=== PATIENT | male | born 1955 | race Caucasian/White ===

== ENCOUNTER → 2017-06-28 | Outpatient (CLI) | payer OTHER ==
--- NOTE | 2017-06-28 12:31 | XR ---
EXAMINATION TYPE: XR chest 2V DATE OF EXAM: 06/28/2017 COMPARISON: 06/06/2017 and 06/07/2017. HISTORY: Emphysema and prior pulmonary cavitary lesion TECHNIQUE: Frontal and lateral views of the chest are obtained. FINDINGS: There is a similar appearing moderate left pleural effusion obscuring the retrocardiac air space and left hemidiaphragm as well the costophrenic angle. Remainder the lungs are clear. Post CABG changes the mediastinum are again noted. Cardiac silhouette is enlarged and partially obscured. IMPRESSION: Redemonstration of a moderate left pleural effusion and left basilar opacity. The previo usly seen cavitary lesion is not identified radiographically and may be obscured.
== END | disposition home or self-care (01) ==
LOC: RADXRMAIN 11:20
PROVIDERS: ATTEND Internal Medicine Infectious Disease
DX: J90 Pleural effusion, not elsewhere classified (principal); R91.8 Other nonspecific abnormal finding of lung field
CPT/HCPCS: 71046

== ENCOUNTER 2017-06-30 09:35 | Inpatient (IN) | payer OTHER ==
[2017-06-30] MEDS ORDERED: IPRATROPIUM-ALBUTEROL 3 ML NEB INHALATION STA (10:22)
[2017-06-30] MEDS ORDERED: IBUPROFEN 600 MG TAB PO STA (10:22)
[2017-06-30] MEDS ORDERED: ACETAMINOPHEN TAB 500 MG TAB PO STA (10:22)
--- NOTE | 2017-06-30 10:25 | ED ---
General Adult HPI - General Chief complaint: Shortness of Breath Stated complaint: Cough Time Seen by Provider: 06/30/17 10:17 Source: patient, family, EMS, RN notes reviewed Mode of arrival: EMS Limitations: no limitations - History of Present Illness Initial comments: Patient is a pleasant 62-year-old male presenting to the emergency department with difficulty breathing. Onset of symptoms was 7-10 days ago. Patient had suspected fever this morning. Patient has been coughing with productive clear sputum. Patient was diagnosed with MRSA in his sputum several weeks ago. Patient has been on IV antibiotics through a PICC line. No chronic lung problems. Patient did have open-heart surgery around 6 weeks ago. - Related Data Home Medications Medication Instructions Recorded Confirmed ALPRAZolam [Xanax] 0.25 mg PO BID PRN 05/21/17 06/30/17 CHLORPHEN-HYDROcod 8-10mg/5ml 5 ml PO Q12HR 06/30/17 06/30/17 [Tussionex] Insulin Aspart [NovoLOG] 8 units SQ AC-TID 06/30/17 06/30/17 Insulin Aspart [NovoLOG] See Protocol SQ AC-TID PRN 06/30/17 06/30/17 Insulin Glargine,Hum.rec.anlog 25 unit SQ HS 06/30/17 06/30/17 [Lantus Solostar] Previous Rx's Medication Instructions Recorded Amiodarone [Cordarone] 200 mg PO DAILY #30 tab 06/07/17 Ascorbic Acid [Vitamin C] 500 mg PO DAILY@1200 #30 tab 06/07/17 Aspirin 325 mg PO DAILY #30 tab 06/07/17 Atorvastatin [Lipitor] 40 mg PO DAILY #30 tab 06/07/17 Clopidogrel [Plavix] 75 mg PO DAILY #30 tab 06/07/17 Ferrous Sulfate [Iron (65 MG 325 mg PO W/LUNCH #30 tab 06/07/17 Elemental)] Ipratropium-Albuterol Nebulize 3 ml INHALATION RT-Q2H PRN #120 06/07/17 [Duoneb 0.5 mg-3 mg/3 ml Soln] ampul.neb Metoprolol Tartrate [Lopressor] 75 mg PO BID #180 tab 06/07/17 Pantoprazole [Protonix] 40 mg PO AC-BRKFST #30 tablet. 06/07/17 Sertraline [Zoloft] 100 mg PO DAILY #30 tab 06/07/17 guaiFENesin [Mucinex] 1,200 mg PO Q12HR #60 tablet.er 06/07/17 metFORMIN HCL [Glucophage] 500 mg PO BID-W/MEALS #60 tab 06/07/17 Allergies Allergy/AdvReac Type Severity Reaction Status Date / Time No Known Allergies Allergy Verified 06/30/17 10:19 Review of Systems ROS Statement: Those systems with pertinent positive or pertinent negative responses have been documented in the HPI. ROS Other: All systems not noted in ROS Statement are negative. Constitutional: Reports: fever Eyes: Denies: eye pain ENT: Denies: ear pain Respiratory: Reports: cough, dyspnea Cardiovascular: Denies: chest pain Endocrine: Reports: fatigue Gastrointestinal: Denies: abdominal pain Genitourinary: Denies: urgency Musculoskeletal: Denies: back pain Skin: Denies: rash Neurological: Denies: weakness Past Medical History Past Medical History: Asthma, Diabetes Mellitus, GERD/Reflux, Hypertension, Myocardial Infarction ([place]), Pneumonia Additional Past Medical History / Comment(s): legionares disease. here with STEMI 05/21/2017, heart cath showed 4 vessel disease, patient to have open heart surgery 05/22/17 Last Myocardial Infarction Date:: 05/21/17 History of Any Multi-Drug Resistant Organisms: None Reported Past Surgical History: Adenoidectomy, Cholecystectomy, Tonsillectomy Additional Past Surgical History / Comment(s): quadruple bypass 06/02 Past Anesthesia/Blood Transfusion Reactions: No Reported Reaction Past Psychological History: Anxiety Smoking Status: Never smoker Past Alcohol Use History: None Reported Past Drug Use History: None Reported - Past Family History Father Family Medical History: Coronary Artery Disease (CAD) Additional Family Medical History / Comment(s): Myocardial infarction in his early 40s General Exam Limitations: no limitations General appearance: alert Head exam: Present: atraumatic Eye exam: Present: normal appearance, PERRL ENT exam: Present: normal oropharynx Neck exam: Present: normal inspection Respiratory exam: Present: rales, accessory muscle use, decreased breath sounds Cardiovascular Exam: Present: tachycardia GI/Abdominal exam: Present: soft. Absent: tenderness Extremities exam: Present: normal inspection. Absent: pedal edema, calf tenderness Neurological exam: Present: alert Psychiatric exam: Present: normal affect, normal mood Skin exam: Present: normal color, other (Sternal incision is clean and dry and intact.) Course Vital Signs 06/30/17 06/30/17 06/30/17 09:37 10:30 10:44 Temperature 102 F H Pulse Rate 102 H 100 Respiratory 20 22 22 Rate Blood Pressure 136/64 142/73 O2 Sat by Pulse 82 L 80 L Oximetry 06/30/17 06/30/17 06/30/17 10:47 10:57 11:00 Temperature Pulse Rate 101 H 99 98 Respiratory 22 16 Rate Blood Pressure 132/60 O2 Sat by Pulse 88 L Oximetry 06/30/17 11:42 Temperature Pulse Rate 96 Respiratory 18 Rate Blood Pressure 98/56 O2 Sat by Pulse 95 Oximetry - Reevaluation(s) Reevaluation #1: 06/30/17 11:37 Patient does meet sepsis criteria diagnosed at 1137. Blood culture and lactic acid have been ordered. IV antibiotics have been ordered. 06/30/17 11:37 Dr. Nixon has been paged. 06/30/17 11:46 Patient was reevaluated and significantly improved following nebulizer treatment. Case was discussed in detail with Dr. Abreu, who will admit his patient. EKG Findings - EKG Comments: EKG Findings:: Sinus tachycardia 102. MO 170. QRS 102. QT 356. QTc 463. Normal axis. Inferior Q waves. No acute ST change. Medical Decision Making - Lab Data Result diagrams: 06/30/17 10:34 06/30/17 10:34 Lab Results 06/30/17 06/30/17 06/30/17 Range/Units 10:34 10:34 10:34 WBC 20.7 H (3.8-10.6) k/uL RBC 4.66 (4.30-5.90) m/uL Hgb 10.8 L D (13.0-17.5) gm/dL Hct 37.3 L (39.0-53.0) % MCV 80.0 D (80.0-100.0) fL MCH 23.1 L (25.0-35.0) pg MCHC 28.9 L (31.0-37.0) g/dL RDW 15.9 H (11.5-15.5) % Plt Count 700 H (150-450) k/uL Neutrophils % 88 % Lymphocytes % 5 % Monocytes % 5 % Eosinophils % 0 % Basophils % 0 % Neutrophils # 18.1 H (1.3-7.7) k/uL Lymphocytes # 1.1 (1.0-4.8) k/uL Monocytes # 1.1 H (0-1.0) k/uL Eosinophils # 0.0 (0-0.7) k/uL Basophils # 0.1 (0-0.2) k/uL Hypochromasia Marked Poikilocytosis Moderate PT (9.0-12.0) sec INR (<1.2) APTT (22.0-30.0) sec Sodium 139 (137-145) mmol/L Potassium 4.7 (3.5-5.1) mmol/L Chloride 103 (98-107) mmol/L Carbon Dioxide 24 (22-30) mmol/L Anion Gap 12 mmol/L BUN 17 (9-20) mg/dL Creatinine 0.58 L (0.66-1.25) mg/dL Est GFR (MDRD) Af Amer >60 (>60 ml/min/1.73 sqM) Est GFR (MDRD) Non-Af >60 (>60 ml/min/1.73 sqM) Glucose 168 H (74-99) mg/dL Plasma Lactic Acid [place] (0.7-2.0) mmol/L Calcium 9.5 (8.4-10.2) mg/dL Total Bilirubin 0.6 (0.2-1.3) mg/dL AST 56 (17-59) U/L ALT 123 H (21-72) U/L Alkaline Phosphatase 159 H (38-126) U/L Total Protein 6.2 L (6.3-8.2) g/dL Albumin 3.0 L (3.5-5.0) g/dL Urine Color Urine Appearance (Clear) Urine pH (5.0-8.0) Ur Specific [place] (1.001-1.035) Urine Protein (Negative) Urine Glucose (UA) (Negative) Urine Ketones (Negative) Urine Blood (Negative) Urine Nitrite (Negative) Urine Bilirubin (Negative) Urine Urobilinogen (<2.0) mg/dL Ur Leukocyte Esterase (Negative) Urine RBC (0-5) /hpf Urine WBC (0-5) /hpf Urine Mucus (None) /hpf Influenza Type A RNA Not Detected (Not Detectd) Influenza Type B (PCR) Not Detected (Not Detectd) 06/30/17 06/30/17 06/30/17 Range/Units 10:34 10:34 10:34 WBC (3.8-10.6) k/uL RBC (4.30-5.90) m/uL Hgb (13.0-17.5) gm/dL Hct (39.0-53.0) % MCV (80.0-100.0) fL MCH (25.0-35.0) pg MCHC (31.0-37.0) g/dL RDW (11.5-15.5) % Plt Count (150-450) k/uL Neutrophils % % Lymphocytes % % Monocytes % % Eosinophils % % Basophils % % Neutrophils # (1.3-7.7) k/uL Lymphocytes # (1.0-4.8) k/uL Monocytes # (0-1.0) k/uL Eosinophils # (0-0.7) k/uL Basophils # (0-0.2) k/uL Hypochromasia Poikilocytosis PT 12.1 H (9.0-12.0) sec INR 1.3 H (<1.2) APTT 23.4 (22.0-30.0) sec Sodium (137-145) mmol/L Potassium (3.5-5.1) mmol/L Chloride (98-107) mmol/L Carbon Dioxide (22-30) mmol/L Anion Gap mmol/L BUN (9-20) mg/dL Creatinine (0.66-1.25) mg/dL Est GFR (MDRD) Af Amer (>60 ml/min/1.73 sqM) Est GFR (MDRD) Non-Af (>60 ml/min/1.73 sqM) Glucose (74-99) mg/dL Plasma Lactic Acid [place] 1.7 (0.7-2.0) mmol/L Calcium (8.4-10.2) mg/dL Total Bilirubin (0.2-1.3) mg/dL AST (17-59) U/L ALT (21-72) U/L Alkaline Phosphatase (38-126) U/L Total Protein (6.3-8.2) g/dL Albumin (3.5-5.0) g/dL Urine Color Yellow Urine Appearance Clear (Clear) Urine pH 5.0 (5.0-8.0) Ur Specific [place] 1.021 (1.001-1.035) Urine Protein 1+ H (Negative) Urine Glucose (UA) Negative (Negative) Urine Ketones Negative (Negative) Urine Blood Negative (Negative) Urine Nitrite Negative (Negative) Urine Bilirubin Negative (Negative) Urine Urobilinogen <2.0 (<2.0) mg/dL Ur Leukocyte Esterase Negative (Negative) Urine RBC 1 (0-5) /hpf Urine WBC <1 (0-5) /hpf Urine Mucus Few H (None) /hpf Influenza Type A RNA (Not Detectd) Influenza Type B (PCR) (Not Detectd) - Radiology Data Radiology results: image reviewed (Chest x-ray shows left-sided effusion. Bilateral infiltrates. Cardiomegaly.) Critical Care Time Critical Care Time: Yes Total Critical Care Time: 33 Disposition Clinical Impression: Pneumonia, Sepsis Disposition: ADMITTED IP TO THIS [facility] Condition: Serious Referrals: Scott Abreu MD [Primary Care Provider] - 1-2 days Decision Time: 11:47
[2017-06-30 10:50] LABS: Basophils # (A) 0.1 k/uL (0-0.2); Basophils % (A) 0 %; Eosinophils % (A) 0 %; HCT 37.3 % (39.0-53.0); Hypochromasia Marked; Lymphocytes # (A) 1.1 k/uL (1.0-4.8); Lymphocytes % (A) 5 %; MCH 23.1 pg (25.0-35.0); MCHC 28.9 g/dL (31.0-37.0); Mean Platelet Volume 6.2; Monocytes # (A) 1.1 k/uL (0-1.0); Monocytes % (A) 5 %; Neutrophils # (A) 18.1 k/uL (1.3-7.7); Neutrophils % (A) 88 %; Platelet Count 700 k/uL (150-450); Poikilocytosis Moderate; RBC 4.66 m/uL (4.30-5.90); RDW 15.9 % (11.5-15.5); WBC 20.7 k/uL (3.8-10.6)
[2017-06-30 10:54] LABS: Appearance,Urine Clear (Clear); Bilirubin,Urine Negative (Negative); Blood,Urine Negative (Negative); Color,Urine Yellow; Glucose,Urine (UA) Negative (Negative); Ketones,Urine Negative (Negative); Leukocyte Esterase,Urine Negative (Negative); Mucus,Urine Few /hpf; Nitrite,Urine Negative (Negative); Protein,Urine 1+ (Negative); RBC,Urine 1 /hpf (0-5); Specific Gravity,Urine 1.021 (1.001-1.035); Urobilinogen,Urine <2.0 mg/dL (<2.0); WBC,Urine <1 /hpf (0-5)
[2017-06-30 10:57] LABS: HGB 10.8 gm/dL (13.0-17.5)
[2017-06-30 11:00] LABS: INR 1.3 (<1.2); Partial Thromboplastin Time 23.4 sec (22.0-30.0); Prothrombin Time 12.1 sec (9.0-12.0)
[2017-06-30 11:06] LABS: ALT 123 U/L (21-72); AST 56 U/L (17-59); Alkaline Phosphatase 159 U/L (38-126); Anion Gap 12 mmol/L; Blood Urea Nitrogen 17 mg/dL (9-20); Calcium 9.5 mg/dL (8.4-10.2); Carbon Dioxide 24 mmol/L (22-30); Chloride 103 mmol/L (98-107); Glucose 168 mg/dL (74-99); Potassium 4.7 mmol/L (3.5-5.1); Sodium 139 mmol/L (137-145); Total Bilirubin 0.6 mg/dL (0.2-1.3); Total Protein 6.2 g/dL (6.3-8.2)
--- NOTE | 2017-06-30 11:36 | XR ---
EXAMINATION TYPE: XR chest 2V DATE OF EXAM: 06/30/2017 HISTORY: Fever. REFERENCE: Previous study dated 06/28/2017. FINDINGS: There has been a midline sternotomy. There are is a worsening left-sided pneumonia. There is developing right-sided pneumonia. The heart i s enlarged. I suspect a left effusion.. IMPRESSION: 1. WORSENING BILATERAL PNEUMONIAS. 2. CARDIOMEGALY. 3. LEFT-SIDED EFFUSION.
[2017-06-30] MEDS ORDERED: AMPICILLIN-SULBACTAM 3 GM in SODIUM CHLORIDE 0.9% 100 ML IVPB STA (11:38)
[2017-06-30] MEDS ORDERED: PIPERACILLIN-TAZOBACTAM 3.375 GM in DEXTROSE/WATER 1 50ML.BAG IVPB STA (11:44)
[2017-06-30] MEDS ORDERED: LEVOFLOXACIN 750MG-D5W PMX 750 MG in DEXTROSE/WATER 1 150ML.BAG IVPB STA (11:44)
[2017-06-30] MEDS ORDERED: IPRATROPIUM-ALBUTEROL 3 ML NEB INHALATION PRN (11:44)
[2017-06-30] MEDS ORDERED: PNEUMONIA PROTOCOL UTILIZED 1 EACH MISC PO PRN (11:44)
[2017-06-30] MEDS ORDERED: VANCOMYCIN IV PER PHARMACY 1 EACH MISC MISCELLANE PRN (11:47)
[2017-06-30] MEDS ORDERED: AMPICILLIN-SULBACTAM 3 GM in SODIUM CHLORIDE 0.9% 100 ML IVPB SCH (12:00)
[2017-06-30] MEDS: SODIUM CHLORIDE 0.9% 1,000 ML IV SCH ×2 (12:04→22:52)
[2017-06-30] MEDS ORDERED: SODIUM CHLORIDE 0.9% 250 ML IV STA (12:12)
[2017-06-30 14:49] LABS: Glucose,Whole Blood 253 mg/dL (75-99)
[2017-06-30] MEDS ORDERED: NALOXONE 0.4 MG/ML 1 ML VIAL IV PRN (15:35)
[2017-06-30] MEDS: IPRATROPIUM-ALBUTEROL 3 ML NEB INHALATION SCH ×2 (15:56→19:30)
--- NOTE | 2017-06-30 16:12 | XR ---
EXAMINATION TYPE: XR chest 1V DATE OF EXAM: 06/30/2017 COMPARISON: 06/30/2017 11:28 AM HISTORY: Pneumonia. Follow-up exam. TECHNIQUE: Single frontal view of the chest is obtained. FINDINGS: There is worsening aeration of the left midlung and upper lung with complete opacification of the left lower lung. Cardiac silhouette is now obscured. Right heart border is unchanged from the prior. Scattered alveolar opacities in the peripheral right lung are seen. Right upper lung is well aerated. Midline sternotomy wires are noted. Osseous structures appear grossly intact. IMPRESSION: Worsening and now near complete opacification of the left hemithorax. Finding may relate to pleural effusion and/or airspace disease (multifocal pneumonia) as there is no secondary signs of volume loss to suggest segmental atelectasis. Patchy alveolar opacities within the right lower lung are also again seen.
[2017-06-30] MEDS: VANCOMYCIN 2,000 MG in SODIUM CHLORIDE 0.9% 500 ML IVPB ONE ×2 (16:33→16:45)
[2017-06-30 17:13] LABS: Glucose,Whole Blood 201 mg/dL (75-99)
[2017-06-30] MEDS: INSULIN ASPART 100 UNIT/ML 1 ML 10 ML VIAL SQ SCH ×2 (17:56→21:09)
[2017-06-30] MEDS ORDERED: VANCOMYCIN 2,000 MG in SODIUM CHLORIDE 0.9% 500 ML IVPB ONE (18:00)
[2017-06-30] MEDS: HEPARIN SODIUM,PORCINE 5,000 UNIT/ML 1 ML VIAL SQ SCH (20:18)
[2017-06-30] MEDS: PIPERACILLIN-TAZOBACTAM 3.375 GM in DEXTROSE/WATER 1 50ML.BAG IVPB SCH (20:21)
[2017-06-30 20:41] LABS: Glucose,Whole Blood 177 mg/dL (75-99)
[2017-06-30 22:56] LABS: Hemoglobin A1C 5.7 % (4.0-6.0)
[2017-07-01] MEDS: VANCOMYCIN 1,750 MG in SODIUM CHLORIDE 0.9% 250 ML IVPB SCH ×3 (01:09→18:27)
[2017-07-01 04:26] LABS: Basophils % (A) 0 %; Eosinophils # (A) 0.1 k/uL (0-0.7); Eosinophils % (A) 1 %; HCT 32.3 % (39.0-53.0); Hypochromasia Marked; Lymphocytes # (A) 1.4 k/uL (1.0-4.8); Lymphocytes % (A) 10 %; MCH 22.7 pg (25.0-35.0); MCHC 28.2 g/dL (31.0-37.0); MCV 80.5 fL (80.0-100.0); Mean Platelet Volume 6.1; Monocytes # (A) 0.7 k/uL (0-1.0); Monocytes % (A) 5 %; Neutrophils # (A) 11.1 k/uL (1.3-7.7); Neutrophils % (A) 83 %; Platelet Count 602 k/uL (150-450); Poikilocytosis Moderate; RBC 4.02 m/uL (4.30-5.90); RDW 15.6 % (11.5-15.5); WBC 13.5 k/uL (3.8-10.6)
[2017-07-01 04:37] LABS: HGB 9.1 gm/dL (13.0-17.5)
[2017-07-01 04:41] LABS: Anion Gap 8 mmol/L; Blood Urea Nitrogen 17 mg/dL (9-20); Carbon Dioxide 27 mmol/L (22-30); Chloride 105 mmol/L (98-107); Glucose 111 mg/dL (74-99); Magnesium 1.6 mg/dL (1.6-2.3); Phosphorus 3.8 mg/dL (2.5-4.5); Potassium 4.1 mmol/L (3.5-5.1); Sodium 140 mmol/L (137-145)
[2017-07-01] MEDS: PIPERACILLIN-TAZOBACTAM 3.375 GM in DEXTROSE/WATER 1 50ML.BAG IVPB SCH ×3 (04:58→21:39)
[2017-07-01] MEDS: MAGNESIUM SULFATE-D5W PMX 1 GM in DEXTROSE/WATER 1 100ML.BAG IVPB SCH ×2 (06:06→07:12)
[2017-07-01 07:02] LABS: Glucose,Whole Blood 137 mg/dL (75-99)
[2017-07-01] MEDS: IPRATROPIUM-ALBUTEROL 3 ML NEB INHALATION SCH ×4 (07:39→20:07)
[2017-07-01] MEDS: SODIUM CHLORIDE 0.9% 1,000 ML IV SCH ×2 (07:59→18:27)
[2017-07-01] MEDS: INSULIN ASPART 100 UNIT/ML 1 ML 10 ML VIAL SQ SCH ×5 (08:01→21:39)
[2017-07-01] MEDS: AMIODARONE 200 MG TAB PO SCH (08:03)
[2017-07-01] MEDS: ASPIRIN 325 MG TAB PO SCH (08:03)
[2017-07-01] MEDS: ATORVASTATIN 40 MG TAB PO SCH (08:03)
[2017-07-01] MEDS: METOPROLOL TARTRATE 25 MG TAB PO SCH ×2 (08:04→21:39)
[2017-07-01] MEDS: CLOPIDOGREL 75 MG TAB PO SCH (08:04)
[2017-07-01] MEDS: HEPARIN SODIUM,PORCINE 5,000 UNIT/ML 1 ML VIAL SQ SCH ×2 (08:04→21:39)
[2017-07-01] MEDS: guaiFENesin 600 MG TABLET.ER PO SCH ×2 (08:04→21:39)
[2017-07-01] MEDS: SERTRALINE 100 MG TAB PO SCH (08:05)
[2017-07-01] MEDS: PANTOPRAZOLE 40 MG/10 ML VIAL IV SCH (08:09)
--- NOTE | 2017-07-01 10:07 | P.GSCN ---
History of Present Illness Consult date: 07/01/17 Reason for Consult: Recent coronary artery bypass grafting Requesting physician: Alexandre Mitchell History of present illness: This 62-year-old gentleman who follows with Dr. Abreu on an outpatient basis and who has a previous medical history of urgent coronary artery bypass grafting on 05/22/2017, non-ST elevation myocardial infarction, hypertension, hyperlipidemia, insulin-dependent diabetes mellitus, anxiety, family history of premature coronary artery disease, COPD, paroxysmal atrial fibrillation, left sided thoracentesis on 05/30/2017 with fluid culture positive for alpha hemolytic strep and enterococcus faecalis, and pneumonia requiring placement of PICC line for home IV antibiotic therapy presented to the emergency room last night with complaints of increased shortness of breath over the last several days, productive cough with yellow sputum, subjective fevers, and generalized pain/achiness all over. He was admitted to the intensive care unit for close monitoring and IV antibiotics. Cardiothoracic surgery was consulted regarding recent open heart and the fact that the patient is known to us. Review of Systems All systems: negative - Constitutional Reports as per HPI, Reports chills, Reports fatigue, Reports fever, Reports poor appetite - Respiratory Reports as per HPI, Reports cough with sputum Past Medical History Past Medical History: Asthma, Coronary Artery Disease (CAD), COPD, Diabetes Mellitus, GERD/Reflux, Hypertension, Myocardial Infarction ([place]), Pneumonia Additional Past Medical History / Comment(s): legionares disease. here with STEMI 05/21/2017, heart cath showed 4 vessel disease, patient to have open heart surgery 05/22/17 Last Myocardial Infarction Date:: 05/21/17 History of Any Multi-Drug Resistant Organisms: None Reported Past Surgical History: Adenoidectomy, Cholecystectomy, Coronary Bypass/CABG, Tonsillectomy Additional Past Surgical History / Comment(s): quadruple bypass 06/02, thoracentesis 05/30/2017, PICC line placement. Past Anesthesia/Blood Transfusion Reactions: No Reported Reaction Past Psychological History: Anxiety Additional Psychological History / Comment(s): lives in the home with the . 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 No ill contacts Smoking Status: Never smoker Past Alcohol Use History: None Reported Past Drug Use History: None Reported - Past Family History Father Family Medical History: Coronary Artery Disease (CAD) Additional Family Medical History / Comment(s): Myocardial infarction in his early 40s Medications and Allergies Home Medications Medication Instructions Recorded Confirmed Type ALPRAZolam [Xanax] 0.25 mg PO BID PRN 05/21/17 06/30/17 History Amiodarone [Cordarone] 200 mg PO DAILY #30 tab 06/07/17 06/30/17 Rx Ascorbic Acid [Vitamin C] 500 mg PO DAILY@1200 #30 tab 06/07/17 06/30/17 Rx Aspirin 325 mg PO DAILY #30 tab 06/07/17 06/30/17 Rx Atorvastatin [Lipitor] 40 mg PO DAILY #30 tab 06/07/17 06/30/17 Rx Clopidogrel [Plavix] 75 mg PO DAILY #30 tab 06/07/17 06/30/17 Rx Ferrous Sulfate [Iron (65 MG 325 mg PO W/LUNCH #30 tab 06/07/17 06/30/17 Rx Elemental)] Ipratropium-Albuterol Nebulize 3 ml INHALATION RT-Q2H PRN #120 06/07/17 Rx [Duoneb 0.5 mg-3 mg/3 ml Soln] ampul.neb Metoprolol Tartrate [Lopressor] 75 mg PO BID #180 tab 06/07/17 06/30/17 Rx Pantoprazole [Protonix] 40 mg PO AC-BRKFST #30 tablet.dr 06/07/17 06/30/17 Rx Sertraline [Zoloft] 100 mg PO DAILY #30 tab 06/07/17 06/30/17 Rx guaiFENesin [Mucinex] 1,200 mg PO Q12HR #60 tablet.er 06/07/17 06/30/17 Rx metFORMIN HCL [Glucophage] 500 mg PO BID-W/MEALS #60 tab 06/07/17 06/30/17 Rx CHLORPHEN-HYDROcod 8-10mg/5ml 5 ml PO Q12HR 06/30/17 06/30/17 History [Tussionex] Insulin Aspart [NovoLOG] 8 units SQ AC-TID 06/30/17 06/30/17 History Insulin Aspart [NovoLOG] See Protocol SQ AC-TID PRN 06/30/17 06/30/17 History Insulin Glargine,Hum.rec.anlog 25 unit SQ HS 06/30/17 06/30/17 History [Lantus Solostar] Allergies Allergy/AdvReac Type Severity Reaction Status Date / Time No Known Allergies Allergy Verified 06/30/17 10:19 Surgical - Exam Vital Signs Temp Pulse Resp BP Pulse Ox 102 F H 102 H 20 136/64 82 L 06/30/17 09:37 06/30/17 09:37 06/30/17 09:37 06/30/17 09:37 06/30/17 09:37 - General well developed, well nourished, no distress, no pain, chronically ill, obese - Eyes PERRL, normal ocular movement - ENT no hearing loss - Neck no masses, no bruits, trachea midline - Respiratory Lungs sounds coarse bilaterally. Respirations even, slightly tachypneic, currently on 100% nonrebreather with oxygen saturation 93%. - Cardiovascular S1, S2 present. Regular rate and rhythm, sinus rhythm on telemetry. Palpable peripheral pulses bilaterally. No edema present. No calf pain or tenderness noted. - Abdomen Abdomen: soft, non tender, bowel sounds - Genitourinary Deferred - Rectum Deferred - Integumentary Anterior chest incision well approximated. Left lower extremity EVH site well approximated. Skin warm, dry, pink with evidence of good perfusion. - Neurologic normal coordination, normal sensation - Musculoskeletal normal gait, normal posture - Psychiatric oriented to time, oriented to person, oriented to place, speech is normal, memory intact Results - Labs 07/01/17 03:55 07/01/17 03:55 Abnormal Lab Results - Last 24 Hours (Table) 06/30/17 06/30/17 06/30/17 Range/Units 10:34 10:34 10:34 WBC 20.7 H (3.8-10.6) k/uL RBC (4.30-5.90) m/uL Hgb 10.8 L D (13.0-17.5) gm/dL Hct 37.3 L (39.0-53.0) % MCH 23.1 L (25.0-35.0) pg MCHC 28.9 L (31.0-37.0) g/dL RDW 15.9 H (11.5-15.5) % Plt Count 700 H (150-450) k/uL Neutrophils # 18.1 H (1.3-7.7) k/uL Monocytes # 1.1 H (0-1.0) k/uL PT 12.1 H (9.0-12.0) sec INR 1.3 H (<1.2) Creatinine 0.58 L (0.66-1.25) mg/dL Glucose 168 H (74-99) mg/dL POC Glucose (mg/dL) (75-99) mg/dL ALT 123 H (21-72) U/L Alkaline Phosphatase 159 H (38-126) U/L Total Protein 6.2 L (6.3-8.2) g/dL Albumin 3.0 L (3.5-5.0) g/dL Urine Protein (Negative) Urine Mucus (None) /hpf 06/30/17 06/30/17 06/30/17 Range/Units 10:34 14:46 17:10 WBC (3.8-10.6) k/uL RBC (4.30-5.90) m/uL Hgb (13.0-17.5) gm/dL Hct (39.0-53.0) % MCH (25.0-35.0) pg MCHC (31.0-37.0) g/dL RDW (11.5-15.5) % Plt Count (150-450) k/uL Neutrophils # (1.3-7.7) k/uL Monocytes # (0-1.0) k/uL PT (9.0-12.0) sec INR (<1.2) Creatinine (0.66-1.25) mg/dL Glucose (74-99) mg/dL POC Glucose (mg/dL) 253 H 201 H (75-99) mg/dL ALT (21-72) U/L Alkaline Phosphatase (38-126) U/L Total Protein (6.3-8.2) g/dL Albumin (3.5-5.0) g/dL Urine Protein 1+ H (Negative) Urine Mucus Few H (None) /hpf 06/30/17 07/01/17 07/01/17 Range/Units 20:40 03:55 03:55 WBC 13.5 H (3.8-10.6) k/uL RBC 4.02 L (4.30-5.90) m/uL Hgb 9.1 L D (13.0-17.5) gm/dL Hct 32.3 L (39.0-53.0) % MCH 22.7 L (25.0-35.0) pg MCHC 28.2 L (31.0-37.0) g/dL RDW 15.6 H (11.5-15.5) % Plt Count 602 H (150-450) k/uL Neutrophils # 11.1 H (1.3-7.7) k/uL Monocytes # (0-1.0) k/uL PT (9.0-12.0) sec INR (<1.2) Creatinine 0.60 L (0.66-1.25) mg/dL Glucose 111 H (74-99) mg/dL POC Glucose (mg/dL) 177 H (75-99) mg/dL ALT (21-72) U/L Alkaline Phosphatase (38-126) U/L Total Protein (6.3-8.2) g/dL Albumin (3.5-5.0) g/dL Urine Protein (Negative) Urine Mucus (None) /hpf 07/01/17 Range/Units 07:00 WBC (3.8-10.6) k/uL RBC (4.30-5.90) m/uL Hgb (13.0-17.5) gm/dL Hct (39.0-53.0) % MCH (25.0-35.0) pg MCHC (31.0-37.0) g/dL RDW (11.5-15.5) % Plt Count (150-450) k/uL Neutrophils # (1.3-7.7) k/uL Monocytes # (0-1.0) k/uL PT (9.0-12.0) sec INR (<1.2) Creatinine (0.66-1.25) mg/dL Glucose (74-99) mg/dL POC Glucose (mg/dL) 137 H (75-99) mg/dL ALT (21-72) U/L Alkaline Phosphatase (38-126) U/L Total Protein (6.3-8.2) g/dL Albumin (3.5-5.0) g/dL Urine Protein (Negative) Urine Mucus (None) /hpf Microbiology - Last 24 Hours (Table) 06/30/17 10:34 Urine Culture - Preliminary Urine,Voided Diabetes panel 06/30/17 06/30/17 07/01/17 Range/Units 10:34 10:34 03:55 Sodium 139 140 (137-145) mmol/L Potassium 4.7 4.1 (3.5-5.1) mmol/L Chloride 103 105 (98-107) mmol/L Carbon Dioxide 24 27 (22-30) mmol/L BUN 17 17 (9-20) mg/dL Creatinine 0.58 L 0.60 L (0.66-1.25) mg/dL Glucose 168 H 111 H (74-99) mg/dL Hemoglobin A1c 5.7 (4.0-6.0) % Calcium 9.5 9.0 (8.4-10.2) mg/dL AST 56 (17-59) U/L ALT 123 H (21-72) U/L Alkaline Phosphatase 159 H (38-126) U/L Total Protein 6.2 L (6.3-8.2) g/dL Albumin 3.0 L (3.5-5.0) g/dL Calcium panel 06/30/17 07/01/17 Range/Units 10:34 03:55 Calcium 9.5 9.0 (8.4-10.2) mg/dL Phosphorus 3.8 (2.5-4.5) mg/dL Albumin 3.0 L (3.5-5.0) g/dL Pituitary panel 06/30/17 07/01/17 Range/Units 10:34 03:55 Sodium 139 140 (137-145) mmol/L Potassium 4.7 4.1 (3.5-5.1) mmol/L Chloride 103 105 (98-107) mmol/L Carbon Dioxide 24 27 (22-30) mmol/L BUN 17 17 (9-20) mg/dL Creatinine 0.58 L 0.60 L (0.66-1.25) mg/dL Glucose 168 H 111 H (74-99) mg/dL Calcium 9.5 9.0 (8.4-10.2) mg/dL Adrenal panel 06/30/17 07/01/17 Range/Units 10:34 03:55 Sodium 139 140 (137-145) mmol/L Potassium 4.7 4.1 (3.5-5.1) mmol/L Chloride 103 105 (98-107) mmol/L Carbon Dioxide 24 27 (22-30) mmol/L BUN 17 17 (9-20) mg/dL Creatinine 0.58 L 0.60 L (0.66-1.25) mg/dL Glucose 168 H 111 H (74-99) mg/dL Calcium 9.5 9.0 (8.4-10.2) mg/dL Total Bilirubin 0.6 (0.2-1.3) mg/dL AST 56 (17-59) U/L ALT 123 H (21-72) U/L Alkaline Phosphatase 159 H (38-126) U/L Total Protein 6.2 L (6.3-8.2) g/dL Albumin 3.0 L (3.5-5.0) g/dL - Imaging Chest x-ray: report reviewed, image reviewed Assessment and Plan (1) Hyperlipidemia Current Visit: Yes Status: Chronic Code(s): E78.5 - HYPERLIPIDEMIA, UNSPECIFIED SNOMED Code(s): 37440596 (2) History of myocardial infarction Current Visit: No Status: Resolved Code(s): I25.2 - OLD MYOCARDIAL INFARCTION SNOMED Code(s): 558609270 (3) Pneumonia Current Visit: Yes Status: Acute Code(s): J18.9 - PNEUMONIA, UNSPECIFIED ORGANISM SNOMED Code(s): 113132313 (4) Coronary artery disease Current Visit: No Status: Chronic Code(s): I25.10 - ATHSCL HEART DISEASE OF [place] CORONARY ARTERY W/O ANG PCTRS SNOMED Code(s): 90367096 (5) Status post coronary artery bypass grafting Current Visit: No Status: Resolved Code(s): Z95.1 - PRESENCE OF AORTOCORONARY BYPASS GRAFT SNOMED Code(s): 187640750 (6) Anxiety Current Visit: Yes Status: Chronic Code(s): F41.9 - ANXIETY DISORDER, UNSPECIFIED SNOMED Code(s): 00390343 (7) Diabetes mellitus type 2 in obese Current Visit: Yes Status: Chronic Code(s): E11.69 - TYPE 2 DIABETES MELLITUS WITH OTHER SPECIFIED COMPLICATION; E66.9 - OBESITY, UNSPECIFIED SNOMED Code(s): 38257696 (8) Hypertension Current Visit: Yes Status: Chronic Code(s): I10 - ESSENTIAL (PRIMARY) HYPERTENSION SNOMED Code(s): 77320532 (9) Obesity (BMI 30.0-34.9) Current Visit: Yes Status: Chronic Code(s): E66.9 - OBESITY, UNSPECIFIED SNOMED Code(s): 013610117 Plan: The patient was seen and examined at the bedside. His chart/diagnostics were reviewed. Recommend medical management per primary care service. Antibiotics per primary/pulmonology. Home medications were ordered. Continue aspirin, statin, beta ewa. Wean O2 as tolerated. This gentleman since she is appear to be primarily infection, pulmonary in nature. We will continue to follow and make more recommendations as necessary. Thank you for this consult. Please call us with any concerns. Time with Patient: Greater than 30
--- NOTE | 2017-07-01 11:32 | P.CNPUL ---
History of Present Illness Consult date: 07/01/17 Reason for consult: dyspnea, cough, hypoxemia, pneumonia, abnormal CXR/CT Chief complaint: Shortness of breath History of present illness: Consult dated 07/01/2017 62-year-old male who presented to the emergency department on June 30 complaining of difficulty breathing. He apparently had complaints for about 7- 10 days prior to admission. Apparently things got worse and he was seen and admitted to the hospital with bilateral pneumonia. X-rays chest x-ray has worsened. Currently he is on a partial rebreather. In addition to short of breath shortness of breath, he had coughing with clear sputum production. He apparently was diagnosed as having MRSA a couple weeks ago. He has been on IV antibiotics through a PICC line. Has no history of any chronic lung disease. Did have open heart surgery about 6 weeks ago. His primary care physician is Dr. Gary Abreu. The patient's currently getting appointment 9 IV at 100 mL an hour. He has not received any blood pressure elevating medications. His lactic acid was 1.7. He 's got bilateral infiltrates on chest x-ray, left greater than right. His admission diagnosis was bilateral pneumonia and possible sepsis. He has a history of asthma diabetes gastroesophageal reflux disease hypertension myocardial infarction and pneumonia. In addition, he apparently has a history of ST segment elevation myocardial infarction Legionella's disease and recent bypass grafting on 05/22/2017. His bypass was a four-vessel bypass. He is a lifelong nonsmoker. Review of Systems A 12 point review of system is positive for shortness of breath chest congestion cough and phlegm production. The rest of the 12 point review of system is unremarkable. Past Medical History Past Medical History: Asthma, Coronary Artery Disease (CAD), COPD, Diabetes Mellitus, GERD/Reflux, Hypertension, Myocardial Infarction (MA), Pneumonia Additional Past Medical History / Comment(s): legionares disease. here with STEMI 05/21/2017, heart cath showed 4 vessel disease, patient to have open heart surgery 05/22/17 Last Myocardial Infarction Date:: 05/21/17 History of Any Multi-Drug Resistant Organisms: None Reported Past Surgical History: Adenoidectomy, Cholecystectomy, Coronary Bypass/CABG, Tonsillectomy Additional Past Surgical History / Comment(s): quadruple bypass 06/02, thoracentesis 05/30/2017, PICC line placement. Past Anesthesia/Blood Transfusion Reactions: No Reported Reaction Past Psychological History: Anxiety Additional Psychological History / Comment(s): lives in the home with the . 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 No ill contacts Smoking Status: Never smoker Past Alcohol Use History: None Reported Past Drug Use History: None Reported - Past Family History Father Family Medical History: Coronary Artery Disease (CAD) Additional Family Medical History / Comment(s): Myocardial infarction in his early 40s Medications and Allergies Home Medications Medication Instructions Recorded Confirmed Type ALPRAZolam [Xanax] 0.25 mg PO BID PRN 05/21/17 06/30/17 History Amiodarone [Cordarone] 200 mg PO DAILY #30 tab 06/07/17 06/30/17 Rx Ascorbic Acid [Vitamin C] 500 mg PO DAILY@1200 #30 tab 06/07/17 06/30/17 Rx Aspirin 325 mg PO DAILY #30 tab 06/07/17 06/30/17 Rx Atorvastatin [Lipitor] 40 mg PO DAILY #30 tab 06/07/17 06/30/17 Rx Clopidogrel [Plavix] 75 mg PO DAILY #30 tab 06/07/17 06/30/17 Rx Ferrous Sulfate [Iron (65 MG 325 mg PO W/LUNCH #30 tab 06/07/17 06/30/17 Rx Elemental)] Ipratropium-Albuterol Nebulize 3 ml INHALATION RT-Q2H PRN #120 06/07/17 Rx [Duoneb 0.5 mg-3 mg/3 ml Soln] ampul.neb Metoprolol Tartrate [Lopressor] 75 mg PO BID #180 tab 06/07/17 06/30/17 Rx Pantoprazole [Protonix] 40 mg PO AC-BRKFST #30 tablet.dr 06/07/17 06/30/17 Rx Sertraline [Zoloft] 100 mg PO DAILY #30 tab 06/07/17 06/30/17 Rx guaiFENesin [Mucinex] 1,200 mg PO Q12HR #60 tablet.er 06/07/17 06/30/17 Rx metFORMIN HCL [Glucophage] 500 mg PO BID-W/MEALS #60 tab 06/07/17 06/30/17 Rx CHLORPHEN-HYDROcod 8-10mg/5ml 5 ml PO Q12HR 06/30/17 06/30/17 History [Tussionex] Insulin Aspart [NovoLOG] 8 units SQ AC-TID 06/30/17 06/30/17 History Insulin Aspart [NovoLOG] See Protocol SQ AC-TID PRN 06/30/17 06/30/17 History Insulin Glargine,Hum.rec.anlog 25 unit SQ HS 06/30/17 06/30/17 History [Lantus Solostar] Allergies Allergy/AdvReac Type Severity Reaction Status Date / Time No Known Allergies Allergy Verified 06/30/17 10:19 Physical Exam Osteopathic Statement: *. No significant issues noted on an osteopathic structural exam other than those noted in the History and Physical/Consult. Vitals: Vital Signs Temp Pulse Resp BP Pulse Ox 07/01/17 09:00 90 24 136/64 98 07/01/17 08:00 98 24 139/64 91 L 07/01/17 07:52 97 07/01/17 07:40 94 94 L 07/01/17 07:00 92 24 126/61 94 L 07/01/17 06:00 92 30 H 138/67 93 L 07/01/17 05:00 92 24 139/74 93 L 07/01/17 04:00 98.8 F 80 24 124/65 94 L 07/01/17 03:00 83 27 H 117/62 94 L 07/01/17 02:00 79 25 H 112/58 97 07/01/17 01:00 77 26 H 125/60 96 07/01/17 00:00 98.4 F 74 23 116/61 95 06/30/17 23:46 75 111/60 95 06/30/17 23:00 73 16 111/60 94 L 06/30/17 22:00 72 14 113/59 95 06/30/17 21:00 75 16 105/57 97 06/30/17 20:00 97.8 F 81 106/56 97 06/30/17 19:42 72 06/30/17 19:30 74 06/30/17 19:00 72 112/64 97 06/30/17 18:00 73 90/52 93 L 01/14/18 17:50 73 94/53 95 01/14/18 17:40 75 94/53 93 L 06/30/17 17:30 75 94/53 94 L 06/30/17 17:20 74 94/53 93 L 06/30/17 17:10 72 94/53 95 06/30/17 17:00 97.0 F L 78 94/53 95 06/30/17 16:50 74 103/52 97 06/30/17 16:40 73 103/52 96 06/30/17 16:30 79 103/52 96 06/30/17 16:20 78 103/52 97 06/30/17 16:10 75 103/52 95 06/30/17 16:06 79 06/30/17 16:00 76 103/52 93 L 06/30/17 15:56 96 06/30/17 15:50 77 117/54 93 L 06/30/17 15:40 73 117/54 94 L 06/30/17 15:30 77 117/54 94 L 06/30/17 15:20 79 117/54 93 L 06/30/17 15:10 80 117/54 92 L 06/30/17 15:00 97.4 F L 78 117/54 91 L 06/30/17 14:50 79 98 06/30/17 14:49 80 06/30/17 14:30 98.1 F 89 20 115/70 98 06/30/17 13:52 98.1 F 87 20 103/56 98 06/30/17 13:00 86 18 123/58 92 L 06/30/17 12:14 97.4 F L 22 94 L 06/30/17 12:10 98.1 F 89 20 109/56 87 L 06/30/17 11:46 92 24 92 L 06/30/17 11:42 96 18 98/56 95 Intake and Output 06/30/17 07/01/17 07/01/17 22:59 06:59 14:59 Intake Total 1146.5 750 312.5 Output Total 175 475 250 Balance 971.5 275 62.5 Intake: IV 400 750 212.5 Sodium Chloride 0.9% 1, 400 500 212.5 000 ml @ 100 mls/hr IV . Q10H [facility] Rx#:[id number] Vancomycin 1,750 mg In 250 Sodium Chloride 0.9% 250 ml @ 125 mls/hr IVPB Q8H [facility] Rx#:[id number] Intake, IV Titration 746.5 100 Amount Piperacillin-Tazobactam 3 12.5 .375 gm In Dextrose/Water 1 50ml.bag @ 12.5 mls/hr IVPB Q8H [facility] Rx#: [id number] Sodium Chloride 0.9% 1, 400 100 000 ml @ 100 mls/hr IV . Q10H [facility] Rx#:[id number] Vancomycin 2,000 mg In 334 Sodium Chloride 0.9% 500 ml @ 167 mls/hr IVPB ONCE ONE Rx#:[id number] Output: Urine 175 475 250 Other: Voiding Method Urinal Urinal Urinal # Voids 0 0 0 Weight 109 kg 110.3 kg No acute distress, oriented 3. Frequent coughing and spitting up phlegm HEENT examination is grossly unremarkable. Mucous membranes are moist. No oral lesions. Neck supple. Full range of motion. No adenopathy thyromegaly or neck vein distention. Cardiovascular examination reveals regular rhythm rate. S1-S2 normal. No S3 or S4. No discernible murmur noted. Lungs reveal diminished bilateral breath sounds. Breath sounds are coarse. There are diffuse crackles. Breath sounds are equal bilaterally. Abdomen soft bowel sounds are heard. No masses or tenderness. Extremities are intact. No cyanosis clubbing or edema. Skin is without rash or lesion. Neurologic examination is brief but nonfocal. Results - Laboratory Findings CBC and BMP: 07/01/17 03:55 07/01/17 03:55 PT/INR, D-dimer PT 12.1 sec (9.0-12.0) H 06/30/17 10:34 INR 1.3 (<1.2) H 06/30/17 10:34 Abnormal lab findings: Abnormal Labs 06/30/17 06/30/17 06/30/17 10:34 10:34 10:34 WBC 20.7 H RBC Hgb 10.8 L D Hct 37.3 L MCH 23.1 L MCHC 28.9 L RDW 15.9 H Plt Count 700 H Neutrophils # 18.1 H Monocytes # 1.1 H PT 12.1 H INR 1.3 H Creatinine 0.58 L Glucose 168 H POC Glucose (mg/dL) ALT 123 H Alkaline Phosphatase 159 H Total Protein 6.2 L Albumin 3.0 L Urine Protein Urine Mucus 06/30/17 06/30/17 06/30/17 10:34 14:46 17:10 WBC RBC Hgb Hct MCH MCHC RDW Plt Count Neutrophils # Monocytes # PT INR Creatinine Glucose POC Glucose (mg/dL) 253 H 201 H ALT Alkaline Phosphatase Total Protein Albumin Urine Protein 1+ H Urine Mucus Few H 06/30/17 07/01/17 07/01/17 20:40 03:55 03:55 WBC 13.5 H RBC 4.02 L Hgb 9.1 L D Hct 32.3 L MCH 22.7 L MCHC 28.2 L RDW 15.6 H Plt Count 602 H Neutrophils # 11.1 H Monocytes # PT INR Creatinine 0.60 L Glucose 111 H POC Glucose (mg/dL) 177 H ALT Alkaline Phosphatase Total Protein Albumin Urine Protein Urine Mucus 07/01/17 07:00 WBC RBC Hgb Hct MCH MCHC RDW Plt Count Neutrophils # Monocytes # PT INR Creatinine Glucose POC Glucose (mg/dL) 137 H ALT Alkaline Phosphatase Total Protein Albumin Urine Protein Urine Mucus - Diagnostic Findings Chest x-ray: image reviewed (Chest x-rays labs and medications are all reviewed. ) Assessment and Plan (1) MRSA infection Current Visit: Yes Status: Acute Code(s): A49.02 - METHICILLIN RESIS STAPH INFECTION, UNSP SITE SNOMED Code(s): 481481918 (2) Legionnaires' disease Current Visit: Yes Status: Acute Code(s): A48.1 - LEGIONNAIRES' DISEASE SNOMED Code(s): 604112351 (3) Pneumonia Current Visit: Yes Status: Acute Code(s): J18.9 - PNEUMONIA, UNSPECIFIED ORGANISM SNOMED Code(s): 871610761 (4) Sepsis Current Visit: Yes Status: Acute Code(s): A41.9 - SEPSIS, UNSPECIFIED ORGANISM SNOMED Code(s): 15213993 (5) Diabetes mellitus type 2 in obese Current Visit: Yes Status: Chronic Code(s): E11.69 - TYPE 2 DIABETES MELLITUS WITH OTHER SPECIFIED COMPLICATION; E66.9 - OBESITY, UNSPECIFIED SNOMED Code(s): 99178141 (6) Hyperlipidemia Current Visit: Yes Status: Chronic Code(s): E78.5 - HYPERLIPIDEMIA, UNSPECIFIED SNOMED Code(s): 76377087 (7) Hypertension Current Visit: Yes Status: Chronic Code(s): I10 - ESSENTIAL (PRIMARY) HYPERTENSION SNOMED Code(s): 47561069 (8) Obesity (BMI 30.0-34.9) Current Visit: Yes Status: Chronic Code(s): E66.9 - OBESITY, UNSPECIFIED SNOMED Code(s): 948557693 (9) Non-STEMI (non-ST elevated myocardial infarction) Current Visit: No Status: Acute Code(s): I21.4 - NON-ST ELEVATION (NSTEMI) MYOCARDIAL INFARCTION SNOMED Code(s): 833493720 (10) Paroxysmal atrial fibrillation with rapid ventricular response Current Visit: No Status: Acute Code(s): I48.0 - PAROXYSMAL ATRIAL FIBRILLATION SNOMED Code(s): 977927497 (11) Pleural effusion on left Current Visit: No Status: Acute Code(s): J90 - PLEURAL EFFUSION, NOT ELSEWHERE CLASSIFIED SNOMED Code(s): 14563705 (12) ST elevation myocardial infarction (STEMI) Current Visit: No Status: Acute Code(s): I21.3 - ST ELEVATION (STEMI) MYOCARDIAL INFARCTION OF [facility] SITE SNOMED Code(s): 439524686 (13) Coronary artery disease Current Visit: No Status: Chronic Code(s): I25.10 - ATHSCL HEART DISEASE OF [place] CORONARY ARTERY W/O ANG PCTRS SNOMED Code(s): 36831553 Plan: Plan dated 07/01/2017 We'll make sure that the patient has an infectious disease consultation. Currently the patient seems relatively stable. Should stay here in the ICU. Will have labs and x-rays in the morning. I review the medications. We'll see what antibiotics he was on as an outpatient. Additional recommendations and suggestions are forthcoming. We'll make sure he is updrafts. His situation may take a turn for the worse and he may require intubation and mechanical ventilation. Time with Patient: Greater than 30
--- NOTE | 2017-07-01 11:52 | P.CONS ---
History of Present Illness - Reason for Consult Consult date: 07/01/17 Sepsis - History of Present Illness This is a 62 year old male presented to hospital on 05/21/2017 with chest pain and found to have acute myocardial infarction. Heart catheterization found evidence of multivessel coronary artery disease and he is status post coronary artery bypass grafting procedure. He said difficulties postoperatively with bleeding to require somewhat protracted ventilation. He did require repeat surgery for control of the bleeding. He developed cardiac dysrhythmia with atrial fibrillation requiring amiodarone treatment. The patient also developed difficulties with his left chest. A large fluid collection was found and he underwent thoracentesis he was having some difficulty with shortness of breath and consequently further imaging was performed. Computed tomography scan showed evidence of the left lower lobe infiltration as well as some right upper lobe infiltrate. Because of and leukocytosis the infectious diseases consultation was requested. He required placement of percutaneous drainage of the empyema. He was eventually stabilized and discharged home on June 07. He was continued on IV antibioticsat an [facility] office on a daily basis for enterococcus and alpha hemolytic strep empyema. Patient last saw Dr. Nixon on Saturday any extended IV antibiotic therapy for another week. Patient states he was feeling fine when he was in the office on Saturday and also on Saturday. But on Saturday morning he started coughing around 3 in the morning and was clear sputum production the change to yellow and he felt exhausted. He was having difficulty breathing and his called Dr. Nixon recommended that he come into the evaluated. EMS was called and patient was transferred to [facility] emergency center. Chest x-ray initially showed worsening of bilateral pneumonias, cardiomegaly and left pleural effusion. Repeat chest x- ray showed worsening and near complete obesity of the left hemithorax, pleural effusion and multifocal pneumonia in differential. Patchy alveolar opacity within the right lower lobe. He was found to be febrile which he denied having any fevers chills or rigors at home. His pulse ox was down to 82% and he was hypotensive. White count was elevated at 20.7 but improved to 13.5. ALT was 123 and alkaline phosphatase 159. Albumin is 3. Urinalysis was clear, protein 1+, nitrate and leukoesterase negative. Urine culture is in progress. Blood culture and sputum culture status received. Influenza testing was negative. ALT is 123 and alkaline phosphatase 159. Albumin is 3. Patient has been admitted into the intensive care unit. He has not required vasopressors. Consult in place with pulmonary medicine and CAT scan of the chest has been ordered. Consult in place with cardiothoracic surgery. Patient states that he is feeling a little better than not is crackling in his chest. Review of Systems All systems: negative Constitutional: Reports fever, Reports poor appetite, Denies chills Eyes: denies blurred vision, denies pain Ears, nose, mouth and throat: Denies headache, Denies sore throat Cardiovascular: Reports decreased exercise tolerance, Reports dyspnea on exertion, Reports shortness of breath, Denies chest pain, Denies edema, Denies leg edema, Denies lightheadedness, Denies syncope Respiratory: Reports congestion, Reports cough, Reports cough with sputum, Reports dyspnea, Denies excessive sputum, Denies hemoptysis, Denies home oxygen Gastrointestinal: Denies abdominal pain, Denies diarrhea, Denies nausea, Denies vomiting Genitourinary: Denies dysuria Musculoskeletal: Denies myalgias Integumentary: Denies pruritus, Denies rash Neurological: Denies numbness, Denies weakness Psychiatric: Denies anxiety, Denies depression Endocrine: Denies fatigue, Denies weight change Past Medical History Past Medical History: Asthma, Coronary Artery Disease (CAD), COPD, Diabetes Mellitus, GERD/Reflux, Hypertension, Myocardial Infarction ([place]), Pneumonia Additional Past Medical History / Comment(s): Legionnaires' disease, STEMI 2016, heart cath showed 4 vessel disease, patient to have open heart surgery 05/22/17 Last Myocardial Infarction Date:: 05/21/17 History of Any Multi-Drug Resistant Organisms: None Reported Past Surgical History: Adenoidectomy, Cholecystectomy, Coronary Bypass/CABG, Tonsillectomy Additional Past Surgical History / Comment(s): quadruple bypass 06/02, thoracentesis 05/30/2017, PICC line placement. Past Anesthesia/Blood Transfusion Reactions: No Reported Reaction Past Psychological History: Anxiety Additional Psychological History / Comment(s): lives in the home with the . 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 No ill contacts Smoking Status: Never smoker Past Alcohol Use History: None Reported Past Drug Use History: None Reported - Past Family History Father Family Medical History: Coronary Artery Disease (CAD) Additional Family Medical History / Comment(s): Myocardial infarction in his early 40s Medications and Allergies Home Medications Medication Instructions Recorded Confirmed Type ALPRAZolam [Xanax] 0.25 mg PO BID PRN 05/21/17 06/30/17 History Amiodarone [Cordarone] 200 mg PO DAILY #30 tab 06/07/17 06/30/17 Rx Ascorbic Acid [Vitamin C] 500 mg PO DAILY@1200 #30 tab 06/07/17 06/30/17 Rx Aspirin 325 mg PO DAILY #30 tab 06/07/17 06/30/17 Rx Atorvastatin [Lipitor] 40 mg PO DAILY #30 tab 06/07/17 06/30/17 Rx Clopidogrel [Plavix] 75 mg PO DAILY #30 tab 06/07/17 06/30/17 Rx Ferrous Sulfate [Iron (65 MG 325 mg PO W/LUNCH #30 tab 06/07/17 06/30/17 Rx Elemental)] Ipratropium-Albuterol Nebulize 3 ml INHALATION RT-Q2H PRN #120 06/07/17 Rx [Duoneb 0.5 mg-3 mg/3 ml Soln] ampul.neb Metoprolol Tartrate [Lopressor] 75 mg PO BID #180 tab 06/07/17 06/30/17 Rx Pantoprazole [Protonix] 40 mg PO AC-BRKFST #30 tablet.dr 06/07/17 06/30/17 Rx Sertraline [Zoloft] 100 mg PO DAILY #30 tab 06/07/17 06/30/17 Rx guaiFENesin [Mucinex] 1,200 mg PO Q12HR #60 tablet.er 06/07/17 06/30/17 Rx metFORMIN HCL [Glucophage] 500 mg PO BID-W/MEALS #60 tab 06/07/17 06/30/17 Rx CHLORPHEN-HYDROcod 8-10mg/5ml 5 ml PO Q12HR 06/30/17 06/30/17 History [Tussionex] Insulin Aspart [NovoLOG] 8 units SQ AC-TID 06/30/17 06/30/17 History Insulin Aspart [NovoLOG] See Protocol SQ AC-TID PRN 06/30/17 06/30/17 History Insulin Glargine,Hum.rec.anlog 25 unit SQ HS 06/30/17 06/30/17 History [Leroyripus Vanialeigh annrichelle] Allergies Allergy/AdvReac Type Severity Reaction Status Date / Time No Known Allergies Allergy Verified 06/30/17 10:19 Physical Exam Vitals: Vital Signs Temp Pulse Resp BP Pulse Ox 07/01/17 09:00 90 24 136/64 98 07/01/17 08:00 98 24 139/64 91 L 07/01/17 07:52 97 07/01/17 07:40 94 94 L 07/01/17 07:00 92 24 126/61 94 L 07/01/17 06:00 92 30 H 138/67 93 L 07/01/17 05:00 92 24 139/74 93 L 07/01/17 04:00 98.8 F 80 24 124/65 94 L 07/01/17 03:00 83 27 H 117/62 94 L 07/01/17 02:00 79 25 H 112/58 97 07/01/17 01:00 77 26 H 125/60 96 07/01/17 00:00 98.4 F 74 23 116/61 95 06/30/17 23:46 75 111/60 95 06/30/17 23:00 73 16 111/60 94 L 06/30/17 22:00 72 14 113/59 95 06/30/17 21:00 75 16 105/57 97 06/30/17 20:00 97.8 F 81 106/56 97 06/30/17 19:42 72 06/30/17 19:30 74 06/30/17 19:00 72 112/64 97 06/30/17 18:00 73 90/52 93 L 06/30/17 17:50 73 94/53 95 06/30/17 17:40 75 94/53 93 L 06/30/17 17:30 75 94/53 94 L 06/30/17 17:20 74 94/53 93 L 06/30/17 17:10 72 94/53 95 06/30/17 17:00 97.0 F L 78 94/53 95 06/30/17 16:50 74 103/52 97 06/30/17 16:40 73 103/52 96 06/30/17 16:30 79 103/52 96 06/30/17 16:20 78 103/52 97 06/30/17 16:10 75 103/52 95 06/30/17 16:06 79 06/30/17 16:00 76 103/52 93 L 06/30/17 15:56 96 06/30/17 15:50 77 117/54 93 L 06/30/17 15:40 73 117/54 94 L 06/30/17 15:30 77 117/54 94 L 06/30/17 15:20 79 117/54 93 L 06/30/17 15:10 80 117/54 92 L 06/30/17 15:00 97.4 F L 78 117/54 91 L 06/30/17 14:50 79 98 06/30/17 14:49 80 06/30/17 14:30 98.1 F 89 20 115/70 98 06/30/17 13:52 98.1 F 87 20 103/56 98 06/30/17 13:00 86 18 123/58 92 L 06/30/17 12:14 97.4 F L 22 94 L 06/30/17 12:10 98.1 F 89 20 109/56 87 L 06/30/17 11:46 92 24 92 L 06/30/17 11:42 96 18 98/56 95 Intake and Output 06/30/17 07/01/17 07/01/17 22:59 06:59 14:59 Intake Total 1146.5 750 312.5 Output Total 175 475 250 Balance 971.5 275 62.5 Intake: IV 400 750 212.5 Sodium Chloride 0.9% 1, 400 500 212.5 000 ml @ 100 mls/hr IV . Q10H NICHO Rx#:[id number] Vancomycin 1,750 mg In 250 Sodium Chloride 0.9% 250 ml @ 125 mls/hr IVPB Q8H NICHO Rx#:[id number] Intake, IV Titration 746.5 100 Amount Piperacillin-Tazobactam 3 12.5 .375 gm In Dextrose/Water 1 50ml.bag @ 12.5 mls/hr IVPB Q8H NICHO Rx#: [id number] Sodium Chloride 0.9% 1, 400 100 000 ml @ 100 mls/hr IV . Q10H NICHO Rx#:[id number] Vancomycin 2,000 mg In 334 Sodium Chloride 0.9% 500 ml @ 167 mls/hr IVPB ONCE ONE Rx#:[id number] Output: Urine 175 475 250 Other: Voiding Method Urinal Urinal Urinal # Voids 0 0 0 Weight 109 kg 110.3 kg Gen: This is a 62-year-old male patient sitting up in the ICU bed and mild to moderate respiratory distress with nonrebreather in place. HEENT: Head is atraumatic, normocephalic. Pupils equal, round. Sclerae is anicteric. Junk developed pink. Mucous membranes of the mouth are somewhat dry. White coating on his tongue noted. NECK: Supple. No JVD. No lymphadenopathy. No thyromegaly. LUNGS: Managed breath sounds bilaterally with coarse rhonchi. No intercostal retractions. HEART: Regular rate and rhythm. No murmur. ABDOMEN: Soft. Bowel sounds are present. No masses. No tenderness. EXTREMITIES: No pedal edema. No calf tenderness. Dorsalis pedis +2 bilaterally. NEUROLOGICAL: Patient is awake, alert and oriented x3. Cranial nerves 2 through 12 are grossly intact. Results Results: Laboratory Results WBC 13.5 k/uL (3.8-10.6) H 07/01/17 03:55 RBC 4.02 m/uL (4.30-5.90) L 07/01/17 03:55 Hgb 9.1 gm/dL (13.0-17.5) L D 07/01/17 03:55 Hct 32.3 % (39.0-53.0) L 07/01/17 03:55 MCV 80.5 fL (80.0-100.0) 07/01/17 03:55 MCH 22.7 pg (25.0-35.0) L 07/01/17 03:55 MCHC 28.2 g/dL (31.0-37.0) L 07/01/17 03:55 RDW 15.6 % (11.5-15.5) H 07/01/17 03:55 Plt Count 602 k/uL (150-450) H 07/01/17 03:55 Neutrophils % 83 % 07/01/17 03:55 Lymphocytes % 10 % 07/01/17 03:55 Monocytes % 5 % 07/01/17 03:55 Eosinophils % 1 % 07/01/17 03:55 Basophils % 0 % 07/01/17 03:55 Neutrophils # 11.1 k/uL (1.3-7.7) H 07/01/17 03:55 Lymphocytes # 1.4 k/uL (1.0-4.8) 07/01/17 03:55 Monocytes # 0.7 k/uL (0-1.0) 07/01/17 03:55 Eosinophils # 0.1 k/uL (0-0.7) 07/01/17 03:55 Basophils # 0.0 k/uL (0-0.2) 07/01/17 03:55 Hypochromasia Marked 07/01/17 03:55 Poikilocytosis Moderate 07/01/17 03:55 PT 12.1 sec (9.0-12.0) H 06/30/17 10:34 INR 1.3 (<1.2) H 06/30/17 10:34 APTT 23.4 sec (22.0-30.0) 06/30/17 10:34 Sodium 140 mmol/L (137-145) 07/01/17 03:55 Potassium 4.1 mmol/L (3.5-5.1) 07/01/17 03:55 Chloride 105 mmol/L (98-107) 07/01/17 03:55 Carbon Dioxide 27 mmol/L (22-30) 07/01/17 03:55 Anion Gap 8 mmol/L 07/01/17 03:55 BUN 17 mg/dL (9-20) 07/01/17 03:55 Creatinine 0.60 mg/dL (0.66-1.25) L 07/01/17 03:55 Est GFR (MDRD) Af Amer >60 (>60 ml/min/1.73 sqM) 07/01/17 03:55 Est GFR (MDRD) Non-Af >60 (>60 ml/min/1.73 sqM) 07/01/17 03:55 Glucose 111 mg/dL (74-99) H 07/01/17 03:55 POC Glucose (mg/dL) 137 mg/dL (75-99) H 07/01/17 07:00 POC Glu Network Associate ID [facility] [place] 07/01/17 07:[address] Glu mg/dL 117 06/30/17 10:34 Hemoglobin A1c 5.7 % (4.0-6.0) 06/30/17 10:34 Plasma Lactic Acid [place] 1.7 mmol/L (0.7-2.0) 06/30/17 10:34 Calcium 9.0 mg/dL (8.4-10.2) 07/01/17 03:55 Phosphorus 3.8 mg/dL (2.5-4.5) 07/01/17 03:55 Magnesium 1.6 mg/dL (1.6-2.3) 07/01/17 03:55 Total Bilirubin 0.6 mg/dL (0.2-1.3) 06/30/17 10:34 AST 56 U/L (17-59) 06/30/17 10:34 ALT 123 U/L (21-72) H 06/30/17 10:34 Alkaline Phosphatase 159 U/L (38-126) H 06/30/17 10:34 Total Protein 6.2 g/dL (6.3-8.2) L 06/30/17 10:34 Albumin 3.0 g/dL (3.5-5.0) L 06/30/17 10:34 Urine Color Yellow 06/30/17 10:34 Urine Appearance Clear (Clear) 06/30/17 10:34 Urine pH 5.0 (5.0-8.0) 06/30/17 10:34 Ur Specific [place] 1.021 (1.001-1.035) 06/30/17 10:34 Urine Protein 1+ (Negative) H 06/30/17 10:34 Urine Glucose (UA) Negative (Negative) 06/30/17 10:34 Urine Ketones Negative (Negative) 06/30/17 10:34 Urine Blood Negative (Negative) 06/30/17 10:34 Urine Nitrite Negative (Negative) 06/30/17 10:34 Urine Bilirubin Negative (Negative) 06/30/17 10:34 Urine Urobilinogen <2.0 mg/dL (<2.0) 06/30/17 10:34 Ur Leukocyte Esterase Negative (Negative) 06/30/17 10:34 Urine RBC 1 /hpf (0-5) 06/30/17 10:34 Urine WBC <1 /hpf (0-5) 06/30/17 10:34 Urine Mucus Few /hpf (None) H 06/30/17 10:34 Influenza Type A RNA Not Detected (Not Detectd) 06/30/17 10:34 Influenza Type B (PCR) Not Detected (Not Detectd) 06/30/17 10:34 CBC & Chem 7: 07/01/17 03:55 07/01/17 03:55 Labs: Abnormal Lab Results - Last 24 Hours (Table) 06/30/17 06/30/17 06/30/17 Range/Units 14:46 17:10 20:40 WBC (3.8-10.6) k/uL RBC (4.30-5.90) m/uL Hgb (13.0-17.5) gm/dL Hct (39.0-53.0) % MCH (25.0-35.0) pg MCHC (31.0-37.0) g/dL RDW (11.5-15.5) % Plt Count (150-450) k/uL Neutrophils # (1.3-7.7) k/uL Creatinine (0.66-1.25) mg/dL Glucose (74-99) mg/dL POC Glucose (mg/dL) 253 H 201 H 177 H (75-99) mg/dL 07/01/17 07/01/17 07/01/17 Range/Units 03:55 03:55 07:00 WBC 13.5 H (3.8-10.6) k/uL RBC 4.02 L (4.30-5.90) m/uL Hgb 9.1 L D (13.0-17.5) gm/dL Hct 32.3 L (39.0-53.0) % MCH 22.7 L (25.0-35.0) pg MCHC 28.2 L (31.0-37.0) g/dL RDW 15.6 H (11.5-15.5) % Plt Count 602 H (150-450) k/uL Neutrophils # 11.1 H (1.3-7.7) k/uL Creatinine 0.60 L (0.66-1.25) mg/dL Glucose 111 H (74-99) mg/dL POC Glucose (mg/dL) 137 H (75-99) mg/dL Microbiology - Last 24 Hours (Table) 06/30/17 10:34 Urine Culture - Final Urine,Voided Assessment and Plan Plan: This is a 62-year-old male patient presented to hospital with sepsis and septic shock with acute hypoxic respiratory failure most likely due to pulmonary source. He has been on IV antibiotics for enterococcus and alpha hemolytic strep empyema. Patient is currently on Levaquin, Zosyn and vancomycin. Cultures are in progress. CT of the chest as ordered. Continue supportive care. Further recommendations as patient progresses. The above dictated assessment and findings were discussed with Dr. Nixon. The impression and plan of care have been directed as dictated. Almita Alfaro nurse practitioner acting as scribe for Dr. Nixon.
[2017-07-01 11:56] LABS: Glucose,Whole Blood 125 mg/dL (75-99)
[2017-07-01] MEDS ORDERED: LEVOFLOXACIN 750MG-D5W PMX 750 MG in DEXTROSE/WATER 1 150ML.BAG IVPB SCH (12:00)
--- NOTE | 2017-07-01 13:16 | P.HPIM ---
History of Present Illness H&P Date: 07/01/17 Chief Complaint: Shortness of breath 62 year old male who presented to the emergency room on 06/30/2017 with a chief complaint of shortness of breath that was worsening in severity x 1 week. Patient states he was having sputum production that was initially clear in color and then progressed to a greenish/yellow. The patient has a history of chronic obstructive disease, diabetes mellitus, gastroesophageal reflux disease, hypertension, myocardial infarction, pneumonia , STEMI in May 2017 with heart catheterization. He underwent CABG 4 in May 2017. Postoperatively, he had persistant left sided pleural effusion and required thoracentesis on 05/30/2017. Cultures from pleural fluid were positive for alpha hemolytic strep and enterococcus faecalis. He had a PICC line placed and was discharged home with IV antibiotic infusions. In the emergency room, a chest x-ray was completed which revealed worsening and now completely opacification of the left hemothorax which may related to pleural effusion and/or multifocal pneumonia. Patchy alveolar opacities within the right lower lung are also seen. EKG revealed sinus tachycardia. He was febrile with a temperature of 102.0 in the emergency room. He was found to be hypoxic with an oxygen saturation of 82% on room air. He was also tachycardic with a heart rate in the low 100s. Laboratory studies revealed a white count of 20.7, hemoglobin 10.6, INR 1.3, sodium 139, potassium 4.7, BUN 17, creatinine 0.58, lactic acid 1.7, AST 56, PLT 123, and alkaline phosphatase 159. Urinalysis reveals 1+ protein but otherwise unremarkable. Testing for influenza A and B was negative. The patient was seen and examined at the bedside in the intensive care unit with Dr. Abreu. He appears short of breath at rest. He is currently wearing a nonrebreather mask. Maintaining oxygen saturations greater than 92%. He appears diaphoretic. Denies chest pain or pressure. Denies pain or discomfort. Urine culture is negative at the 18 hour jacquelyn. Blood cultures are negative at the 24 hour jacquelyn. His vital signs are relatively stable at this time. Consultations have been placed for infectious disease, pulmonology, and cardiovascular surgery. Review of Systems GENERAL: Positive for fever and generalized malaise EYES: Denies blurred vision. Denies vision changes. Denies eye pain. EARS, NOSE, MOUTH, & THROAT: Denies headache. Denies sore throat. Denies ear pain. RESPIRATORY: Positive for shortness of breath. Positive for cough with sputum production, initially clear now green/yellowish in color. Denies hemoptysis. CARDIOVASCULAR: Denies chest pain or pressure. Denies palpitations. Denies arrhythmias. GASTROINTESTINAL: Denies abdominal pain. Denies diarrhea. Denies constipation. Denies nausea. Denies vomiting. Denies heartburn. Denies blood in the stool. GENITOURINARY: Denies urinary frequency. Denies burning. Denies dysuria. Denies cloudy urine. Denies blood in the urine. MUSCULOSKELETAL: Denies myalgias. Denies joint swelling. Denies decreased range of motion beyond patients baseline. INTEGUMENTARY: Denies pruitis. Denies rash. PSYCHIATRIC: Denies suicidal or homicial ideations. ENDOCRINE: Denies weight change. Denies polydipsia. Denies polyuria. HEMATOLOGIC: Denies bleeding disorders. Past Medical History Past Medical History: Asthma, Coronary Artery Disease (CAD), COPD, Diabetes Mellitus, GERD/Reflux, Hypertension, Myocardial Infarction (OR), Pneumonia Additional Past Medical History / Comment(s): Legionnaires' disease, STEMI 2016, heart cath showed 4 vessel disease, patient to have open heart surgery 05/22/17 Last Myocardial Infarction Date:: 05/21/17 History of Any Multi-Drug Resistant Organisms: None Reported Past Surgical History: Adenoidectomy, Cholecystectomy, Coronary Bypass/CABG, Tonsillectomy Additional Past Surgical History / Comment(s): quadruple bypass 06/02, thoracentesis 05/30/2017, PICC line placement. Past Anesthesia/Blood Transfusion Reactions: No Reported Reaction Past Psychological History: Anxiety Additional Psychological History / Comment(s): lives in the home with the . 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 No ill contacts Smoking Status: Never smoker Past Alcohol Use History: None Reported Past Drug Use History: None Reported - Past Family History Father Family Medical History: Coronary Artery Disease (CAD) Additional Family Medical History / Comment(s): Myocardial infarction in his early 40s Medications and Allergies Home Medications Medication Instructions Recorded Confirmed Type ALPRAZolam [Xanax] 0.25 mg PO BID PRN 05/21/17 06/30/17 History Amiodarone [Cordarone] 200 mg PO DAILY #30 tab 06/07/17 06/30/17 Rx Ascorbic Acid [Vitamin C] 500 mg PO DAILY@1200 #30 tab 06/07/17 06/30/17 Rx Aspirin 325 mg PO DAILY #30 tab 06/07/17 06/30/17 Rx Atorvastatin [Lipitor] 40 mg PO DAILY #30 tab 06/07/17 06/30/17 Rx Clopidogrel [Plavix] 75 mg PO DAILY #30 tab 06/07/17 06/30/17 Rx Ferrous Sulfate [Iron (65 MG 325 mg PO W/LUNCH #30 tab 06/07/17 06/30/17 Rx Elemental)] Ipratropium-Albuterol Nebulize 3 ml INHALATION RT-Q2H PRN #120 06/07/17 Rx [Duoneb 0.5 mg-3 mg/3 ml Soln] ampul.neb Metoprolol Tartrate [Lopressor] 75 mg PO BID #180 tab 06/07/17 06/30/17 Rx Pantoprazole [Protonix] 40 mg PO AC-BRKFST #30 tablet.dr 06/07/17 06/30/17 Rx Sertraline [Zoloft] 100 mg PO DAILY #30 tab 06/07/17 06/30/17 Rx guaiFENesin [Mucinex] 1,200 mg PO Q12HR #60 tablet.er 06/07/17 06/30/17 Rx metFORMIN HCL [Glucophage] 500 mg PO BID-W/MEALS #60 tab 06/07/17 06/30/17 Rx CHLORPHEN-HYDROcod 8-10mg/5ml 5 ml PO Q12HR 06/30/17 06/30/17 History [Tussionex] Insulin Aspart [NovoLOG] 8 units SQ AC-TID 06/30/17 06/30/17 History Insulin Aspart [NovoLOG] See Protocol SQ AC-TID PRN 06/30/17 06/30/17 History Insulin Glargine,Hum.rec.anlog 25 unit SQ HS 06/30/17 06/30/17 History [Lantus Solostar] Allergies Allergy/AdvReac Type Severity Reaction Status Date / Time No Known Allergies Allergy Verified 06/30/17 10:19 Physical Exam Vitals: Vital Signs Temp Pulse Resp BP Pulse Ox 07/01/17 12:04 87 07/01/17 11:51 82 07/01/17 09:00 90 24 136/64 98 07/01/17 08:00 98 24 139/64 91 L 07/01/17 07:52 97 07/01/17 07:40 94 94 L 07/01/17 07:00 92 24 126/61 94 L 07/01/17 06:00 92 30 H 138/67 93 L 07/01/17 05:00 92 24 139/74 93 L 07/01/17 04:00 98.8 F 80 24 124/65 94 L 07/01/17 03:00 83 27 H 117/62 94 L 07/01/17 02:00 79 25 H 112/58 97 07/01/17 01:00 77 26 H 125/60 96 07/01/17 00:00 98.4 F 74 23 116/61 95 06/30/17 23:46 75 111/60 95 06/30/17 23:00 73 16 111/60 94 L 06/30/17 22:00 72 14 113/59 95 06/30/17 21:00 75 16 105/57 97 06/30/17 20:00 97.8 F 81 106/56 97 06/30/17 19:42 72 06/30/17 19:30 74 06/30/17 19:00 72 112/64 97 06/30/17 18:00 73 90/52 93 L 06/30/17 17:50 73 94/53 95 06/30/17 17:40 75 94/53 93 L 06/30/17 17:30 75 94/53 94 L 06/30/17 17:20 74 94/53 93 L 06/30/17 17:10 72 94/53 95 06/30/17 17:00 97.0 F L 78 94/53 95 06/30/17 16:50 74 103/52 97 18 16:40 73 103/52 96 06/30/17 16:30 79 103/52 96 06/30/17 16:20 78 103/52 97 06/30/17 16:10 75 103/52 95 06/30/17 16:06 79 06/30/17 16:00 76 103/52 93 L 06/30/17 15:56 96 06/30/17 15:50 77 117/54 93 L 06/30/17 15:40 73 117/54 94 L 06/30/17 15:30 77 117/54 94 L 06/30/17 15:20 79 117/54 93 L 06/30/17 15:10 80 117/54 92 L 06/30/17 15:00 97.4 F L 78 117/54 91 L 06/30/17 14:50 79 98 06/30/17 14:49 80 06/30/17 14:30 98.1 F 89 20 115/70 98 06/30/17 13:52 98.1 F 87 20 103/56 98 06/30/17 13:00 86 18 123/58 92 L Intake and Output 06/30/17 07/01/17 07/01/17 22:59 06:59 14:59 Intake Total 1146.5 750 312.5 Output Total 175 475 250 Balance 971.5 275 62.5 Intake: IV 400 750 212.5 Sodium Chloride 0.9% 1, 400 500 212.5 000 ml @ 100 mls/hr IV . Q10H [facility] Rx#:[id number] Vancomycin 1,750 mg In 250 Sodium Chloride 0.9% 250 ml @ 125 mls/hr IVPB Q8H [facility] Rx#:[id number] Intake, IV Titration 746.5 100 Amount Piperacillin-Tazobactam 3 12.5 .375 gm In Dextrose/Water 1 50ml.bag @ 12.5 mls/hr IVPB Q8H [facility] Rx#: [id number] Sodium Chloride 0.9% 1, 400 100 000 ml @ 100 mls/hr IV . Q10H [facility] Rx#:[id number] Vancomycin 2,000 mg In 334 Sodium Chloride 0.9% 500 ml @ 167 mls/hr IVPB ONCE ONE Rx#:[id number] Output: Urine 175 475 250 Other: Voiding Method Urinal Urinal Urinal # Voids 0 0 0 Weight 109 kg 110.3 kg GENERAL: This is a 62-year-old male who appears short of breath at the time of examination. Pleasant and cooperative. HEENT: Head is atraumatic, normocephalic. Pupils are equal, round, and reactive to light. Sclerae anicteric. Conjunctivae are clear. Mucus membranes of the mouth are moist. Neck is supple. RESPIRATORY: Lungs are coarse with scattered rhonchi and crackles. No use of accessory muscles. Patient maintaining oxygen saturation greater than 92% on nonrebreather mask. No chest wall tenderness is noted on palpation or with deep breathing. CARDIOVASCULAR: Regular rate and rhythm. S1 and S2 noted. No systolic or diastolic murmur auscultated. No JVD noted. No S3 or S4 noted. GASTROINTESTINAL: No distention noted. Abdomen soft and round. Normal active bowel sounds auscultated x 4 quadrants. No pain or tenderness noted upon palpation. INTEGUMENTARY: Generalized diaphoresis. Midline chest incision without drainage or erythema. No cyanosis. No jaundice. No rashes noted. No cellulitis noted. EXTREMITIES: 2+ peripheral pulses. Trace bilateral lower extremity peripheral edema. No calf tenderness noted. NEUROLOGIC: Cranial nerves II-XII intact. PSYCHIATRIC: Awake, alert, and oriented X 3. Appropriate affect. Intact judgement and insight. Results CBC & Chem 7: 07/01/17 03:55 07/01/17 03:55 Labs: Abnormal Lab Results - Last 24 Hours (Table) 06/30/17 06/30/17 06/30/17 Range/Units 14:46 17:10 20:40 WBC (3.8-10.6) k/uL RBC (4.30-5.90) m/uL Hgb (13.0-17.5) gm/dL Hct (39.0-53.0) % MCH (25.0-35.0) pg MCHC (31.0-37.0) g/dL RDW (11.5-15.5) % Plt Count (150-450) k/uL Neutrophils # (1.3-7.7) k/uL Creatinine (0.66-1.25) mg/dL Glucose (74-99) mg/dL POC Glucose (mg/dL) 253 H 201 H 177 H (75-99) mg/dL 07/01/17 07/01/17 07/01/17 Range/Units 03:55 03:55 07:00 WBC 13.5 H (3.8-10.6) k/uL RBC 4.02 L (4.30-5.90) m/uL Hgb 9.1 L D (13.0-17.5) gm/dL Hct 32.3 L (39.0-53.0) % MCH 22.7 L (25.0-35.0) pg MCHC 28.2 L (31.0-37.0) g/dL RDW 15.6 H (11.5-15.5) % Plt Count 602 H (150-450) k/uL Neutrophils # 11.1 H (1.3-7.7) k/uL Creatinine 0.60 L (0.66-1.25) mg/dL Glucose 111 H (74-99) mg/dL POC Glucose (mg/dL) 137 H (75-99) mg/dL 07/01/17 Range/Units 11:54 WBC (3.8-10.6) k/uL RBC (4.30-5.90) m/uL Hgb (13.0-17.5) gm/dL Hct (39.0-53.0) % MCH (25.0-35.0) pg MCHC (31.0-37.0) g/dL RDW (11.5-15.5) % Plt Count (150-450) k/uL Neutrophils # (1.3-7.7) k/uL Creatinine (0.66-1.25) mg/dL Glucose (74-99) mg/dL POC Glucose (mg/dL) 125 H (75-99) mg/dL Microbiology - Last 24 Hours (Table) 06/30/17 10:34 Urine Culture - Final Urine,Voided Thrombosis Risk Factor Assmnt - Choose All That Apply Each Risk Factor Represents 2 Points: Age 61-74 years Thrombosis Risk Factor Assessment Total Risk Factor Score: 2 Thrombosis Risk Factor Assessment Level: Low Risk Assessment and Plan Plan: ASSESSMENT: Multifocal pneumonia, present on admission, sputum culture ordered Sepsis with leukocytosis and fever, present on admission, secondary to above Acute hypoxic respiratory failure requiring supplemental oxygen, secondary to above Diabetes mellitus, type II, hemoglobin A1c 5.7% Coronary artery disease with previous myocardial infarction History of coronary artery bypass grafting 4 vessels History of left side pleural effusion requiring thoracentesis and empyema requiring pigtail drainage catheter with cultures positive for alpha hemolytic strep and enterococcus faecalis History of paroxysmal atrial fibrillation Chronic obstructive pulmonary disease Essential hypertension Hyperlipidemia Gastroesophageal reflux disease Anxiety, unspecified Obesity: BMI 31.2 PLAN: -Cardiothoracic surgery on consult. Appreciate recommendations and input -Collections Agent on consult. Appreciate recommendations and input -Repeat CXR in AM -Continue breathing treatments scheduled QID and PRN -Obtain sputum culture -Infectious disease on consult. Appreciate recommendations and input -Antibiotics per infectious disease: Currently on Vancomycin, Levaquin, and Zosyn -Await final results of cultures -Capillary blood glucose accu-checks AC/HS -Novolog sliding scale coverage -Resume novolog 8 units with meals and Lantus 25 units at HS -Home meds as appropriate -Monitor labs -GI prophylaxis: Protonix 40mg IV daily -DVT prophylaxis: Heparin 5000 units subcu every 12 hours -Monitor vital signs and address as appropriate -Discharge planning: Patient may require home care or ECF at the time of discharge depending on patients clinical course -Further recommendations pending patient's course Nurse practitioner note has been reviewed by physician. Signing provider agrees with the documented findings, assessment, and plan of care.
[2017-07-01] MEDS: ASCORBIC ACID 500 MG TAB PO SCH (13:36)
[2017-07-01] MEDS: FERROUS SULFATE 325 MG TAB PO SCH (13:36)
--- NOTE | 2017-07-01 16:00 | CT ---
EXAMINATION TYPE: CT chest wo con DATE OF EXAM: 07/01/2017 COMPARISON: 06/06/2017 HISTORY: Difficulty breathing, pneumonia Unenhanced CT of the chest was performed with lung and mediastinal window settings submitted. The la ck of contrast limits evaluation of the vascular, mediastinal and parenchymal structures including th e upper abdomen. LUNGS: Progressive airspace consolidation throughout most of the left lung with sparing of the left l meredith apex. Associated parapneumonic effusion. Large loculated pleural effusion or possibly empyema lef t lower lobe measuring 11.5 x 10.0 cm with several small internal foci of air. Previously noted lisbet ter has been removed. Small right-sided pleural effusion. Diffuse patchy infiltrates right lung have also progressed in the interval.. MEDIASTINUM/MANDO: Thoracic aorta is of normal caliber with limited evaluation given lack of contrast . The heart is enlarged. No evidence for mediastinal mass. No lymph nodes greater than 1cm. UPPER ABDOMEN: No significant abnormality is seen. OTHER: No significant other abnormality. IMPRESSION: 1. Near complete opacification of the left lung with air bronchograms seen as well as pleural effusi ons and loculated collection at the left lung base. Loculated effusion versus empyema not excluded. P riestly noted drainage catheter has been removed. 2. Progressive patchy infiltrates throughout the right lung and small right-sided pleural effusion.
[2017-07-01 17:04] LABS: Glucose,Whole Blood 133 mg/dL (75-99)
--- NOTE | 2017-07-01 20:15 | P.CON ---
Consult Note - . Consult date: 07/01/17 Assessment/Plan:: This is a 62 year old male presented to hospital on 05/21/2017 with chest pain and found to have acute myocardial infarction. Heart catheterization found evidence of multivessel coronary artery disease and he is status post coronary artery bypass grafting procedure. He said difficulties postoperatively with bleeding to require somewhat protracted ventilation. He did require repeat surgery for control of the bleeding. He developed cardiac dysrhythmia with atrial fibrillation requiring amiodarone treatment. The patient also developed difficulties with his left chest. A large fluid collection was found and he underwent thoracentesis he was having some difficulty with shortness of breath and consequently further imaging was performed. Computed tomography scan showed evidence of the left lower lobe infiltration as well as some right upper lobe infiltrate. Because of and leukocytosis the infectious diseases consultation was requested. He required placement of percutaneous drainage of the empyema. He was eventually stabilized and discharged home on June 07. He was continued on IV antibioticsat an [facility] office on a daily basis for enterococcus and alpha hemolytic strep empyema. Patient last saw Dr. Nixon on Saturday any extended IV antibiotic therapy for another week. Patient states he was feeling fine when he was in the office on Saturday and also on Saturday. But on Saturday morning he started coughing around 3 in the morning and was clear sputum production the change to yellow and he felt exhausted. He was having difficulty breathing and his called Dr. Nixon recommended that he come into the evaluated. EMS was called and patient was transferred to [facility] emergency center. Chest x-ray initially showed worsening of bilateral pneumonias, cardiomegaly and left pleural effusion. Repeat chest x- ray showed worsening and near complete obesity of the left hemithorax, pleural effusion and multifocal pneumonia in differential. Patchy alveolar opacity within the right lower lobe. He was found to be febrile which he denied having any fevers chills or rigors at home. His pulse ox was down to 82% and he was hypotensive. White count was elevated at 20.7 but improved to 13.5. ALT was 123 and alkaline phosphatase 159. Albumin is 3. Urinalysis was clear, protein 1+, nitrate and leukoesterase negative. Urine culture is in progress. Blood culture and sputum culture status received. Influenza testing was negative. ALT is 123 and alkaline phosphatase 159. Albumin is 3. Patient has been admitted into the intensive care unit. He has not required vasopressors. Consult in place with pulmonary medicine and CAT scan of the chest has been ordered. Consult in place with cardiothoracic surgery. Patient states that he is feeling a little better than not is crackling in his chest. Please see the consult note as dictated by nurse practitioner Mrs. Amlita Alfaro. Patient relates feelings of the better today. Evidence of markedly diminished breath sounds to the left lower lobe dullness noted on the exam. Computed tomography scan to evaluate the left chest and need for further drainage. Likely has had significant reelection of the fluid. Antibiotic therapy is broadened and await cultures to further direct antibiotic therapy. Patient is more comfortable today and hopefully will continue to have improvements. I agree with evaluation, assessment and plan as dictated by nurse practitioner Mrs. Almita Alfaro.
[2017-07-01 20:43] LABS: Glucose,Whole Blood 139 mg/dL (75-99)
[2017-07-01] MEDS: INSULIN DETEMIR 100 UNIT/ML 10 ML VIAL SQ SCH (21:39)
[2017-07-02] MEDS ORDERED: VANCOMYCIN TROUGH DUE 1 EACH MISC MISCELLANE ONE (01:00)
[2017-07-02] MEDS: VANCOMYCIN 1,750 MG in SODIUM CHLORIDE 0.9% 250 ML IVPB SCH ×3 (02:17→18:04)
[2017-07-02 04:38] LABS: Anisocytosis Slight; Basophils % (A) 0 %; Eosinophils # (A) 0.1 k/uL (0-0.7); Eosinophils % (A) 1 %; HCT 29.9 % (39.0-53.0); HGB 8.7 gm/dL (13.0-17.5); Hypochromasia Marked; Lymphocytes # (A) 1.7 k/uL (1.0-4.8); Lymphocytes % (A) 13 %; MCH 22.4 pg (25.0-35.0); MCV 77.2 fL (80.0-100.0); Mean Platelet Volume 6.5; Microcytosis Slight; Monocytes # (A) 0.7 k/uL (0-1.0); Monocytes % (A) 5 %; Neutrophils # (A) 10.9 k/uL (1.3-7.7); Neutrophils % (A) 80 %; Platelet Count 641 k/uL (150-450); Poikilocytosis Slight; RBC 3.88 m/uL (4.30-5.90); RDW 16.8 % (11.5-15.5); WBC 13.6 k/uL (3.8-10.6)
[2017-07-02 05:18] LABS: Anion Gap 9 mmol/L; Blood Urea Nitrogen 13 mg/dL (9-20); Carbon Dioxide 28 mmol/L (22-30); Chloride 104 mmol/L (98-107); Glucose 109 mg/dL (74-99); Magnesium 1.8 mg/dL (1.6-2.3); Phosphorus 3.6 mg/dL (2.5-4.5); Potassium 4.2 mmol/L (3.5-5.1); Sodium 141 mmol/L (137-145)
[2017-07-02] MEDS: PIPERACILLIN-TAZOBACTAM 3.375 GM in DEXTROSE/WATER 1 50ML.BAG IVPB SCH ×3 (05:32→20:26)
[2017-07-02] MEDS: SODIUM CHLORIDE 0.9% 1,000 ML IV SCH (05:32)
--- NOTE | 2017-07-02 07:05 | XR ---
EXAMINATION TYPE: XR chest 1V portable DATE OF EXAM: 07/02/2017 COMPARISON: 06/30/2018 HISTORY: SOB, Follow Up FINDINGS: Persistent diffuse confluent infiltrate throughout the left lung with sparing of the left lung apex. Additional patchy infiltrate throughout the right lung. Cardiomegaly. Hilar and mediastinal structures limited in evaluation. Sternotomy wires mediastinal clips. IMPRESSION: 1. Stable chest with the findings likely on the basis of diffuse bilateral left greater than right pn eumonia.
[2017-07-02 07:22] LABS: Glucose,Whole Blood 117 mg/dL (75-99)
[2017-07-02] MEDS: IPRATROPIUM-ALBUTEROL 3 ML NEB INHALATION SCH ×4 (07:58→20:40)
[2017-07-02] MEDS: INSULIN ASPART 100 UNIT/ML 1 ML 10 ML VIAL SQ SCH ×7 (08:06→20:24)
[2017-07-02] MEDS: guaiFENesin 600 MG TABLET.ER PO SCH ×2 (08:58→20:18)
[2017-07-02] MEDS: SERTRALINE 100 MG TAB PO SCH (08:58)
[2017-07-02] MEDS: AMIODARONE 200 MG TAB PO SCH (08:58)
[2017-07-02] MEDS: PANTOPRAZOLE 40 MG/10 ML VIAL IV SCH (08:58)
[2017-07-02] MEDS: ATORVASTATIN 40 MG TAB PO SCH (08:58)
[2017-07-02] MEDS: CLOPIDOGREL 75 MG TAB PO SCH (08:58)
[2017-07-02] MEDS: ASPIRIN 325 MG TAB PO SCH (08:58)
[2017-07-02] MEDS: METOPROLOL TARTRATE 25 MG TAB PO SCH ×2 (08:58→20:19)
--- NOTE | 2017-07-02 09:10 | P.PN ---
Subjective Progress Note Date: 07/02/17 Principal diagnosis: Respiratory failure, pneumonia Progress note dated 07/02/2017 The patient continues to improve slowly. Radiographically, his chest x-ray has not changed all that much. Certainly not worse. Currently the patient is on the AIRVO at 65 L/m. He's had a saline IV at 50 mL an hour. The patient has a history of bilateral pneumonia with sepsis a history of asthma, diabetes, gastroesophageal reflux disease, hypertension, myocardial infarction and pneumonia. He also has a history of recent bypass grafting back on 05/22/[address] segment elevation myocardial infarction and legionnaires disease. He is a lifelong nonsmoker. His primary care physician is Dr. Gary Abreu. The patient apparently had a computed tomography scan late yesterday. I have not looked at it as yet. My partner expresses some concerns that he may have a loculated pleural effusion which need something more significantly done such as decortication. Objective - Vital Signs Vital signs: Vital Signs Temp 98.2 F 07/02/17 08:00 Pulse 94 07/02/17 08:14 Resp 35 H 07/02/17 08:00 BP 131/69 07/02/17 08:00 Pulse Ox 96 07/02/17 08:00 Intake & Output 07/01/17 07/02/17 07/02/17 18:59 06:59 18:59 Intake Total 1412.5 785 290 Output Total 600 750 Balance 812.5 35 290 Weight 114 kg Intake: IV 1062.5 785 50 Piperacillin-Tazobactam 3 50 .375 gm In Dextrose/Water 1 50ml.bag @ 12.5 mls/hr IVPB Q8H [facility] Rx#: [id number] Sodium Chloride 0.9% 1, 1062.5 610 50 000 ml @ 50 mls/hr IV . Q20H [facility] Rx#:[id number] Vancomycin 1,750 mg In 125 Sodium Chloride 0.9% 250 ml @ 125 mls/hr IVPB Q8H [facility] Rx#:[id number] Intake, IV Titration 350.0 Amount Levofloxacin 750Mg-D5w 100 Pmx 750 mg In Dextrose/ Water 1 150ml.bag @ 100 mls/hr IVPB Q24H [facility] Rx#: [id number] Piperacillin-Tazobactam 3 25.0 .375 gm In Dextrose/Water 1 50ml.bag @ 12.5 mls/hr IVPB Q8H [facility] Rx#: [id number] Sodium Chloride 0.9% 1, 100 000 ml @ 50 mls/hr IV . Q20H [facility] Rx#:[id number] Vancomycin 1,750 mg In 125 Sodium Chloride 0.9% 250 ml @ 125 mls/hr IVPB Q8H [facility] Rx#:[id number] Oral 240 Output: Urine 600 750 Other: Voiding Method Urinal Urinal Urinal # Voids 0 0 # Bowel Movements 1 - Exam No acute distress, oriented 3. Patient currently on supplemental oxygen via high flow. HEENT examination is grossly unremarkable. Mucous membranes are moist. No oral lesions. Neck supple. Full range of motion. No adenopathy thyromegaly or neck vein distention. Cardiovascular examination reveals regular rhythm rate. S1-S2 normal. No S3 or S4. No discernible murmur noted. Lungs reveal a few bilateral rhonchi. Breath sounds are diminished throughout, more so in the left lower lobe. Crackles are present. No wheezes. The patient 's chest is very congested sounding. Abdomen soft bowel sounds are heard. No masses or tenderness. Extremities are intact. No cyanosis clubbing or edema. Skin is without rash or lesion. Neurologic examination is brief but nonfocal. - Labs CBC & Chem 7: 07/02/17 03:52 07/02/17 03:52 Labs: Abnormal Lab Results - Last 24 Hours (Table) 07/01/17 07/01/17 07/01/17 Range/Units 11:54 17:03 20:41 WBC (3.8-10.6) k/uL RBC (4.30-5.90) m/uL Hgb (13.0-17.5) gm/dL Hct (39.0-53.0) % MCV (80.0-100.0) fL MCH (25.0-35.0) pg MCHC (31.0-37.0) g/dL RDW (11.5-15.5) % Plt Count (150-450) k/uL Neutrophils # (1.3-7.7) k/uL Glucose (74-99) mg/dL POC Glucose (mg/dL) 125 H 133 H 139 H (75-99) mg/dL 07/02/17 07/02/1707/02/18 Range/Units 03:52 03:52 07:21 WBC 13.6 H (3.8-10.6) k/uL RBC 3.88 L (4.30-5.90) m/uL Hgb 8.7 L (13.0-17.5) gm/dL Hct 29.9 L (39.0-53.0) % MCV 77.2 L (80.0-100.0) fL MCH 22.4 L (25.0-35.0) pg MCHC 29.0 L (31.0-37.0) g/dL RDW 16.8 H (11.5-15.5) % Plt Count 641 H (150-450) k/uL Neutrophils # 10.9 H (1.3-7.7) k/uL Glucose 109 H (74-99) mg/dL POC Glucose (mg/dL) 117 H (75-99) mg/dL Microbiology - Last 24 Hours (Table) 06/30/17 10:34 Urine Culture - Final Urine,Voided Vera albicans 07/01/17 07:50 Gram Stain - Preliminary Sputum 06/30/17 10:34 Blood Culture - Preliminary Blood No Growth after 24 hours Assessment and Plan (1) MRSA infection Current Visit: Yes Status: Acute Code(s): A49.02 - METHICILLIN RESIS STAPH INFECTION, UNSP SITE SNOMED Code(s): 678870300 (2) Legionnaires' disease Current Visit: Yes Status: Acute Code(s): A48.1 - LEGIONNAIRES' DISEASE SNOMED Code(s): 077815077 (3) Pneumonia Current Visit: Yes Status: Acute Code(s): J18.9 - PNEUMONIA, UNSPECIFIED ORGANISM SNOMED Code(s): 287150599 (4) Sepsis Current Visit: Yes Status: Acute Code(s): A41.9 - SEPSIS, UNSPECIFIED ORGANISM SNOMED Code(s): 75105422 (5) Diabetes mellitus type 2 in obese Current Visit: Yes Status: Chronic Code(s): E11.69 - TYPE 2 DIABETES MELLITUS WITH OTHER SPECIFIED COMPLICATION; E66.9 - OBESITY, UNSPECIFIED SNOMED Code(s): 02770517 (6) Hyperlipidemia Current Visit: Yes Status: Chronic Code(s): E78.5 - HYPERLIPIDEMIA, UNSPECIFIED SNOMED Code(s): 27422010 (7) Hypertension Current Visit: Yes Status: Chronic Code(s): I10 - ESSENTIAL (PRIMARY) HYPERTENSION SNOMED Code(s): 12414503 (8) Obesity (BMI 30.0-34.9) Current Visit: Yes Status: Chronic Code(s): E66.9 - OBESITY, UNSPECIFIED SNOMED Code(s): 916619854 (9) Non-STEMI (non-ST elevated myocardial infarction) Current Visit: No Status: Acute Code(s): I21.4 - NON-ST ELEVATION (NSTEMI) MYOCARDIAL INFARCTION SNOMED Code(s): 673450784 (10) Paroxysmal atrial fibrillation with rapid ventricular response Current Visit: No Status: Acute Code(s): I48.0 - PAROXYSMAL ATRIAL FIBRILLATION SNOMED Code(s): 799305656 (11) Pleural effusion on left Current Visit: No Status: Acute Code(s): J90 - PLEURAL EFFUSION, NOT ELSEWHERE CLASSIFIED SNOMED Code(s): 06984256 (12) ST elevation myocardial infarction (STEMI) Current Visit: No Status: Acute Code(s): I21.3 - ST ELEVATION (STEMI) MYOCARDIAL INFARCTION OF UNSP SITE SNOMED Code(s): 156521258 (13) Coronary artery disease Current Visit: No Status: Chronic Code(s): I25.10 - ATHSCL HEART DISEASE OF [place] CORONARY ARTERY W/O ANG PCTRS SNOMED Code(s): 16402527 (14) Status post aorto-coronary artery bypass graft Current Visit: Yes Status: Acute Code(s): Z95.1 - PRESENCE OF AORTOCORONARY BYPASS GRAFT SNOMED Code(s): 115521547 Plan: Plan dated 07/01/2017 We'll make sure that the patient has an infectious disease consultation. Currently the patient seems relatively stable. Should stay here in the ICU. Will have labs and x-rays in the morning. I review the medications. We'll see what antibiotics he was on as an outpatient. Additional recommendations and suggestions are forthcoming. We'll make sure he is updrafts. His situation may take a turn for the worse and he may require intubation and mechanical ventilation. Plan dated 07/02/2017 The patient's chest x-ray today is essentially unchanged. Still receiving high flow O2. We'll review the CAT scan which was ordered by my partner on Saturday. The patient may need a extensive drainage procedure such as decortication. We' ll discuss with cardiothoracic surgery. We'll review the meds labs x-rays. Additional recommendations and suggestions are forthcoming. Microbiology will also be evaluated. Time with Patient: Greater than 30
[2017-07-02] MEDS: HEPARIN SODIUM,PORCINE 5,000 UNIT/ML 1 ML VIAL SQ SCH ×2 (09:41→20:18)
[2017-07-02] MEDS: MAGNESIUM SULFATE-D5W PMX 1 GM in DEXTROSE/WATER 1 100ML.BAG IVPB SCH ×2 (09:48→12:00)
--- NOTE | 2017-07-02 10:44 | P.PN ---
Subjective Progress Note Date: 07/02/17 Principal diagnosis: History of recent urgent coronary artery bypass grafting on 05/22/2017, non-ST elevation myocardial infarction, hypertension, hyperlipidemia, insulin- dependent diabetes mellitus, anxiety, family history of premature coronary artery disease, COPD, paroxysmal atrial fibrillation, left-sided thoracentesis on 05/30/2017 and left chest pigtail catheter placement with fluid cultures positive for all for hemolytic strep and enterococcuss faecalis, left lower lobe pneumonia requiring placement of PICC line for home IV antibiotic therapy, and obesity. The patient was admitted to the hospital yesterday after presenting to the emergency department with complaints of increase in shortness of breath over the last several days, with worsening productive cough. The patient has been receiving outpatient IV antibiotic therapy per his PICC line for treatment of his left lower lobe pneumonia which is been managed by Dr. Nixon. Currently the patient is in bed with his head elevated and is in no acute distress. He remains on AIRVO at 40 L flow with 65% FiO2. Denies complaints of pain at this time and reports his shortness of breath has slightly improved over the last 24 hours. Objective - Vital Signs Vital signs: Vital Signs Temp 98.2 F 07/02/17 08:00 Pulse 85 07/02/17 10:00 Resp 35 H 07/02/17 10:00 BP 140/67 07/02/17 10:00 Pulse Ox 95 07/02/17 10:00 Intake & Output 07/01/17 07/02/17 07/02/17 18:59 06:59 18:59 Intake Total 1412.5 785 740 Output Total 600 750 Balance 812.5 35 740 Weight 114 kg Intake: IV 1062.5 785 400 Piperacillin-Tazobactam 3 50 .375 gm In Dextrose/Water 1 50ml.bag @ 12.5 mls/hr IVPB Q8H [facility] Rx#: [id number] Sodium Chloride 0.9% 1, 1062.5 610 150 000 ml @ 50 mls/hr IV . Q20H [facility] Rx#:[id number] Vancomycin 1,750 mg In 125 250 Sodium Chloride 0.9% 250 ml @ 125 mls/hr IVPB Q8H [facility] Rx#:[id number] Intake, IV Titration 350.0 100 Amount Levofloxacin 750Mg-D5w 100 Pmx 750 mg In Dextrose/ Water 1 150ml.bag @ 100 mls/hr IVPB Q24H [facility] Rx#: [id number] Magnesium Sulfate-D5w Pmx 100 1 gm In Dextrose/Water 1 100ml.bag @ 100 mls/hr IVPB Q1H [facility] Rx#: [id number] Piperacillin-Tazobactam 3 25.0 .375 gm In Dextrose/Water 1 50ml.bag @ 12.5 mls/hr IVPB Q8H [facility] Rx#: [id number] Sodium Chloride 0.9% 1, 100 000 ml @ 50 mls/hr IV . Q20H [facility] Rx#:[id number] Vancomycin 1,750 mg In 125 Sodium Chloride 0.9% 250 ml @ 125 mls/hr IVPB Q8H [facility] Rx#:[id number] Oral 240 Output: Urine 600 750 Other: Voiding Method Urinal Urinal Urinal # Voids 0 0 # Bowel Movements 1 - Constitutional General appearance: Present: cooperative, morbidly obese, no acute distress - EENT Eyes: Present: PERRLA ENT: Present: hearing grossly normal - Neck Details: No JVD, no lymphadenopathy, neck is supple. - Respiratory Details: Lung sounds with coarse rhonchi throughout, diminished to his left lower lobe. Respirations are symmetrical and nonlabored. Oxygen saturation are 98% with AIRVO 40 L flow, 65% FiO2. - Cardiovascular Details: Regular rhythm and rate. S1 and S2 present, negative for S3, gallop or murmur. Sternum is stable. Bedside telemetry showing normal sinus rhythm heart rate 84. Knee-high WALESKA hose and sequential compression devices in place to his bilateral lower extremities. No edema present. Peripheral pulses palpable. - Gastrointestinal Gastrointestinal Comment(s): Abdomen is soft, nontender and nondistended. Active bowel sounds to all 4 abdominal quadrants. Tolerating oral intake. - Genitourinary Genitourinary Comment(s): Adequate urine output, clear yellow urine. - Integumentary Integumentary Comment(s): Midline sternal incision clean dry and well approximated, healed. Left lower extremity EVH harvest site clean dry and healed. No drainage noted. Skin is warm, and dry, no clubbing or cyanosis. - Neurologic Neurologic: Present: CNII-XII intact - Musculoskeletal Musculoskeletal: Present: generalized weakness, strength equal bilaterally - Psychiatric Psychiatric: Present: A&O x's 3, appropriate affect, intact judgment & insight - Allied health notes Allied health notes reviewed: nursing - Labs CBC & Chem 7: 07/02/17 03:52 07/02/17 03:52 Labs: Abnormal Lab Results - Last 24 Hours (Table) 07/01/17 07/01/17 07/01/17 Range/Units 11:54 17:03 20:41 WBC (3.8-10.6) k/uL RBC (4.30-5.90) m/uL Hgb (13.0-17.5) gm/dL Hct (39.0-53.0) % MCV (80.0-100.0) fL MCH (25.0-35.0) pg MCHC (31.0-37.0) g/dL RDW (11.5-15.5) % Plt Count (150-450) k/uL Neutrophils # (1.3-7.7) k/uL Glucose (74-99) mg/dL POC Glucose (mg/dL) 125 H 133 H 139 H (75-99) mg/dL 07/02/17 07/02/17 07/02/17 Range/Units 03:52 03:52 07:21 WBC 13.6 H (3.8-10.6) k/uL RBC 3.88 L (4.30-5.90) m/uL Hgb 8.7 L (13.0-17.5) gm/dL Hct 29.9 L (39.0-53.0) % MCV 77.2 L (80.0-100.0) fL MCH 22.4 L (25.0-35.0) pg MCHC 29.0 L (31.0-37.0) g/dL RDW 16.8 H (11.5-15.5) % Plt Count 641 H (150-450) k/uL Neutrophils # 10.9 H (1.3-7.7) k/uL Glucose 109 H (74-99) mg/dL POC Glucose (mg/dL) 117 H (75-99) mg/dL Microbiology - Last 24 Hours (Table) 06/30/17 10:34 Urine Culture - Final Urine,Voided Vera albicans 07/01/17 07:50 Gram Stain - Preliminary Sputum 06/30/17 10:34 Blood Culture - Preliminary Blood No Growth after 24 hours - Imaging and Cardiology Chest x-ray: report reviewed, image reviewed CT scan - chest: report reviewed, image reviewed Assessment and Plan (1) History of atrial fibrillation less than 8 weeks after coronary artery bypass graft Current Visit: Yes Status: Acute Code(s): RDS7753 - SNOMED Code(s): 848917833522381 (2) History of myocardial infarction Current Visit: Yes Status: Acute Code(s): I25.2 - OLD MYOCARDIAL INFARCTION SNOMED Code(s): 698018925 (3) Status post aorto-coronary artery bypass graft Current Visit: Yes Status: Acute Code(s): Z95.1 - PRESENCE OF AORTOCORONARY BYPASS GRAFT SNOMED Code(s): 891245159 (4) Anxiety Current Visit: Yes Status: Chronic Code(s): F41.9 - ANXIETY DISORDER, UNSPECIFIED SNOMED Code(s): 84799405 (5) Diabetes mellitus type 2 in obese Current Visit: Yes Status: Chronic Code(s): E11.69 - TYPE 2 DIABETES MELLITUS WITH OTHER SPECIFIED COMPLICATION; E66.9 - OBESITY, UNSPECIFIED SNOMED Code(s): 62387951 (6) Hyperlipidemia Current Visit: Yes Status: Chronic Code(s): E78.5 - HYPERLIPIDEMIA, UNSPECIFIED SNOMED Code(s): 06830041 (7) Hypertension Current Visit: Yes Status: Chronic Code(s): I10 - ESSENTIAL (PRIMARY) HYPERTENSION SNOMED Code(s): 51700223 (8) Obesity (BMI 30.0-34.9) Current Visit: Yes Status: Chronic Code(s): E66.9 - OBESITY, UNSPECIFIED SNOMED Code(s): 126864292 (9) Coronary artery disease Current Visit: No Status: Chronic Code(s): I25.10 - ATHSCL HEART DISEASE OF [place] CORONARY ARTERY W/O ANG PCTRS SNOMED Code(s): 78283737 (10) Left lower lobe pneumonia Current Visit: No Status: Acute Code(s): J18.1 - LOBAR PNEUMONIA, UNSPECIFIED ORGANISM SNOMED Code(s): 788149176 Plan: 1. Continue aspirin, statin and beta ewa. 2. Wean oxygen as tolerated, pulmonary management per Dr. Alonso's recommendations. 3. Antibiotic management per infectious disease recommendations. 4. CAT scan of his chest will be reviewed by Dr. Pugh with further recommendations to follow. 5. Medical management per primary care service. 6. Encourage use of his incentive spirometry every hour while awake. 7. GI/DVT prophylaxis. 8. More recommendations to follow as patient progresses and care. Time with Patient: Greater than 30
--- NOTE | 2017-07-02 11:15 | P.PN ---
Subjective Progress Note Date: 07/02/17 62 year old male who presented to the emergency room on 06/30/2017 with a chief complaint of shortness of breath that was worsening in severity x 1 week. Patient states he was having sputum production that was initially clear in color and then progressed to a greenish/yellow. The patient has a history of chronic obstructive disease, diabetes mellitus, gastroesophageal reflux disease, hypertension, myocardial infarction, pneumonia , STEMI in May 2017 with heart catheterization. He underwent CABG 4 in May 2017. Postoperatively, he had persistant left sided pleural effusion and required thoracentesis on 05/30/2017. Cultures from pleural fluid were positive for alpha hemolytic strep and enterococcus faecalis. He had a PICC line placed and was discharged home with IV antibiotic infusions. In the emergency room, a chest x-ray was completed which revealed worsening and now completely opacification of the left hemothorax which may related to pleural effusion and/or multifocal pneumonia. Patchy alveolar opacities within the right lower lung are also seen. EKG revealed sinus tachycardia. He was febrile with a temperature of 102.0 in the emergency room. He was found to be hypoxic with an oxygen saturation of 82% on room air. He was also tachycardic with a heart rate in the low 100s. Laboratory studies revealed a white count of 20.7, hemoglobin 10.6, INR 1.3, sodium 139, potassium 4.7, BUN 17, creatinine 0.58, lactic acid 1.7, AST 56, PLT 123, and alkaline phosphatase 159. Urinalysis reveals 1+ protein but otherwise unremarkable. Testing for influenza A and B was negative. 07/01/2017 The patient was seen and examined at the bedside in the intensive care unit with Dr. Abreu. He appears short of breath at rest. He is currently wearing a nonrebreather mask. Maintaining oxygen saturations greater than 92%. He appears diaphoretic. Denies chest pain or pressure. Denies pain or discomfort. Urine culture is negative at the 18 hour jacquelyn. Blood cultures are negative at the 24 hour jacquelyn. His vital signs are relatively stable at this time. Consultations have been placed for infectious disease, pulmonology, and cardiovascular surgery. 07/02/2017 Patient seen and examined at the bedside in the ICU with Dr. Abreu. Patient is currently on Airvo on 65%. Oxygen saturations are greater than 92%. He is eating breakfast at this time. Denies nausea or vomiting. Chest xray this morning shows stable findings with diffuse bilateral left greater than right pneumonia. Blood culture is negative at 24 hour jacquelyn. Urine culture is positive for vera albicans. Infectious disease is following. Patient remains on Levaquin, Vanco, and Zosyn at this time. WBC today is 13.6. Hemoglobin is 8.7, down from 9.1 yesterday. Cardiothoracic surgery is following. Patient may require intervention for possible loculated pleural effusion. Objective - Vital Signs Vital signs: Vital Signs Temp 98.2 F 07/02/17 08:00 Pulse 85 07/02/17 10:00 Resp 35 H 07/02/17 10:00 BP 140/67 07/02/17 10:00 Pulse Ox 95 07/02/17 10:00 Intake & Output 07/01/17 07/02/17 07/02/17 18:59 06:59 18:59 Intake Total 1412.5 785 740 Output Total 600 750 Balance 812.5 35 740 Weight 114 kg Intake: IV 1062.5 785 400 Piperacillin-Tazobactam 3 50 .375 gm In Dextrose/Water 1 50ml.bag @ 12.5 mls/hr IVPB Q8H [facility] Rx#: [id number] Sodium Chloride 0.9% 1, 1062.5 610 150 000 ml @ 50 mls/hr IV . Q20H [facility] Rx#:[id number] Vancomycin 1,750 mg In 125 250 Sodium Chloride 0.9% 250 ml @ 125 mls/hr IVPB Q8H [facility] Rx#:[id number] Intake, IV Titration 350.0 100 Amount Levofloxacin 750Mg-D5w 100 Pmx 750 mg In Dextrose/ Water 1 150ml.bag @ 100 mls/hr IVPB Q24H [facility] Rx#: [id number] Magnesium Sulfate-D5w Pmx 100 1 gm In Dextrose/Water 1 100ml.bag @ 100 mls/hr IVPB Q1H [facility] Rx#: [id number] Piperacillin-Tazobactam 3 25.0 .375 gm In Dextrose/Water 1 50ml.bag @ 12.5 mls/hr IVPB Q8H [facility] Rx#: [id number] Sodium Chloride 0.9% 1, 100 000 ml @ 50 mls/hr IV . Q20H [facility] Rx#:[id number] Vancomycin 1,750 mg In 125 Sodium Chloride 0.9% 250 ml @ 125 mls/hr IVPB Q8H [facility] Rx#:[id number] Oral 240 Output: Urine 600 750 Other: Voiding Method Urinal Urinal Urinal # Voids 0 0 # Bowel Movements 1 - Exam GENERAL: This is a 62-year-old male who appears in no acute distress at the time of examination. Pleasant and cooperative. HEENT: Head is atraumatic, normocephalic. Pupils are equal, round, and reactive to light. Sclerae anicteric. Conjunctivae are clear. Mucus membranes of the mouth are moist. Neck is supple. RESPIRATORY: Lungs are coarse with scattered rhonchi. Left lower lung diminished. No use of accessory muscles. Patient maintaining oxygen saturation greater than 92% on AIRVO. No chest wall tenderness is noted on palpation or with deep breathing. CARDIOVASCULAR: Regular rate and rhythm. S1 and S2 noted. No systolic or diastolic murmur auscultated. No JVD noted. No S3 or S4 noted. GASTROINTESTINAL: No distention noted. Abdomen soft and round. Normal active bowel sounds auscultated x 4 quadrants. No pain or tenderness noted upon palpation. INTEGUMENTARY: Midline chest incision without drainage or erythema. No cyanosis. No jaundice. No rashes noted. No cellulitis noted. EXTREMITIES: 2+ peripheral pulses. No peripheral edema. No calf tenderness noted. NEUROLOGIC: Cranial nerves II-XII intact. PSYCHIATRIC: Awake, alert, and oriented X 3. Appropriate affect. Intact judgement and insight. - Labs CBC & Chem 7: 07/02/17 03:52 07/02/17 03:52 Labs: Abnormal Lab Results - Last 24 Hours (Table) 07/01/17 07/01/17 07/01/17 Range/Units 11:54 17:03 20:41 WBC (3.8-10.6) k/uL RBC (4.30-5.90) m/uL Hgb (13.0-17.5) gm/dL Hct (39.0-53.0) % MCV (80.0-100.0) fL MCH (25.0-35.0) pg MCHC (31.0-37.0) g/dL RDW (11.5-15.5) % Plt Count (150-450) k/uL Neutrophils # (1.3-7.7) k/uL Glucose (74-99) mg/dL POC Glucose (mg/dL) 125 H 133 H 139 H (75-99) mg/dL 07/02/17 07/02/17 07/02/17 Range/Units 03:52 03:52 07:21 WBC 13.6 H (3.8-10.6) k/uL RBC 3.88 L (4.30-5.90) m/uL Hgb 8.7 L (13.0-17.5) gm/dL Hct 29.9 L (39.0-53.0) % MCV 77.2 L (80.0-100.0) fL MCH 22.4 L (25.0-35.0) pg MCHC 29.0 L (31.0-37.0) g/dL RDW 16.8 H (11.5-15.5) % Plt Count 641 H (150-450) k/uL Neutrophils # 10.9 H (1.3-7.7) k/uL Glucose 109 H (74-99) mg/dL POC Glucose (mg/dL) 117 H (75-99) mg/dL Microbiology - Last 24 Hours (Table) 06/30/17 10:34 Urine Culture - Final Urine,Voided Vera albicans 07/01/17 07:50 Gram Stain - Preliminary Sputum 06/30/17 10:34 Blood Culture - Preliminary Blood No Growth after 24 hours Assessment and Plan Plan: ASSESSMENT: Multifocal pneumonia, present on admission, sputum culture ordered Sepsis with leukocytosis and fever, present on admission, secondary to above Acute hypoxic respiratory failure requiring supplemental oxygen, secondary to above Diabetes mellitus, type II, hemoglobin A1c 5.7% Coronary artery disease with previous myocardial infarction History of coronary artery bypass grafting 4 vessels History of left side pleural effusion requiring thoracentesis and empyema requiring pigtail drainage catheter with cultures positive for alpha hemolytic strep and enterococcus faecalis History of paroxysmal atrial fibrillation Chronic obstructive pulmonary disease Essential hypertension Hyperlipidemia Gastroesophageal reflux disease Anxiety, unspecified Obesity: BMI 31.2 PLAN: -Cardiothoracic surgery on consult. Appreciate recommendations and input -Possible intervention related to possible loculated left pleural effusion. Await further recommendations -Process Developer on consult. Appreciate recommendations and input -Continue breathing treatments scheduled QID and PRN -Await final sputum culture -Infectious disease on consult. Appreciate recommendations and input -Antibiotics per infectious disease: Currently on Vancomycin, Levaquin, and Zosyn -Capillary blood glucose accu-checks AC/HS -Novolog sliding scale coverage -Resume novolog 8 units with meals and Lantus 25 units at HS -Home meds as appropriate -Monitor labs -GI prophylaxis: Protonix 40mg IV daily -DVT prophylaxis: Heparin 5000 units subcu every 12 hours -Monitor vital signs and address as appropriate -Discharge planning: Patient may require home care or ECF at the time of discharge depending on patients clinical course -Further recommendations pending patient's course Nurse practitioner note has been reviewed by physician. Signing provider agrees with the documented findings, assessment, and plan of care.
[2017-07-02 11:56] LABS: Glucose,Whole Blood 127 mg/dL (75-99)
[2017-07-02] MEDS: ASCORBIC ACID 500 MG TAB PO SCH (12:01)
[2017-07-02] MEDS: LEVOFLOXACIN 750 MG TAB PO SCH (12:01)
[2017-07-02] MEDS: FERROUS SULFATE 325 MG TAB PO SCH (12:01)
--- NOTE | 2017-07-02 15:49 | US ---
EXAMINATION TYPE: US chest DATE OF EXAM: 07/02/2017 COMPARISON: CT dated 07/01/2017 CLINICAL HISTORY: left pleural effusion. EXAM MEASUREMENTS: Right Pleural Effusion fluid pocket: 5.0 cm Right skin to fluid thickness: 3.2 cm Left Pleural Effusion fluid pocket: 8.9 cm Left skin to fluid thickness: not marked as complex pleural effusion is noted Right side was not marked for possible thoracentesis outside the dept. Left side was not marked for possible thoracentesis outside the dept. Pulmonologists are able to review the images in the patient?s EMR. Abnormal internal echoes are present throughout the collection in the posterior left chest inferiorly IMPRESSIONS: Findings likely represent loculated effusion. No percutaneous pigtail catheter placement to be performed at this time.
[2017-07-02 17:00] LABS: Glucose,Whole Blood 88 mg/dL (75-99)
[2017-07-02 20:11] LABS: Glucose,Whole Blood 168 mg/dL (75-99)
[2017-07-02] MEDS: INSULIN DETEMIR 100 UNIT/ML 10 ML VIAL SQ SCH (20:19)
--- NOTE | 2017-07-02 21:45 | P.PN ---
Subjective Progress Note Date: 07/02/17 Principal diagnosis: Shortness of breath This is a 62 year old male presented to hospital on 05/21/2017 with chest pain and found to have acute myocardial infarction. Heart catheterization found evidence of multivessel coronary artery disease and he is status post coronary artery bypass grafting procedure. He said difficulties postoperatively with bleeding to require somewhat protracted ventilation. He did require repeat surgery for control of the bleeding. He developed cardiac dysrhythmia with atrial fibrillation requiring amiodarone treatment. The patient also developed difficulties with his left chest. A large fluid collection was found and he underwent thoracentesis he was having some difficulty with shortness of breath and consequently further imaging was performed. Computed tomography scan showed evidence of the left lower lobe infiltration as well as some right upper lobe infiltrate. Because of and leukocytosis the infectious diseases consultation was requested. He required placement of percutaneous drainage of the empyema. He was eventually stabilized and discharged home on June 07. He was continued on IV antibioticsat an [facility] office on a daily basis for enterococcus and alpha hemolytic strep empyema. Patient last saw Dr. Nixon on Saturday any extended IV antibiotic therapy for another week. Patient states he was feeling fine when he was in the office on Saturday and also on Saturday. But on Saturday morning he started coughing around 3 in the morning and was clear sputum production the change to yellow and he felt exhausted. He was having difficulty breathing and his called Dr. Nixon recommended that he come into the evaluated. EMS was called and patient was transferred to [facility] emergency center. Chest x-ray initially showed worsening of bilateral pneumonias, cardiomegaly and left pleural effusion. Repeat chest x- ray showed worsening and near complete obesity of the left hemithorax, pleural effusion and multifocal pneumonia in differential. Patchy alveolar opacity within the right lower lobe. He was found to be febrile which he denied having any fevers chills or rigors at home. His pulse ox was down to 82% and he was hypotensive. White count was elevated at 20.7 but improved to 13.5. ALT was 123 and alkaline phosphatase 159. Albumin is 3. Urinalysis was clear, protein 1+, nitrate and leukoesterase negative. Urine culture is in progress. Blood culture and sputum culture status received. Influenza testing was negative. ALT is 123 and alkaline phosphatase 159. Albumin is 3. Patient has been admitted into the intensive care unit. He has not required vasopressors. Consult in place with pulmonary medicine and CAT scan of the chest has been ordered. Consult in place with cardiothoracic surgery. Computed tomography scan as noted showing evidence of near collapse of left lung. Ultrasound has been performed showing and the complex fluid collection not a candidate for pigtail catheter drainage. Objective - Vital Signs Vital signs: Vital Signs Temp 98.3 F 07/02/17 20:00 Pulse 84 07/02/17 21:00 Resp 18 07/02/17 21:00 BP 125/72 07/02/17 21:00 Pulse Ox 93 L 07/02/17 21:00 Intake & Output 07/02/17 07/02/17 07/03/17 06:59 18:59 06:59 Intake Total 785 2090.0 100 Output Total 750 725 200 Balance 35 1365.0 -100 Weight 114 kg Intake: IV 785 1070.0 100 Piperacillin-Tazobactam 3 50 50.0 .375 gm In Dextrose/Water 1 50ml.bag @ 12.5 mls/hr IVPB Q8H [facility] Rx#: [id number] Sodium Chloride 0.9% 1, 610 520 100 000 ml @ 50 mls/hr IV . Q20H [facility] Rx#:[id number] Vancomycin 1,750 mg In 125 500 Sodium Chloride 0.9% 250 ml @ 125 mls/hr IVPB Q8H [facility] Rx#:[id number] Intake, IV Titration 200 Amount Magnesium Sulfate-D5w Pmx 200 1 gm In Dextrose/Water 1 100ml.bag @ 100 mls/hr IVPB Q1H [facility] Rx#: [id number] Oral 820 Output: Urine 750 725 200 Other: Voiding Method Urinal Urinal Urinal # Voids 0 # Bowel Movements 1 1 - Exam Gen: This is a 62-year-old male patient sitting up in the ICU bed and mild to moderate respiratory distress with nonrebreather in place. HEENT: Head is atraumatic, normocephalic. Pupils equal, round. Sclerae is anicteric. Junk developed pink. Mucous membranes of the mouth are somewhat dry. White coating on his tongue noted. NECK: Supple. No JVD. No lymphadenopathy. No thyromegaly. LUNGS: Right chest with good air entry with few crackles at the base. Left chest with markedly diminished air entry. Only few crackles are heard in the left upper zone. Dullness is noted to the left base with egophony. HEART: Regular rate and rhythm. No murmur. ABDOMEN: Soft. Bowel sounds are present. No masses. No tenderness. EXTREMITIES: No pedal edema. No calf tenderness. Dorsalis pedis +2 bilaterally. NEUROLOGICAL: Patient is awake, alert and oriented x3. - Labs CBC & Chem 7: 07/02/17 03:52 07/02/17 03:52 Labs: Abnormal Lab Results - Last 24 Hours (Table) 07/02/17 07/02/17 07/02/17 Range/Units 03:52 03:52 07:21 WBC 13.6 H (3.8-10.6) k/uL RBC 3.88 L (4.30-5.90) m/uL Hgb 8.7 L (13.0-17.5) gm/dL Hct 29.9 L (39.0-53.0) % MCV 77.2 L (80.0-100.0) fL MCH 22.4 L (25.0-35.0) pg MCHC 29.0 L (31.0-37.0) g/dL RDW 16.8 H (11.5-15.5) % Plt Count 641 H (150-450) k/uL Neutrophils # 10.9 H (1.3-7.7) k/uL Glucose 109 H (74-99) mg/dL POC Glucose (mg/dL) 117 H (75-99) mg/dL 07/02/17 07/02/17 Range/Units 11:55 20:10 WBC (3.8-10.6) k/uL RBC (4.30-5.90) m/uL Hgb (13.0-17.5) gm/dL Hct (39.0-53.0) % MCV (80.0-100.0) fL MCH (25.0-35.0) pg MCHC (31.0-37.0) g/dL RDW (11.5-15.5) % Plt Count (150-450) k/uL Neutrophils # (1.3-7.7) k/uL Glucose (74-99) mg/dL POC Glucose (mg/dL) 127 H 168 H (75-99) mg/dL Microbiology - Last 24 Hours (Table) 06/30/17 10:34 Blood Culture - Preliminary Blood No Growth after 48 hours 06/30/17 10:34 Urine Culture - Final Urine,Voided Vera albicans 07/01/17 07:50 Gram Stain - Preliminary Sputum Laboratory Results WBC 13.6 k/uL (3.8-10.6) H 07/02/17 03:52 RBC 3.88 m/uL (4.30-5.90) L 07/02/17 03:52 Hgb 8.7 gm/dL (13.0-17.5) L 07/02/17 03:52 Hct 29.9 % (39.0-53.0) L 07/02/17 03:52 MCV 77.2 fL (80.0-100.0) L 07/02/17 03:52 MCH 22.4 pg (25.0-35.0) L 07/02/17 03:52 MCHC 29.0 g/dL (31.0-37.0) L 07/02/17 03:52 RDW 16.8 % (11.5-15.5) H 07/02/17 03:52 Plt Count 641 k/uL (150-450) H 07/02/17 03:52 Neutrophils % 80 % 07/02/17 03:52 Lymphocytes % 13 % 07/02/17 03:52 Monocytes % 5 % 07/02/17 03:52 Eosinophils % 1 % 07/02/17 03:52 Basophils % 0 % 07/02/17 03:52 Neutrophils # 10.9 k/uL (1.3-7.7) H 07/02/17 03:52 Lymphocytes # 1.7 k/uL (1.0-4.8) 07/02/17 03:52 Monocytes # 0.7 k/uL (0-1.0) 07/02/17 03:52 Eosinophils # 0.1 k/uL (0-0.7) 07/02/17 03:52 Basophils # 0.0 k/uL (0-0.2) 07/02/17 03:52 Hypochromasia Marked 07/02/17 03:52 Poikilocytosis Slight 07/02/17 03:52 Anisocytosis Slight 07/02/17 03:52 Microcytosis Slight 07/02/17 03:52 PT 12.1 sec (9.0-12.0) H 06/30/17 10:34 INR 1.3 (<1.2) H 06/30/17 10:34 APTT 23.4 sec (22.0-30.0) 06/30/17 10:34 Sodium 141 mmol/L (137-145) 07/02/17 03:52 Potassium 4.2 mmol/L (3.5-5.1) 07/02/17 03:52 Chloride 104 mmol/L (98-107) 07/02/17 03:52 Carbon Dioxide 28 mmol/L (22-30) 07/02/17 03:52 Anion Gap 9 mmol/L 07/02/17 03:52 BUN 13 mg/dL (9-20) 07/02/17 03:52 Creatinine 0.68 mg/dL (0.66-1.25) 07/02/17 03:52 Est GFR (MDRD) Af Amer >60 (>60 ml/min/1.73 sqM) 07/02/17 03:52 Est GFR (MDRD) Non-Af >60 (>60 ml/min/1.73 sqM) 07/02/17 03:52 Glucose 109 mg/dL (74-99) H 07/02/17 03:52 POC Glucose (mg/dL) 168 mg/dL (75-99) H 07/02/17 20:10 POC Glu [employer] [facility] Julissa Murphy 07/02/17 20:[address] Glu mg/dL 117 06/30/17 10:34 Hemoglobin A1c 5.7 % (4.0-6.0) 06/30/17 10:34 Plasma Lactic Acid Kashif 1.7 mmol/L (0.7-2.0) 06/30/17 10:34 Calcium 9.0 mg/dL (8.4-10.2) 07/02/17 03:52 Phosphorus 3.6 mg/dL (2.5-4.5) 07/02/17 03:52 Magnesium 1.8 mg/dL (1.6-2.3) 07/02/17 03:52 Total Bilirubin 0.6 mg/dL (0.2-1.3) 06/30/17 10:34 AST 56 U/L (17-59) 06/30/17 10:34 ALT 123 U/L (21-72) H 06/30/17 10:34 Alkaline Phosphatase 159 U/L (38-126) H 06/30/17 10:34 Total Protein 6.2 g/dL (6.3-8.2) L 06/30/17 10:34 Albumin 3.0 g/dL (3.5-5.0) L 06/30/17 10:34 Urine Color Yellow 06/30/17 10:34 Urine Appearance Clear (Clear) 06/30/17 10:34 Urine pH 5.0 (5.0-8.0) 06/30/17 10:34 Ur Specific [place] 1.021 (1.001-1.035) 06/30/17 10:34 Urine Protein 1+ (Negative) H 06/30/17 10:34 Urine Glucose (UA) Negative (Negative) 06/30/17 10:34 Urine Ketones Negative (Negative) 06/30/17 10:34 Urine Blood Negative (Negative) 06/30/17 10:34 Urine Nitrite Negative (Negative) 06/30/17 10:34 Urine Bilirubin Negative (Negative) 06/30/17 10:34 Urine Urobilinogen <2.0 mg/dL (<2.0) 06/30/17 10:34 Ur Leukocyte Esterase Negative (Negative) 06/30/17 10:34 Urine RBC 1 /hpf (0-5) 06/30/17 10:34 Urine WBC <1 /hpf (0-5) 06/30/17 10:34 Urine Mucus Few /hpf (None) H 06/30/17 10:34 Vancomycin Trough 17.8 ug/mL 07/02/17 01:03 Influenza Type A RNA Not Detected (Not Detectd) 06/30/17 10:34 Influenza Type B (PCR) Not Detected (Not Detectd) 06/30/17 10:34 Microbiology 06/30/17 10:34 Blood Blood Culture - Preliminary No Growth after 48 hours 06/30/17 10:34 Urine,Voided Urine Culture - Final Vera albicans 07/01/17 07:50 Sputum Gram Stain - Preliminary Assessment and Plan (1) Pleural effusion on left Narrative/Plan: 62-year-old male with status post coronary artery bypass grafting procedure without difficulty significant infection of his left chest after surgery. Has been receiving a course of intravenous antibiotic therapy with ertapenem for coverage of the pathogens. Has not had a marked worsening of his status requiring hospitalization. He is on high flow oxygen device. Feeling somewhat better today. He still however has shortness of breath. Appetite is improved. Fever is improved. He is being available by pulmonary critical care and cardiothoracic surgery. Computed tomography scan ultrasound are noted. Await decisions as far as chest tube versus VATS procedure. Patient is on a plethora of antibiotics at this time pending further culture data given his failure of ertapenem. Current Visit: No Status: Acute Code(s): J90 - PLEURAL EFFUSION, NOT ELSEWHERE CLASSIFIED SNOMED Code(s): 24457167 (2) Pneumonia Current Visit: Yes Status: Acute Code(s): J18.9 - PNEUMONIA, UNSPECIFIED ORGANISM SNOMED Code(s): 594264104 (3) History of atrial fibrillation less than 8 weeks after coronary artery bypass graft Current Visit: Yes Status: Acute Code(s): NXB8475 - SNOMED Code(s): 118997344723920
[2017-07-03] MEDS: VANCOMYCIN 1,750 MG in SODIUM CHLORIDE 0.9% 250 ML IVPB SCH ×3 (01:41→18:18)
[2017-07-03 04:47] LABS: Anisocytosis Slight; Basophils # (A) 0.1 k/uL (0-0.2); Basophils % (A) 0 %; Eosinophils # (A) 0.2 k/uL (0-0.7); Eosinophils % (A) 1 %; HCT 31.7 % (39.0-53.0); Hypochromasia Marked; Lymphocytes # (A) 1.7 k/uL (1.0-4.8); Lymphocytes % (A) 10 %; MCH 22.2 pg (25.0-35.0); MCHC 28.3 g/dL (31.0-37.0); MCV 78.4 fL (80.0-100.0); Mean Platelet Volume 6.6; Microcytosis Slight; Monocytes # (A) 0.9 k/uL (0-1.0); Monocytes % (A) 5 %; Neutrophils # (A) 13.9 k/uL (1.3-7.7); Neutrophils % (A) 82 %; Platelet Count 688 k/uL (150-450); Poikilocytosis Slight; RBC 4.05 m/uL (4.30-5.90); RDW 17.3 % (11.5-15.5)
[2017-07-03 04:58] LABS: Anion Gap 5 mmol/L; Blood Urea Nitrogen 12 mg/dL (9-20); Calcium 8.7 mg/dL (8.4-10.2); Carbon Dioxide 31 mmol/L (22-30); Chloride 104 mmol/L (98-107); Glucose 126 mg/dL (74-99); Magnesium 1.9 mg/dL (1.6-2.3); Phosphorus 3.8 mg/dL (2.5-4.5); Sodium 140 mmol/L (137-145)
[2017-07-03] MEDS: SODIUM CHLORIDE 0.9% 1,000 ML IV SCH (05:37)
[2017-07-03] MEDS: PIPERACILLIN-TAZOBACTAM 3.375 GM in DEXTROSE/WATER 1 50ML.BAG IVPB SCH ×3 (05:37→21:00)
[2017-07-03] MEDS ORDERED: Magnesium Replacement Protocol 1 EACH MISC MISCELLANE PRN (06:21)
[2017-07-03 07:36] LABS: Glucose,Whole Blood 118 mg/dL (75-99)
[2017-07-03] MEDS: MAGNESIUM SULFATE-D5W PMX 1 GM in DEXTROSE/WATER 1 100ML.BAG IVPB SCH ×2 (08:14→09:47)
[2017-07-03] MEDS: INSULIN ASPART 100 UNIT/ML 1 ML 10 ML VIAL SQ SCH ×7 (08:16→20:51)
[2017-07-03] MEDS: IPRATROPIUM-ALBUTEROL 3 ML NEB INHALATION SCH ×4 (08:26→18:53)
--- NOTE | 2017-07-03 09:27 | XR ---
EXAMINATION TYPE: XR chest 1V DATE OF EXAM: 07/03/2017 COMPARISON: 07/02/2017 HISTORY: Pneumonia and sepsis TECHNIQUE: Single frontal view of the chest is obtained. FINDINGS: Multifocal patchy opacities are seen within the right suprahilar region, right cardiophren ic angle and near the right costophrenic angle as well as more confluent within the retrocardiac airs pace and left midlung. There is mild improved aeration of the left upper lung in comparison to the pr ior. Area of chronic atelectasis and/or pleural parenchymal scarring is seen within the right upper l meredith. Cardiac silhouette is partially obscured but enlarged. Post-CABG changes of the chest are noted. Osse ous structures appear intact. IMPRESSION: Slight improved aeration of the left upper lung with persistent confluent multifocal opa cities again favored to represent multifocal pneumonia.
[2017-07-03] MEDS: CLOPIDOGREL 75 MG TAB PO SCH (09:47)
[2017-07-03] MEDS: ASPIRIN 325 MG TAB PO SCH (09:47)
[2017-07-03] MEDS: AMIODARONE 200 MG TAB PO SCH (09:47)
[2017-07-03] MEDS: guaiFENesin 600 MG TABLET.ER PO SCH ×2 (09:47→20:52)
[2017-07-03] MEDS: PANTOPRAZOLE 40 MG/10 ML VIAL IV SCH (09:47)
[2017-07-03] MEDS: HEPARIN SODIUM,PORCINE 5,000 UNIT/ML 1 ML VIAL SQ SCH ×2 (09:48→20:51)
[2017-07-03] MEDS: SERTRALINE 100 MG TAB PO SCH (09:48)
[2017-07-03] MEDS ORDERED: RX INFO: IV CONTRAST WAS GIVEN 1 EACH MISC MISCELLANE PRN (10:20)
[2017-07-03 10:37] LABS: T4, Free (Free Thyroxine) 1.55 ng/dL (0.78-2.19)
--- NOTE | 2017-07-03 11:25 | P.PN ---
Subjective Progress Note Date: 07/03/17 Principal diagnosis: Acute hypoxic respiratory failure, secondary to left lung pneumonia and pleural effusion Progress note dated 07/02/2017 The patient continues to improve slowly. Radiographically, his chest x-ray has not changed all that much. Certainly not worse. Currently the patient is on the AIRVO at 65 L/m. He's had a saline IV at 50 mL an hour. The patient has a history of bilateral pneumonia with sepsis a history of asthma, diabetes, gastroesophageal reflux disease, hypertension, myocardial infarction and pneumonia. He also has a history of recent bypass grafting back on 05/22/[address] segment elevation myocardial infarction and legionnaires disease. He is a lifelong nonsmoker. His primary care physician is Dr. Gary Abreu. The patient apparently had a computed tomography scan late yesterday. I have not looked at it as yet. My partner expresses some concerns that he may have a loculated pleural effusion which need something more significantly done such as decortication. On 07/03/2017 patient remains in intensive care. Still requiring high flow nasal cannula, remains on AIRVO at FiO2 of 50% and 40 L/m flow. Afebrile, hemodynamically stable. Today's chest x-ray shows slight improvement in the aeration of the left upper lung with persistent confluent multifocal opacities representing multifocal pneumonia. Yesterday we have obtained a chest ultrasound to evaluate the complex and loculated left pleural effusion in the background of extensive left lung pneumonia. This was discussed with the interventional radiologist and cardiothoracic surgery. CT surgery feels the patient with benefit from a pigtail catheter insertion in the left pleural space and infusion of TPA over the next few days. This was discussed with the radiologist, who recommended getting a CT chest with contrast today. Otherwise patient is fairly comfortable, in no acute distress, respirations are shallow and tachypneic with a rate in the 30s. He is awake alert, tolerating a regular diet. His lab work shows upward trend of his WBCs, up to 17, hemoglobin is 9.0 , renal profile is stable, within normal limits no significant electrolyte abnormality. Blood and sputum culture show no growth, urine culture is positive for Vera albicans. ID service is on. Is on a combination of Levaquin, Zosyn and vancomycin. Currently not requiring any vasopressor support. Objective - Vital Signs Vital signs: Vital Signs Temp 98.5 F 07/03/17 08:00 Pulse 83 07/03/17 10:00 Resp 36 H 07/03/17 10:00 BP 136/65 07/03/17 10:00 Pulse Ox 95 07/03/17 10:00 Intake & Output 07/02/17 07/03/17 07/03/17 18:59 06:59 18:59 Intake Total 2090.0 900 950 Output Total 725 1150 250 Balance 1365.0 -250 700 Weight 115 kg Intake: IV 1070.0 900 350 Piperacillin-Tazobactam 3 50.0 50 .375 gm In Dextrose/Water 1 50ml.bag @ 12.5 mls/hr IVPB Q8H [facility] Rx#: [id number] Sodium Chloride 0.9% 1, 520 600 100 000 ml @ 50 mls/hr IV . Q20H [facility] Rx#:[id number] Vancomycin 1,750 mg In 500 250 250 Sodium Chloride 0.9% 250 ml @ 125 mls/hr IVPB Q8H [facility] Rx#:[id number] Intake, IV Titration 200 200 Amount Magnesium Sulfate-D5w Pmx 200 1 gm In Dextrose/Water 1 100ml.bag @ 100 mls/hr IVPB Q1H [facility] Rx#: [id number] Magnesium Sulfate-D5w Pmx 200 1 gm In Dextrose/Water 1 100ml.bag @ 100 mls/hr IVPB Q1H [facility] Rx#: [id number] Oral 820 400 Output: Urine 725 1150 250 Other: Voiding Method Urinal Urinal Urinal # Bowel Movements 1 - Exam No acute distress, oriented 3. Patient currently on supplemental oxygen via high flow. HEENT examination is grossly unremarkable. Mucous membranes are moist. No oral lesions. Neck supple. Full range of motion. No adenopathy thyromegaly or neck vein distention. Cardiovascular examination reveals regular rhythm rate. S1-S2 normal. No S3 or S4. No discernible murmur noted. Lungs reveal a few bilateral rhonchi. Breath sounds are diminished throughout, more so in the left lower lobe. Crackles are present. No wheezes. The patient 's chest is very congested sounding. Abdomen soft bowel sounds are heard. No masses or tenderness. Extremities are intact. No cyanosis clubbing or edema. Skin is without rash or lesion. Neurologic examination is brief but nonfocal - Labs CBC & Chem 7: 07/03/17 04:31 07/03/17 04:31 Labs: Abnormal Lab Results - Last 24 Hours (Table) 07/02/17 07/02/17 07/03/17 Range/Units 11:55 20:10 04:31 WBC 17.0 H (3.8-10.6) k/uL RBC 4.05 L (4.30-5.90) m/uL Hgb 9.0 L (13.0-17.5) gm/dL Hct 31.7 L (39.0-53.0) % MCV 78.4 L (80.0-100.0) fL MCH 22.2 L (25.0-35.0) pg MCHC 28.3 L (31.0-37.0) g/dL RDW 17.3 H (11.5-15.5) % Plt Count 688 H (150-450) k/uL Neutrophils # 13.9 H (1.3-7.7) k/uL Carbon Dioxide (22-30) mmol/L Creatinine (0.66-1.25) mg/dL Glucose (74-99) mg/dL POC Glucose (mg/dL) 127 H 168 H (75-99) mg/dL 07/03/17 07/03/17 Range/Units 04:31 07:35 WBC (3.8-10.6) k/uL RBC (4.30-5.90) m/uL Hgb (13.0-17.5) gm/dL Hct (39.0-53.0) % MCV (80.0-100.0) fL MCH (25.0-35.0) pg MCHC (31.0-37.0) g/dL RDW (11.5-15.5) % Plt Count (150-450) k/uL Neutrophils # (1.3-7.7) k/uL Carbon Dioxide 31 H (22-30) mmol/L Creatinine 0.60 L (0.66-1.25) mg/dL Glucose 126 H (74-99) mg/dL POC Glucose (mg/dL) 118 H (75-99) mg/dL Microbiology - Last 24 Hours (Table) 07/01/17 07:50 Gram Stain - Final Sputum Sputum Culture - Final 06/30/17 10:34 Blood Culture - Preliminary Blood No Growth after 48 hours 06/30/17 10:34 Urine Culture - Final Urine,Voided Vera albicans Assessment and Plan Plan: Assessment: #1. Acute hypoxic respiratory failure secondary to extensive left lung multifocal pneumonia and left pleural effusion, present on admission #2. Sepsis, with leukocytosis and fever, secondary to the above #3. History of left-sided pleural effusion requiring thoracentesis and empyema requiring pigtail drainage catheter and cultures positive for alphahemolytic strep and enterococcus faecalis #4. Coronary artery disease, status post 4 vessel coronary artery bypass grafting #5. COPD #6. Essential hypertension #7. Hyperlipidemia #8. GERD #9. Anxiety #10. Obesity Plan: We'll obtain CT of the chest with contrast, CT surgery recommends pigtail insertion into the left pleural space with infusion of TPA over the course of next few days. US chest on 07/02/2017 shows a complex loculated left effusion in the background of extensive left lung pneumonia. Continue broad-spectrum antibiotic coverage with Levaquin, Zosyn and vancomycin, ID service is managing antibiotics. Patient is currently hemodynamically stable, not requiring any vasopressor support. No fevers, but the WBC is trending upward. Continue weaning FiO2 to maintain O2 sat at 92% or better. Patient reports being fairly comfortable despite extensive pneumonia and pleural -[id number] medical treatmentsn in the left lung, stage in the ICU in view of complex medical issues and high FiO2 requirements and the severity of his pneumonia. I performed a history & physical examination of the patient and discussed their management with my nurse practitioner, Janelle Chambers. I reviewed the nurse practitioner's note and agree with the documented findings and plan of care. Lung sounds are positive for rhonchi, rales. The findings and the impression was discussed with the patient. I attest to the documentation by the nurse practitioner. Time with Patient: Greater than 30
[2017-07-03] MEDS: ATORVASTATIN 40 MG TAB PO SCH (11:36)
[2017-07-03] MEDS: METOPROLOL TARTRATE 25 MG TAB PO SCH ×2 (11:36→20:53)
--- NOTE | 2017-07-03 11:39 | CT ---
EXAMINATION TYPE: CT chest w con DATE OF EXAM: 07/03/2017 COMPARISON: 07/01/2017 HISTORY: Pneumonia and Sepsis CT DLP: 768.40 mGycm, Automated exposure control for dose reduction was used. CONTRAST: Performed injected with 100 ml mL of Omnipaque 300. TECHNIQUE: Axial images were obtained at 5 mm thick sections. Reconstructed images are reviewed on [employer] computer in the coronal plane. FINDINGS: Portion of the thyroid visualized is normal. Left upper lobe consolidation remains present but has improved from the comparison. There continues t o be air bronchograms present with some improved aeration of the left lung. There is however worsenin g patchy infiltrate within the right lung with air bronchograms in the right lower lobe. Bilateral pn eumonia should be considered. There is improvement on the left. There is a low-density collection within the posterior left upper lung field as well as a low-density collection with scattered punctate air collections in the left lower lung field. The lower lung fiel d area was present previously and may be related to loculated effusion or empyema and is currently es timated to measure 11.2 x 9.8 cm in size which is relatively stable from comparison. The 4.3 x 4.7 cm hypodense area within the posterior left upper lobe is an interval development and may be developing abscess or empyema. There is a 1.3 cm pretracheal lymph node present a 1.0 cm lymph node is in the pretracheal space heidi r the level of the praveen. Small shotty lymphadenopathy is in the superior mediastinum. A 1.0 cm lymp h node is in the superior mediastinum. Series 3 image 15. The ascending aorta diameter at the level of the main pulmonary artery is 4.2 cm. The main pulmonary artery diameter at the bifurcation is 4.4 cm. Consider pulmonary hypertension within the differentia l. Limited CT sections are obtained through the upper abdomen. Abdomen is essentially unremarkable. IMPRESSIONS: 1. Developing 4.5 cm hypodensity within the posterior left apex suspicious for abscess or empyema. 2. Stable collection left lung base may be related to loculated effusion or empyema. 3. Improving left lung aeration. Right lung infiltrates are increasing. Correlate for infectious etio logies. Follow-up to clearing, underlying neoplasm is not excluded. 4. Enlarged mediastinal lymph nodes.
--- NOTE | 2017-07-03 12:15 | P.PN ---
Subjective Progress Note Date: 07/03/17 Principal diagnosis: History of recent urgent coronary artery bypass grafting on 05/22/2017, non-ST elevation myocardial infarction, hypertension, hyperlipidemia, insulin- dependent diabetes mellitus, anxiety, family history of premature coronary artery disease, COPD, paroxysmal atrial fibrillation, left-sided thoracentesis on 05/30/2017 and left chest pigtail catheter placement with fluid cultures positive for all for hemolytic strep and enterococcuss faecalis, left lower lobe pneumonia requiring placement of PICC line for home IV antibiotic therapy, and obesity. The patient was admitted to the hospital on 06/30/2017, after presenting to the emergency department with complaints of increase in shortness of breath over the last several days, with worsening productive cough. The patient has been receiving outpatient IV antibiotic therapy per his PICC line for treatment of his left lower lobe pneumonia which is been managed by Dr. Nixon. Patient is laying in bed with his head elevated at 45. He is in no acute distress although reports he does get quite short of breath with minimal activity. He remains on AIRVO at 40 L flow with 5% FiO2. Denies complaints of pain at this time. Objective - Vital Signs Vital signs: Vital Signs Temp 98.5 F 07/03/17 08:00 Pulse 79 07/03/17 11:57 Resp 36 H 07/03/17 10:00 BP 136/65 07/03/17 10:00 Pulse Ox 95 07/03/17 10:00 Intake & Output 07/02/17 07/03/17 07/03/17 18:59 06:59 18:59 Intake Total 2090.0 900 950 Output Total 725 1150 250 Balance 1365.0 -250 700 Weight 115 kg Intake: IV 1070.0 900 350 Piperacillin-Tazobactam 3 50.0 50 .375 gm In Dextrose/Water 1 50ml.bag @ 12.5 mls/hr IVPB Q8H [facility] Rx#: [id number] Sodium Chloride 0.9% 1, 520 600 100 000 ml @ 50 mls/hr IV . Q20H [facility] Rx#:[id number] Vancomycin 1,750 mg In 500 250 250 Sodium Chloride 0.9% 250 ml @ 125 mls/hr IVPB Q8H [facility] Rx#:[id number] Intake, IV Titration 200 200 Amount Magnesium Sulfate-D5w Pmx 200 1 gm In Dextrose/Water 1 100ml.bag @ 100 mls/hr IVPB Q1H [facility] Rx#: [id number] Magnesium Sulfate-D5w Pmx 200 1 gm In Dextrose/Water 1 100ml.bag @ 100 mls/hr IVPB Q1H [facility] Rx#: [id number] Oral 820 400 Output: Urine 725 1150 250 Other: Voiding Method Urinal Urinal Urinal # Bowel Movements 1 - Constitutional General appearance: Present: cooperative, no acute distress, obese - Neck Details: No JVD, no Supple. No lymphadenopathy. - Respiratory Details: Lung sounds with coarse rhonchi throughout, diminished bilateral bases left greater than right. Respirations are symmetrical and nonlabored. Oxygen saturation are 96% on partial nonrebreather mask. Achieving 500 mL on his incentive spirometry. - Cardiovascular Details: Regular rhythm and rate. S1 and S2 present, negative for S3, gallop or murmur. Sternum is stable. Bedside telemetry showing normal sinus rhythm heart rate 79. Trace edema to his bilateral lower extremities. Knee-high WALESKA hose and sequential compression devices in place was bilateral lower extremities. Peripheral pulses palpable. - Gastrointestinal Gastrointestinal Comment(s): Abdomen is soft, nontender and nondistended. Active bowel sounds all 4 abdominal quadrants. Tolerating oral intake. - Genitourinary Genitourinary Comment(s): Urine output adequate. 550 mL output in the last 8 hours. Clear yellow urine. - Integumentary Integumentary Comment(s): Midline sternal incision healed. No redness or drainage. Left lower extremity EVH harvest site clean dry and healed. No redness or drainage. Skin is warm and dry, no clubbing or cyanosis. - Neurologic Neurologic: Present: CNII-XII intact - Musculoskeletal Musculoskeletal: Present: generalized weakness, strength equal bilaterally - Psychiatric Psychiatric: Present: A&O x's 3, appropriate affect, intact judgment & insight - Allied health notes Allied health notes reviewed: nursing - Labs CBC & Chem 7: 07/03/17 04:31 07/03/17 04:31 Labs: Abnormal Lab Results - Last 24 Hours (Table) 07/02/17 07/03/17 07/03/17 Range/Units 20:10 04:31 04:31 WBC 17.0 H (3.8-10.6) k/uL RBC 4.05 L (4.30-5.90) m/uL Hgb 9.0 L (13.0-17.5) gm/dL Hct 31.7 L (39.0-53.0) % MCV 78.4 L (80.0-100.0) fL MCH 22.2 L (25.0-35.0) pg MCHC 28.3 L (31.0-37.0) g/dL RDW 17.3 H (11.5-15.5) % Plt Count 688 H (150-450) k/uL Neutrophils # 13.9 H (1.3-7.7) k/uL Carbon Dioxide 31 H (22-30) mmol/L Creatinine 0.60 L (0.66-1.25) mg/dL Glucose 126 H (74-99) mg/dL POC Glucose (mg/dL) 168 H (75-99) mg/dL 07/03/17 Range/Units 07:35 WBC (3.8-10.6) k/uL RBC (4.30-5.90) m/uL Hgb (13.0-17.5) gm/dL Hct (39.0-53.0) % MCV (80.0-100.0) fL MCH (25.0-35.0) pg MCHC (31.0-37.0) g/dL RDW (11.5-15.5) % Plt Count (150-450) k/uL Neutrophils # (1.3-7.7) k/uL Carbon Dioxide (22-30) mmol/L Creatinine (0.66-1.25) mg/dL Glucose (74-99) mg/dL POC Glucose (mg/dL) 118 H (75-99) mg/dL Microbiology - Last 24 Hours (Table) 07/01/17 07:50 Gram Stain - Final Sputum Sputum Culture - Final 06/30/17 10:34 Blood Culture - Preliminary Blood No Growth after 48 hours 06/30/17 10:34 Urine Culture - Final Urine,Voided Vera albicans - Imaging and Cardiology Chest x-ray: report reviewed, image reviewed Assessment and Plan (1) History of atrial fibrillation less than 8 weeks after coronary artery bypass graft Current Visit: Yes Status: Acute Code(s): LMI8569 - SNOMED Code(s): 240982246419602 (2) History of myocardial infarction Current Visit: Yes Status: Acute Code(s): I25.2 - OLD MYOCARDIAL INFARCTION SNOMED Code(s): 085439055 (3) Status post aorto-coronary artery bypass graft Current Visit: Yes Status: Acute Code(s): Z95.1 - PRESENCE OF AORTOCORONARY BYPASS GRAFT SNOMED Code(s): 383420231 (4) Anxiety Current Visit: Yes Status: Chronic Code(s): F41.9 - ANXIETY DISORDER, UNSPECIFIED SNOMED Code(s): 26473244 (5) Diabetes mellitus type 2 in obese Current Visit: Yes Status: Chronic Code(s): E11.69 - TYPE 2 DIABETES MELLITUS WITH OTHER SPECIFIED COMPLICATION; E66.9 - OBESITY, UNSPECIFIED SNOMED Code(s): 78744200 (6) Hyperlipidemia Current Visit: Yes Status: Chronic Code(s): E78.5 - HYPERLIPIDEMIA, UNSPECIFIED SNOMED Code(s): 21138770 (7) Hypertension Current Visit: Yes Status: Chronic Code(s): I10 - ESSENTIAL (PRIMARY) HYPERTENSION SNOMED Code(s): 29042509 (8) Obesity (BMI 30.0-34.9) Current Visit: Yes Status: Chronic Code(s): E66.9 - OBESITY, UNSPECIFIED SNOMED Code(s): 293579487 (9) Coronary artery disease Current Visit: No Status: Chronic Code(s): I25.10 - ATHSCL HEART DISEASE OF [place] CORONARY ARTERY W/O ANG PCTRS SNOMED Code(s): 92290856 (10) Left lower lobe pneumonia Current Visit: No Status: Acute Code(s): J18.1 - LOBAR PNEUMONIA, UNSPECIFIED ORGANISM SNOMED Code(s): 568433847 Plan: 1. Continue aspirin, Plavix, statin and beta ewa. 2. Wean oxygen as tolerated, pulmonary management per Dr. Alnoso's recommendations. 3. Antibiotic management per infectious disease recommendations. Routine PICC line care. 4. The patient will have a left chest pigtail catheter placed today, after the pigtail catheter has been placed we will inject alteplase 10 mg today. 5. Diabetic management per primary care service. 6. Encourage use of his incentive spirometry every hour while awake. 7. GI/DVT prophylaxis. 8. More recommendations to follow as patient progresses and care. Time with Patient: Greater than 30
--- NOTE | 2017-07-03 12:16 | P.PN ---
Subjective Progress Note Date: 07/03/17 62 year old male who presented to the emergency room on 06/30/2017 with a chief complaint of shortness of breath that was worsening in severity x 1 week. Patient states he was having sputum production that was initially clear in color and then progressed to a greenish/yellow. The patient has a history of chronic obstructive disease, diabetes mellitus, gastroesophageal reflux disease, hypertension, myocardial infarction, pneumonia , STEMI in May 2017 with heart catheterization. He underwent CABG 4 in May 2017. Postoperatively, he had persistant left sided pleural effusion and required thoracentesis on 05/30/2017. Cultures from pleural fluid were positive for alpha hemolytic strep and enterococcus faecalis. He had a PICC line placed and was discharged home with IV antibiotic infusions. In the emergency room, a chest x-ray was completed which revealed worsening and now completely opacification of the left hemothorax which may related to pleural effusion and/or multifocal pneumonia. Patchy alveolar opacities within the right lower lung are also seen. EKG revealed sinus tachycardia. He was febrile with a temperature of 102.0 in the emergency room. He was found to be hypoxic with an oxygen saturation of 82% on room air. He was also tachycardic with a heart rate in the low 100s. Laboratory studies revealed a white count of 20.7, hemoglobin 10.6, INR 1.3, sodium 139, potassium 4.7, BUN 17, creatinine 0.58, lactic acid 1.7, AST 56, PLT 123, and alkaline phosphatase 159. Urinalysis reveals 1+ protein but otherwise unremarkable. Testing for influenza A and B was negative. 07/01/2017 The patient was seen and examined at the bedside in the intensive care unit with Dr. Abreu. He appears short of breath at rest. He is currently wearing a nonrebreather mask. Maintaining oxygen saturations greater than 92%. He appears diaphoretic. Denies chest pain or pressure. Denies pain or discomfort. Urine culture is negative at the 18 hour jacquelyn. Blood cultures are negative at the 24 hour jacquelyn. His vital signs are relatively stable at this time. Consultations have been placed for infectious disease, pulmonology, and cardiovascular surgery. 07/02/2017 Patient seen and examined at the bedside in the ICU with Dr. Abreu. Patient is currently on Airvo on 65%. Oxygen saturations are greater than 92%. He is eating breakfast at this time. Denies nausea or vomiting. Chest xray this morning shows stable findings with diffuse bilateral left greater than right pneumonia. Blood culture is negative at 24 hour jacquelyn. Urine culture is positive for vera albicans. Infectious disease is following. Patient remains on Levaquin, Vanco, and Zosyn at this time. WBC today is 13.6. Hemoglobin is 8.7, down from 9.1 yesterday. Cardiothoracic surgery is following. Patient may require intervention for possible loculated pleural effusion. 07/03/2017 Patient seen and examined at the bedside on rounds with Dr. Abreu. Patient remains in intensive care unit. Chest x-ray from 07/03/2017 shows slight improved aeration of the left upper lung with persistent confluent multifocal P cities representing multifocal pneumonia. He underwent a ultrasound of the chest on 07/02/2017 which revealed findings suggestive of a loculated effusion. Case discussed with Janelle Chambers NP with pulmonology who states that patient is likely to undergo pigtail catheter insertion in the left pleural space with infusion of TPA. Patient states that cardiothoracic surgery also mentioned thoracotomy as an option if TPA does not resolve the loculated effusion. The patient states he is feeling better today. He feels as though his shortness of breath is improving. He remains on AIRVO at 50% Fio2. He remains afebrile. Blood pressure has been stable. His white count is trending upward and is 17.0 today from 13.6 yesterday. Infectious disease remains on consult. He is currently receiving vancomycin, Levaquin, and Zosyn. Objective - Vital Signs Vital signs: Vital Signs Temp 98.5 F 07/03/17 08:00 Pulse 83 07/03/17 10:00 Resp 36 H 07/03/17 10:00 BP 136/65 07/03/17 10:00 Pulse Ox 95 07/03/17 10:00 Intake & Output 07/02/17 07/03/17 07/03/17 18:59 06:59 18:59 Intake Total 2090.0 900 950 Output Total 725 1150 250 Balance 1365.0 -250 700 Weight 115 kg Intake: IV 1070.0 900 350 Piperacillin-Tazobactam 3 50.0 50 .375 gm In Dextrose/Water 1 50ml.bag @ 12.5 mls/hr IVPB Q8H [facility] Rx#: [id number] Sodium Chloride 0.9% 1, 520 600 100 000 ml @ 50 mls/hr IV . Q20H [facility] Rx#:[id number] Vancomycin 1,750 mg In 500 250 250 Sodium Chloride 0.9% 250 ml @ 125 mls/hr IVPB Q8H [facility] Rx#:[id number] Intake, IV Titration 200 200 Amount Magnesium Sulfate-D5w Pmx 200 1 gm In Dextrose/Water 1 100ml.bag @ 100 mls/hr IVPB Q1H [facility] Rx#: [id number] Magnesium Sulfate-D5w Pmx 200 1 gm In Dextrose/Water 1 100ml.bag @ 100 mls/hr IVPB Q1H [facility] Rx#: [id number] Oral 820 400 Output: Urine 725 1150 250 Other: Voiding Method Urinal Urinal Urinal # Bowel Movements 1 - Exam GENERAL: This is a 62-year-old male who appears comfortable and in no acute distress at the time of examination. Pleasant and cooperative. HEENT: Head is atraumatic, normocephalic. Pupils are equal, round, and reactive to light. Sclerae anicteric. Conjunctivae are clear. Mucus membranes of the mouth are moist. Neck is supple. RESPIRATORY: Lungs are coarse with scattered rhonchi. Left lower lung diminished. No use of accessory muscles. Patient maintaining oxygen saturation greater than 92% on AIRVO. No chest wall tenderness is noted on palpation or with deep breathing. CARDIOVASCULAR: Regular rate and rhythm. S1 and S2 noted. No systolic or diastolic murmur auscultated. No JVD noted. No S3 or S4 noted. GASTROINTESTINAL: No distention noted. Abdomen soft and round. Normal active bowel sounds auscultated x 4 quadrants. No pain or tenderness noted upon palpation. INTEGUMENTARY: Midline chest incision without drainage or erythema. No cyanosis. No jaundice. No rashes noted. No cellulitis noted. EXTREMITIES: 2+ peripheral pulses. No peripheral edema. No calf tenderness noted. NEUROLOGIC: Cranial nerves II-XII intact. PSYCHIATRIC: Awake, alert, and oriented X 3. Appropriate affect. Intact judgement and insight. - Labs CBC & Chem 7: 07/03/17 04:31 07/03/17 04:31 Labs: Abnormal Lab Results - Last 24 Hours (Table) 07/02/17 07/02/17 07/03/17 Range/Units 11:55 20:10 04:31 WBC 17.0 H (3.8-10.6) k/uL RBC 4.05 L (4.30-5.90) m/uL Hgb 9.0 L (13.0-17.5) gm/dL Hct 31.7 L (39.0-53.0) % MCV 78.4 L (80.0-100.0) fL MCH 22.2 L (25.0-35.0) pg MCHC 28.3 L (31.0-37.0) g/dL RDW 17.3 H (11.5-15.5) % Plt Count 688 H (150-450) k/uL Neutrophils # 13.9 H (1.3-7.7) k/uL Carbon Dioxide (22-30) mmol/L Creatinine (0.66-1.25) mg/dL Glucose (74-99) mg/dL POC Glucose (mg/dL) 127 H 168 H (75-99) mg/dL 07/03/17 07/03/17 Range/Units 04:31 07:35 WBC (3.8-10.6) k/uL RBC (4.30-5.90) m/uL Hgb (13.0-17.5) gm/dL Hct (39.0-53.0) % MCV (80.0-100.0) fL MCH (25.0-35.0) pg MCHC (31.0-37.0) g/dL RDW (11.5-15.5) % Plt Count (150-450) k/uL Neutrophils # (1.3-7.7) k/uL Carbon Dioxide 31 H (22-30) mmol/L Creatinine 0.60 L (0.66-1.25) mg/dL Glucose 126 H (74-99) mg/dL POC Glucose (mg/dL) 118 H (75-99) mg/dL Microbiology - Last 24 Hours (Table) 07/01/17 07:50 Gram Stain - Final Sputum Sputum Culture - Final 06/30/17 10:34 Blood Culture - Preliminary Blood No Growth after 48 hours 06/30/17 10:34 Urine Culture - Final Urine,Voided Vera albicans Assessment and Plan Plan: ASSESSMENT: Multifocal pneumonia, present on admission, sputum culture ordered Sepsis with leukocytosis and fever, present on admission, secondary to above Acute hypoxic respiratory failure requiring supplemental oxygen, secondary to above Diabetes mellitus, type II, hemoglobin A1c 5.7% Coronary artery disease with previous myocardial infarction History of coronary artery bypass grafting 4 vessels History of left side pleural effusion requiring thoracentesis and empyema requiring pigtail drainage catheter with cultures positive for alpha hemolytic strep and enterococcus faecalis History of paroxysmal atrial fibrillation Chronic obstructive pulmonary disease Essential hypertension Hyperlipidemia Gastroesophageal reflux disease Anxiety, unspecified Obesity: BMI 31.2 PLAN: -Cardiothoracic surgery on consult. Appreciate recommendations and input -Anticipate pigtail insertion today with TPA -[place] on consult. Appreciate recommendations and input -Continue breathing treatments scheduled QID and PRN -Infectious disease on consult. Appreciate recommendations and input -Antibiotics per infectious disease: Currently on Vancomycin, Levaquin, and Zosyn -Capillary blood glucose accu-checks AC/HS -Novolog sliding scale coverage -Resume novolog 8 units with meals and Lantus 25 units at HS -Home meds as appropriate -Monitor labs -GI prophylaxis: Protonix 40mg IV daily -DVT prophylaxis: Heparin 5000 units subcu every 12 hours -Monitor vital signs and address as appropriate -Discharge planning: Patient may require home care or ECF at the time of discharge depending on patients clinical course -Further recommendations pending patient's course Nurse practitioner note has been reviewed by physician. Signing provider agrees with the documented findings, assessment, and plan of care.
[2017-07-03] MEDS ORDERED: ALTEPLASE 10 MG in SODIUM CHLORIDE 0.9% 100 ML IRRIGATION ONE (12:30)
[2017-07-03 14:08] LABS: Glucose,Whole Blood 103 mg/dL (75-99)
--- NOTE | 2017-07-03 14:24 | P.GSCN ---
History of Present Illness Consult date: 07/03/17 Reason for Consult: pleural collection Requesting physician: Yeyo Alonso History of present illness: Recurrent pleural collection for lytic therapy I was asked to place a pleural drain catheter for therapeutic purposes. Following review of associated exams, the catheter can possibly placed, but I am unable to gauge the utility and effectiveness of this proposed therapy, discussed with Amanuel Marcelino and Dr. Alonso. Past Medical History Past Medical History: Asthma, Coronary Artery Disease (CAD), COPD, Diabetes Mellitus, GERD/Reflux, Hypertension, Myocardial Infarction ([place]), Pneumonia Additional Past Medical History / Comment(s): Legionnaires' disease, STEMI 2016, heart cath showed 4 vessel disease, patient to have open heart surgery 05/22/17 Last Myocardial Infarction Date:: 05/21/17 History of Any Multi-Drug Resistant Organisms: None Reported Past Surgical History: Adenoidectomy, Cholecystectomy, Coronary Bypass/CABG, Tonsillectomy Additional Past Surgical History / Comment(s): quadruple bypass 06/02, thoracentesis 05/30/2017, PICC line placement. Past Anesthesia/Blood Transfusion Reactions: No Reported Reaction Past Psychological History: Anxiety Additional Psychological History / Comment(s): lives in the home with the . 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 No ill contacts Smoking Status: Never smoker Past Alcohol Use History: None Reported Past Drug Use History: None Reported - Past Family History Father Family Medical History: Coronary Artery Disease (CAD) Additional Family Medical History / Comment(s): Myocardial infarction in his early 40s Medications and Allergies Home Medications Medication Instructions Recorded Confirmed Type ALPRAZolam [Xanax] 0.25 mg PO BID PRN 05/21/17 06/30/17 History Amiodarone [Cordarone] 200 mg PO DAILY #30 tab 06/07/17 06/30/17 Rx Ascorbic Acid [Vitamin C] 500 mg PO DAILY@1200 #30 tab 06/07/17 06/30/17 Rx Aspirin 325 mg PO DAILY #30 tab 06/07/17 06/30/17 Rx Atorvastatin [Lipitor] 40 mg PO DAILY #30 tab 06/07/17 06/30/17 Rx Clopidogrel [Plavix] 75 mg PO DAILY #30 tab 06/07/17 06/30/17 Rx Ferrous Sulfate [Iron (65 MG 325 mg PO W/LUNCH #30 tab 06/07/17 06/30/17 Rx Elemental)] Ipratropium-Albuterol Nebulize 3 ml INHALATION RT-Q2H PRN #120 06/07/17 Rx [Duoneb 0.5 mg-3 mg/3 ml Soln] ampul.neb Metoprolol Tartrate [Lopressor] 75 mg PO BID #180 tab 06/07/17 06/30/17 Rx Pantoprazole [Protonix] 40 mg PO AC-BRKFST #30 tablet.dr 06/07/17 06/30/17 Rx Sertraline [Zoloft] 100 mg PO DAILY #30 tab 06/07/17 06/30/17 Rx guaiFENesin [Mucinex] 1,200 mg PO Q12HR #60 tablet.er 06/07/17 06/30/17 Rx metFORMIN HCL [Glucophage] 500 mg PO BID-W/MEALS #60 tab 06/07/17 06/30/17 Rx CHLORPHEN-HYDROcod 8-10mg/5ml 5 ml PO Q12HR 06/30/17 06/30/17 History [Tussionex] Insulin Aspart [NovoLOG] 8 units SQ AC-TID 06/30/17 06/30/17 History Insulin Aspart [NovoLOG] See Protocol SQ AC-TID PRN 06/30/17 06/30/17 History Insulin Glargine,Hum.rec.anlog 25 unit SQ HS 06/30/17 06/30/17 History [Lantus Solostar] Allergies Allergy/AdvReac Type Severity Reaction Status Date / Time No Known Allergies Allergy Verified 06/30/17 10:19 Surgical - Exam Vital Signs Temp Pulse Resp BP Pulse Ox 102 F H 102 H 20 136/64 82 L 06/30/17 09:37 06/30/17 09:37 06/30/17 09:37 06/30/17 09:37 06/30/17 09:37 Results - Labs 07/03/17 04:31 07/03/17 04:31 Abnormal Lab Results - Last 24 Hours (Table) 07/02/17 07/03/17 07/03/17 Range/Units 20:10 04:31 04:31 WBC 17.0 H (3.8-10.6) k/uL RBC 4.05 L (4.30-5.90) m/uL Hgb 9.0 L (13.0-17.5) gm/dL Hct 31.7 L (39.0-53.0) % MCV 78.4 L (80.0-100.0) fL MCH 22.2 L (25.0-35.0) pg MCHC 28.3 L (31.0-37.0) g/dL RDW 17.3 H (11.5-15.5) % Plt Count 688 H (150-450) k/uL Neutrophils # 13.9 H (1.3-7.7) k/uL Carbon Dioxide 31 H (22-30) mmol/L Creatinine 0.60 L (0.66-1.25) mg/dL Glucose 126 H (74-99) mg/dL POC Glucose (mg/dL) 168 H (75-99) mg/dL 07/03/17 07/03/17 Range/Units 07:35 14:07 WBC (3.8-10.6) k/uL RBC (4.30-5.90) m/uL Hgb (13.0-17.5) gm/dL Hct (39.0-53.0) % MCV (80.0-100.0) fL MCH (25.0-35.0) pg MCHC (31.0-37.0) g/dL RDW (11.5-15.5) % Plt Count (150-450) k/uL Neutrophils # (1.3-7.7) k/uL Carbon Dioxide (22-30) mmol/L Creatinine (0.66-1.25) mg/dL Glucose (74-99) mg/dL POC Glucose (mg/dL) 118 H 103 H (75-99) mg/dL Microbiology - Last 24 Hours (Table) 06/30/17 10:34 Blood Culture - Preliminary Blood No Growth after 72 hours 07/01/17 07:50 Gram Stain - Final Sputum Sputum Culture - Final Diabetes panel 07/03/17 Range/Units 04:31 Sodium 140 (137-145) mmol/L Potassium 4.0 (3.5-5.1) mmol/L Chloride 104 (98-107) mmol/L Carbon Dioxide 31 H (22-30) mmol/L BUN 12 (9-20) mg/dL Creatinine 0.60 L (0.66-1.25) mg/dL Glucose 126 H (74-99) mg/dL Calcium 8.7 (8.4-10.2) mg/dL Thyroid panel 07/03/17 Range/Units 04:31 TSH 1.800 (0.465-4.680) mIU/L Calcium panel 07/03/17 Range/Units 04:31 Calcium 8.7 (8.4-10.2) mg/dL Phosphorus 3.8 (2.5-4.5) mg/dL Pituitary panel 07/03/17 07/03/17 Range/Units 04:31 04:31 Sodium 140 (137-145) mmol/L Potassium 4.0 (3.5-5.1) mmol/L Chloride 104 (98-107) mmol/L Carbon Dioxide 31 H (22-30) mmol/L BUN 12 (9-20) mg/dL Creatinine 0.60 L (0.66-1.25) mg/dL Glucose 126 H (74-99) mg/dL Calcium 8.7 (8.4-10.2) mg/dL TSH 1.800 (0.465-4.680) mIU/L Adrenal panel 07/03/17 Range/Units 04:31 Sodium 140 (137-145) mmol/L Potassium 4.0 (3.5-5.1) mmol/L Chloride 104 (98-107) mmol/L Carbon Dioxide 31 H (22-30) mmol/L BUN 12 (9-20) mg/dL Creatinine 0.60 L (0.66-1.25) mg/dL Glucose 126 H (74-99) mg/dL Calcium 8.7 (8.4-10.2) mg/dL
--- NOTE | 2017-07-03 15:07 | US ---
EXAMINATION TYPE: US guided chest tube insertion DATE OF EXAM: 07/03/2017 COMPARISON: Prior ultrasound 07/02/2017, CT chest 07/03/2017 HISTORY: Pleural fluid collection. PROCEDURE:The skin overlying the collection was identified posteriorly in the left lower hemithorax w ith ultrasound, ultrasound used with sterile technique. The overlying skin was prepped and draped. Li docaine was used for local anesthesia. Skin jesse made with a scalpel. 21-gauge needle was advanced us ing ultrasound guidance into the collection. 0.018 inch wire was advanced. Access site was upsized tr ansitional dilator and 0.038 inch wire was introduced. Tract was dilated. 8 [place] catheter was advan john over the wire and fixed in place. 20 cc of purulent material was aspirated and submitted for labo ratory analysis. Catheter was attached to water seal. Patient remained in stable condition. No signif icant complication immediately. Minimal bleeding. IMPRESSION: Status post ultrasound chest tube insertion. This procedure performed by the undersigned .
--- NOTE | 2017-07-03 15:19 | XR ---
EXAMINATION TYPE: XR chest 1V portable DATE OF EXAM: 07/03/2017 COMPARISON: 07/03/2017 6:36 AM HISTORY: Chest tube placement TECHNIQUE: Single frontal view of the chest is obtained. FINDINGS: There is increasing confluence of the right basilar opacity and decreased degree of left p neumothorax, now appearing small blunting the costophrenic angle and obscuring the left hemidiaphragm and retrocardiac airspace. Interval insertion of a left pigtail thoracostomy tube terminating in the left lower hemithorax. Pleural parenchymal scarring in the right upper lung and minor fissural fluid are again noted. Moderate pulmonary vascular congestion and interstitial edema remain. Cardiac silho uette is again partially obscured but enlarged with post CABG changes. IMPRESSION: Interval insertion of a left pigtail pleural catheter with decrease in volume of a left pleural effusion, now small. Increasing right basilar opacity may represent pulmonary edema or atelec tasis. Diffuse interstitial edema and vascular congestion are unchanged.
[2017-07-03] MEDS: ASCORBIC ACID 500 MG TAB PO SCH (15:47)
[2017-07-03] MEDS: ALPRAZolam 0.25 MG TAB PO PRN (15:47)
[2017-07-03] MEDS: LEVOFLOXACIN 750 MG TAB PO SCH (15:47)
[2017-07-03] MEDS: FERROUS SULFATE 325 MG TAB PO SCH (15:47)
[2017-07-03 18:15] LABS: Glucose,Whole Blood 178 mg/dL (75-99)
[2017-07-03] MEDS: HYDROmorphone 2 MG/ML 1 ML SYRINGE IVP PRN (19:07)
[2017-07-03 20:16] LABS: Glucose,Whole Blood 185 mg/dL (75-99)
[2017-07-03] MEDS: INSULIN DETEMIR 100 UNIT/ML 10 ML VIAL SQ SCH (20:51)
[2017-07-04] MEDS: VANCOMYCIN 1,750 MG in SODIUM CHLORIDE 0.9% 250 ML IVPB SCH ×3 (02:34→17:12)
[2017-07-04] MEDS: SODIUM CHLORIDE 0.9% 1,000 ML IV SCH ×2 (03:51→17:12)
[2017-07-04] MEDS: PIPERACILLIN-TAZOBACTAM 3.375 GM in DEXTROSE/WATER 1 50ML.BAG IVPB SCH ×3 (05:08→20:35)
[2017-07-04 05:16] LABS: Basophils % (A) 0 %; Eosinophils # (A) 0.3 k/uL (0-0.7); Eosinophils % (A) 2 %; HCT 32.1 % (39.0-53.0); Hypochromasia Marked; Lymphocytes # (A) 1.6 k/uL (1.0-4.8); Lymphocytes % (A) 10 %; MCH 22.5 pg (25.0-35.0); MCV 80.6 fL (80.0-100.0); Mean Platelet Volume 6.2; Monocytes # (A) 0.8 k/uL (0-1.0); Monocytes % (A) 5 %; Neutrophils # (A) 12.9 k/uL (1.3-7.7); Neutrophils % (A) 82 %; Platelet Count 732 k/uL (150-450); Poikilocytosis Moderate; RBC 3.98 m/uL (4.30-5.90); RDW 15.6 % (11.5-15.5); WBC 15.9 k/uL (3.8-10.6)
[2017-07-04 05:27] LABS: ALT 137 U/L (21-72); AST 59 U/L (17-59); Albumin 2.4 g/dL (3.5-5.0); Alkaline Phosphatase 145 U/L (38-126); Anion Gap 6 mmol/L; Blood Urea Nitrogen 14 mg/dL (9-20); Carbon Dioxide 31 mmol/L (22-30); Chloride 105 mmol/L (98-107); Glucose 110 mg/dL (74-99); Magnesium 1.9 mg/dL (1.6-2.3); Phosphorus 3.9 mg/dL (2.5-4.5); Potassium 4.3 mmol/L (3.5-5.1); Sodium 142 mmol/L (137-145); Total Bilirubin 0.2 mg/dL (0.2-1.3); Total Protein 5.1 g/dL (6.3-8.2)
[2017-07-04] MEDS: MAGNESIUM SULFATE-D5W PMX 1 GM in DEXTROSE/WATER 1 100ML.BAG IVPB SCH ×2 (06:31→08:07)
[2017-07-04] MEDS ORDERED: FUROSEMIDE 10 MG/ML 2 ML VIAL IV ONE (07:14)
--- NOTE | 2017-07-04 07:20 | XR ---
EXAMINATION TYPE: XR chest 1V DATE OF EXAM: 07/04/2017 COMPARISON: 07/03/2017 HISTORY: 62-year-old male follow-up pneumonia TECHNIQUE: Single frontal view of the chest is obtained. FINDINGS: Median sternotomy wires. Heart remains enlarged. Diffuse interstitial and patchy airspace opacities p ersist. More focal left greater than right bibasilar densities. Minimal improved aeration at the righ t base. Small left effusion remains with a pigtail pleural catheter in place. Left PICC tip difficult to visualize beyond the mid SVC level. IMPRESSION: 1. Overall stable findings suggesting CHF with pulmonary edema. 2. More confluent bibasilar consolidation could represent confluent pulmonary edema or pneumonia. 3. Similar small left effusion with a pleural catheter in place.
[2017-07-04 07:31] LABS: Glucose,Whole Blood 121 mg/dL (75-99)
[2017-07-04] MEDS: ASPIRIN 325 MG TAB PO SCH (08:07)
[2017-07-04] MEDS: PANTOPRAZOLE 40 MG/10 ML VIAL IV SCH (08:07)
[2017-07-04] MEDS: METOPROLOL TARTRATE 25 MG TAB PO SCH ×2 (08:09→20:35)
[2017-07-04] MEDS: CLOPIDOGREL 75 MG TAB PO SCH (08:09)
[2017-07-04] MEDS: SERTRALINE 100 MG TAB PO SCH (08:09)
[2017-07-04] MEDS: AMIODARONE 200 MG TAB PO SCH (08:09)
[2017-07-04] MEDS: guaiFENesin 600 MG TABLET.ER PO SCH ×2 (08:09→20:35)
[2017-07-04] MEDS: HEPARIN SODIUM,PORCINE 5,000 UNIT/ML 1 ML VIAL SQ SCH ×2 (08:10→20:35)
[2017-07-04] MEDS: ATORVASTATIN 40 MG TAB PO SCH (08:10)
[2017-07-04] MEDS: INSULIN ASPART 100 UNIT/ML 1 ML 10 ML VIAL SQ SCH ×7 (08:19→20:37)
[2017-07-04] MEDS: IPRATROPIUM-ALBUTEROL 3 ML NEB INHALATION SCH ×4 (08:51→20:25)
[2017-07-04] MEDS ORDERED: VANCOMYCIN TROUGH DUE 1 EACH MISC MISCELLANE ONE (09:00)
[2017-07-04] MEDS: ALPRAZolam 0.25 MG TAB PO PRN ×2 (10:06→21:09)
[2017-07-04] MEDS ORDERED: ALTEPLASE 10 MG in SODIUM CHLORIDE 0.9% 100 ML IRRIGATION ONE (10:39)
--- NOTE | 2017-07-04 11:14 | P.PN ---
Subjective Progress Note Date: 07/04/17 Principal diagnosis: Acute hypoxic respiratory failure, secondary to left lung pneumonia and pleural effusion Progress note dated 07/02/2017 The patient continues to improve slowly. Radiographically, his chest x-ray has not changed all that much. Certainly not worse. Currently the patient is on the AIRVO at 65 L/m. He's had a saline IV at 50 mL an hour. The patient has a history of bilateral pneumonia with sepsis a history of asthma, diabetes, gastroesophageal reflux disease, hypertension, myocardial infarction and pneumonia. He also has a history of recent bypass grafting back on 05/22/[address] segment elevation myocardial infarction and legionnaires disease. He is a lifelong nonsmoker. His primary care physician is Dr. Gary Abreu. The patient apparently had a computed tomography scan late yesterday. I have not looked at it as yet. My partner expresses some concerns that he may have a loculated pleural effusion which need something more significantly done such as decortication. On 07/03/2017 patient remains in intensive care. Still requiring high flow nasal cannula, remains on AIRVO at FiO2 of 50% and 40 L/m flow. Afebrile, hemodynamically stable. Today's chest x-ray shows slight improvement in the aeration of the left upper lung with persistent confluent multifocal opacities representing multifocal pneumonia. Yesterday we have obtained a chest ultrasound to evaluate the complex and loculated left pleural effusion in the background of extensive left lung pneumonia. This was discussed with the interventional radiologist and cardiothoracic surgery. CT surgery feels the patient with benefit from a pigtail catheter insertion in the left pleural space and infusion of TPA over the next few days. This was discussed with the radiologist, who recommended getting a CT chest with contrast today. Otherwise patient is fairly comfortable, in no acute distress, respirations are shallow and tachypneic with a rate in the 30s. He is awake alert, tolerating a regular diet. His lab work shows upward trend of his WBCs, up to 17, hemoglobin is 9.0 , renal profile is stable, within normal limits no significant electrolyte abnormality. Blood and sputum culture show no growth, urine culture is positive for Vera albicans. ID service is on. Is on a combination of Levaquin, Zosyn and vancomycin. Currently not requiring any vasopressor support. On 07/04/2017 patient is seen in follow-up in intensive care unit. He is status post left pleural pigtail chest tube insertion with TPA infusion on 07/03. Patient had round 400 cc of milky yellow, purulent drainage in the atrium collection chamber since insertion. Clinically patient denies any acute distress, FiO2 was weaned down to 8 L per high flow nasal cannula. Blood sputum cultures remain negative, urine culture shows Vera albicans, pleural fluid culture was sent for culture as well and is pending. Patient will have another infusion of alteplase today per cardiothoracic surgery. Continues on empiric antibiotics with Levaquin, Zosyn and vancomycin. His IV fluids are 0.9 normal saline at 50 ML per hour. Patient's tolerating oral intake, on regular diet. Up in a chair, tolerating it well. Overall continues to significantly improve. Objective - Vital Signs Vital signs: Vital Signs Temp 98.3 F 07/04/17 08:00 Pulse 83 07/04/17 09:04 Resp 26 H 07/04/17 09:00 BP 137/68 07/04/17 09:00 Pulse Ox 95 07/04/17 09:00 Intake & Output 07/03/17 07/04/17 07/04/17 18:59 06:59 18:59 Intake Total 2600 925.0 425.0 Output Total 700 1365 380 Balance 1900 -440.0 45.0 Weight 115.3 kg Intake: IV 1000 925.0 325.0 Magnesium Sulfate-D5w Pmx 200 1 gm In Dextrose/Water 1 100ml.bag @ 100 mls/hr IVPB Q1H [facility] Rx#: [id number] Piperacillin-Tazobactam 3 75.0 25.0 .375 gm In Dextrose/Water 1 50ml.bag @ 12.5 mls/hr IVPB Q8H [facility] Rx#: [id number] Sodium Chloride 0.9% 1, 500 600 100 000 ml @ 50 mls/hr IV . Q20H [facility] Rx#:[id number] Vancomycin 1,750 mg In 500 250 Sodium Chloride 0.9% 250 ml @ 125 mls/hr IVPB Q8H [facility] Rx#:[id number] Intake, IV Titration 200 100 Amount Magnesium Sulfate-D5w Pmx 200 1 gm In Dextrose/Water 1 100ml.bag @ 100 mls/hr IVPB Q1H [facility] Rx#: [id number] Magnesium Sulfate-D5w Pmx 100 1 gm In Dextrose/Water 1 100ml.bag @ 100 mls/hr IVPB Q1H [facility] Rx#: [id number] Oral 1400 Output: Chest Tube Drainage 690 80 Pigtail in left posterior 690 80 Back Urine 700 675 300 Other: Voiding Method Urinal Urinal # Voids 1 - Exam No acute distress, oriented 3. Patient currently on supplemental oxygen via high flow. HEENT examination is grossly unremarkable. Mucous membranes are moist. No oral lesions. Neck supple. Full range of motion. No adenopathy thyromegaly or neck vein distention. Cardiovascular examination reveals regular rhythm rate. S1-S2 normal. No S3 or S4. No discernible murmur noted. Lungs reveal a few bilateral rhonchi. Breath sounds show diminished air entry over left lower base, clear on the right. A few crackles are present over right lower lobe, No wheezes. There is a left posterior chest wall pleural pigtail chest tube connected to a atrium, there is about 400 mL of whitish, yellow pleural fluid drainage in the collection chamber Abdomen soft bowel sounds are heard. No masses or tenderness. Extremities are intact. No cyanosis clubbing or edema. Skin is without rash or lesion. Neurologic examination is brief but nonfocal - Labs CBC & Chem 7: 07/04/17 05:00 07/04/17 05:00 Labs: Abnormal Lab Results - Last 24 Hours (Table) 07/03/17 07/03/17 07/03/17 Range/Units 14:07 18:13 20:15 WBC (3.8-10.6) k/uL RBC (4.30-5.90) m/uL Hgb (13.0-17.5) gm/dL Hct (39.0-53.0) % MCH (25.0-35.0) pg MCHC (31.0-37.0) g/dL RDW (11.5-15.5) % Plt Count (150-450) k/uL Neutrophils # (1.3-7.7) k/uL Carbon Dioxide (22-30) mmol/L Creatinine (0.66-1.25) mg/dL Glucose (74-99) mg/dL POC Glucose (mg/dL) 103 H 178 H 185 H (75-99) mg/dL ALT (21-72) U/L Alkaline Phosphatase (38-126) U/L Total Protein (6.3-8.2) g/dL Albumin (3.5-5.0) g/dL 07/04/17 07/04/17 07/04/17 Range/Units 05:00 05:00 07:30 WBC 15.9 H (3.8-10.6) k/uL RBC 3.98 L (4.30-5.90) m/uL Hgb 9.0 L (13.0-17.5) gm/dL Hct 32.1 L (39.0-53.0) % MCH 22.5 L (25.0-35.0) pg MCHC 28.0 L (31.0-37.0) g/dL RDW 15.6 H (11.5-15.5) % Plt Count 732 H (150-450) k/uL Neutrophils # 12.9 H (1.3-7.7) k/uL Carbon Dioxide 31 H (22-30) mmol/L Creatinine 0.65 L (0.66-1.25) mg/dL Glucose 110 H (74-99) mg/dL POC Glucose (mg/dL) 121 H (75-99) mg/dL ALT 137 H (21-72) U/L Alkaline Phosphatase 145 H (38-126) U/L Total Protein 5.1 L (6.3-8.2) g/dL Albumin 2.4 L (3.5-5.0) g/dL Microbiology - Last 24 Hours (Table) 07/03/17 14:45 Gram Stain - Preliminary Pleural Fluid Body Fluid Culture - Preliminary 07/03/17 14:45 Anaerobic Culture - Preliminary Pleural Fluid 06/30/17 10:34 Blood Culture - Preliminary Blood No Growth after 72 hours 07/01/17 07:50 Gram Stain - Final Sputum Sputum Culture - Final Assessment and Plan Plan: Assessment: #1. Acute hypoxic respiratory failure secondary to extensive left lung multifocal pneumonia and left pleural effusion, present on admission. Patient is status post left pigtail pleural chest tube catheter insertion, with TPA infusions on 07/03/2017. There is 400 mL of whitish yellow pleural fluid drainage in the collection chamber #2. Sepsis, with leukocytosis and fever, secondary to the above #3. History of left-sided pleural effusion requiring thoracentesis and empyema requiring pigtail drainage catheter and cultures positive for alphahemolytic strep and enterococcus faecalis #4. Coronary artery disease, status post 4 vessel coronary artery bypass grafting #5. COPD #6. Essential hypertension #7. Hyperlipidemia #8. GERD #9. Anxiety #10. Obesity Plan: Continue broad antibiotic coverage with Levaquin, Zosyn and vancomycin. Awaiting final cultures of the pleural fluid. Patient's white count is trending down, today is down to 15.9. Patient is afebrile, were able to wean him off the AIRVO, patient is currently down to 8 L per high flow nasal cannula. Today's chest x-ray was reviewed, shows stable findings suggesting CHF with pulmonary edema, confluent bibasilar consolidation, and small left effusion with a pleural catheter in place. Clinically patient is doing well, up in the chair, tolerating it well. Not on any vasopressor support. Tolerating oral intake. Will remain in the ICU today. TPA infusions per cardiothoracic surgery. I performed a history & physical examination of the patient and discussed their management with my nurse practitioner, Janelle Chambesr. I reviewed the nurse practitioner's note and agree with the documented findings and plan of care. Lung sounds are diminished air entry over left lower lobe, a few scattered rales over right lower lobe. The findings and the impression was discussed with the patient. I attest to the documentation by the nurse practitioner. Time with Patient: Greater than 30
[2017-07-04 12:12] LABS: Glucose,Whole Blood 259 mg/dL (75-99)
--- NOTE | 2017-07-04 12:18 | P.PN ---
Subjective Progress Note Date: 07/04/17 62 year old male who presented to the emergency room on 06/30/2017 with a chief complaint of shortness of breath that was worsening in severity x 1 week. Patient states he was having sputum production that was initially clear in color and then progressed to a greenish/yellow. The patient has a history of chronic obstructive disease, diabetes mellitus, gastroesophageal reflux disease, hypertension, myocardial infarction, pneumonia , STEMI in May 2017 with heart catheterization. He underwent CABG 4 in May 2017. Postoperatively, he had persistant left sided pleural effusion and required thoracentesis on 05/30/2017. Cultures from pleural fluid were positive for alpha hemolytic strep and enterococcus faecalis. He had a PICC line placed and was discharged home with IV antibiotic infusions. In the emergency room, a chest x-ray was completed which revealed worsening and now completely opacification of the left hemothorax which may related to pleural effusion and/or multifocal pneumonia. Patchy alveolar opacities within the right lower lung are also seen. EKG revealed sinus tachycardia. He was febrile with a temperature of 102.0 in the emergency room. He was found to be hypoxic with an oxygen saturation of 82% on room air. He was also tachycardic with a heart rate in the low 100s. Laboratory studies revealed a white count of 20.7, hemoglobin 10.6, INR 1.3, sodium 139, potassium 4.7, BUN 17, creatinine 0.58, lactic acid 1.7, AST 56, PLT 123, and alkaline phosphatase 159. Urinalysis reveals 1+ protein but otherwise unremarkable. Testing for influenza A and B was negative. 07/01/2017 The patient was seen and examined at the bedside in the intensive care unit with Dr. Abreu. He appears short of breath at rest. He is currently wearing a nonrebreather mask. Maintaining oxygen saturations greater than 92%. He appears diaphoretic. Denies chest pain or pressure. Denies pain or discomfort. Urine culture is negative at the 18 hour jacquelyn. Blood cultures are negative at the 24 hour jacquelyn. His vital signs are relatively stable at this time. Consultations have been placed for infectious disease, pulmonology, and cardiovascular surgery. 07/02/2017 Patient seen and examined at the bedside in the ICU with Dr. Abreu. Patient is currently on Airvo on 65%. Oxygen saturations are greater than 92%. He is eating breakfast at this time. Denies nausea or vomiting. Chest xray this morning shows stable findings with diffuse bilateral left greater than right pneumonia. Blood culture is negative at 24 hour jacquelyn. Urine culture is positive for daya albicans. Infectious disease is following. Patient remains on Levaquin, Vanco, and Zosyn at this time. WBC today is 13.6. Hemoglobin is 8.7, down from 9.1 yesterday. Cardiothoracic surgery is following. Patient may require intervention for possible loculated pleural effusion. 07/03/2017 Patient seen and examined at the bedside on rounds with Dr. Abreu. Patient remains in intensive care unit. Chest x-ray from 07/03/2017 shows slight improved aeration of the left upper lung with persistent confluent multifocal P cities representing multifocal pneumonia. He underwent a ultrasound of the chest on 07/02/2017 which revealed findings suggestive of a loculated effusion. Case discussed with Janelle Chambers NP with pulmonology who states that patient is likely to undergo pigtail catheter insertion in the left pleural space with infusion of TPA. Patient states that cardiothoracic surgery also mentioned thoracotomy as an option if TPA does not resolve the loculated effusion. The patient states he is feeling better today. He feels as though his shortness of breath is improving. He remains on AIRVO at 50% Fio2. He remains afebrile. Blood pressure has been stable. His white count is trending upward and is 17.0 today from 13.6 yesterday. Infectious disease remains on consult. He is currently receiving vancomycin, Levaquin, and Zosyn. 07/04/2017 Patient seen and examined in the bedside in the intensive care unit. He is sitting up in the chair. is at the bedside. He is about to work with physical therapy. He received a dose of 20mg lasix IV this morning per Dr. Abreu. He is diuresing well. His breathing seems to be improved today and he states he is less short of breath. He is no longer requiring Airvo. He is on 8L high flow NC. He underwent pigtail catheter insertion yesterday to left pleural space with a dose of TPA yesterday and today. Upon examination, there is 800 mL of purulent drainage in the chest tube. His states that they spoke with Dr. Okeefe today and he recommended patient undergo thoracotomy. WBC is 15.9 today, down from 17.0. He is afebrile. Infectious disease is on consult. He remains on vancomycin, Levaquin, and Zosyn. Pleural fluid has been cultured and results are currently pending. Objective - Vital Signs Vital signs: Vital Signs Temp 98.3 F 07/04/17 08:00 Pulse 83 07/04/17 11:00 Resp 20 07/04/17 11:00 BP 123/55 07/04/17 11:00 Pulse Ox 95 07/04/17 11:00 Intake & Output 07/03/17 07/04/17 07/04/17 18:59 06:59 18:59 Intake Total 2600 925.0 525.0 Output Total 700 1365 980 Balance 1900 -440.0 -455.0 Weight 115.3 kg Intake: IV 1000 925.0 425.0 Magnesium Sulfate-D5w Pmx 200 1 gm In Dextrose/Water 1 100ml.bag @ 100 mls/hr IVPB Q1H [facility] Rx#: [id number] Piperacillin-Tazobactam 3 75.0 25.0 .375 gm In Dextrose/Water 1 50ml.bag @ 12.5 mls/hr IVPB Q8H [facility] Rx#: [id number] Sodium Chloride 0.9% 1, 500 600 200 000 ml @ 50 mls/hr IV . Q20H [facility] Rx#:[id number] Vancomycin 1,750 mg In 500 250 Sodium Chloride 0.9% 250 ml @ 125 mls/hr IVPB Q8H [facility] Rx#:[id number] Intake, IV Titration 200 100 Amount Magnesium Sulfate-D5w Pmx 200 1 gm In Dextrose/Water 1 100ml.bag @ 100 mls/hr IVPB Q1H [facility] Rx#: [id number] Magnesium Sulfate-D5w Pmx 100 1 gm In Dextrose/Water 1 100ml.bag @ 100 mls/hr IVPB Q1H [facility] Rx#: [id number] Oral 1400 Output: Chest Tube Drainage 690 80 Pigtail in left posterior 690 80 Back Urine 700 675 900 Other: Voiding Method Urinal Urinal # Voids 1 - Exam GENERAL: This is a 62-year-old male who appears comfortable and in no acute distress at the time of examination. Pleasant and cooperative. HEENT: Head is atraumatic, normocephalic. Pupils are equal, round, and reactive to light. Sclerae anicteric. Conjunctivae are clear. Mucus membranes of the mouth are moist. Neck is supple. RESPIRATORY: Lungs are coarse with scattered rhonchi. Rales present in the bases. Left posterior pigtail catheter intact connected to atrium. No use of accessory muscles. Patient maintaining oxygen saturation greater than 92% on 8L high flow NC. No chest wall tenderness is noted on palpation or with deep breathing. CARDIOVASCULAR: Regular rate and rhythm. S1 and S2 noted. No systolic or diastolic murmur auscultated. No JVD noted. No S3 or S4 noted. GASTROINTESTINAL: No distention noted. Abdomen soft and round. Normal active bowel sounds auscultated x 4 quadrants. No pain or tenderness noted upon palpation. INTEGUMENTARY: Midline chest incision without drainage or erythema. No cyanosis. No jaundice. No rashes noted. No cellulitis noted. EXTREMITIES: 2+ peripheral pulses. No peripheral edema. No calf tenderness noted. NEUROLOGIC: Cranial nerves II-XII intact. PSYCHIATRIC: Awake, alert, and oriented X 3. Flat affect. - Labs CBC & Chem 7: 07/04/17 05:00 07/04/17 05:00 Labs: Abnormal Lab Results - Last 24 Hours (Table) 07/03/17 07/03/17 07/03/17 Range/Units 14:07 18:13 20:15 WBC (3.8-10.6) k/uL RBC (4.30-5.90) m/uL Hgb (13.0-17.5) gm/dL Hct (39.0-53.0) % MCH (25.0-35.0) pg MCHC (31.0-37.0) g/dL RDW (11.5-15.5) % Plt Count (150-450) k/uL Neutrophils # (1.3-7.7) k/uL Carbon Dioxide (22-30) mmol/L Creatinine (0.66-1.25) mg/dL Glucose (74-99) mg/dL POC Glucose (mg/dL) 103 H 178 H 185 H (75-99) mg/dL ALT (21-72) U/L Alkaline Phosphatase (38-126) U/L Total Protein (6.3-8.2) g/dL Albumin (3.5-5.0) g/dL 01/07/04/17 07/04/17 Range/Units 05:00 05:00 07:30 WBC 15.9 H (3.8-10.6) k/uL RBC 3.98 L (4.30-5.90) m/uL Hgb 9.0 L (13.0-17.5) gm/dL Hct 32.1 L (39.0-53.0) % MCH 22.5 L (25.0-35.0) pg MCHC 28.0 L (31.0-37.0) g/dL RDW 15.6 H (11.5-15.5) % Plt Count 732 H (150-450) k/uL Neutrophils # 12.9 H (1.3-7.7) k/uL Carbon Dioxide 31 H (22-30) mmol/L Creatinine 0.65 L (0.66-1.25) mg/dL Glucose 110 H (74-99) mg/dL POC Glucose (mg/dL) 121 H (75-99) mg/dL ALT 137 H (21-72) U/L Alkaline Phosphatase 145 H (38-126) U/L Total Protein 5.1 L (6.3-8.2) g/dL Albumin 2.4 L (3.5-5.0) g/dL Microbiology - Last 24 Hours (Table) 07/03/17 14:45 Gram Stain - Preliminary Pleural Fluid Body Fluid Culture - Preliminary 07/03/17 14:45 Anaerobic Culture - Preliminary Pleural Fluid 06/30/17 10:34 Blood Culture - Preliminary Blood No Growth after 72 hours 07/01/17 07:50 Gram Stain - Final Sputum Sputum Culture - Final Assessment and Plan Plan: ASSESSMENT: Multifocal pneumonia, present on admission, sputum culture reveals moderate gram -positive bacilli and rare gram-positive cocci Sepsis with leukocytosis and fever, present on admission, secondary to above Acute hypoxic respiratory failure requiring supplemental oxygen, secondary to above Left side loculated pleural effusion, s/p left pigtail catheter insertion and TPA administration, pleural fluid cultures pending Diabetes mellitus, type II, hemoglobin A1c 5.7% Coronary artery disease with previous myocardial infarction History of coronary artery bypass grafting 4 vessels History of left side pleural effusion requiring thoracentesis and empyema requiring pigtail drainage catheter with cultures positive for alpha hemolytic strep and enterococcus faecalis History of paroxysmal atrial fibrillation Chronic obstructive pulmonary disease Essential hypertension Hyperlipidemia Gastroesophageal reflux disease Anxiety, unspecified Obesity: BMI 31.2 PLAN: -Lasix 20 mg [address] Abreu -Cardiothoracic surgery on consult. Appreciate recommendations and input -Possible thoracotomy in the near future per patient and spouse -Hog Scalder on consult. Appreciate recommendations and input -Infectious disease on consult. Appreciate recommendations and input -Antibiotics per infectious disease: Currently on Vancomycin, Levaquin, and Zosyn -Incentive spirometer 10 times an hour while awake -Activity as tolerated -Capillary blood glucose accu-checks AC/HS -Novolog sliding scale coverage -Increase Novolog to 10 units with meals and continue Lantus 25 units at HS -Home meds as appropriate -Monitor labs -GI prophylaxis: Protonix 40mg PO daily -DVT prophylaxis: Heparin 5000 units subcu every 12 hours -Monitor vital signs and address as appropriate -Discharge planning: Patient may require home care or ECF at the time of discharge depending on patients clinical course -Further recommendations pending patient's course Nurse practitioner note has been reviewed by physician. Signing provider agrees with the documented findings, assessment, and plan of care.
[2017-07-04] MEDS: LEVOFLOXACIN 750 MG TAB PO SCH (12:53)
[2017-07-04] MEDS: FERROUS SULFATE 325 MG TAB PO SCH (12:54)
[2017-07-04] MEDS: ASCORBIC ACID 500 MG TAB PO SCH (12:54)
--- NOTE | 2017-07-04 13:18 | P.PN ---
Subjective Progress Note Date: 07/04/17 Principal diagnosis: History of recent urgent coronary artery bypass grafting on 05/22/2017, non-ST elevation myocardial infarction, hypertension, hyperlipidemia, insulin- dependent diabetes mellitus, anxiety, family history of premature coronary artery disease, COPD, paroxysmal atrial fibrillation, left-sided thoracentesis on 05/30/2017 and left chest pigtail catheter placement with fluid cultures positive for all for hemolytic strep and enterococcuss faecalis, left lower lobe pneumonia requiring placement of PICC line for home IV antibiotic therapy, and obesity. The patient was admitted to the hospital on 06/30/2017, after presenting to the emergency department with complaints of increase in shortness of breath over the last several days, with worsening productive cough. The patient has been receiving outpatient IV antibiotic therapy per his PICC line for treatment of his left lower lobe pneumonia which is been managed by Dr. Nixon. POD #1, ultrasound-guided chest tube insertion. (Pigtail catheter) Patient is sitting up to the bedside chair in no acute distress. His is at his bedside. Patient reports that his breathing has slightly improved since the pigtail catheter has been placed. Currently denies any complaints of pain. Tolerating oral intake. Objective - Vital Signs Vital signs: Vital Signs Temp 98.3 F 07/04/17 08:00 Pulse 79 07/04/17 12:49 Resp 20 07/04/17 11:00 BP 123/55 07/04/17 11:00 Pulse Ox 95 07/04/17 11:00 Intake & Output 07/03/17 07/04/17 07/04/17 18:59 06:59 18:59 Intake Total 2600 925.0 525.0 Output Total 700 1365 980 Balance 1900 -440.0 -455.0 Weight 115.3 kg Intake: IV 1000 925.0 425.0 Magnesium Sulfate-D5w Pmx 200 1 gm In Dextrose/Water 1 100ml.bag @ 100 mls/hr IVPB Q1H [facility] Rx#: [id number] Piperacillin-Tazobactam 3 75.0 25.0 .375 gm In Dextrose/Water 1 50ml.bag @ 12.5 mls/hr IVPB Q8H [facility] Rx#: [id number] Sodium Chloride 0.9% 1, 500 600 200 000 ml @ 50 mls/hr IV . Q20H [facility] Rx#:[id number] Vancomycin 1,750 mg In 500 250 Sodium Chloride 0.9% 250 ml @ 125 mls/hr IVPB Q8H [facility] Rx#:[id number] Intake, IV Titration 200 100 Amount Magnesium Sulfate-D5w Pmx 200 1 gm In Dextrose/Water 1 100ml.bag @ 100 mls/hr IVPB Q1H [facility] Rx#: [id number] Magnesium Sulfate-D5w Pmx 100 1 gm In Dextrose/Water 1 100ml.bag @ 100 mls/hr IVPB Q1H [facility] Rx#: [id number] Oral 1400 Output: Chest Tube Drainage 690 80 Pigtail in left posterior 690 80 Back Urine 700 675 900 Other: Voiding Method Urinal Urinal # Voids 1 - Constitutional General appearance: Present: cooperative, no acute distress, obese - Neck Details: No JVD, no lymphadenopathy. Neck is supple. 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 Oxygen saturations are 93% on 15 L high flow oxygen. He is achieving 500 mL on his incentive spirometry. Left chest pigtail catheter to low continuous wall suction -20 cm H2O. Draining milky greenish colored drainage. 180 mL output in the last 8 hours, 750 mL output in the last 24 hours. - Cardiovascular Details: Regular rhythm and rate. S1 and S2 present, negative for S3, gallop or murmur. Sternum is stable. Bedside telemetry showing normal sinus rhythm heart rate 79. Knee-high WALESKA hose and sequential compression devices in place to his bilateral lower extremities. No edema present. Peripheral pulses palpable. - Gastrointestinal Gastrointestinal Comment(s): Abdomen is soft, nontender and nondistended. Obese. Active bowel sounds all 4 abdominal quadrants. Tolerating oral intake. No guarding or rigidity. - Genitourinary Genitourinary Comment(s): Urine output adequate. 900 mL output in the last 8 hours. - Integumentary Integumentary Comment(s): Midline sternal incision healed. No redness or drainage. Left lower extremity EVH harvest site clean dry and healed. No redness or drainage. Skin is warm and dry, no clubbing or cyanosis. Left posterior chest pigtail catheter dressing clean and dry and intact. - Neurologic Neurologic: Present: CNII-XII intact - Musculoskeletal Musculoskeletal: Present: gait normal, generalized weakness, strength equal bilaterally - Psychiatric Psychiatric: Present: A&O x's 3, appropriate affect, intact judgment & insight - Allied health notes Allied health notes reviewed: nursing - Labs CBC & Chem 7: 07/04/17 05:00 07/04/17 05:00 Labs: Abnormal Lab Results - Last 24 Hours (Table) 07/03/17 07/03/17 07/03/17 Range/Units 14:07 18:13 20:15 WBC (3.8-10.6) k/uL RBC (4.30-5.90) m/uL Hgb (13.0-17.5) gm/dL Hct (39.0-53.0) % MCH (25.0-35.0) pg MCHC (31.0-37.0) g/dL RDW (11.5-15.5) % Plt Count (150-450) k/uL Neutrophils # (1.3-7.7) k/uL Carbon Dioxide (22-30) mmol/L Creatinine (0.66-1.25) mg/dL Glucose (74-99) mg/dL POC Glucose (mg/dL) 103 H 178 H 185 H (75-99) mg/dL ALT (21-72) U/L Alkaline Phosphatase (38-126) U/L Total Protein (6.3-8.2) g/dL Albumin (3.5-5.0) g/dL 07/04/17 07/04/17 07/04/17 Range/Units 05:00 05:00 07:30 WBC 15.9 H (3.8-10.6) k/uL RBC 3.98 L (4.30-5.90) m/uL Hgb 9.0 L (13.0-17.5) gm/dL Hct 32.1 L (39.0-53.0) % MCH 22.5 L (25.0-35.0) pg MCHC 28.0 L (31.0-37.0) g/dL RDW 15.6 H (11.5-15.5) % Plt Count 732 H (150-450) k/uL Neutrophils # 12.9 H (1.3-7.7) k/uL Carbon Dioxide 31 H (22-30) mmol/L Creatinine 0.65 L (0.66-1.25) mg/dL Glucose 110 H (74-99) mg/dL POC Glucose (mg/dL) 121 H (75-99) mg/dL ALT 137 H (21-72) U/L Alkaline Phosphatase 145 H (38-126) U/L Total Protein 5.1 L (6.3-8.2) g/dL Albumin 2.4 L (3.5-5.0) g/dL 07/04/17 Range/Units 12:11 WBC (3.8-10.6) k/uL RBC (4.30-5.90) m/uL Hgb (13.0-17.5) gm/dL Hct (39.0-53.0) % MCH (25.0-35.0) pg MCHC (31.0-37.0) g/dL RDW (11.5-15.5) % Plt Count (150-450) k/uL Neutrophils # (1.3-7.7) k/uL Carbon Dioxide (22-30) mmol/L Creatinine (0.66-1.25) mg/dL Glucose (74-99) mg/dL POC Glucose (mg/dL) 259 H (75-99) mg/dL ALT (21-72) U/L Alkaline Phosphatase (38-126) U/L Total Protein (6.3-8.2) g/dL Albumin (3.5-5.0) g/dL Microbiology - Last 24 Hours (Table) 06/30/17 10:34 Blood Culture - Preliminary Blood No Growth after 96 hours 07/03/17 14:45 Gram Stain - Preliminary Pleural Fluid Body Fluid Culture - Preliminary 07/03/17 14:45 Anaerobic Culture - Preliminary Pleural Fluid 07/01/17 07:50 Gram Stain - Final Sputum Sputum Culture - Final - Imaging and Cardiology Chest x-ray: report reviewed, image reviewed Assessment and Plan (1) History of atrial fibrillation less than 8 weeks after coronary artery bypass graft Current Visit: Yes Status: Acute Code(s): XLL9170 - SNOMED Code(s): 352553296254083 (2) History of myocardial infarction Current Visit: Yes Status: Acute Code(s): I25.2 - OLD MYOCARDIAL INFARCTION SNOMED Code(s): 145877053 (3) Status post aorto-coronary artery bypass graft Current Visit: Yes Status: Acute Code(s): Z95.1 - PRESENCE OF AORTOCORONARY BYPASS GRAFT SNOMED Code(s): 186679075 (4) Anxiety Current Visit: Yes Status: Chronic Code(s): F41.9 - ANXIETY DISORDER, UNSPECIFIED SNOMED Code(s): 05999769 (5) Diabetes mellitus type 2 in obese Current Visit: Yes Status: Chronic Code(s): E11.69 - TYPE 2 DIABETES MELLITUS WITH OTHER SPECIFIED COMPLICATION; E66.9 - OBESITY, UNSPECIFIED SNOMED Code(s): 28990706 (6) Hyperlipidemia Current Visit: Yes Status: Chronic Code(s): E78.5 - HYPERLIPIDEMIA, UNSPECIFIED SNOMED Code(s): 24021760 (7) Hypertension Current Visit: Yes Status: Chronic Code(s): I10 - ESSENTIAL (PRIMARY) HYPERTENSION SNOMED Code(s): 71517115 (8) Obesity (BMI 30.0-34.9) Current Visit: Yes Status: Chronic Code(s): E66.9 - OBESITY, UNSPECIFIED SNOMED Code(s): 003968984 (9) Coronary artery disease Current Visit: No Status: Chronic Code(s): I25.10 - ATHSCL HEART DISEASE OF [place] CORONARY ARTERY W/O ANG PCTRS SNOMED Code(s): 15948790 (10) Left lower lobe pneumonia Current Visit: No Status: Acute Code(s): J18.1 - LOBAR PNEUMONIA, UNSPECIFIED ORGANISM SNOMED Code(s): 574442711 Plan: 1. Continue aspirin, Plavix, statin and beta ewa. 2. Wean oxygen as tolerated, pulmonary management per Dr. Alonso's recommendations. 3. Antibiotic management per infectious disease recommendations. Routine PICC line care. 4. Alteplase 10 mg/100 mL normal saline to be instilled to his left pigtail catheter today. Pigtail catheter will be clamped for 1 hour post instillation of the alteplase and then placed back to low continuous wall suction -20 cm H2O. 5. Diabetic management per primary care service. 6. Encourage use of his incentive spirometry every hour while awake. 7. GI/DVT prophylaxis. 8. Pleural fluid will be sent for Chlyomicrons and triglyceride levels. 9. Patient may need a video-assisted thoracoscopic procedure with decortication , which has been discussed with the patient and his by Dr. Okeefe. 10. More recommendations to follow as patient progresses and care. Time with Patient: Greater than 30
[2017-07-04 17:06] LABS: Glucose,Whole Blood 163 mg/dL (75-99)
[2017-07-04 20:04] LABS: Glucose,Whole Blood 130 mg/dL (75-99)
[2017-07-04] MEDS: HYDROmorphone 2 MG/ML 1 ML SYRINGE IVP PRN (20:38)
--- NOTE | 2017-07-04 22:21 | P.PN ---
Subjective Progress Note Date: 07/04/17 Principal diagnosis: Shortness of breath This is a 62 year old male presented to hospital on 05/21/2017 with chest pain and found to have acute myocardial infarction. Heart catheterization found evidence of multivessel coronary artery disease and he is status post coronary artery bypass grafting procedure. He said difficulties postoperatively with bleeding to require somewhat protracted ventilation. He did require repeat surgery for control of the bleeding. He developed cardiac dysrhythmia with atrial fibrillation requiring amiodarone treatment. The patient also developed difficulties with his left chest. A large fluid collection was found and he underwent thoracentesis he was having some difficulty with shortness of breath and consequently further imaging was performed. Computed tomography scan showed evidence of the left lower lobe infiltration as well as some right upper lobe infiltrate. Because of and leukocytosis the infectious diseases consultation was requested. He required placement of percutaneous drainage of the empyema. He was eventually stabilized and discharged home on June 07. He was continued on IV antibioticsat an [facility] office on a daily basis for enterococcus and alpha hemolytic strep empyema. Patient last saw Dr. Nixon on Saturday any extended IV antibiotic therapy for another week. Patient states he was feeling fine when he was in the office on Saturday and also on Saturday. But on Saturday morning he started coughing around 3 in the morning and was clear sputum production the change to yellow and he felt exhausted. He was having difficulty breathing and his called Dr. Nixon recommended that he come into the evaluated. EMS was called and patient was transferred to [facility] emergency center. Chest x-ray initially showed worsening of bilateral pneumonias, cardiomegaly and left pleural effusion. Repeat chest x- ray showed worsening and near complete obesity of the left hemithorax, pleural effusion and multifocal pneumonia in differential. Patchy alveolar opacity within the right lower lobe. He was found to be febrile which he denied having any fevers chills or rigors at home. His pulse ox was down to 82% and he was hypotensive. White count was elevated at 20.7 but improved to 13.5. ALT was 123 and alkaline phosphatase 159. Albumin is 3. Urinalysis was clear, protein 1+, nitrate and leukoesterase negative. Urine culture is in progress. Blood culture and sputum culture status received. Influenza testing was negative. ALT is 123 and alkaline phosphatase 159. Albumin is 3. Patient has been admitted into the intensive care unit. He has not required vasopressors. Consult in place with pulmonary medicine and CAT scan of the chest has been ordered. Consult in place with cardiothoracic surgery. Computed tomography scan as noted showing evidence of near collapse of left lung. Ultrasound has been performed showing and the complex fluid Radiology has now placed pigtail catheter and 20 mL of grossly purulent material was sent to the laboratory for culture and tube continues to drain. Patient is off of the high flow oxygen remains on 6 L nasal cannula at this time. He does feel slightly improved. Does not feel well. Objective - Vital Signs Vital signs: Vital Signs Temp 98.8 F 07/04/17 20:00 Pulse 86 07/04/17 21:00 Resp 31 H 07/04/17 21:00 BP 124/60 07/04/17 20:00 Pulse Ox 92 L 07/04/17 21:00 Intake & Output 07/04/17 07/04/17 07/05/17 06:59 18:59 06:59 Intake Total 925.0 875.0 225.0 Output Total 1365 2480 400 Balance -440.0 -1605.0 -175.0 Weight 115.3 kg Intake: IV 925.0 775.0 225.0 Magnesium Sulfate-D5w Pmx 200 1 gm In Dextrose/Water 1 100ml.bag @ 100 mls/hr IVPB Q1H [facility] Rx#: [id number] Piperacillin-Tazobactam 3 75.0 25.0 75.0 .375 gm In Dextrose/Water 1 50ml.bag @ 12.5 mls/hr IVPB Q8H [facility] Rx#: [id number] Sodium Chloride 0.9% 1, 600 550 150 000 ml @ 50 mls/hr IV . Q20H [facility] Rx#:[id number] Vancomycin 1,750 mg In 250 Sodium Chloride 0.9% 250 ml @ 125 mls/hr IVPB Q8H [facility] Rx#:[id number] Intake, IV Titration 100 Amount Magnesium Sulfate-D5w Pmx 100 1 gm In Dextrose/Water 1 100ml.bag @ 100 mls/hr IVPB Q1H [facility] Rx#: [id number] Output: Chest Tube Drainage 690 80 Pigtail in left posterior 690 80 Back Urine 675 2400 400 Other: Voiding Method Urinal Urinal # Voids 1 1 # Bowel Movements 1 - Exam Gen: This is a 62-year-old male patient sitting up in the ICU bed and mild to moderate respiratory distress with nonrebreather in place. HEENT: Head is atraumatic, normocephalic. Pupils equal, round. Sclerae is anicteric. Junk developed pink. Mucous membranes of the mouth are somewhat dry. White coating on his tongue noted. NECK: Supple. No JVD. No lymphadenopathy. No thyromegaly. LUNGS: Right chest with good air entry with few crackles at the base. Left chest with markedly diminished air entry. Only few crackles are heard in the left upper zone. Dullness is noted to the left base with egophony. HEART: Regular rate and rhythm. No murmur. ABDOMEN: Soft. Bowel sounds are present. No masses. No tenderness. EXTREMITIES: No pedal edema. No calf tenderness. Dorsalis pedis +2 bilaterally. NEUROLOGICAL: Patient is awake, alert and oriented x3. - Labs CBC & Chem 7: 07/04/17 05:00 07/04/17 05:00 Labs: Abnormal Lab Results - Last 24 Hours (Table) 07/04/17 07/04/17 07/04/17 Range/Units 05:00 05:00 07:30 WBC 15.9 H (3.8-10.6) k/uL RBC 3.98 L (4.30-5.90) m/uL Hgb 9.0 L (13.0-17.5) gm/dL Hct 32.1 L (39.0-53.0) % MCH 22.5 L (25.0-35.0) pg MCHC 28.0 L (31.0-37.0) g/dL RDW 15.6 H (11.5-15.5) % Plt Count 732 H (150-450) k/uL Neutrophils # 12.9 H (1.3-7.7) k/uL Carbon Dioxide 31 H (22-30) mmol/L Creatinine 0.65 L (0.66-1.25) mg/dL Glucose 110 H (74-99) mg/dL POC Glucose (mg/dL) 121 H (75-99) mg/dL ALT 137 H (21-72) U/L Alkaline Phosphatase 145 H (38-126) U/L Total Protein 5.1 L (6.3-8.2) g/dL Albumin 2.4 L (3.5-5.0) g/dL 07/04/17 07/04/17 07/04/17 Range/Units 12:11 17:03 20:02 WBC (3.8-10.6) k/uL RBC (4.30-5.90) m/uL Hgb (13.0-17.5) gm/dL Hct (39.0-53.0) % MCH (25.0-35.0) pg MCHC (31.0-37.0) g/dL RDW (11.5-15.5) % Plt Count (150-450) k/uL Neutrophils # (1.3-7.7) k/uL Carbon Dioxide (22-30) mmol/L Creatinine (0.66-1.25) mg/dL Glucose (74-99) mg/dL POC Glucose (mg/dL) 259 H 163 H 130 H (75-99) mg/dL ALT (21-72) U/L Alkaline Phosphatase (38-126) U/L Total Protein (6.3-8.2) g/dL Albumin (3.5-5.0) g/dL Microbiology - Last 24 Hours (Table) 06/30/17 10:34 Blood Culture - Preliminary Blood No Growth after 96 hours 07/03/17 14:45 Gram Stain - Preliminary Pleural Fluid Body Fluid Culture - Preliminary 07/03/17 14:45 Anaerobic Culture - Preliminary Pleural Fluid Laboratory Results WBC 15.9 k/uL (3.8-10.6) H 07/04/17 05:00 RBC 3.98 m/uL (4.30-5.90) L 07/04/17 05:00 Hgb 9.0 gm/dL (13.0-17.5) L 07/04/17 05:00 Hct 32.1 % (39.0-53.0) L 07/04/17 05:00 MCV 80.6 fL (80.0-100.0) 07/04/17 05:00 MCH 22.5 pg (25.0-35.0) L 07/04/17 05:00 MCHC 28.0 g/dL (31.0-37.0) L 07/04/17 05:00 RDW 15.6 % (11.5-15.5) H 07/04/17 05:00 Plt Count 732 k/uL (150-450) H 07/04/17 05:00 Neutrophils % 82 % 07/04/17 05:00 Lymphocytes % 10 % 07/04/17 05:00 Monocytes % 5 % 07/04/17 05:00 Eosinophils % 2 % 07/04/17 05:00 Basophils % 0 % 07/04/17 05:00 Neutrophils # 12.9 k/uL (1.3-7.7) H 07/04/17 05:00 Lymphocytes # 1.6 k/uL (1.0-4.8) 07/04/17 05:00 Monocytes # 0.8 k/uL (0-1.0) 07/04/17 05:00 Eosinophils # 0.3 k/uL (0-0.7) 07/04/17 05:00 Basophils # 0.0 k/uL (0-0.2) 07/04/17 05:00 Hypochromasia Marked 07/04/17 05:00 Poikilocytosis Moderate 07/04/17 05:00 Anisocytosis Slight 07/03/17 04:31 Microcytosis Slight 07/03/17 04:31 PT 12.1 sec (9.0-12.0) H 06/30/17 10:34 INR 1.3 (<1.2) H 06/30/17 10:34 APTT 23.4 sec (22.0-30.0) 06/30/17 10:34 Sodium 142 mmol/L (137-145) 07/04/17 05:00 Potassium 4.3 mmol/L (3.5-5.1) 07/04/17 05:00 Chloride 105 mmol/L (98-107) 07/04/17 05:00 Carbon Dioxide 31 mmol/L (22-30) H 07/04/17 05:00 Anion Gap 6 mmol/L 07/04/17 05:00 BUN 14 mg/dL (9-20) 07/04/17 05:00 Creatinine 0.65 mg/dL (0.66-1.25) L 07/04/17 05:00 Est GFR (MDRD) Af Amer >60 (>60 ml/min/1.73 sqM) 07/04/17 05:00 Est GFR (MDRD) Non-Af >60 (>60 ml/min/1.73 sqM) 07/04/17 05:00 Glucose 110 mg/dL (74-99) H 07/04/17 05:00 POC Glucose (mg/dL) 130 mg/dL (75-99) H 07/04/17 20:02 POC Glu Cloth Bleaching Range Tender Julissa Pleitez 07/04/17 20:[address] Glu mg/dL 117 06/30/17 10:34 Hemoglobin A1c 5.7 % (4.0-6.0) 06/30/17 10:34 Plasma Lactic Acid Kashif 1.7 mmol/L (0.7-2.0) 06/30/17 10:34 Calcium 9.0 mg/dL (8.4-10.2) 07/04/17 05:00 Phosphorus 3.9 mg/dL (2.5-4.5) 07/04/17 05:00 Magnesium 1.9 mg/dL (1.6-2.3) 07/04/17 05:00 Total Bilirubin 0.2 mg/dL (0.2-1.3) 07/04/17 05:00 AST 59 U/L (17-59) 07/04/17 05:00 ALT 137 U/L (21-72) H 07/04/17 05:00 Alkaline Phosphatase 145 U/L (38-126) H 07/04/17 05:00 Total Protein 5.1 g/dL (6.3-8.2) L 07/04/17 05:00 Albumin 2.4 g/dL (3.5-5.0) L 07/04/17 05:00 TSH 1.800 mIU/L (0.465-4.680) 07/03/17 04:31 Free T4 1.55 ng/dL (0.78-2.19) 07/03/17 04:31 Urine Color Yellow 06/30/17 10:34 Urine Appearance Clear (Clear) 06/30/17 10:34 Urine pH 5.0 (5.0-8.0) 06/30/17 10:34 Ur Specific [place] 1.021 (1.001-1.035) 06/30/17 10:34 Urine Protein 1+ (Negative) H 06/30/17 10:34 Urine Glucose (UA) Negative (Negative) 06/30/17 10:34 Urine Ketones Negative (Negative) 06/30/17 10:34 Urine Blood Negative (Negative) 06/30/17 10:34 Urine Nitrite Negative (Negative) 06/30/17 10:34 Urine Bilirubin Negative (Negative) 06/30/17 10:34 Urine Urobilinogen <2.0 mg/dL (<2.0) 06/30/17 10:34 Ur Leukocyte Esterase Negative (Negative) 06/30/17 10:34 Urine RBC 1 /hpf (0-5) 06/30/17 10:34 Urine WBC <1 /hpf (0-5) 06/30/17 10:34 Urine Mucus Few /hpf (None) H 06/30/17 10:34 Vancomycin Trough 18.4 ug/mL 07/04/17 10:10 Influenza Type A RNA Not Detected (Not Detectd) 06/30/17 10:34 Influenza Type B (PCR) Not Detected (Not Detectd) 06/30/17 10:34 Microbiology 06/30/17 10:34 Blood Blood Culture - Preliminary No Growth after 96 hours 07/03/17 14:45 Pleural Fluid Gram Stain - Preliminary 07/03/17 14:45 Pleural Fluid Body Fluid Culture - Preliminary 07/03/17 14:45 Pleural Fluid Anaerobic Culture - Preliminary 07/01/17 07:50 Sputum Gram Stain - Final 07/01/17 07:50 Sputum Sputum Culture - Final 06/30/17 10:34 Urine,Voided Urine Culture - Final Vera albicans Assessment and Plan (1) Pleural effusion on left Narrative/Plan: 62-year-old male with status post coronary artery bypass grafting procedure without difficulty significant infection of his left chest after surgery. Has been receiving a course of intravenous antibiotic therapy with ertapenem for coverage of the pathogens. Has not had a marked worsening of his status requiring hospitalization. His oxygenation is improved and he is no longer on the high flow oxygen but is on 6 L nasal cannula. Feeling somewhat better today. He still however has shortness of breath. Appetite is improved. Fever is improved. He is being available by pulmonary critical care and cardiothoracic surgery. Computed tomography scan ultrasound are noted. Await decisions as far VATS procedure. Patient is on a plethora of antibiotics at this time pending further culture data given his failure of ertapenem. Does have some mild improvement but does not still feel well. Current Visit: No Status: Acute Code(s): J90 - PLEURAL EFFUSION, NOT ELSEWHERE CLASSIFIED SNOMED Code(s): 53164783 (2) Pneumonia Current Visit: Yes Status: Acute Code(s): J18.9 - PNEUMONIA, UNSPECIFIED ORGANISM SNOMED Code(s): 116597404 (3) History of atrial fibrillation less than 8 weeks after coronary artery bypass graft Current Visit: Yes Status: Acute Code(s): EHI7313 - SNOMED Code(s): 539880703712966
[2017-07-04] MEDS: INSULIN DETEMIR 100 UNIT/ML 10 ML VIAL SQ SCH (23:11)
[2017-07-05] MEDS: VANCOMYCIN 1,750 MG in SODIUM CHLORIDE 0.9% 250 ML IVPB SCH ×3 (02:00→18:24)
[2017-07-05] MEDS: PIPERACILLIN-TAZOBACTAM 3.375 GM in DEXTROSE/WATER 1 50ML.BAG IVPB SCH ×3 (04:11→20:45)
[2017-07-05 04:21] LABS: Anisocytosis Slight; Basophils # (A) 0.1 k/uL (0-0.2); Basophils % (A) 1 %; Eosinophils # (A) 0.3 k/uL (0-0.7); Eosinophils % (A) 2 %; HCT 30.9 % (39.0-53.0); HGB 8.8 gm/dL (13.0-17.5); Hypochromasia Marked; Lymphocytes # (A) 1.7 k/uL (1.0-4.8); Lymphocytes % (A) 11 %; MCH 22.5 pg (25.0-35.0); MCHC 28.6 g/dL (31.0-37.0); MCV 78.7 fL (80.0-100.0); Mean Platelet Volume 6.5; Microcytosis Slight; Monocytes # (A) 0.9 k/uL (0-1.0); Monocytes % (A) 6 %; Neutrophils # (A) 12.5 k/uL (1.3-7.7); Neutrophils % (A) 80 %; Platelet Count 644 k/uL (150-450); Poikilocytosis Slight; RBC 3.93 m/uL (4.30-5.90); RDW 17.6 % (11.5-15.5); WBC 15.7 k/uL (3.8-10.6)
[2017-07-05 04:33] LABS: ALT 109 U/L (21-72); AST 43 U/L (17-59); Albumin 2.3 g/dL (3.5-5.0); Alkaline Phosphatase 136 U/L (38-126); Anion Gap 6 mmol/L; Blood Urea Nitrogen 14 mg/dL (9-20); Calcium 8.8 mg/dL (8.4-10.2); Carbon Dioxide 30 mmol/L (22-30); Chloride 104 mmol/L (98-107); Glucose 105 mg/dL (74-99); Magnesium 1.8 mg/dL (1.6-2.3); Phosphorus 3.6 mg/dL (2.5-4.5); Potassium 4.3 mmol/L (3.5-5.1); Sodium 140 mmol/L (137-145); Total Bilirubin 0.2 mg/dL (0.2-1.3)
[2017-07-05] MEDS ORDERED: Magnesium Replacement Protocol 1 EACH MISC MISCELLANE PRN (05:14)
[2017-07-05] MEDS: MAGNESIUM SULFATE-D5W PMX 1 GM in DEXTROSE/WATER 1 100ML.BAG IVPB SCH ×2 (06:32→07:51)
[2017-07-05 07:35] LABS: Glucose,Whole Blood 325 mg/dL (75-99)
[2017-07-05 07:50] LABS: Glucose,Whole Blood 117 mg/dL (75-99)
[2017-07-05] MEDS: CLOPIDOGREL 75 MG TAB PO SCH (07:51)
[2017-07-05] MEDS: guaiFENesin 600 MG TABLET.ER PO SCH ×2 (07:51→20:44)
[2017-07-05] MEDS: METOPROLOL TARTRATE 25 MG TAB PO SCH ×2 (07:51→20:44)
[2017-07-05] MEDS: ASPIRIN 325 MG TAB PO SCH (07:52)
[2017-07-05] MEDS: SERTRALINE 100 MG TAB PO SCH (07:52)
[2017-07-05] MEDS: PANTOPRAZOLE 40 MG TABLET PO SCH (07:52)
[2017-07-05] MEDS: AMIODARONE 200 MG TAB PO SCH (07:52)
[2017-07-05] MEDS: ATORVASTATIN 40 MG TAB PO SCH (07:52)
[2017-07-05] MEDS: HEPARIN SODIUM,PORCINE 5,000 UNIT/ML 1 ML VIAL SQ SCH ×2 (07:52→20:44)
--- NOTE | 2017-07-05 07:53 | XR ---
EXAMINATION TYPE: XR chest 1V DATE OF EXAM: 07/05/2017 COMPARISON: Prior chest x-ray 07/04/2017 HISTORY: Pneumonia TECHNIQUE: Single frontal view of the chest is obtained. FINDINGS: Patient is post median sternotomy. Left-sided pleural drain remains in place. Bilateral ai rspace disease again noted. Patient is post median sternotomy and the heart is enlarged. No evident p neumothorax. IMPRESSION: Essentially stable findings compatible with patient's history of pneumonia and empyema. Correlate for possible volume overload, congestive heart failure.
[2017-07-05] MEDS: INSULIN ASPART 100 UNIT/ML 1 ML 10 ML VIAL SQ SCH ×7 (08:25→20:45)
[2017-07-05] MEDS ORDERED: ALTEPLASE 10 MG in SODIUM CHLORIDE 0.9% 100 ML IRRIGATION ONE (09:00)
[2017-07-05] MEDS: IPRATROPIUM-ALBUTEROL 3 ML NEB INHALATION SCH ×4 (09:59→20:26)
--- NOTE | 2017-07-05 11:18 | P.PN ---
Subjective Progress Note Date: 07/05/17 Principal diagnosis: Acute hypoxic respiratory failure secondary to left lung pneumonia and pleural effusion, Progress note dated 07/02/2017 The patient continues to improve slowly. Radiographically, his chest x-ray has not changed all that much. Certainly not worse. Currently the patient is on the AIRVO at 65 L/m. He's had a saline IV at 50 mL an hour. The patient has a history of bilateral pneumonia with sepsis a history of asthma, diabetes, gastroesophageal reflux disease, hypertension, myocardial infarction and pneumonia. He also has a history of recent bypass grafting back on 05/22/[address] segment elevation myocardial infarction and legionnaires disease. He is a lifelong nonsmoker. His primary care physician is Dr. Gary Abreu. The patient apparently had a computed tomography scan late yesterday. I have not looked at it as yet. My partner expresses some concerns that he may have a loculated pleural effusion which need something more significantly done such as decortication. On 07/03/2017 patient remains in intensive care. Still requiring high flow nasal cannula, remains on AIRVO at FiO2 of 50% and 40 L/m flow. Afebrile, hemodynamically stable. Today's chest x-ray shows slight improvement in the aeration of the left upper lung with persistent confluent multifocal opacities representing multifocal pneumonia. Yesterday we have obtained a chest ultrasound to evaluate the complex and loculated left pleural effusion in the background of extensive left lung pneumonia. This was discussed with the interventional radiologist and cardiothoracic surgery. CT surgery feels the patient with benefit from a pigtail catheter insertion in the left pleural space and infusion of TPA over the next few days. This was discussed with the radiologist, who recommended getting a CT chest with contrast today. Otherwise patient is fairly comfortable, in no acute distress, respirations are shallow and tachypneic with a rate in the 30s. He is awake alert, tolerating a regular diet. His lab work shows upward trend of his WBCs, up to 17, hemoglobin is 9.0 , renal profile is stable, within normal limits no significant electrolyte abnormality. Blood and sputum culture show no growth, urine culture is positive for Vera albicans. ID service is on. Is on a combination of Levaquin, Zosyn and vancomycin. Currently not requiring any vasopressor support. On 07/04/2017 patient is seen in follow-up in intensive care unit. He is status post left pleural pigtail chest tube insertion with TPA infusion on 07/03. Patient had round 400 cc of milky yellow, purulent drainage in the atrium collection chamber since insertion. Clinically patient denies any acute distress, FiO2 was weaned down to 8 L per high flow nasal cannula. Blood sputum cultures remain negative, urine culture shows Vera albicans, pleural fluid culture was sent for culture as well and is pending. Patient will have another infusion of alteplase today per cardiothoracic surgery. Continues on empiric antibiotics with Levaquin, Zosyn and vancomycin. His IV fluids are 0.9 normal saline at 50 ML per hour. Patient's tolerating oral intake, on regular diet. Up in a chair, tolerating it well. Overall continues to significantly improve. The patient is seen again today 07/05/2017 in follow-up in the intensive care unit. He is currently sitting up in a chair at the bedside. He is awake and alert in no acute distress. The left-sided pigtail chest tube remains in place. The plan was for alteplase again today. He has been up ambulating with assistance which enhances the drainage process. Cultures are pending. His chest x-ray reveals stable findings compared to previous. White count 15.7, hemoglobin 8.8. He remains on vancomycin, Zosyn and Levaquin. He is maintaining good O2 saturations in the low 90s on 10 L high flow nasal cannula. He has a 0.9 normal saline at 50 MLS per hour. Objective - Vital Signs Vital signs: Vital Signs Temp 97.5 F L 07/05/17 08:00 Pulse 79 07/05/17 10:00 Resp 23 07/05/17 10:00 BP 127/73 07/05/17 10:00 Pulse Ox 98 07/05/17 10:00 Intake & Output 07/04/17 07/05/17 07/05/17 18:59 06:59 18:59 Intake Total 875.0 1675.0 250 Output Total 2480 1630 575 Balance -1605.0 45.0 -325 Weight 111.8 kg Intake: IV 775.0 875.0 250 Magnesium Sulfate-D5w Pmx 200 1 gm In Dextrose/Water 1 100ml.bag @ 100 mls/hr IVPB Q1H [facility] Rx#: [id number] Magnesium Sulfate-D5w Pmx 100 1 gm In Dextrose/Water 1 100ml.bag @ 100 mls/hr IVPB Q1H [facility] Rx#: [id number] Piperacillin-Tazobactam 3 25.0 100.0 .375 gm In Dextrose/Water 1 50ml.bag @ 12.5 mls/hr IVPB Q8H [facility] Rx#: [id number] Sodium Chloride 0.9% 1, 550 650 150 000 ml @ 50 mls/hr IV . Q20H [facility] Rx#:[id number] Vancomycin 1,750 mg In 125 Sodium Chloride 0.9% 250 ml @ 125 mls/hr IVPB Q8H [facility] Rx#:[id number] Intake, IV Titration 100 Amount Magnesium Sulfate-D5w Pmx 100 1 gm In Dextrose/Water 1 100ml.bag @ 100 mls/hr IVPB Q1H [facility] Rx#: [id number] Oral 800 Output: Chest Tube Drainage 80 60 100 Pigtail in left posterior 80 60 100 Back Urine 2400 1570 475 Other: Voiding Method Urinal Urinal # Voids 1 # Bowel Movements 1 - Exam No acute distress, oriented 3. Patient currently on supplemental oxygen via high flow. HEENT examination is grossly unremarkable. Mucous membranes are moist. No oral lesions. Neck supple. Full range of motion. No adenopathy thyromegaly or neck vein distention. Cardiovascular examination reveals regular rhythm rate. S1-S2 normal. No S3 or S4. No discernible murmur noted. Lungs reveal a few bilateral rhonchi. Breath sounds show diminished air entry over left lower base, clear on the right. A few crackles are present over right lower lobe, No wheezes. There is a left posterior chest wall pleural pigtail chest tube connected to a atrium, there is about 400 mL of whitish, yellow pleural fluid drainage in the collection chamber Abdomen soft bowel sounds are heard. No masses or tenderness. Extremities are intact. No cyanosis clubbing or edema. Skin is without rash or lesion. Neurologic examination is brief but nonfocal - Labs CBC & Chem 7: 07/05/17 04:00 07/05/17 04:00 Labs: Abnormal Lab Results - Last 24 Hours (Table) 07/04/17 07/04/17 07/04/17 Range/Units 12:11 17:03 20:02 WBC (3.8-10.6) k/uL RBC (4.30-5.90) m/uL Hgb (13.0-17.5) gm/dL Hct (39.0-53.0) % MCV (80.0-100.0) fL MCH (25.0-35.0) pg MCHC (31.0-37.0) g/dL RDW (11.5-15.5) % Plt Count (150-450) k/uL Neutrophils # (1.3-7.7) k/uL Glucose (74-99) mg/dL POC Glucose (mg/dL) 259 H 163 H 130 H (75-99) mg/dL ALT (21-72) U/L Alkaline Phosphatase (38-126) U/L Total Protein (6.3-8.2) g/dL Albumin (3.5-5.0) g/dL 07/05/17 07/05/17 07/05/17 Range/Units 04:00 04:00 07:32 WBC 15.7 H (3.8-10.6) k/uL RBC 3.93 L (4.30-5.90) m/uL Hgb 8.8 L (13.0-17.5) gm/dL Hct 30.9 L (39.0-53.0) % MCV 78.7 L (80.0-100.0) fL MCH 22.5 L (25.0-35.0) pg MCHC 28.6 L (31.0-37.0) g/dL RDW 17.6 H (11.5-15.5) % Plt Count 644 H (150-450) k/uL Neutrophils # 12.5 H (1.3-7.7) k/uL Glucose 105 H (74-99) mg/dL POC Glucose (mg/dL) 325 H (75-99) mg/dL ALT 109 H (21-72) U/L Alkaline Phosphatase 136 H (38-126) U/L Total Protein 5.0 L (6.3-8.2) g/dL Albumin 2.3 L (3.5-5.0) g/dL 07/05/17 Range/Units 07:48 WBC (3.8-10.6) k/uL RBC (4.30-5.90) m/uL Hgb (13.0-17.5) gm/dL Hct (39.0-53.0) % MCV (80.0-100.0) fL MCH (25.0-35.0) pg MCHC (31.0-37.0) g/dL RDW (11.5-15.5) % Plt Count (150-450) k/uL Neutrophils # (1.3-7.7) k/uL Glucose (74-99) mg/dL POC Glucose (mg/dL) 117 H (75-99) mg/dL ALT (21-72) U/L Alkaline Phosphatase (38-126) U/L Total Protein (6.3-8.2) g/dL Albumin (3.5-5.0) g/dL Microbiology - Last 24 Hours (Table) 06/30/17 10:34 Blood Culture - Preliminary Blood No Growth after 96 hours 07/03/17 14:45 Gram Stain - Preliminary Pleural Fluid Body Fluid Culture - Preliminary Assessment and Plan Assessment: Assessment: #1. Acute hypoxic respiratory failure secondary to extensive left lung multifocal pneumonia and left pleural effusion, present on admission. Patient is status post left pigtail pleural chest tube catheter insertion, with TPA infusions on 07/05/2017. #2. Sepsis, with leukocytosis and fever, secondary to the above #3. History of left-sided pleural effusion requiring thoracentesis and empyema requiring pigtail drainage catheter and cultures positive for alphahemolytic strep and enterococcus faecalis #4. Coronary artery disease, status post 4 vessel coronary artery bypass grafting #5. COPD #6. Essential hypertension #7. Hyperlipidemia #8. GERD #9. Anxiety #10. Obesity Plan: The patient was seen and evaluated by Dr. Alonso. His chest x-ray and labs were reviewed. We'll continue with his current medications for now. We'll continue to increase his activity as tolerated. The plan is for another dose of alteplase into the tubing. Daily chest x-rays. We have again encourage increased use of the incentive spirometer and cough and deep breathing exercises. We'll continue to follow and make further recommendations based on his clinical status. I, the cosigning physician, performed a history & physical examination of the patient. Lungs sounds with crackles in the bilateral posterior bases more so on the left.. Maintaining good O2 saturations in the 90s on 10 L high flow nasal cannula. I discussed the assessment and plan of care with my nurse practitioner , Tamia Solano. I attest to the above note as dictated by her.
[2017-07-05] MEDS ORDERED: FUROSEMIDE 10 MG/ML 2 ML VIAL IV ONE (11:23)
[2017-07-05 12:14] LABS: Glucose,Whole Blood 143 mg/dL (75-99)
--- NOTE | 2017-07-05 12:24 | P.PN ---
Subjective Progress Note Date: 07/05/17 62 year old male who presented to the emergency room on 06/30/2017 with a chief complaint of shortness of breath that was worsening in severity x 1 week. Patient states he was having sputum production that was initially clear in color and then progressed to a greenish/yellow. The patient has a history of chronic obstructive disease, diabetes mellitus, gastroesophageal reflux disease, hypertension, myocardial infarction, pneumonia , STEMI in May 2017 with heart catheterization. He underwent CABG 4 in May 2017. Postoperatively, he had persistant left sided pleural effusion and required thoracentesis on 05/30/2017. Cultures from pleural fluid were positive for alpha hemolytic strep and enterococcus faecalis. He had a PICC line placed and was discharged home with IV antibiotic infusions. In the emergency room, a chest x-ray was completed which revealed worsening and now completely opacification of the left hemothorax which may related to pleural effusion and/or multifocal pneumonia. Patchy alveolar opacities within the right lower lung are also seen. EKG revealed sinus tachycardia. He was febrile with a temperature of 102.0 in the emergency room. He was found to be hypoxic with an oxygen saturation of 82% on room air. He was also tachycardic with a heart rate in the low 100s. Laboratory studies revealed a white count of 20.7, hemoglobin 10.6, INR 1.3, sodium 139, potassium 4.7, BUN 17, creatinine 0.58, lactic acid 1.7, AST 56, PLT 123, and alkaline phosphatase 159. Urinalysis reveals 1+ protein but otherwise unremarkable. Testing for influenza A and B was negative. 07/01/2017 The patient was seen and examined at the bedside in the intensive care unit with Dr. Abreu. He appears short of breath at rest. He is currently wearing a nonrebreather mask. Maintaining oxygen saturations greater than 92%. He appears diaphoretic. Denies chest pain or pressure. Denies pain or discomfort. Urine culture is negative at the 18 hour jacquelyn. Blood cultures are negative at the 24 hour jacquelyn. His vital signs are relatively stable at this time. Consultations have been placed for infectious disease, pulmonology, and cardiovascular surgery. 07/02/2017 Patient seen and examined at the bedside in the ICU with Dr. Abreu. Patient is currently on Airvo on 65%. Oxygen saturations are greater than 92%. He is eating breakfast at this time. Denies nausea or vomiting. Chest xray this morning shows stable findings with diffuse bilateral left greater than right pneumonia. Blood culture is negative at 24 hour jacquelyn. Urine culture is positive for daya albicans. Infectious disease is following. Patient remains on Levaquin, Vanco, and Zosyn at this time. WBC today is 13.6. Hemoglobin is 8.7, down from 9.1 yesterday. Cardiothoracic surgery is following. Patient may require intervention for possible loculated pleural effusion. 07/03/2017 Patient seen and examined at the bedside on rounds with Dr. Abreu. Patient remains in intensive care unit. Chest x-ray from 07/03/2017 shows slight improved aeration of the left upper lung with persistent confluent multifocal P cities representing multifocal pneumonia. He underwent a ultrasound of the chest on 07/02/2017 which revealed findings suggestive of a loculated effusion. Case discussed with Janelle Chambers NP with pulmonology who states that patient is likely to undergo pigtail catheter insertion in the left pleural space with infusion of TPA. Patient states that cardiothoracic surgery also mentioned thoracotomy as an option if TPA does not resolve the loculated effusion. The patient states he is feeling better today. He feels as though his shortness of breath is improving. He remains on AIRVO at 50% Fio2. He remains afebrile. Blood pressure has been stable. His white count is trending upward and is 17.0 today from 13.6 yesterday. Infectious disease remains on consult. He is currently receiving vancomycin, Levaquin, and Zosyn. 07/04/2017 Patient seen and examined in the bedside in the intensive care unit. He is sitting up in the chair. is at the bedside. He is about to work with physical therapy. He received a dose of 20mg lasix IV this morning per Dr. Abreu. He is diuresing well. His breathing seems to be improved today and he states he is less short of breath. He is no longer requiring Airvo. He is on 8L high flow NC. He underwent pigtail catheter insertion yesterday to left pleural space with a dose of TPA yesterday and today. Upon examination, there is 800 mL of purulent drainage in the chest tube. His states that they spoke with Dr. Okeefe today and he recommended patient undergo thoracotomy. WBC is 15.9 today, down from 17.0. He is afebrile. Infectious disease is on consult. He remains on vancomycin, Levaquin, and Zosyn. Pleural fluid has been cultured and results are currently pending. 07/05/2017 Patient seen and examined at the bedside in the intensive care unit. Chest xray this morning shows findings compatible with pneumonia and empyema. Also reveals possible for volume overload and congestive heart failure. Patients blood sugars were elevated in the 200s yesterday. His lantus was increased from 25 units to 30 units. His novolog with meals was increased form 8 units to 10 units. His serum blood glucose was 105 this morning. His first capillary glucose this morning was 325 and then repeat approximately 15 minutes later was 117. Spoke with nursing who states that patient only had a few bites of eggs and did not eat anything that would have caused his blood sugar to spike that high. She states she checked it on his other hand and it was 117. Suspect reading of 325 was in error. Patient received 3rd dose of TPA into pigtail catheter. Pigtail catheter remains intact to chest tube atrium. Yellowish purulent drainage present. Total drainage thus far in atrium is 1050cc. Preliminary cultures from pleural fluid are negative at the 24 hour jacquelyn. He has been working with therapy and states he ambulated twice yesterday. Objective - Vital Signs Vital signs: Vital Signs Temp 97.5 F L 07/05/17 08:00 Pulse 82 07/05/17 08:00 Resp 26 H 07/05/17 08:00 BP 127/69 07/05/17 08:00 Pulse Ox 94 L 07/05/17 08:00 Intake & Output 07/04/17 07/05/17 07/05/17 18:59 06:59 18:59 Intake Total 875.0 1675.0 150 Output Total 2480 1630 300 Balance -1605.0 45.0 -150 Weight 111.8 kg Intake: IV 775.0 875.0 150 Magnesium Sulfate-D5w Pmx 200 1 gm In Dextrose/Water 1 100ml.bag @ 100 mls/hr IVPB Q1H [facility] Rx#: [id number] Magnesium Sulfate-D5w Pmx 100 1 gm In Dextrose/Water 1 100ml.bag @ 100 mls/hr IVPB Q1H [facility] Rx#: [id number] Piperacillin-Tazobactam 3 25.0 100.0 .375 gm In Dextrose/Water 1 50ml.bag @ 12.5 mls/hr IVPB Q8H [facility] Rx#: [id number] Sodium Chloride 0.9% 1, 550 650 50 000 ml @ 50 mls/hr IV . Q20H [facility] Rx#:[id number] Vancomycin 1,750 mg In 125 Sodium Chloride 0.9% 250 ml @ 125 mls/hr IVPB Q8H [facility] Rx#:[id number] Intake, IV Titration 100 Amount Magnesium Sulfate-D5w Pmx 100 1 gm In Dextrose/Water 1 100ml.bag @ 100 mls/hr IVPB Q1H [facility] Rx#: [id number] Oral 800 Output: Chest Tube Drainage 80 60 100 Pigtail in left posterior 80 60 100 Back Urine 2400 1570 200 Other: Voiding Method Urinal # Voids 1 # Bowel Movements 1 - Exam GENERAL: This is a 62-year-old male who appears comfortable and in no acute distress at the time of examination. Pleasant and cooperative. HEENT: Head is atraumatic, normocephalic. Pupils are equal, round, and reactive to light. Sclerae anicteric. Conjunctivae are clear. Mucus membranes of the mouth are moist. Neck is supple. RESPIRATORY: Lungs with scattered rhonchi, left lower lobe diminished, rales present, Air exchange appears to be improving. Left posterior pigtail catheter intact connected to atrium. No use of accessory muscles. Patient maintaining oxygen saturation greater than 92% on 10L high flow NC. No chest wall tenderness is noted on palpation or with deep breathing. CARDIOVASCULAR: Regular rate and rhythm. S1 and S2 noted. No systolic or diastolic murmur auscultated. No JVD noted. No S3 or S4 noted. GASTROINTESTINAL: No distention noted. Abdomen soft and round. Normal active bowel sounds auscultated x 4 quadrants. No pain or tenderness noted upon palpation. INTEGUMENTARY: Midline chest incision without drainage or erythema. No cyanosis. No jaundice. No rashes noted. No cellulitis noted. EXTREMITIES: 2+ peripheral pulses. No peripheral edema. No calf tenderness noted. NEUROLOGIC: Cranial nerves II-XII intact. PSYCHIATRIC: Awake, alert, and oriented X 3. Flat affect. - Labs CBC & Chem 7: 07/05/17 04:00 07/05/17 04:00 Labs: Abnormal Lab Results - Last 24 Hours (Table) 07/04/17 07/04/17 07/04/17 Range/Units 12:11 17:03 20:02 WBC (3.8-10.6) k/uL RBC (4.30-5.90) m/uL Hgb (13.0-17.5) gm/dL Hct (39.0-53.0) % MCV (80.0-100.0) fL MCH (25.0-35.0) pg MCHC (31.0-37.0) g/dL RDW (11.5-15.5) % Plt Count (150-450) k/uL Neutrophils # (1.3-7.7) k/uL Glucose (74-99) mg/dL POC Glucose (mg/dL) 259 H 163 H 130 H (75-99) mg/dL ALT (21-72) U/L Alkaline Phosphatase (38-126) U/L Total Protein (6.3-8.2) g/dL Albumin (3.5-5.0) g/dL 07/05/17 07/05/17 07/05/17 Range/Units 04:00 04:00 07:32 WBC 15.7 H (3.8-10.6) k/uL RBC 3.93 L (4.30-5.90) m/uL Hgb 8.8 L (13.0-17.5) gm/dL Hct 30.9 L (39.0-53.0) % MCV 78.7 L (80.0-100.0) fL MCH 22.5 L (25.0-35.0) pg MCHC 28.6 L (31.0-37.0) g/dL RDW 17.6 H (11.5-15.5) % Plt Count 644 H (150-450) k/uL Neutrophils # 12.5 H (1.3-7.7) k/uL Glucose 105 H (74-99) mg/dL POC Glucose (mg/dL) 325 H (75-99) mg/dL ALT 109 H (21-72) U/L Alkaline Phosphatase 136 H (38-126) U/L Total Protein 5.0 L (6.3-8.2) g/dL Albumin 2.3 L (3.5-5.0) g/dL 07/05/17 Range/Units 07:48 WBC (3.8-10.6) k/uL RBC (4.30-5.90) m/uL Hgb (13.0-17.5) gm/dL Hct (39.0-53.0) % MCV (80.0-100.0) fL MCH (25.0-35.0) pg MCHC (31.0-37.0) g/dL RDW (11.5-15.5) % Plt Count (150-450) k/uL Neutrophils # (1.3-7.7) k/uL Glucose (74-99) mg/dL POC Glucose (mg/dL) 117 H (75-99) mg/dL ALT (21-72) U/L Alkaline Phosphatase (38-126) U/L Total Protein (6.3-8.2) g/dL Albumin (3.5-5.0) g/dL Microbiology - Last 24 Hours (Table) 06/30/17 10:34 Blood Culture - Preliminary Blood No Growth after 96 hours 07/03/17 14:45 Gram Stain - Preliminary Pleural Fluid Body Fluid Culture - Preliminary Assessment and Plan Plan: ASSESSMENT: Multifocal pneumonia, present on admission, sputum culture reveals moderate gram -positive bacilli and rare gram-positive cocci Sepsis with leukocytosis and fever, present on admission, secondary to above Acute hypoxic respiratory failure requiring supplemental oxygen, secondary to above Left side loculated pleural effusion, s/p left pigtail catheter insertion and TPA administration x3, preliminary pleural fluid cultures with no growth Diabetes mellitus, type II, hemoglobin A1c 5.7% Coronary artery disease with previous myocardial infarction History of coronary artery bypass grafting 4 vessels History of left side pleural effusion requiring thoracentesis and empyema requiring pigtail drainage catheter with cultures positive for alpha hemolytic strep and enterococcus faecalis History of paroxysmal atrial fibrillation Chronic obstructive pulmonary disease Essential hypertension Hyperlipidemia Gastroesophageal reflux disease Anxiety, unspecified Obesity: BMI 31.2 PLAN: -Lasix 20mg IV now -Begin Lasix 20mg IV daily -Cardiothoracic surgery on consult. Appreciate recommendations and input -Possible thoracotomy in the near future per patient and spouse -Traffic Personnel Supervisor on consult. Appreciate recommendations and input -Infectious disease on consult. Appreciate recommendations and input -Antibiotics per infectious disease: Currently on Vancomycin, Levaquin, and Zosyn -Incentive spirometer 10 times an hour while awake -Activity as tolerated. Encourage ambulation -Up to chair daily -Capillary blood glucose accu-checks AC/HS -Novolog sliding scale coverage -Continue Novolog 10 units with meals and 30 units Lantus at HS -Home meds as appropriate -Monitor labs -GI prophylaxis: Protonix 40mg PO daily -DVT prophylaxis: Heparin 5000 units subcu every 12 hours -Monitor vital signs and address as appropriate -Discharge planning: Patient may require home care or ECF at the time of discharge depending on patients clinical course -Further recommendations pending patient's course Nurse practitioner note has been reviewed by physician. Signing provider agrees with the documented findings, assessment, and plan of care.
[2017-07-05] MEDS: LEVOFLOXACIN 750 MG TAB PO SCH (12:38)
[2017-07-05] MEDS: SODIUM CHLORIDE 0.9% 1,000 ML IV SCH (12:38)
[2017-07-05] MEDS: ASCORBIC ACID 500 MG TAB PO SCH (12:38)
[2017-07-05] MEDS: FERROUS SULFATE 325 MG TAB PO SCH (12:38)
--- NOTE | 2017-07-05 15:42 | P.PN ---
Subjective Progress Note Date: 07/05/17 Principal diagnosis: History of recent urgent coronary artery bypass grafting on 05/22/2017, non-ST elevation myocardial infarction, hypertension, hyperlipidemia, insulin- dependent diabetes mellitus, anxiety, family history of premature coronary artery disease, COPD, paroxysmal atrial fibrillation, left-sided thoracentesis on 05/30/2017 and left chest pigtail catheter placement with fluid cultures positive for all for hemolytic strep and enterococcuss faecalis, left lower lobe pneumonia requiring placement of PICC line for home IV antibiotic therapy, and obesity. The patient was admitted to the hospital on 06/30/2017, after presenting to the emergency department with complaints of increase in shortness of breath over the last several days, with worsening productive cough. The patient has been receiving outpatient IV antibiotic therapy per his PICC line for treatment of his left lower lobe pneumonia which is been managed by Dr. Nixon. POD #2, ultrasound-guided chest tube insertion. (Pigtail catheter) Patient is sitting up to the bedside chair in no acute distress. His is at his bedside. Patient reports that he is feeling better each day. Denies any complaints of shortness of breath. Tolerating oral intake. Pigtail catheter remains in place to low continuous wall suction -20 cm H2O. He is currently on 10 L high flow oxygen with oxygen saturations 92%. Objective - Vital Signs Vital signs: Vital Signs Temp 97.8 F 07/05/17 12:00 Pulse 78 07/05/17 15:07 Resp 28 H 07/05/17 14:00 BP 123/63 07/05/17 14:00 Pulse Ox 96 07/05/17 14:00 Intake & Output 07/04/17 07/05/17 07/05/17 18:59 06:59 18:59 Intake Total 875.0 1675.0 750 Output Total 2480 1630 1625 Balance -1605.0 45.0 -875 Weight 111.8 kg 111.8 kg Intake: IV 775.0 875.0 750 Magnesium Sulfate-D5w Pmx 200 1 gm In Dextrose/Water 1 100ml.bag @ 100 mls/hr IVPB Q1H [facility] Rx#: [id number] Magnesium Sulfate-D5w Pmx 100 1 gm In Dextrose/Water 1 100ml.bag @ 100 mls/hr IVPB Q1H [facility] Rx#: [id number] Piperacillin-Tazobactam 3 25.0 100.0 50 .375 gm In Dextrose/Water 1 50ml.bag @ 12.5 mls/hr IVPB Q8H [facility] Rx#: [id number] Sodium Chloride 0.9% 1, 550 650 350 000 ml @ 50 mls/hr IV . Q20H [facility] Rx#:[id number] Vancomycin 1,750 mg In 125 250 Sodium Chloride 0.9% 250 ml @ 125 mls/hr IVPB Q8H [facility] Rx#:[id number] Intake, IV Titration 100 Amount Magnesium Sulfate-D5w Pmx 100 1 gm In Dextrose/Water 1 100ml.bag @ 100 mls/hr IVPB Q1H [facility] Rx#: [id number] Oral 800 Output: Chest Tube Drainage 80 60 100 Pigtail in left posterior 80 60 100 Back Urine 2400 1570 1525 Other: Voiding Method Urinal Urinal # Voids 1 # Bowel Movements 1 - Constitutional General appearance: Present: cooperative, no acute distress, obese - Neck Details: No JVD, no lymphadenopathy. Neck is supple. - Respiratory Details: Lung sounds with scattered rhonchi throughout, diminished with bilateral bases left greater than right. Oxygen saturations are 97% on 10 L high flow oxygen. He is achieving 500-750 mL on his incentive spirometry. Left chest pigtail catheter remains to low continuous wall suction -20 cm H2O. No air leak present. Draining milky serous colored drainage. 60 mL output in the last 8 hours, 200 mL output in the last 24 hours. - Cardiovascular Details: Regular rhythm and rate. S1 and S2 present, negative for S3, gallop or murmur. Bedside telemetry showing normal sinus rhythm heart rate 78. Sternum is stable. Knee-high WALESKA hose and sequential compression devices in place was bilateral lower extremity Donald. No edema present. Peripheral pulses palpable. - Gastrointestinal Gastrointestinal Comment(s): Abdomen is soft, nontender and nondistended. Obese. Active bowel sounds all 4 abdominal quadrants. No guarding or rigidity. Tolerating oral intake. - Genitourinary Genitourinary Comment(s): Adequate urine output. 1525 mL output last 8 hours. - Integumentary Integumentary Comment(s): Midline sternal incision healed. No redness or drainage. Left lower extremity EVH harvest site clean dry and intact. Healed. No redness or drainage. Skin is warm, dry and intact. No clubbing or cyanosis. Left posterior chest pigtail catheter clean dry and intact. - Neurologic Neurologic: Present: CNII-XII intact - Musculoskeletal Musculoskeletal: Present: gait normal, generalized weakness, strength equal bilaterally - Psychiatric Psychiatric: Present: A&O x's 3, appropriate affect, intact judgment & insight - Allied health notes Allied health notes reviewed: nursing - Labs CBC & Chem 7: 07/05/17 04:00 07/05/17 04:00 Labs: Abnormal Lab Results - Last 24 Hours (Table) 07/04/17 07/04/17 07/05/17 Range/Units 17:03 20:02 04:00 WBC 15.7 H (3.8-10.6) k/uL RBC 3.93 L (4.30-5.90) m/uL Hgb 8.8 L (13.0-17.5) gm/dL Hct 30.9 L (39.0-53.0) % MCV 78.7 L (80.0-100.0) fL MCH 22.5 L (25.0-35.0) pg MCHC 28.6 L (31.0-37.0) g/dL RDW 17.6 H (11.5-15.5) % Plt Count 644 H (150-450) k/uL Neutrophils # 12.5 H (1.3-7.7) k/uL Glucose (74-99) mg/dL POC Glucose (mg/dL) 163 H 130 H (75-99) mg/dL ALT (21-72) U/L Alkaline Phosphatase (38-126) U/L Total Protein (6.3-8.2) g/dL Albumin (3.5-5.0) g/dL 07/05/17 07/05/17 07/05/17 Range/Units 04:00 07:32 07:48 WBC (3.8-10.6) k/uL RBC (4.30-5.90) m/uL Hgb (13.0-17.5) gm/dL Hct (39.0-53.0) % MCV (80.0-100.0) fL MCH (25.0-35.0) pg MCHC (31.0-37.0) g/dL RDW (11.5-15.5) % Plt Count (150-450) k/uL Neutrophils # (1.3-7.7) k/uL Glucose 105 H (74-99) mg/dL POC Glucose (mg/dL) 325 H 117 H (75-99) mg/dL ALT 109 H (21-72) U/L Alkaline Phosphatase 136 H (38-126) U/L Total Protein 5.0 L (6.3-8.2) g/dL Albumin 2.3 L (3.5-5.0) g/dL 07/05/17 Range/Units 12:12 WBC (3.8-10.6) k/uL RBC (4.30-5.90) m/uL Hgb (13.0-17.5) gm/dL Hct (39.0-53.0) % MCV (80.0-100.0) fL MCH (25.0-35.0) pg MCHC (31.0-37.0) g/dL RDW (11.5-15.5) % Plt Count (150-450) k/uL Neutrophils # (1.3-7.7) k/uL Glucose (74-99) mg/dL POC Glucose (mg/dL) 143 H (75-99) mg/dL ALT (21-72) U/L Alkaline Phosphatase (38-126) U/L Total Protein (6.3-8.2) g/dL Albumin (3.5-5.0) g/dL Microbiology - Last 24 Hours (Table) 07/03/17 14:45 Gram Stain - Preliminary Pleural Fluid Body Fluid Culture - Preliminary 06/30/17 10:34 Blood Culture - Preliminary Blood No Growth after 120 hours - Imaging and Cardiology Chest x-ray: report reviewed, image reviewed Assessment and Plan (1) History of atrial fibrillation less than 8 weeks after coronary artery bypass graft Current Visit: Yes Status: Acute Code(s): VYB1717 - SNOMED Code(s): 565074368632923 (2) History of myocardial infarction Current Visit: Yes Status: Acute Code(s): I25.2 - OLD MYOCARDIAL INFARCTION SNOMED Code(s): 523453760 (3) Status post aorto-coronary artery bypass graft Current Visit: Yes Status: Acute Code(s): Z95.1 - PRESENCE OF AORTOCORONARY BYPASS GRAFT SNOMED Code(s): 184138741 (4) Anxiety Current Visit: Yes Status: Chronic Code(s): F41.9 - ANXIETY DISORDER, UNSPECIFIED SNOMED Code(s): 36315537 (5) Diabetes mellitus type 2 in obese Current Visit: Yes Status: Chronic Code(s): E11.69 - TYPE 2 DIABETES MELLITUS WITH OTHER SPECIFIED COMPLICATION; E66.9 - OBESITY, UNSPECIFIED SNOMED Code(s): 50809480 (6) Hyperlipidemia Current Visit: Yes Status: Chronic Code(s): E78.5 - HYPERLIPIDEMIA, UNSPECIFIED SNOMED Code(s): 10490984 (7) Hypertension Current Visit: Yes Status: Chronic Code(s): I10 - ESSENTIAL (PRIMARY) HYPERTENSION SNOMED Code(s): 70088107 (8) Obesity (BMI 30.0-34.9) Current Visit: Yes Status: Chronic Code(s): E66.9 - OBESITY, UNSPECIFIED SNOMED Code(s): 404859776 (9) Coronary artery disease Current Visit: No Status: Chronic Code(s): I25.10 - ATHSCL HEART DISEASE OF [place] CORONARY ARTERY W/O ANG PCTRS SNOMED Code(s): 65455714 (10) Left lower lobe pneumonia Current Visit: No Status: Acute Code(s): J18.1 - LOBAR PNEUMONIA, UNSPECIFIED ORGANISM SNOMED Code(s): 616424317 Plan: 1. Continue aspirin, Plavix, statin and beta ewa. 2. Wean oxygen as tolerated, pulmonary management per Dr. Alonso's recommendations. 3. Antibiotic management per infectious disease recommendations. Routine PICC line care. 4. Alteplase 10 mg/100 mL normal saline to be instilled to his left pigtail catheter today. Pigtail catheter will be clamped for 1 hour post instillation of the alteplase and then placed back to low continuous wall suction -20 cm H2O. 5. Diabetic management per primary care service. 6. Encourage use of his incentive spirometry every hour while awake. 7. GI/DVT prophylaxis. 8. Pleural fluid for Chlyomicrons and triglyceride levels, results pending. 9. Patient may need a thoracotomy procedure with decortication, which has been discussed with the patient and his by Dr. Okeefe. 10. More recommendations to follow as patient progresses and care. Alteplase 10 mg/100 mL infused per pigtail catheter at 11:30 AM, his pigtail catheter will be clamped for 1 hour and then placed back to low continuous wall suction. Time with Patient: Greater than 30
[2017-07-05 17:30] LABS: Glucose,Whole Blood 123 mg/dL (75-99)
--- NOTE | 2017-07-05 18:25 | P.PN ---
Subjective Progress Note Date: 07/05/17 Principal diagnosis: Shortness of breath This is a 62 year old male presented to hospital on 05/21/2017 with chest pain and found to have acute myocardial infarction. Heart catheterization found evidence of multivessel coronary artery disease and he is status post coronary artery bypass grafting procedure. He said difficulties postoperatively with bleeding to require somewhat protracted ventilation. He did require repeat surgery for control of the bleeding. He developed cardiac dysrhythmia with atrial fibrillation requiring amiodarone treatment. The patient also developed difficulties with his left chest. A large fluid collection was found and he underwent thoracentesis he was having some difficulty with shortness of breath and consequently further imaging was performed. Computed tomography scan showed evidence of the left lower lobe infiltration as well as some right upper lobe infiltrate. Because of and leukocytosis the infectious diseases consultation was requested. He required placement of percutaneous drainage of the empyema. He was eventually stabilized and discharged home on June 07. He was continued on IV antibioticsat an [facility] office on a daily basis for enterococcus and alpha hemolytic strep empyema. Patient last saw Dr. Nixon on Saturday any extended IV antibiotic therapy for another week. Patient states he was feeling fine when he was in the office on Saturday and also on Saturday. But on Saturday morning he started coughing around 3 in the morning and was clear sputum production the change to yellow and he felt exhausted. He was having difficulty breathing and his called Dr. Nixon recommended that he come into the evaluated. EMS was called and patient was transferred to [facility] emergency center. Chest x-ray initially showed worsening of bilateral pneumonias, cardiomegaly and left pleural effusion. Repeat chest x- ray showed worsening and near complete obesity of the left hemithorax, pleural effusion and multifocal pneumonia in differential. Patchy alveolar opacity within the right lower lobe. He was found to be febrile which he denied having any fevers chills or rigors at home. His pulse ox was down to 82% and he was hypotensive. White count was elevated at 20.7 but improved to 13.5. ALT was 123 and alkaline phosphatase 159. Albumin is 3. Urinalysis was clear, protein 1+, nitrate and leukoesterase negative. Urine culture is in progress. Blood culture and sputum culture status received. Influenza testing was negative. ALT is 123 and alkaline phosphatase 159. Albumin is 3. Patient has been admitted into the intensive care unit. He has not required vasopressors. Consult in place with pulmonary medicine and CAT scan of the chest has been ordered. Consult in place with cardiothoracic surgery. Computed tomography scan as noted showing evidence of near collapse of left lung. Ultrasound has been performed showing and the complex fluid Radiology has now placed pigtail catheter and 20 mL of grossly purulent material was sent to the laboratory for culture and tube continues to drain. Patient is off of the high flow oxygen remains on 6 L nasal cannula at this time. He does feel slightly improved. Has been up and walking a bit. Altepase has been placed into the pleural space and is being monitored. Objective - Vital Signs Vital signs: Vital Signs Temp 98.2 F 07/05/17 16:00 Pulse 80 07/05/17 18:00 Resp 32 H 07/05/17 18:00 BP 127/64 07/05/17 18:00 Pulse Ox 97 07/05/17 18:00 Intake & Output 07/04/17 07/05/17 07/05/17 18:59 06:59 18:59 Intake Total 875.0 1675.0 850 Output Total 2480 1630 2035 Balance -1605.0 45.0 -1185 Weight 111.8 kg 111.8 kg Intake: IV 775.0 875.0 850 Magnesium Sulfate-D5w Pmx 200 1 gm In Dextrose/Water 1 100ml.bag @ 100 mls/hr IVPB Q1H [facility] Rx#: [id number] Magnesium Sulfate-D5w Pmx 100 1 gm In Dextrose/Water 1 100ml.bag @ 100 mls/hr IVPB Q1H [facility] Rx#: [id number] Piperacillin-Tazobactam 3 25.0 100.0 50 .375 gm In Dextrose/Water 1 50ml.bag @ 12.5 mls/hr IVPB Q8H [facility] Rx#: [id number] Sodium Chloride 0.9% 1, 550 650 450 000 ml @ 50 mls/hr IV . Q20H [facility] Rx#:[id number] Vancomycin 1,750 mg In 125 250 Sodium Chloride 0.9% 250 ml @ 125 mls/hr IVPB Q8H [facility] Rx#:[id number] Intake, IV Titration 100 Amount Magnesium Sulfate-D5w Pmx 100 1 gm In Dextrose/Water 1 100ml.bag @ 100 mls/hr IVPB Q1H [facility] Rx#: [id number] Oral 800 Output: Chest Tube Drainage 80 60 210 Pigtail in left posterior 80 60 210 Back Urine 2400 1570 1825 Other: Voiding Method Urinal Urinal # Voids 1 # Bowel Movements 1 - Exam Gen: This is a 62-year-old male patient sitting up in the ICU bed and mild to moderate respiratory distress with nonrebreather in place. HEENT: Head is atraumatic, normocephalic. Pupils equal, round. Sclerae is anicteric. Junk developed pink. Mucous membranes of the mouth are somewhat dry. White coating on his tongue noted. NECK: Supple. No JVD. No lymphadenopathy. No thyromegaly. LUNGS: Right chest with good air entry with few crackles at the base. Left chest with markedly diminished air entry. Only few crackles are heard in the left upper zone. Dullness is noted to the left base with egophony. HEART: Regular rate and rhythm. No murmur. ABDOMEN: Soft. Bowel sounds are present. No masses. No tenderness. EXTREMITIES: No pedal edema. No calf tenderness. Dorsalis pedis +2 bilaterally. NEUROLOGICAL: Patient is awake, alert and oriented x3. - Labs CBC & Chem 7: 07/05/17 04:00 07/05/17 04:00 Labs: Abnormal Lab Results - Last 24 Hours (Table) 07/04/17 07/05/17 07/05/17 Range/Units 20:02 04:00 04:00 WBC 15.7 H (3.8-10.6) k/uL RBC 3.93 L (4.30-5.90) m/uL Hgb 8.8 L (13.0-17.5) gm/dL Hct 30.9 L (39.0-53.0) % MCV 78.7 L (80.0-100.0) fL MCH 22.5 L (25.0-35.0) pg MCHC 28.6 L (31.0-37.0) g/dL RDW 17.6 H (11.5-15.5) % Plt Count 644 H (150-450) k/uL Neutrophils # 12.5 H (1.3-7.7) k/uL Glucose 105 H (74-99) mg/dL POC Glucose (mg/dL) 130 H (75-99) mg/dL ALT 109 H (21-72) U/L Alkaline Phosphatase 136 H (38-126) U/L Total Protein 5.0 L (6.3-8.2) g/dL Albumin 2.3 L (3.5-5.0) g/dL 07/05/17 07/05/17 07/05/17 Range/Units 07:32 07:48 12:12 WBC (3.8-10.6) k/uL RBC (4.30-5.90) m/uL Hgb (13.0-17.5) gm/dL Hct (39.0-53.0) % MCV (80.0-100.0) fL MCH (25.0-35.0) pg MCHC (31.0-37.0) g/dL RDW (11.5-15.5) % Plt Count (150-450) k/uL Neutrophils # (1.3-7.7) k/uL Glucose (74-99) mg/dL POC Glucose (mg/dL) 325 H 117 H 143 H (75-99) mg/dL ALT (21-72) U/L Alkaline Phosphatase (38-126) U/L Total Protein (6.3-8.2) g/dL Albumin (3.5-5.0) g/dL 07/05/17 Range/Units 17:29 WBC (3.8-10.6) k/uL RBC (4.30-5.90) m/uL Hgb (13.0-17.5) gm/dL Hct (39.0-53.0) % MCV (80.0-100.0) fL MCH (25.0-35.0) pg MCHC (31.0-37.0) g/dL RDW (11.5-15.5) % Plt Count (150-450) k/uL Neutrophils # (1.3-7.7) k/uL Glucose (74-99) mg/dL POC Glucose (mg/dL) 123 H (75-99) mg/dL ALT (21-72) U/L Alkaline Phosphatase (38-126) U/L Total Protein (6.3-8.2) g/dL Albumin (3.5-5.0) g/dL Microbiology - Last 24 Hours (Table) 07/03/17 14:45 Gram Stain - Preliminary Pleural Fluid Body Fluid Culture - Preliminary 06/30/17 10:34 Blood Culture - Preliminary Blood No Growth after 120 hours Laboratory Results WBC 15.7 k/uL (3.8-10.6) H 07/05/17 04:00 RBC 3.93 m/uL (4.30-5.90) L 07/05/17 04:00 Hgb 8.8 gm/dL (13.0-17.5) L 07/05/17 04:00 Hct 30.9 % (39.0-53.0) L 07/05/17 04:00 MCV 78.7 fL (80.0-100.0) L 07/05/17 04:00 MCH 22.5 pg (25.0-35.0) L 07/05/17 04:00 MCHC 28.6 g/dL (31.0-37.0) L 07/05/17 04:00 RDW 17.6 % (11.5-15.5) H 07/05/17 04:00 Plt Count 644 k/uL (150-450) H 07/05/17 04:00 Neutrophils % 80 % 07/05/17 04:00 Lymphocytes % 11 % 07/05/17 04:00 Monocytes % 6 % 07/05/17 04:00 Eosinophils % 2 % 07/05/17 04:00 Basophils % 1 % 07/05/17 04:00 Neutrophils # 12.5 k/uL (1.3-7.7) H 07/05/17 04:00 Lymphocytes # 1.7 k/uL (1.0-4.8) 07/05/17 04:00 Monocytes # 0.9 k/uL (0-1.0) 07/05/17 04:00 Eosinophils # 0.3 k/uL (0-0.7) 07/05/17 04:00 Basophils # 0.1 k/uL (0-0.2) 07/05/17 04:00 Hypochromasia Marked 07/05/17 04:00 Poikilocytosis Slight 07/05/17 04:00 Anisocytosis Slight 07/05/17 04:00 Microcytosis Slight 07/05/17 04:00 PT 12.1 sec (9.0-12.0) H 06/30/17 10:34 INR 1.3 (<1.2) H 06/30/17 10:34 APTT 23.4 sec (22.0-30.0) 06/30/17 10:34 Sodium 140 mmol/L (137-145) 07/05/17 04:00 Potassium 4.3 mmol/L (3.5-5.1) 07/05/17 04:00 Chloride 104 mmol/L (98-107) 07/05/17 04:00 Carbon Dioxide 30 mmol/L (22-30) 07/05/17 04:00 Anion Gap 6 mmol/L 07/05/17 04:00 BUN 14 mg/dL (9-20) 07/05/17 04:00 Creatinine 0.70 mg/dL (0.66-1.25) 07/05/17 04:00 Est GFR (MDRD) Af Amer >60 (>60 ml/min/1.73 sqM) 07/05/17 04:00 Est GFR (MDRD) Non-Af >60 (>60 ml/min/1.73 sqM) 07/05/17 04:00 Glucose 105 mg/dL (74-99) H 07/05/17 04:00 POC Glucose (mg/dL) 123 mg/dL (75-99) H 07/05/17 17:29 POC Glu Infrastructure Developer ID Akua Jaquez 07/05/17 17:[address] Glu mg/dL 117 06/30/17 10:34 Hemoglobin A1c 5.7 % (4.0-6.0) 06/30/17 10:34 Plasma Lactic Acid Kashif 1.7 mmol/L (0.7-2.0) 06/30/17 10:34 Calcium 8.8 mg/dL (8.4-10.2) 07/05/17 04:00 Phosphorus 3.6 mg/dL (2.5-4.5) 07/05/17 04:00 Magnesium 1.8 mg/dL (1.6-2.3) 07/05/17 04:00 Total Bilirubin 0.2 mg/dL (0.2-1.3) 07/05/17 04:00 AST 43 U/L (17-59) 07/05/17 04:00 ALT 109 U/L (21-72) H 07/05/17 04:00 Alkaline Phosphatase 136 U/L (38-126) H 07/05/17 04:00 Total Protein 5.0 g/dL (6.3-8.2) L 07/05/17 04:00 Albumin 2.3 g/dL (3.5-5.0) L 07/05/17 04:00 TSH 1.800 mIU/L (0.465-4.680) 07/03/17 04:31 Free T4 1.55 ng/dL (0.78-2.19) 07/03/17 04:31 Urine Color Yellow 06/30/17 10:34 Urine Appearance Clear (Clear) 06/30/17 10:34 Urine pH 5.0 (5.0-8.0) 06/30/17 10:34 Ur Specific [place] 1.021 (1.001-1.035) 06/30/17 10:34 Urine Protein 1+ (Negative) H 06/30/17 10:34 Urine Glucose (UA) Negative (Negative) 06/30/17 10:34 Urine Ketones Negative (Negative) 06/30/17 10:34 Urine Blood Negative (Negative) 06/30/17 10:34 Urine Nitrite Negative (Negative) 06/30/17 10:34 Urine Bilirubin Negative (Negative) 06/30/17 10:34 Urine Urobilinogen <2.0 mg/dL (<2.0) 06/30/17 10:34 Ur Leukocyte Esterase Negative (Negative) 06/30/17 10:34 Urine RBC 1 /hpf (0-5) 06/30/17 10:34 Urine WBC <1 /hpf (0-5) 06/30/17 10:34 Urine Mucus Few /hpf (None) H 06/30/17 10:34 Vancomycin Trough 18.4 ug/mL 07/04/17 10:10 Influenza Type A RNA Not Detected (Not Detectd) 06/30/17 10:34 Influenza Type B (PCR) Not Detected (Not Detectd) 06/30/17 10:34 Microbiology 07/03/17 14:45 Pleural Fluid Gram Stain - Preliminary 07/03/17 14:45 Pleural Fluid Body Fluid Culture - Preliminary 06/30/17 10:34 Blood Blood Culture - Preliminary No Growth after 120 hours 07/03/17 14:45 Pleural Fluid Anaerobic Culture - Preliminary 07/01/17 07:50 Sputum Gram Stain - Final 07/01/17 07:50 Sputum Sputum Culture - Final 06/30/17 10:34 Urine,Voided Urine Culture - Final Vera albicans Assessment and Plan (1) Pleural effusion on left Narrative/Plan: 62-year-old male with status post coronary artery bypass grafting procedure without difficulty significant infection of his left chest after surgery. Has been receiving a course of intravenous antibiotic therapy with ertapenem for coverage of the pathogens. Has not had a marked worsening of his status requiring hospitalization. His oxygenation is improved and he is no longer on the high flow oxygen but is on 6 L nasal cannula. Feeling somewhat better today. He still however has shortness of breath. Appetite is improved. Fever is improved. He is being available by pulmonary critical care and cardiothoracic surgery. Computed tomography scan ultrasound are noted. Await decisions as far VATS procedure. Patient is on a plethora of antibiotics at this time pending further culture data given his failure of ertapenem. Does have some mild improvement but does not still feel well. Current Visit: No Status: Acute Code(s): J90 - PLEURAL EFFUSION, NOT ELSEWHERE CLASSIFIED SNOMED Code(s): 37974296 (2) Pneumonia Current Visit: Yes Status: Acute Code(s): J18.9 - PNEUMONIA, UNSPECIFIED ORGANISM SNOMED Code(s): 579668436 (3) History of atrial fibrillation less than 8 weeks after coronary artery bypass graft Current Visit: Yes Status: Acute Code(s): KMJ3970 - SNOMED Code(s): 213991127599223
[2017-07-05 20:00] LABS: Glucose,Whole Blood 200 mg/dL (75-99)
[2017-07-05] MEDS: INSULIN DETEMIR 100 UNIT/ML 10 ML VIAL SQ SCH (20:46)
[2017-07-05] MEDS: HYDROmorphone 2 MG/ML 1 ML SYRINGE IVP PRN (20:46)
[2017-07-06] MEDS: VANCOMYCIN 1,750 MG in SODIUM CHLORIDE 0.9% 250 ML IVPB SCH ×3 (02:59→18:00)
[2017-07-06] MEDS: PIPERACILLIN-TAZOBACTAM 3.375 GM in DEXTROSE/WATER 1 50ML.BAG IVPB SCH ×3 (05:59→20:31)
[2017-07-06 06:27] LABS: Anisocytosis Slight; Basophils % (A) 0 %; Eosinophils # (A) 0.3 k/uL (0-0.7); Eosinophils % (A) 2 %; HCT 30.4 % (39.0-53.0); HGB 8.8 gm/dL (13.0-17.5); Hypochromasia Marked; Lymphocytes # (A) 1.8 k/uL (1.0-4.8); Lymphocytes % (A) 12 %; MCH 22.4 pg (25.0-35.0); MCHC 28.9 g/dL (31.0-37.0); MCV 77.2 fL (80.0-100.0); Mean Platelet Volume 6.6; Microcytosis Slight; Monocytes # (A) 0.9 k/uL (0-1.0); Monocytes % (A) 6 %; Neutrophils # (A) 11.7 k/uL (1.3-7.7); Neutrophils % (A) 79 %; Platelet Count 660 k/uL (150-450); Poikilocytosis Slight; RBC 3.94 m/uL (4.30-5.90); WBC 14.9 k/uL (3.8-10.6)
--- NOTE | 2017-07-06 06:39 | XR ---
EXAMINATION TYPE: XR chest 1V portable DATE OF EXAM: 07/06/2017 HISTORY: Left lower lobe pneumonia. REFERENCE: Previous study dated 07/05/2017. FINDINGS: There has been a midline sternotomy. There is multichamber cardiac enlargement. There is patchy bilateral airspace disease. This is simila r in appearance of the previous study. There is blunting of the left CP angle. I could not exclude an effusion. IMPRESSION: 1. CARDIAC ENLARGEMENT. 2. PATCHY BILATERAL INFILTRATES. 3. I CANNOT EXCLUDE A LEFT EFFUSION.
[2017-07-06 06:44] LABS: ALT 109 U/L (21-72); AST 45 U/L (17-59); Albumin 2.3 g/dL (3.5-5.0); Alkaline Phosphatase 126 U/L (38-126); Anion Gap 5 mmol/L; Blood Urea Nitrogen 14 mg/dL (9-20); Calcium 8.8 mg/dL (8.4-10.2); Carbon Dioxide 33 mmol/L (22-30); Chloride 104 mmol/L (98-107); Glucose 63 mg/dL (74-99); Magnesium 1.8 mg/dL (1.6-2.3); Potassium 4.2 mmol/L (3.5-5.1); Sodium 142 mmol/L (137-145); Total Bilirubin 0.2 mg/dL (0.2-1.3)
[2017-07-06 07:48] LABS: Glucose,Whole Blood 89 mg/dL (75-99)
[2017-07-06] MEDS: INSULIN ASPART 100 UNIT/ML 1 ML 10 ML VIAL SQ SCH ×7 (08:05→20:31)
[2017-07-06] MEDS: PANTOPRAZOLE 40 MG TABLET PO SCH (08:06)
[2017-07-06] MEDS: SODIUM CHLORIDE 0.9% 1,000 ML IV SCH (08:06)
[2017-07-06] MEDS ORDERED: ALTEPLASE 10 MG in SODIUM CHLORIDE 0.9% 100 ML IRRIGATION ONE (09:00)
[2017-07-06] MEDS: IPRATROPIUM-ALBUTEROL 3 ML NEB INHALATION SCH ×4 (09:11→19:29)
[2017-07-06] MEDS: AMIODARONE 200 MG TAB PO SCH (09:23)
[2017-07-06] MEDS: ASPIRIN 325 MG TAB PO SCH (09:23)
[2017-07-06] MEDS: ATORVASTATIN 40 MG TAB PO SCH (09:24)
[2017-07-06] MEDS: CLOPIDOGREL 75 MG TAB PO SCH (09:24)
[2017-07-06] MEDS: FUROSEMIDE 10 MG/ML 2 ML VIAL IV SCH (09:24)
[2017-07-06] MEDS: HEPARIN SODIUM,PORCINE 5,000 UNIT/ML 1 ML VIAL SQ SCH ×2 (09:24→20:31)
[2017-07-06] MEDS: guaiFENesin 600 MG TABLET.ER PO SCH ×2 (09:24→20:30)
[2017-07-06] MEDS: MAGNESIUM SULFATE-D5W PMX 1 GM in DEXTROSE/WATER 1 100ML.BAG IVPB SCH ×2 (09:25→10:50)
[2017-07-06] MEDS: METOPROLOL TARTRATE 25 MG TAB PO SCH ×2 (09:25→20:31)
[2017-07-06] MEDS: SERTRALINE 100 MG TAB PO SCH (09:25)
--- NOTE | 2017-07-06 11:23 | P.PN ---
Subjective Progress Note Date: 07/06/17 Principal diagnosis: Acute hypoxic respiratory failure secondary to left lung pneumonia and pleural effusion, Progress note dated 07/02/2017 The patient continues to improve slowly. Radiographically, his chest x-ray has not changed all that much. Certainly not worse. Currently the patient is on the AIRVO at 65 L/m. He's had a saline IV at 50 mL an hour. The patient has a history of bilateral pneumonia with sepsis a history of asthma, diabetes, gastroesophageal reflux disease, hypertension, myocardial infarction and pneumonia. He also has a history of recent bypass grafting back on 05/22/[address] segment elevation myocardial infarction and legionnaires disease. He is a lifelong nonsmoker. His primary care physician is Dr. Gary Abreu. The patient apparently had a computed tomography scan late yesterday. I have not looked at it as yet. My partner expresses some concerns that he may have a loculated pleural effusion which need something more significantly done such as decortication. On 07/03/2017 patient remains in intensive care. Still requiring high flow nasal cannula, remains on AIRVO at FiO2 of 50% and 40 L/m flow. Afebrile, hemodynamically stable. Today's chest x-ray shows slight improvement in the aeration of the left upper lung with persistent confluent multifocal opacities representing multifocal pneumonia. Yesterday we have obtained a chest ultrasound to evaluate the complex and loculated left pleural effusion in the background of extensive left lung pneumonia. This was discussed with the interventional radiologist and cardiothoracic surgery. CT surgery feels the patient with benefit from a pigtail catheter insertion in the left pleural space and infusion of TPA over the next few days. This was discussed with the radiologist, who recommended getting a CT chest with contrast today. Otherwise patient is fairly comfortable, in no acute distress, respirations are shallow and tachypneic with a rate in the 30s. He is awake alert, tolerating a regular diet. His lab work shows upward trend of his WBCs, up to 17, hemoglobin is 9.0 , renal profile is stable, within normal limits no significant electrolyte abnormality. Blood and sputum culture show no growth, urine culture is positive for Vera albicans. ID service is on. Is on a combination of Levaquin, Zosyn and vancomycin. Currently not requiring any vasopressor support. On 07/04/2017 patient is seen in follow-up in intensive care unit. He is status post left pleural pigtail chest tube insertion with TPA infusion on 07/03. Patient had round 400 cc of milky yellow, purulent drainage in the atrium collection chamber since insertion. Clinically patient denies any acute distress, FiO2 was weaned down to 8 L per high flow nasal cannula. Blood sputum cultures remain negative, urine culture shows Vera albicans, pleural fluid culture was sent for culture as well and is pending. Patient will have another infusion of alteplase today per cardiothoracic surgery. Continues on empiric antibiotics with Levaquin, Zosyn and vancomycin. His IV fluids are 0.9 normal saline at 50 ML per hour. Patient's tolerating oral intake, on regular diet. Up in a chair, tolerating it well. Overall continues to significantly improve. The patient is seen again today 07/05/2017 in follow-up in the intensive care unit. He is currently sitting up in a chair at the bedside. He is awake and alert in no acute distress. The left-sided pigtail chest tube remains in place. The plan was for alteplase again today. He has been up ambulating with assistance which enhances the drainage process. Cultures are pending. His chest x-ray reveals stable findings compared to previous. White count 15.7, hemoglobin 8.8. He remains on vancomycin, Zosyn and Levaquin. He is maintaining good O2 saturations in the low 90s on 10 L high flow nasal cannula. He has a 0.9 normal saline at 50 MLS per hour. The patient is seen again today 07/06/2017 in follow-up in the intensive care unit. His been up ambulating in the hallway with assistance. He is doing quite well today. His chest x-ray continues to reveal evidence of cardiac enlargement along with patchy bilateral infiltrates and small left pleural effusion. There is been minimal output from the pigtail catheter in the left chest. He has a total of 150 MLS out yesterday, currently 90 out today. He has received alteplase No real improvement compared to yesterday. He is down to 8 L high flow nasal cannula to maintain O2 saturations in the 90s. He has been afebrile. Pleural fluid culture reveals no growth after 48 hours. White count 14.9. Hemoglobin 8.8. Creatinine 0.62. He remains on vancomycin and Zosyn and Levaquin for now. Objective - Vital Signs Vital signs: Vital Signs Temp 98.2 F 07/06/17 04:00 Pulse 72 07/06/17 09:22 Resp 17 07/06/17 08:00 BP 119/70 07/06/17 08:00 Pulse Ox 95 07/06/17 09:11 Intake & Output 07/05/17 07/06/17 07/06/17 18:59 06:59 18:59 Intake Total 950 825.0 1035.0 Output Total 2310 980 1050 Balance -1360 -155.0 -15.0 Weight 111.8 kg 110.4 kg Intake: IV 950 825.0 675.0 Magnesium Sulfate-D5w Pmx 100 1 gm In Dextrose/Water 1 100ml.bag @ 100 mls/hr IVPB Q1H [facility] Rx#: [id number] Magnesium Sulfate-D5w Pmx 200 1 gm In Dextrose/Water 1 100ml.bag @ 100 mls/hr IVPB Q1H [facility] Rx#: [id number] Piperacillin-Tazobactam 3 50 25.0 25.0 .375 gm In Dextrose/Water 1 50ml.bag @ 12.5 mls/hr IVPB Q8H [facility] Rx#: [id number] Sodium Chloride 0.9% 1, 550 550 200 000 ml @ 50 mls/hr IV . Q20H [facility] Rx#:[id number] Vancomycin 1,750 mg In 250 250 250 Sodium Chloride 0.9% 250 ml @ 125 mls/hr IVPB Q8H [facility] Rx#:[id number] Oral 360 Output: Chest Tube Drainage 210 130 Pigtail in left posterior 210 130 Back Urine 2100 850 1050 Other: Voiding Method Urinal Urinal # Bowel Movements 1 1 - Exam No acute distress, oriented 3. Patient currently on supplemental oxygen via high flow. HEENT examination is grossly unremarkable. Mucous membranes are moist. No oral lesions. Neck supple. Full range of motion. No adenopathy thyromegaly or neck vein distention. Cardiovascular examination reveals regular rhythm rate. S1-S2 normal. No S3 or S4. No discernible murmur noted. Lungs reveal a few bilateral rhonchi. Breath sounds show diminished air entry over left lower base, clear on the right. A few crackles are present over right lower lobe, No wheezes. There is a left posterior chest wall pleural pigtail chest tube connected to a atrium, there is about 400 mL of whitish, yellow pleural fluid drainage in the collection chamber Abdomen soft bowel sounds are heard. No masses or tenderness. Extremities are intact. No cyanosis clubbing or edema. Skin is without rash or lesion. Neurologic examination is brief but nonfocal - Labs CBC & Chem 7: 07/06/17 06:16 07/06/17 06:16 Labs: Abnormal Lab Results - Last 24 Hours (Table) 07/05/17 07/05/17 07/05/17 Range/Units 12:12 17:29 19:58 WBC (3.8-10.6) k/uL RBC (4.30-5.90) m/uL Hgb (13.0-17.5) gm/dL Hct (39.0-53.0) % MCV (80.0-100.0) fL MCH (25.0-35.0) pg MCHC (31.0-37.0) g/dL RDW (11.5-15.5) % Plt Count (150-450) k/uL Neutrophils # (1.3-7.7) k/uL Carbon Dioxide (22-30) mmol/L Creatinine (0.66-1.25) mg/dL Glucose (74-99) mg/dL POC Glucose (mg/dL) 143 H 123 H 200 H (75-99) mg/dL ALT (21-72) U/L Total Protein (6.3-8.2) g/dL Albumin (3.5-5.0) g/dL 07/06/17 07/06/17 Range/Units 06:16 06:16 WBC 14.9 H (3.8-10.6) k/uL RBC 3.94 L (4.30-5.90) m/uL Hgb 8.8 L (13.0-17.5) gm/dL Hct 30.4 L (39.0-53.0) % MCV 77.2 L (80.0-100.0) fL MCH 22.4 L (25.0-35.0) pg MCHC 28.9 L (31.0-37.0) g/dL RDW 17.0 H (11.5-15.5) % Plt Count 660 H (150-450) k/uL Neutrophils # 11.7 H (1.3-7.7) k/uL Carbon Dioxide 33 H (22-30) mmol/L Creatinine 0.62 L (0.66-1.25) mg/dL Glucose 63 L (74-99) mg/dL POC Glucose (mg/dL) (75-99) mg/dL ALT 109 H (21-72) U/L Total Protein 5.0 L (6.3-8.2) g/dL Albumin 2.3 L (3.5-5.0) g/dL Microbiology - Last 24 Hours (Table) 07/03/17 14:45 Gram Stain - Preliminary Pleural Fluid Body Fluid Culture - Preliminary 06/30/17 10:34 Blood Culture - Preliminary Blood No Growth after 120 hours Assessment and Plan Assessment: Assessment: #1. Acute hypoxic respiratory failure secondary to extensive left lung multifocal pneumonia and left pleural effusion, present on admission. Patient is status post left pigtail pleural chest tube catheter insertion, with TPA infusions on 07/05/2017. #2. Sepsis, with leukocytosis and fever, secondary to the above #3. History of left-sided pleural effusion requiring thoracentesis and empyema requiring pigtail drainage catheter and cultures positive for alphahemolytic strep and enterococcus faecalis #4. Coronary artery disease, status post 4 vessel coronary artery bypass grafting #5. COPD #6. Essential hypertension #7. Hyperlipidemia #8. GERD #9. Anxiety #10. Obesity Plan: The patient was seen and evaluated by Dr. Alonso. His chest x-ray and labs were reviewed. We'll continue with his current medications for now. We'll continue to increase his activity as tolerated. Daily chest x-rays. We have again encourage increased use of the incentive spirometer and cough and deep breathing exercises. We'll continue to follow and make further recommendations based on his clinical status. I, the cosigning physician, performed a history & physical examination of the patient. Lungs sounds with crackles in the bilateral posterior bases more so on the left.. Maintaining good O2 saturations in the 90s on 8 L high flow nasal cannula. I discussed the assessment and plan of care with my nurse practitioner , Tamia Solano. I attest to the above note as dictated by her. Time with Patient: Greater than 30
[2017-07-06] MEDS: LEVOFLOXACIN 750 MG TAB PO SCH (11:46)
[2017-07-06] MEDS: FERROUS SULFATE 325 MG TAB PO SCH (11:46)
[2017-07-06] MEDS: ASCORBIC ACID 500 MG TAB PO SCH (11:46)
[2017-07-06 12:09] LABS: Glucose,Whole Blood 156 mg/dL (75-99)
--- NOTE | 2017-07-06 13:07 | PN ---
PROGRESS NOTE Today he feels better. He is breathing better. He is up walking with assistance in the ICU. He just finished his injection of Alteplase 10 mg 100 mils of normal saline in the left pigtail catheter and at this point, we are still awaiting pleural fluid for common microns and triglyceride level. His present illness and past medical history is that he is a 62-year-old male, came to the emergency room on 06/30/2017 with a chief complaint of shortness of breath and worsening of severity in over a week. Patient states that he was bringing up sputum. Initially, the color was green-yellow. The patient has a history of chronic obstructive disease, diabetes mellitus, gastroesophageal reflux disease, hypertension, myocardial infarction, pneumonia, STEMI in 2007 and heart catheterization. He also had a CABG x4 in May of 2017 here. Postoperatively, he had a persistent left-sided pleural effusion that required thoracentesis on 05/30/2017. Cultures from the pleural fluid were positive for alpha strep enterococcus and a PICC line placed and was discharged home on Daptomycin. In the emergency room on admission, his chest x-ray had worsened with an increase in left hemothorax, which was related to pleural effusion and multifocal pneumonia. He has also had patchy alveolar opacities in the right lung in two different areas. At that time, his EKG showed tachycardia. His tachypnea continued and his heart rate was in the low 100s. This patient also has a longstanding history of chronic atrial fib since his bypass surgery. Initially his white count was 20,000 with a shift to the left. He had a hemoglobin of 10.6, INR is 1.3. Sodium was 139, potassium 4.9, BUN is 17, creatinine 0.85 with a lactic acid of 1.7. His AST is 56. His platelet count is stable 123,000, alkaline phos 159. Initially, his urinalysis had 1+ protein, but otherwise negative. His initial influenza A and B were also negative. On 07/01/2017, patient was seen examined by myself and nurse practitioner Cherry Lizama. He was wearing a non-rebreather mask, maintaining O2 saturations of 92. He appeared diaphoretic. At that time he was being seen by Cardiovascular Surgery, Pulmonology and Infectious Disease. Blood cultures at that time, over 24 hours were negative and he had continued on the present antibiotics. He was then seen on 07/02 by myself and Cherry Lizama, NNPS and O2 saturations at that time were 92%, but he was on 10 L. He was eating breakfast at that time. He denied nausea or vomiting. His chest x-ray showed stable findings from previous. Blood culture negative now going on the 48 hours. Urine culture was positive for candidiasis. Infectious Disease was following and they maintained him at that time on Levaquin, Vanco and Zosyn. Thoracic Surgery was following him and they were thinking about possible intervention. On 07/03/2017 he was seen again at bedside by myself and the nurse practitioner. Patient review he was continuously in the ICU. Chest x-ray 07/03 showed slight improvement of variation in left lower lung, persistent coflarent, multi-focal pneumonias. He underwent an ultrasound of chest on 07/02/2017, which revealed suggestion of loculated fluid. Case was discussed at that time with who was the supervisor furnace process NNPS and a pigtail catheter insertions into the left pleural fluid with infusion of Alteplase was completed. Patient states that Thoracic Surgery also mentioned a thoracotomy at that period of time, but felt that he would be watched for a few days before even continuation. IV antibiotics vancomycin, Levaquin and Zosyn were continued. On 07/04/2017, patient was seen at the bedside again. It was by myself. He was sitting up in a chair. I reviewed his x-ray and sounds tachypneic and he had pulmonary congestion. He was given 20 of Lasix IV push. He diuresed well and over the next several hours, he continued to improve. He was no longer requiring the Airvo and was on 8 L of highflow by nasal cannula. His pigtail insertion and left pleurophase and the dose of Alteplase was continued that day. He also had 800 mL of purulent drainage in chest tube which was again seen for pleural effusion and the had mentioned, that Dr. Okeefe had mentioned to her about him undergoing thoracotomy in the future. Fortunately, his WBC at that time had went down to 15.9 from 20,017 respectively. He was afebrile, Infectious Disease was on-consult and he remained on vancomycin, Levaquin and Zosyn. Pleural effusions were cultured and resolve. All through this, we watched his blood sugars for his diabetes mellitus and it was stable with some changes in dosage. Please refer to my orders. On 07/05/2017, patient was seen at the bedside in intensive care again. Chest x-ray showing findings compatible with pneumonia and empyema. Also revealed some volume overload, congestive heart failure, and he was given 20 of Lasix IV push again. His blood sugars were elevated in the 200s. His Lantus was increased from 25 to 30. His NovoLog with meals was increased from 8 to 10. His serum blood glucose is 105 at this time. His first capillary glucose this morning was 2025, and then repeated in 15 minutes and it was 117. We spoke with the nurse and we admittedly had a different glucometer used and that glucometer is no longer being used we suspected. Patient received his third dose of Alteplase into the pigtail catheter. Yellowish purulent drainage was seen and sent out for a couple microns and triglycerides to rule out perhaps thoracic duct injury. On 07/06/2017 at this point, at the bedside, he is comfortable. Chest x-ray showed decreased to no volume overload. He is breathing better. He is up for a walk. His lab work today showed a WBC down to 14.9. His hemoglobin at this time is 8.8 with a marked hypochromasia. His sodium is at 142, potassium 4.2, chloride is 104 and his carbon dioxide is at 33. His creatinine still remains a 0.62 with a BUN of 14. His alk phos is down to 126 and he has a slightly elevated ALT of 109. Blood sugars are better in the 120 range, 123 range. I's and O's over the last 24 hours, he has approximately 400s mL of drainage from the pigtail on the left. His input and output for urine is -315 at this period of time and he is voiding at the bedside in the urinal. MEDICATIONS: Continue with DuoNeb 3 mL q.4, Xanax 0.25 b.i.d. p.r.n. anxiety. He is on amiodarone 200 mg daily. Ascorbic acid C 500, aspirin 325, Lipitor 40 mg, Plavix 75, ferrous sulfate 325 mg with lunch daily, Lasix 20 daily, Mucinex 120 mg p.o. q.12, heparin 5000 subcutaneous q.12, Dilaudid 2 IV push q.2 hours p.r.n. pain. He has used very minimal amount of this. He has had subcutaneous NovoLog 10 a.c. meals, at bedtime and insulin to scale, He is also on 30 units of Levemir at bedtime. Antibiotics include Levaquin 500 q.24 hours, also Lopressor 75 mg b.i.d., Protonix 40 mg a.c. breakfast. He is on Zosyn continued q.8 hours, Zoloft 100 daily and his vancomycin is according to scale. REVIEW OF SYSTEMS: At this time, eyes no problems with . ENT is negative. Neck is negative. RESPIRATORY: He is breathing well. HEART: No palpitations. No chest pain. GI: No nausea, no vomiting. No hematemesis, no constipation, no diarrhea, no melena, no hematochezia. URINATION: He is having no problems with urination. NEUROMUSCULAR: Just weakness in his legs, just generalized lower back pain that he has on a daily basis, mostly from being in bed. His chest pain is well controlled with medications of which he is using very little. Anxiety has been stable. Depression has been present. but well controlled per patient. PHYSICAL EXAMINATION: Well controlled. Blood pressure at this point of 101/60, heart rate is in the 80s and is atrial fib but regular, 18 respiratory rate, and he has a 93 O2 sat on 8 L. PSYCHIATRIC: Patient is well-orientated to person, place, and thing, talking well, able to converse accordingly. EYES: Pupils are equal, round, react to light and accommodation. ENT: Showed tympanic membranes and pharynx to be negative. NECK: Supple with a midline trachea. CHEST: Decreased breath sounds, but it actually sounds better in the left lower lung than yesterday. Heart is irregular regular of atrial fib with a rate right in the 80s. ABDOMEN: Soft, nontender with no organomegaly. No palpable masses. Lower extremity has minimal swelling in the lower extremity, negative DVT present. Skin is within normal limits. ALLERGIES: Just a stuffy nose of previous. VASCULAR: He has good palpable lower extremity pulses at this period of time. Chest x-ray shows actually improvement with minimal to no pulmonary effusion or overload. Unchanged pneumatic and pleural effusion entities. ASSESSMENT: 1. The patient has a multi-focal pneumonia represented on admission with sputums reviewing moderate gram-positive bacilli, enterococci. He had sepsis with leukocytosis and fever present on admission. Acute hypoxia with repeat respiratory failure, maintained on oxygen secondary to above plus pleural effusion. 2. A left-sided loculated pleural effusion with a left pigtail catheter insertion and Alteplase administration daily. 3. Diabetes type 2 with insulin control. Hemoglobin A1c at this time is 5.7 and the changes of 10 NovoLog a.c. meals at bedtime and the use of Levemir p.m. has worked well. 4. Long-standing history of coronary artery disease with a non-STEMI myocardial infarction. 5. A history of coronary artery bypass grafting, 4 vessel. 6. The left-sided pleural effusion with an empyema requiring a pigtail catheter with culture positive for alpha hemolytic strep and enterococcus. At this point, he is on Alteplase. 7. Paroxysmal atrial fibrillation which is stable. 8. Mild chronic obstructive pulmonary disease. 9. Hypertension. 10.Hyperlipidemia. 11.Gastroesophageal reflux. 12.Anxiety. PLAN: Will continue his IV Lasix today. I talked with Mr. Ryland NP and at this point Thoracic Surgery will proceed with a thoracotomy mid-week pretty much after he has been Alteplase for about 7 days. Pulmonary, GI is on consult and appreciate recommendations and input. Infectious Disease appreciate recommendations with the current use of vancomycin, Levaquin and Zosyn. Incentive spirometry is encouraged up to 10 times per hour. Assist as tolerated and encourage ambulation up in chair a.c. meals. Home meds are continued along with Lasix, GI and DVT prophylaxis. Also waiting for the micron and triglyceride level. Further recommendation for possible decortication of this pleural fluid and/or examination of thoracic tree if positive. Presently, he is stable and much improved. 80 minutes spent with the patient. MMODL / IJN: [id number] /
--- NOTE | 2017-07-06 13:45 | P.PN ---
Subjective Progress Note Date: 07/06/17 Principal diagnosis: History of recent urgent coronary artery bypass grafting on 05/22/2017, non-ST elevation myocardial infarction, hypertension, hyperlipidemia, insulin- dependent diabetes mellitus, anxiety, family history of premature coronary artery disease, COPD, paroxysmal atrial fibrillation, left-sided thoracentesis on 05/30/2017 and left chest pigtail catheter placement with fluid cultures positive for all for hemolytic strep and enterococcuss faecalis, left lower lobe pneumonia requiring placement of PICC line for home IV antibiotic therapy, and obesity. The patient was admitted to the hospital on 06/30/2017, after presenting to the emergency department with complaints of increase in shortness of breath over the last several days, with worsening productive cough. The patient has been receiving outpatient IV antibiotic therapy per his PICC line for treatment of his left lower lobe pneumonia which is been managed by Dr. Nixon. POD #3, ultrasound-guided chest tube insertion. (Pigtail catheter) The patient is lying in bed with his head elevated. He is in no acute distress. Alteplase 10 mg/100 mL instilled into his pigtail catheter. He reports that he feels much better today with less shortness of breath and improvement in his cough. He is on 6 L nasal cannula with oxygen saturation is 95%. Objective - Vital Signs Vital signs: Vital Signs Temp 98.0 F 07/06/17 12:00 Pulse 74 07/06/17 12:07 Resp 20 07/06/17 12:00 BP 120/66 07/06/17 12:00 Pulse Ox 98 07/06/17 12:00 Intake & Output 07/05/17 07/06/17 07/06/17 18:59 06:59 18:59 Intake Total 950 825.0 1312.5 Output Total 2310 980 1425 Balance -1360 -155.0 -112.5 Weight 111.8 kg 110.4 kg Intake: IV 950 825.0 712.5 Magnesium Sulfate-D5w Pmx 100 1 gm In Dextrose/Water 1 100ml.bag @ 100 mls/hr IVPB Q1H [facility] Rx#: [id number] Magnesium Sulfate-D5w Pmx 200 1 gm In Dextrose/Water 1 100ml.bag @ 100 mls/hr IVPB Q1H [facility] Rx#: [id number] Piperacillin-Tazobactam 3 50 25.0 37.5 .375 gm In Dextrose/Water 1 50ml.bag @ 12.5 mls/hr IVPB Q8H [facility] Rx#: [id number] Sodium Chloride 0.9% 1, 550 550 225 000 ml @ 50 mls/hr IV . Q20H [facility] Rx#:[id number] Vancomycin 1,750 mg In 250 250 250 Sodium Chloride 0.9% 250 ml @ 125 mls/hr IVPB Q8H [facility] Rx#:[id number] Oral 600 Output: Chest Tube Drainage 210 130 50 Pigtail in left posterior 210 130 50 Back Urine 2100 850 1375 Other: Voiding Method Urinal Urinal Urinal # Bowel Movements 1 1 - Constitutional General appearance: Present: cooperative, no acute distress, obese - Neck Details: neck is supple, no JVD, no lymphadenopathy. - Respiratory Details: lung sounds are essentially clear to his bilateral upper lobes and diminished to his bilateral bases left greater than right. Few scattered crackles to his bilateral bases. Respirations are symmetrical and nonlabored. Oxygen saturation are 95% on 6 L high flow nasal cannula. He is achieving 500-750 mL on his incentive spirometry. - Cardiovascular Details: regular rhythm and rate. S1 and S2 present, negative for S3, gallop or murmur. Sternum is stable. Bedside telemetry showing normal sinus rhythm heart rate 75. Knee-high WALESKA hose and sequential compression devices in place was bilateral lower extremities. No edema present. Peripheral pulses palpable. - Gastrointestinal Gastrointestinal Comment(s): abdomen is soft, nontender and nondistended. Active bowel sounds all 4 abdominal quadrants. Bowel movement yesterday. Tolerating oral intake. - Genitourinary Genitourinary Comment(s): adequate urine output. Clear yellow urine. - Integumentary Integumentary Comment(s): Midline sternal incision healed. No redness or drainage. Left lower extremity EVH harvest site clean dry and intact. Healed. No redness or drainage. Skin is warm, dry and intact. No clubbing or cyanosis. Left posterior chest pigtail catheter clean dry and intact. - Neurologic Neurologic: Present: CNII-XII intact - Musculoskeletal Musculoskeletal: Present: gait normal, generalized weakness, strength equal bilaterally - Psychiatric Psychiatric: Present: A&O x's 3, appropriate affect, intact judgment & insight - Allied health notes Allied health notes reviewed: nursing - Labs CBC & Chem 7: 07/06/17 06:16 07/06/17 06:16 Labs: Abnormal Lab Results - Last 24 Hours (Table) 07/05/17 07/05/17 07/06/17 Range/Units 17:29 19:58 06:16 WBC (3.8-10.6) k/uL RBC (4.30-5.90) m/uL Hgb (13.0-17.5) gm/dL Hct (39.0-53.0) % MCV (80.0-100.0) fL MCH (25.0-35.0) pg MCHC (31.0-37.0) g/dL RDW (11.5-15.5) % Plt Count (150-450) k/uL Neutrophils # (1.3-7.7) k/uL Carbon Dioxide 33 H (22-30) mmol/L Creatinine 0.62 L (0.66-1.25) mg/dL Glucose 63 L (74-99) mg/dL POC Glucose (mg/dL) 123 H 200 H (75-99) mg/dL ALT 109 H (21-72) U/L Total Protein 5.0 L (6.3-8.2) g/dL Albumin 2.3 L (3.5-5.0) g/dL 07/06/17 07/06/17 Range/Units 06:16 12:06 WBC 14.9 H (3.8-10.6) k/uL RBC 3.94 L (4.30-5.90) m/uL Hgb 8.8 L (13.0-17.5) gm/dL Hct 30.4 L (39.0-53.0) % MCV 77.2 L (80.0-100.0) fL MCH 22.4 L (25.0-35.0) pg MCHC 28.9 L (31.0-37.0) g/dL RDW 17.0 H (11.5-15.5) % Plt Count 660 H (150-450) k/uL Neutrophils # 11.7 H (1.3-7.7) k/uL Carbon Dioxide (22-30) mmol/L Creatinine (0.66-1.25) mg/dL Glucose (74-99) mg/dL POC Glucose (mg/dL) 156 H (75-99) mg/dL ALT (21-72) U/L Total Protein (6.3-8.2) g/dL Albumin (3.5-5.0) g/dL Microbiology - Last 24 Hours (Table) 07/03/17 14:45 Gram Stain - Preliminary Pleural Fluid Body Fluid Culture - Preliminary 06/30/17 10:34 Blood Culture - Final Blood No Growth after 144 hours - Imaging and Cardiology Chest x-ray: report reviewed, image reviewed Assessment and Plan (1) History of atrial fibrillation less than 8 weeks after coronary artery bypass graft Current Visit: Yes Status: Acute Code(s): UDA7556 - SNOMED Code(s): 444883796060556 (2) History of myocardial infarction Current Visit: Yes Status: Acute Code(s): I25.2 - OLD MYOCARDIAL INFARCTION SNOMED Code(s): 525153175 (3) Status post aorto-coronary artery bypass graft Current Visit: Yes Status: Acute Code(s): Z95.1 - PRESENCE OF AORTOCORONARY BYPASS GRAFT SNOMED Code(s): 411571877 (4) Anxiety Current Visit: Yes Status: Chronic Code(s): F41.9 - ANXIETY DISORDER, UNSPECIFIED SNOMED Code(s): 01115790 (5) Diabetes mellitus type 2 in obese Current Visit: Yes Status: Chronic Code(s): E11.69 - TYPE 2 DIABETES MELLITUS WITH OTHER SPECIFIED COMPLICATION; E66.9 - OBESITY, UNSPECIFIED SNOMED Code(s): 38534030 (6) Hyperlipidemia Current Visit: Yes Status: Chronic Code(s): E78.5 - HYPERLIPIDEMIA, UNSPECIFIED SNOMED Code(s): 33660278 (7) Hypertension Current Visit: Yes Status: Chronic Code(s): I10 - ESSENTIAL (PRIMARY) HYPERTENSION SNOMED Code(s): 39577735 (8) Obesity (BMI 30.0-34.9) Current Visit: Yes Status: Chronic Code(s): E66.9 - OBESITY, UNSPECIFIED SNOMED Code(s): 468597019 (9) Coronary artery disease Current Visit: No Status: Chronic Code(s): I25.10 - ATHSCL HEART DISEASE OF [place] CORONARY ARTERY W/O ANG PCTRS SNOMED Code(s): 92183606 (10) Left lower lobe pneumonia Current Visit: No Status: Acute Code(s): J18.1 - LOBAR PNEUMONIA, UNSPECIFIED ORGANISM SNOMED Code(s): 515448295 Plan: 1. Continue aspirin, Plavix, statin and beta ewa. 2. Wean oxygen as tolerated, pulmonary management per Dr. Alonso's recommendations. 3. Antibiotic management per infectious disease recommendations. Routine PICC line care. 4. Alteplase 10 mg/100 mL normal saline to be instilled to his left pigtail catheter today. Pigtail catheter will be clamped for 1 hour post instillation of the alteplase and then placed back to low continuous wall suction -20 cm H2O. 5. Diabetic management per primary care service. 6. Encourage use of his incentive spirometry every hour while awake. 7. GI/DVT prophylaxis. 8. Pleural fluid for Chlyomicrons and triglyceride levels, results pending. 9. Patient may need a thoracotomy procedure with decortication, which has been discussed with the patient and his by Dr. Okeefe. 10. More recommendations to follow as patient progresses and care. Alteplase 10 mg/100 mL infused per pigtail catheter at 10:00 AM, his pigtail catheter will be clamped for 1 hour and then placed back to low continuous wall suction. Time with Patient: Greater than 30
[2017-07-06 17:45] LABS: Glucose,Whole Blood 107 mg/dL (75-99)
[2017-07-06 20:20] LABS: Glucose,Whole Blood 236 mg/dL (75-99)
[2017-07-06] MEDS: INSULIN DETEMIR 100 UNIT/ML 10 ML VIAL SQ SCH (20:31)
[2017-07-06] MEDS: HYDROmorphone 2 MG/ML 1 ML SYRINGE IVP PRN (21:45)
[2017-07-07] MEDS: VANCOMYCIN 1,750 MG in SODIUM CHLORIDE 0.9% 250 ML IVPB SCH ×3 (02:45→22:39)
[2017-07-07 04:39] LABS: Basophils # (A) 0.1 k/uL (0-0.2); Basophils % (A) 0 %; Eosinophils # (A) 0.4 k/uL (0-0.7); Eosinophils % (A) 3 %; HCT 31.4 % (39.0-53.0); HGB 8.7 gm/dL (13.0-17.5); Hypochromasia Marked; Lymphocytes # (A) 1.8 k/uL (1.0-4.8); Lymphocytes % (A) 14 %; MCH 22.1 pg (25.0-35.0); MCHC 27.8 g/dL (31.0-37.0); MCV 79.6 fL (80.0-100.0); Mean Platelet Volume 6.2; Monocytes # (A) 0.8 k/uL (0-1.0); Monocytes % (A) 6 %; Neutrophils % (A) 76 %; Platelet Count 682 k/uL (150-450); Poikilocytosis Moderate; RBC 3.94 m/uL (4.30-5.90); RDW 15.7 % (11.5-15.5); WBC 13.2 k/uL (3.8-10.6)
[2017-07-07] MEDS: PIPERACILLIN-TAZOBACTAM 3.375 GM in DEXTROSE/WATER 1 50ML.BAG IVPB SCH ×3 (04:45→22:40)
[2017-07-07] MEDS: SODIUM CHLORIDE 0.9% 1,000 ML IV SCH (04:46)
[2017-07-07 04:51] LABS: ALT 114 U/L (21-72); AST 55 U/L (17-59); Albumin 2.3 g/dL (3.5-5.0); Alkaline Phosphatase 130 U/L (38-126); Anion Gap 6 mmol/L; Blood Urea Nitrogen 16 mg/dL (9-20); Calcium 8.6 mg/dL (8.4-10.2); Carbon Dioxide 34 mmol/L (22-30); Chloride 103 mmol/L (98-107); Glucose 100 mg/dL (74-99); Magnesium 1.9 mg/dL (1.6-2.3); Potassium 4.2 mmol/L (3.5-5.1); Sodium 143 mmol/L (137-145); Total Bilirubin 0.1 mg/dL (0.2-1.3); Total Protein 4.9 g/dL (6.3-8.2)
[2017-07-07] MEDS: MAGNESIUM SULFATE-D5W PMX 1 GM in DEXTROSE/WATER 1 100ML.BAG IVPB SCH ×2 (06:26→07:50)
[2017-07-07 06:55] LABS: Glucose,Whole Blood 114 mg/dL (75-99)
--- NOTE | 2017-07-07 07:08 | XR ---
EXAMINATION TYPE: XR chest 1V portable DATE OF EXAM: 07/07/2017 HISTORY: Left lower lobe pneumonia. REFERENCE: Previous study dated 07/06/2017. FINDINGS: There has been a midline sternotomy. The heart is enlarged. There is bilateral airspace disease worse on the left than the right. This has not significantly changed from previous. I suspect a small left effusion. IMPRESSION: NO SIGNIFICANT INTERVAL CHANGE IN THE APPEARANCE OF THE CHEST.
[2017-07-07] MEDS: INSULIN ASPART 100 UNIT/ML 1 ML 10 ML VIAL SQ SCH ×7 (07:46→22:41)
[2017-07-07] MEDS: PANTOPRAZOLE 40 MG TABLET PO SCH (07:50)
[2017-07-07] MEDS: FUROSEMIDE 10 MG/ML 2 ML VIAL IV SCH (08:04)
[2017-07-07] MEDS: SERTRALINE 100 MG TAB PO SCH (08:04)
[2017-07-07] MEDS: ASPIRIN 325 MG TAB PO SCH (08:04)
[2017-07-07] MEDS: guaiFENesin 600 MG TABLET.ER PO SCH ×2 (08:04→22:40)
[2017-07-07] MEDS: ATORVASTATIN 40 MG TAB PO SCH (08:04)
[2017-07-07] MEDS: HEPARIN SODIUM,PORCINE 5,000 UNIT/ML 1 ML VIAL SQ SCH ×2 (08:04→22:42)
[2017-07-07] MEDS: CLOPIDOGREL 75 MG TAB PO SCH (08:04)
[2017-07-07] MEDS: METOPROLOL TARTRATE 25 MG TAB PO SCH ×2 (08:04→22:42)
[2017-07-07] MEDS: AMIODARONE 200 MG TAB PO SCH (08:04)
[2017-07-07] MEDS ORDERED: ALTEPLASE 10 MG in SODIUM CHLORIDE 0.9% 100 ML IRRIGATION ONE (09:00)
[2017-07-07] MEDS ORDERED: VANCOMYCIN TROUGH DUE 1 EACH MISC MISCELLANE ONE (09:00)
[2017-07-07] MEDS: IPRATROPIUM-ALBUTEROL 3 ML NEB INHALATION SCH ×4 (09:13→19:53)
[2017-07-07] MEDS ORDERED: MAGNESIUM SULFATE-D5W PMX 1 GM in DEXTROSE/WATER 1 100ML.BAG IVPB SCH (09:15)
--- NOTE | 2017-07-07 10:46 | P.PN ---
Subjective Progress Note Date: 07/07/17 Principal diagnosis: History of recent urgent coronary artery bypass grafting on 05/22/2017, non-ST elevation myocardial infarction, hypertension, hyperlipidemia, insulin- dependent diabetes mellitus, anxiety, family history of premature coronary artery disease, COPD, paroxysmal atrial fibrillation, left-sided thoracentesis on 05/30/2017 and left chest pigtail catheter placement with fluid cultures positive for all for hemolytic strep and enterococcuss faecalis, left lower lobe pneumonia requiring placement of PICC line for home IV antibiotic therapy, and obesity. The patient was admitted to the hospital on 06/30/2017, after presenting to the emergency department with complaints of increase in shortness of breath over the last several days, with worsening productive cough. The patient has been receiving outpatient IV antibiotic therapy per his PICC line for treatment of his left lower lobe pneumonia which is been managed by Dr. Nixon. POD #4, ultrasound-guided chest tube insertion. (Pigtail catheter) The patient is lying in bed with his head elevated. He is in no acute distress. Alteplase 10 mg/100 mL instilled into his pigtail catheter at 9:30 this a.m. He reports that he feels that he is improving each day. He states that he ambulated in the ICU hallway yesterday 2. He is on 6 L nasal cannula with oxygen saturation is 96%. Pigtail catheter remains in place evacuating thin cloudy serosanguineous drainage. Objective - Vital Signs Vital signs: Vital Signs Temp 97.6 F 07/07/17 08:00 Pulse 75 07/07/17 10:00 Resp 18 07/07/17 10:00 BP 115/68 07/07/17 10:00 Pulse Ox 98 07/07/17 10:00 Intake & Output 07/06/17 07/07/17 07/07/17 18:59 06:59 18:59 Intake Total 2152.5 1415 835 Output Total 2029 1255 850 Balance 122.5 160 -15 Weight 111.3 kg Intake: IV 1072.5 935 355 Magnesium Sulfate-D5w Pmx 200 200 1 gm In Dextrose/Water 1 100ml.bag @ 100 mls/hr IVPB Q1H [facility] Rx#: [id number] Piperacillin-Tazobactam 3 62.5 50 .375 gm In Dextrose/Water 1 50ml.bag @ 12.5 mls/hr IVPB Q8H [facility] Rx#: [id number] Sodium Chloride 0.9% 1, 435 510 30 000 ml @ 50 mls/hr IV . Q20H [facility] Rx#:[id number] Vancomycin 1,750 mg In 375 375 125 Sodium Chloride 0.9% 250 ml @ 125 mls/hr IVPB Q8H [facility] Rx#:[id number] Oral 1080 Tube Feeding 480 480 Output: Chest Tube Drainage 130 30 Pigtail in left posterior 130 30 Back Urine 1900 1225 850 Other: Voiding Method Urinal Urinal Urinal # Voids 1 # Bowel Movements 1 1 - Constitutional General appearance: Present: cooperative, no acute distress, obese - EENT ENT: Present: hearing grossly normal - Neck Details: No JVD, no lymphadenopathy, neck supple. Neck: Present: normal ROM - Respiratory Details: Essentially clear to his bilateral upper lobes, diminished to his bilateral bases with few scattered crackles left greater than right. Respirations are symmetrical and nonlabored. Oxygen saturation are 96% on 6 L nasal cannula. He is achieving 750 mL on his incentive spirometry. Left chest pigtail catheter remains in place with no air leak present. Remains to low continuous wall suction -20 cm H2O. Evacuating thin cloudy serosanguineous drainage. 30 mL output in the last 8 hours, 260 mL output in the last 24 hours. Preliminary pleural fluid culture showing anaerobic gram-negative bacilli. - Cardiovascular Details: Regular rhythm and rate. S1 and S2 present, negative for S3, gallop or murmur. Sternum is stable. Bedside telemetry showing normal sinus rhythm heart rate 77. Knee-high WALESKA hose and sequential compression devices in place was bilateral lower extremities. PICC line in place and patent to his left antecubital. No edema present. Peripheral pulses palpable. - Gastrointestinal Gastrointestinal Comment(s): Abdomen is soft, nontender nondistended. Active bowel sounds to all 4 abdominal quadrants. Tolerating oral intake. No nausea no vomiting. - Genitourinary Genitourinary Comment(s): Urine output adequate, clear yellow urine. - Integumentary Integumentary Comment(s): Midline sternal incision clean dry and well approximated. Healed. No redness or drainage. Left leg EVH site clean dry and well approximated. Healed. No drainage or redness. Integumentary: Present: normal, normal turgor - Neurologic Neurologic: Present: CNII-XII intact - Musculoskeletal Musculoskeletal: Present: gait normal, strength equal bilaterally - Psychiatric Psychiatric: Present: A&O x's 3, appropriate affect, intact judgment & insight - Allied health notes Allied health notes reviewed: nursing - Labs CBC & Chem 7: 07/07/17 04:30 07/07/17 04:30 Labs: Abnormal Lab Results - Last 24 Hours (Table) 07/06/17 07/06/17 07/06/17 Range/Units 12:06 17:41 20:18 WBC (3.8-10.6) k/uL RBC (4.30-5.90) m/uL Hgb (13.0-17.5) gm/dL Hct (39.0-53.0) % MCV (80.0-100.0) fL MCH (25.0-35.0) pg MCHC (31.0-37.0) g/dL RDW (11.5-15.5) % Plt Count (150-450) k/uL Neutrophils # (1.3-7.7) k/uL Carbon Dioxide (22-30) mmol/L Glucose (74-99) mg/dL POC Glucose (mg/dL) 156 H 107 H 236 H (75-99) mg/dL Total Bilirubin (0.2-1.3) mg/dL ALT (21-72) U/L Alkaline Phosphatase (38-126) U/L Total Protein (6.3-8.2) g/dL Albumin (3.5-5.0) g/dL 07/07/17 07/07/17 07/07/17 Range/Units 04:30 04:30 06:52 WBC 13.2 H (3.8-10.6) k/uL RBC 3.94 L (4.30-5.90) m/uL Hgb 8.7 L (13.0-17.5) gm/dL Hct 31.4 L (39.0-53.0) % MCV 79.6 L (80.0-100.0) fL MCH 22.1 L (25.0-35.0) pg MCHC 27.8 L (31.0-37.0) g/dL RDW 15.7 H (11.5-15.5) % Plt Count 682 H (150-450) k/uL Neutrophils # 10.0 H (1.3-7.7) k/uL Carbon Dioxide 34 H (22-30) mmol/L Glucose 100 H (74-99) mg/dL POC Glucose (mg/dL) 114 H (75-99) mg/dL Total Bilirubin 0.1 L (0.2-1.3) mg/dL ALT 114 H (21-72) U/L Alkaline Phosphatase 130 H (38-126) U/L Total Protein 4.9 L (6.3-8.2) g/dL Albumin 2.3 L (3.5-5.0) g/dL Microbiology - Last 24 Hours (Table) 07/03/17 14:45 Anaerobic Culture - Preliminary Pleural Fluid Anaerobic Gm Negative Bacilli 07/03/17 14:45 Gram Stain - Preliminary Pleural Fluid Body Fluid Culture - Preliminary 06/30/17 10:34 Blood Culture - Final Blood No Growth after 144 hours - Imaging and Cardiology Chest x-ray: report reviewed, image reviewed Assessment and Plan (1) History of atrial fibrillation less than 8 weeks after coronary artery bypass graft Current Visit: Yes Status: Acute Code(s): UJM5290 - SNOMED Code(s): 208419894984237 (2) History of myocardial infarction Current Visit: Yes Status: Acute Code(s): I25.2 - OLD MYOCARDIAL INFARCTION SNOMED Code(s): 053477696 (3) Status post aorto-coronary artery bypass graft Current Visit: Yes Status: Acute Code(s): Z95.1 - PRESENCE OF AORTOCORONARY BYPASS GRAFT SNOMED Code(s): 985159478 (4) Anxiety Current Visit: Yes Status: Chronic Code(s): F41.9 - ANXIETY DISORDER, UNSPECIFIED SNOMED Code(s): 04328547 (5) Diabetes mellitus type 2 in obese Current Visit: Yes Status: Chronic Code(s): E11.69 - TYPE 2 DIABETES MELLITUS WITH OTHER SPECIFIED COMPLICATION; E66.9 - OBESITY, UNSPECIFIED SNOMED Code(s): 69570527 (6) Hyperlipidemia Current Visit: Yes Status: Chronic Code(s): E78.5 - HYPERLIPIDEMIA, UNSPECIFIED SNOMED Code(s): 34626417 (7) Hypertension Current Visit: Yes Status: Chronic Code(s): I10 - ESSENTIAL (PRIMARY) HYPERTENSION SNOMED Code(s): 38411358 (8) Obesity (BMI 30.0-34.9) Current Visit: Yes Status: Chronic Code(s): E66.9 - OBESITY, UNSPECIFIED SNOMED Code(s): 823401747 (9) Coronary artery disease Current Visit: No Status: Chronic Code(s): I25.10 - ATHSCL HEART DISEASE OF [place] CORONARY ARTERY W/O ANG PCTRS SNOMED Code(s): 89719026 (10) Left lower lobe pneumonia Current Visit: No Status: Acute Code(s): J18.1 - LOBAR PNEUMONIA, UNSPECIFIED ORGANISM SNOMED Code(s): 113877045 Plan: 1. Continue aspirin, Plavix, statin and beta ewa. 2. Wean oxygen as tolerated, pulmonary management per Dr. Alonso's recommendations. 3. Antibiotic management per infectious disease recommendations. Routine PICC line care. Pleural fluid cultures pulmonary results showing anaerobic gram- negative bacilli. Awaiting final sensitivities. 4. Alteplase 10 mg/100 mL normal saline to be instilled to his left pigtail catheter at 9:30 AM today. Pigtail catheter will be clamped for 1 hour post instillation of the alteplase and then placed back to low continuous wall suction -20 cm H2O. 5. Diabetic management per primary care service. 6. Encourage use of his incentive spirometry every hour while awake. 7. GI/DVT prophylaxis. 8. Pleural fluid for Chlyomicrons and triglyceride levels, results pending. 9. Patient may need a thoracotomy procedure with decortication, which has been discussed with the patient and his by Dr. Okeefe. 10. We will repeat the computed tomography scan of his chest without contrast in the a.m. 11. Replace magnesium per protocol 12. More recommendations to follow as patient progresses and care. Alteplase 10 mg/100 mL infused per pigtail catheter at 09:30 AM without incident , his pigtail catheter will be clamped for 1 hour and then placed back to low continuous wall suction. Time with Patient: Greater than 30
--- NOTE | 2017-07-07 11:56 | P.PN ---
Subjective Progress Note Date: 07/07/17 Principal diagnosis: Respiratory failure, pneumonia Progress note dated 07/02/2017 The patient continues to improve slowly. Radiographically, his chest x-ray has not changed all that much. Certainly not worse. Currently the patient is on the AIRVO at 65 L/m. He's had a saline IV at 50 mL an hour. The patient has a history of bilateral pneumonia with sepsis a history of asthma, diabetes, gastroesophageal reflux disease, hypertension, myocardial infarction and pneumonia. He also has a history of recent bypass grafting back on 05/22/[address] segment elevation myocardial infarction and legionnaires disease. He is a lifelong nonsmoker. His primary care physician is Dr. Gary Abreu. The patient apparently had a computed tomography scan late yesterday. I have not looked at it as yet. My partner expresses some concerns that he may have a loculated pleural effusion which need something more significantly done such as decortication. Progress note dated 07/07/2017 This is a 62-year-old male with a diagnosis of hypoxemic respiratory failure secondary to extensive multifocal pneumonia involving the left chest with probable parapneumonic effusion. A pigtail catheter was placed and the patient has been receiving alteplase infusions on a daily basis. Overall, although the chest x-ray has not changed significantly, the patient's overall respiratory status has improved. In addition, the patient presents with sepsis significant left-sided pleural effusion, likely empyema, CAD with recent bypass grafting, four-vessel, COPD, essential hypertension, hyperlipidemia, GERD, anxiety, and obesity. The patient does seem to be improving. I believe the pigtail catheter insertion in the daily alteplase has helped. Other than that, things have been about the same. Radiographically, the chest x-ray has not significantly changed. The patient is on O2 6 L high flow and a saline IV at 50 mL an hour. Objective - Vital Signs Vital signs: Vital Signs Temp 97.6 F 07/07/17 08:00 Pulse 73 07/07/17 11:00 Resp 24 07/07/17 11:00 BP 115/67 07/07/17 11:00 Pulse Ox 91 L 07/07/17 11:00 Intake & Output 07/06/17 07/07/17 07/07/17 18:59 06:59 18:59 Intake Total 2152.5 1415 1210 Output Total 2030 1255 1200 Balance 122.5 160 10 Weight 111.3 kg Intake: IV 1072.5 935 490 Magnesium Sulfate-D5w Pmx 200 200 1 gm In Dextrose/Water 1 100ml.bag @ 100 mls/hr IVPB Q1H [facility] Rx#: [id number] Piperacillin-Tazobactam 3 62.5 50 .375 gm In Dextrose/Water 1 50ml.bag @ 12.5 mls/hr IVPB Q8H [facility] Rx#: [id number] Sodium Chloride 0.9% 1, 435 510 40 000 ml @ 50 mls/hr IV . Q20H [facility] Rx#:[id number] Vancomycin 1,750 mg In 375 375 250 Sodium Chloride 0.9% 250 ml @ 125 mls/hr IVPB Q8H [facility] Rx#:[id number] Oral 1080 Tube Feeding 480 720 Output: Chest Tube Drainage 130 30 Pigtail in left posterior 130 30 Back Urine 1900 1225 1200 Other: Voiding Method Urinal Urinal Urinal # Voids 1 # Bowel Movements 1 1 - Exam No acute distress, oriented 3. Patient currently on supplemental oxygen via high flow. HEENT examination is grossly unremarkable. Mucous membranes are moist. No oral lesions. Neck supple. Full range of motion. No adenopathy thyromegaly or neck vein distention. Cardiovascular examination reveals regular rhythm rate. S1-S2 normal. No S3 or S4. No discernible murmur noted. Lungs reveal a few bilateral rhonchi. Breath sounds are diminished throughout, more so in the left lower lobe. Crackles are present. No wheezes. The patient 's chest is very congested sounding. Abdomen soft bowel sounds are heard. No masses or tenderness. Extremities are intact. No cyanosis clubbing or edema. Skin is without rash or lesion. Neurologic examination is brief but nonfocal. - Labs CBC & Chem 7: 07/07/17 04:30 07/07/17 04:30 Labs: Abnormal Lab Results - Last 24 Hours (Table) 07/06/17 07/06/17 07/06/17 Range/Units 12:06 17:41 20:18 WBC (3.8-10.6) k/uL RBC (4.30-5.90) m/uL Hgb (13.0-17.5) gm/dL Hct (39.0-53.0) % MCV (80.0-100.0) fL MCH (25.0-35.0) pg MCHC (31.0-37.0) g/dL RDW (11.5-15.5) % Plt Count (150-450) k/uL Neutrophils # (1.3-7.7) k/uL Carbon Dioxide (22-30) mmol/L Glucose (74-99) mg/dL POC Glucose (mg/dL) 156 H 107 H 236 H (75-99) mg/dL Total Bilirubin (0.2-1.3) mg/dL ALT (21-72) U/L Alkaline Phosphatase (38-126) U/L Total Protein (6.3-8.2) g/dL Albumin (3.5-5.0) g/dL 07/07/17 07/07/17 07/07/17 Range/Units 04:30 04:30 06:52 WBC 13.2 H (3.8-10.6) k/uL RBC 3.94 L (4.30-5.90) m/uL Hgb 8.7 L (13.0-17.5) gm/dL Hct 31.4 L (39.0-53.0) % MCV 79.6 L (80.0-100.0) fL MCH 22.1 L (25.0-35.0) pg MCHC 27.8 L (31.0-37.0) g/dL RDW 15.7 H (11.5-15.5) % Plt Count 682 H (150-450) k/uL Neutrophils # 10.0 H (1.3-7.7) k/uL Carbon Dioxide 34 H (22-30) mmol/L Glucose 100 H (74-99) mg/dL POC Glucose (mg/dL) 114 H (75-99) mg/dL Total Bilirubin 0.1 L (0.2-1.3) mg/dL ALT 114 H (21-72) U/L Alkaline Phosphatase 130 H (38-126) U/L Total Protein 4.9 L (6.3-8.2) g/dL Albumin 2.3 L (3.5-5.0) g/dL Microbiology - Last 24 Hours (Table) 07/03/17 14:45 Anaerobic Culture - Preliminary Pleural Fluid Anaerobic Gm Negative Bacilli 07/03/17 14:45 Gram Stain - Preliminary Pleural Fluid Body Fluid Culture - Preliminary 06/30/17 10:34 Blood Culture - Final Blood No Growth after 144 hours Assessment and Plan Assessment: Assessment Acute hypoxemic respiratory failure secondary to extensive left sided multifocal pneumonia with left pleural effusion/empyema, status post pigtail catheter placement and daily infusion of TPA. Sepsis secondary to #1 Left-sided complicated parapneumonic effusion, which may benefit from a VATS decortication. Enterococcus faecalis contamination of left pleural space CAD with recent four-vessel bypass grafting COPD Essential hypertension Hyperlipidemia GERD Anxiety Obesity (1) MRSA infection Current Visit: Yes Status: Acute Code(s): A49.02 - METHICILLIN RESIS STAPH INFECTION, UNSP SITE SNOMED Code(s): 966931590 (2) Legionnaires' disease Current Visit: Yes Status: Acute Code(s): A48.1 - LEGIONNAIRES' DISEASE SNOMED Code(s): 500345488 (3) Pneumonia Current Visit: Yes Status: Acute Code(s): J18.9 - PNEUMONIA, UNSPECIFIED ORGANISM SNOMED Code(s): 686607648 (4) Sepsis Current Visit: Yes Status: Acute Code(s): A41.9 - SEPSIS, UNSPECIFIED ORGANISM SNOMED Code(s): 78726256 (5) Diabetes mellitus type 2 in obese Current Visit: Yes Status: Chronic Code(s): E11.69 - TYPE 2 DIABETES MELLITUS WITH OTHER SPECIFIED COMPLICATION; E66.9 - OBESITY, UNSPECIFIED SNOMED Code(s): 98586066 (6) Hyperlipidemia Current Visit: Yes Status: Chronic Code(s): E78.5 - HYPERLIPIDEMIA, UNSPECIFIED SNOMED Code(s): 51179501 (7) Hypertension Current Visit: Yes Status: Chronic Code(s): I10 - ESSENTIAL (PRIMARY) HYPERTENSION SNOMED Code(s): 57259290 (8) Obesity (BMI 30.0-34.9) Current Visit: Yes Status: Chronic Code(s): E66.9 - OBESITY, UNSPECIFIED SNOMED Code(s): 797975123 (9) Non-STEMI (non-ST elevated myocardial infarction) Current Visit: No Status: Acute Code(s): I21.4 - NON-ST ELEVATION (NSTEMI) MYOCARDIAL INFARCTION SNOMED Code(s): 702329952 (10) Paroxysmal atrial fibrillation with rapid ventricular response Current Visit: No Status: Acute Code(s): I48.0 - PAROXYSMAL ATRIAL FIBRILLATION SNOMED Code(s): 227441968 (11) Pleural effusion on left Current Visit: No Status: Acute Code(s): J90 - PLEURAL EFFUSION, NOT ELSEWHERE CLASSIFIED SNOMED Code(s): 15778971 (12) ST elevation myocardial infarction (STEMI) Current Visit: No Status: Acute Code(s): I21.3 - ST ELEVATION (STEMI) MYOCARDIAL INFARCTION OF UNSP SITE SNOMED Code(s): 840941897 (13) Coronary artery disease Current Visit: No Status: Chronic Code(s): I25.10 - ATHSCL HEART DISEASE OF [place] CORONARY ARTERY W/O ANG PCTRS SNOMED Code(s): 01967224 (14) Status post aorto-coronary artery bypass graft Current Visit: Yes Status: Acute Code(s): Z95.1 - PRESENCE OF AORTOCORONARY BYPASS GRAFT SNOMED Code(s): 036040977 Plan: Plan dated 07/01/2017 We'll make sure that the patient has an infectious disease consultation. Currently the patient seems relatively stable. Should stay here in the ICU. Will have labs and x-rays in the morning. I review the medications. We'll see what antibiotics he was on as an outpatient. Additional recommendations and suggestions are forthcoming. We'll make sure he is updrafts. His situation may take a turn for the worse and he may require intubation and mechanical ventilation. Plan dated 07/02/2017 The patient's chest x-ray today is essentially unchanged. Still receiving high flow O2. We'll review the CAT scan which was ordered by my partner on Saturday. The patient may need a extensive drainage procedure such as decortication. We' ll discuss with cardiothoracic surgery. [facility]'ll [facility]. Additional recommendations and suggestions are forthcoming. Microbiology will also be evaluated. Plan dated 07/07/2017 The patient will have a noncontrast enhanced CT of the chest tomorrow. Thoracic surgery will make a decision about that decortication surgery. Currently the patient has a pigtail catheter into the left pleural space. He's been receiving alteplase infusions on a daily basis, 10 mg. Though his chest x- ray has not significantly improved, his clinical status has improved and his oxygen requirements have less than. He's feeling less short of breath and has less cough and secretions. Clinically the patient could be discharged out to the sixth floor. I'm not sure that we have a bed. Medications labs and x-rays all reviewed. Time with Patient: Less than 30
[2017-07-07 12:20] LABS: Glucose,Whole Blood 178 mg/dL (75-99)
--- NOTE | 2017-07-07 12:23 | PN ---
PROGRESS NOTE DATE OF SERVICE: 07/07/17 Progress note today feels better with less shortness of breath. He has been able to walk with assistance of physical therapy into the room in ICU out into the hallway and then back to the room with assistance. He is less short of breath. No chest pain. Appetite is sufficient. He is still with chest tube and did have his ultra face 10 mg per 100 mils via left piggyback catheter today and tolerated well. This is a 62-year- old white male who came the emergency room on 06/30/2017 with a chief complaint of shortness of breath worsened severely over a week, bringing much sputum initially and the color was yellow to green. The patient had a history of COPD and has diabetes mellitus, GE reflux, obesity, hypertension, myocardial infarction and pneumonia, had a STEMI in 2007, heart catheterization. He had a CABG x4 in May 2017, postoperatively had persistent left pleural effusion that required thoracentesis on May 30 2017. Cultures from the for positive strep and a PICC line was in place and discharged home on daptomycin. Later then, enterococcus was also positive. In the emergency room on admission, his chest x-ray had worsened with increase in the left hemithorax, which was related to the pleural effusion with multifocal pneumonia. He was then readmitted here on 06/30/2017. He has also had persistent patchy alveolar infiltrates in the right lung in 2 different areas. Initially, his EKG showed tachycardia. His vital signs were that of 100 temp along with heart rate in the 100s, which was atrial fib but fairly well controlled. His initial white count was 20,000 with a shift to the left. His hemoglobin initially was 10. INR was 1.3. Sodium was 139, potassium 4.9, BUN 17, creatinine 0.85, and a lactic acid of only 1.7. His AST was 56 initially, platelet counts 123,000, alkaline phosphatase 159. Influenza A and B were negative. He was initially seen by myself and my nurse practitioner, Alda Carey, and there was obvious he had a pneumonia. Consults were placed for both Dr. Alonso and cardiothoracic team along with Dr. Nixon who is caring for his daptomycin on an outpatient basis. On 07/03 and 07/04, he had minimal improvement and we basically kept him in ICU, had an insertion of the pigtail into the left pleural fluid and Ultraface was started 10 mg with 100 mL daily. He had areas of tachypnea and a chest x-ray on the and was well aware that he had also some pleural venous overload. I gave him 20 mg Lasix IV push. He responded well and he stayed on that accordingly. At this period of time, he was then observed both 07/05 and 07/06 by myself and he continued to be quite stable. We continued with tapering of his O2 to continue 20 mg, -20 mg pressure for his chest tube with a fair amount of fluid removed. His cultures at this time were coming back positive for anaerobic branding and negative bacilli to be identified, appears to be a beta lactamase positive organism. His urine is positive for Vera. MEDICATIONS: At this time are: 1. DuoNeb q4 hours p.r.n. 2. Xanax 0.25 b.i.d. 3. Amiodarone 200 mg daily. 4. Ascorbic acid. 5. C5-100 daily. 6. Aspirin 25 daily. 7. Lipitor 40 daily. 8. Plavix 75 daily. 9. Ferrous sulfate 225 mg with lunch daily. 10.Lasix 20 daily. 11.Mucinex 120 q12. 12.Heparin 5000 subcu q.12. 13.Dilaudid 1-2 mg IV push every 2 hours p.r.n. pain. 14.Subcutaneous NovoLog 10 a.c. meals and at bedtime along with a scale. 15.He is also on 30 units of Levemir at bedtime. 16.Antibiotics include that of Levaquin 500 q24 hours. 17.-vancomycin according to peak and trough. 18.Zosyn 3.24 q.8. 19.Lopressor 75 mg b.i.d. 20.Protonix 40 mg a.c. bedtime. REVIEW OF SYSTEMS: CARDIOPULMONARY: The patient is alert and well orientated to person, place, and thing. He denies depression and denies anxiety. Eyes: He is having no problems seeing. EENT: Says he has a dry mouth. Neck: No pain in his neck. Respiratory: Says he is breathing well with occasional shortness of breath. Heart: No palpitations. No chest pain. GI no nausea, no vomiting, no diarrhea. No hematemesis, melena, hematochezia. : No problems with urination. Neuromuscular: Just weakness in his legs and his arms from weeks of being in bed but he says that is improving. Skin: Patient states no rashes. Allergy does have a stuffy nose. Vascular is negative. PHYSICAL EXAMINATION: Again, alert, well orientated to person, place, and thing. He does not appear depressed. He does not appear anxious. He answers questions cognitively, correct and on time. The blood pressure is 115/67, heart rate is in the 70s, respiratory rate is 18, 91 O2 on 6 L of nasal cannula. EYES: Pupils are equal, round, react to light accommodation. ENT showed tympanic membranes and pharynx to be negative. NECK: Supple with a midline trachea. Chest is essentially clear to auscultation. He has better left breath sounds in the left lower lung also and a pigtail catheter in the left lower lung. Heart is size is irregularly irregular of atrial fib with a heart rate in the 80s. ABDOMEN: Soft, nontender with no organomegaly. No palpable masses. Musculoskeletal: He has decreased strength for range of motion of both calves and thighs. He has good hand strength. He had obvious arthritis in the DIP and PIP joints of both hands. Allergy: Patient is having no problem. Does have a stuffed up nose. Vascular: Good palpable lower extremity pulses, especially posterior tibialis. Skin: He has no major changes since his skin as compared to before. X-RAY: Chest x-ray shows improvement and then basically unchanged from yesterday with minimal to no pleural pulmonary overload, cardiomegaly he does have unchanged pleural effusions and rheumatic changes. ASSESSMENT: 1. Multifocal pneumonia including positive gram-negative rods and pleural fluid on the left, acute. 2. Acute hypoxia with respiratory failure, maintained on 6 L of oxygen by nasal cannula. Pleural effusion, unchanged. 3. Left side loculated pleural effusion. Pigtail catheter receiving Ultraface 10-100 mils daily. 4. Diabetes type 2 with insulin control with no change in treatment. 5. Venous congestion and cardiomegaly with fluid overload, which is now responding well to Lasix. 6. Longstanding history of coronary artery disease, non ST elevation myocardial infarction. 7. History of coronary artery bypass, four vessels. 8. Paroxysmal atrial fib which is stable. 9. Chronic obstructive pulmonary disease. 10.Hypertension. 11.Hyperlipidemia. 12.Gastroesophageal reflux. He does have some anxiety neurosis. PLAN: Continue with the Lasix. Continue with the Ultraface. We are going to continue antibiotics accordingly, incentive spirometry at this period of time. He is planned mid week to have a thoracotomy with cardiothoracic surgery or at least decortication and we will continue GI and DVT prophylaxis. Still awaiting the microns and ticrons, chylomicron and triglyceride level in the pleural fluid to rule out possible thoracic trunk obstruction. Please refer to my orders. The patient is still in the ICU. Approximately 80 minutes in total time spent on this case. MMODL / IJN: [id number] /
[2017-07-07] MEDS: FERROUS SULFATE 325 MG TAB PO SCH (12:33)
[2017-07-07] MEDS: LEVOFLOXACIN 750 MG TAB PO SCH (12:33)
[2017-07-07] MEDS: ASCORBIC ACID 500 MG TAB PO SCH (12:33)
[2017-07-07 18:14] LABS: Glucose,Whole Blood 239 mg/dL (75-99)
[2017-07-07 20:58] LABS: Glucose,Whole Blood 282 mg/dL (75-99)
[2017-07-07] MEDS: HYDROmorphone 2 MG/ML 1 ML SYRINGE IVP PRN (22:37)
[2017-07-07] MEDS: INSULIN DETEMIR 100 UNIT/ML 10 ML VIAL SQ SCH (22:57)
[2017-07-08] MEDS: SODIUM CHLORIDE 0.9% 1,000 ML IV SCH ×2 (05:02→20:39)
[2017-07-08] MEDS: PIPERACILLIN-TAZOBACTAM 3.375 GM in DEXTROSE/WATER 1 50ML.BAG IVPB SCH ×3 (05:04→21:17)
[2017-07-08 06:06] LABS: Glucose,Whole Blood 99 mg/dL (75-99)
[2017-07-08 06:37] LABS: Anisocytosis Slight; Basophils # (A) 0.1 k/uL (0-0.2); Basophils % (A) 1 %; Eosinophils # (A) 0.4 k/uL (0-0.7); Eosinophils % (A) 3 %; HCT 32.5 % (39.0-53.0); Hypochromasia Marked; Lymphocytes # (A) 1.7 k/uL (1.0-4.8); Lymphocytes % (A) 13 %; MCH 21.8 pg (25.0-35.0); MCHC 27.8 g/dL (31.0-37.0); MCV 78.5 fL (80.0-100.0); Mean Platelet Volume 6.6; Microcytosis Slight; Monocytes # (A) 0.7 k/uL (0-1.0); Monocytes % (A) 5 %; Neutrophils # (A) 9.7 k/uL (1.3-7.7); Neutrophils % (A) 76 %; Platelet Count 692 k/uL (150-450); Poikilocytosis Slight; RBC 4.13 m/uL (4.30-5.90); RDW 17.6 % (11.5-15.5); WBC 12.7 k/uL (3.8-10.6)
[2017-07-08 06:42] LABS: ALT 116 U/L (21-72); AST 59 U/L (17-59); Albumin 2.5 g/dL (3.5-5.0); Alkaline Phosphatase 129 U/L (38-126); Anion Gap 6 mmol/L; Blood Urea Nitrogen 16 mg/dL (9-20); Calcium 9.1 mg/dL (8.4-10.2); Carbon Dioxide 33 mmol/L (22-30); Chloride 103 mmol/L (98-107); Glucose 86 mg/dL (74-99); Potassium 4.4 mmol/L (3.5-5.1); Sodium 142 mmol/L (137-145); Total Bilirubin 0.2 mg/dL (0.2-1.3); Total Protein 5.2 g/dL (6.3-8.2)
[2017-07-08] MEDS: IPRATROPIUM-ALBUTEROL 3 ML NEB INHALATION SCH ×4 (06:45→19:32)
[2017-07-08] MEDS ORDERED: ALTEPLASE 10 MG in SODIUM CHLORIDE 0.9% 100 ML IRRIGATION ONE (07:16)
--- NOTE | 2017-07-08 07:52 | XR ---
EXAMINATION TYPE: XR chest 1V DATE OF EXAM: 07/08/2017 HISTORY: Shortness of breath. COMPARISON: 07/07/2017 TECHNIQUE: Single view of the chest is submitted. FINDINGS: Persistent airspace disease throughout both lung colbert. Continued cardiomegaly and pulmonary venous congestion. Small effusions. Hilar and mediastinal structures are within normal limits. Degenerative changes are seen of the dorsal spine. IMPRESSION: 1. Stable chest.
[2017-07-08] MEDS: INSULIN ASPART 100 UNIT/ML 1 ML 10 ML VIAL SQ SCH ×7 (08:01→20:45)
[2017-07-08] MEDS: HEPARIN SODIUM,PORCINE 5,000 UNIT/ML 1 ML VIAL SQ SCH ×2 (08:15→20:45)
[2017-07-08] MEDS: SERTRALINE 100 MG TAB PO SCH (08:15)
[2017-07-08] MEDS: guaiFENesin 600 MG TABLET.ER PO SCH ×2 (08:15→20:44)
[2017-07-08] MEDS: AMIODARONE 200 MG TAB PO SCH (08:15)
[2017-07-08] MEDS: CLOPIDOGREL 75 MG TAB PO SCH (08:15)
[2017-07-08] MEDS: FUROSEMIDE 10 MG/ML 2 ML VIAL IV SCH (08:15)
[2017-07-08] MEDS: METOPROLOL TARTRATE 25 MG TAB PO SCH ×2 (08:15→20:44)
[2017-07-08] MEDS: ATORVASTATIN 40 MG TAB PO SCH (08:15)
[2017-07-08] MEDS: ASPIRIN 325 MG TAB PO SCH (08:15)
[2017-07-08] MEDS: PANTOPRAZOLE 40 MG TABLET PO SCH (08:15)
--- NOTE | 2017-07-08 08:21 | P.PN ---
Subjective Progress Note Date: 07/08/17 Principal diagnosis: Left-sided pleural effusion. History of urgent coronary artery bypass grafting on 05/22/2017, non-ST elevation myocardial infarction, hypertension, hyperlipidemia, insulin-dependent diabetes mellitus, anxiety, family history of premature coronary artery disease, COPD, obesity, paroxysmal atrial fibrillation , left sided thoracentesis on 05/30/2017 and left chest pigtail catheter placement with fluid culture positive for alpha hemolytic strep and enterococcus faecalis, and pneumonia requiring placement of PICC line for home IV antibiotic therapy. POD #5 ultrasound guided chest tube insertion (pigtail catheter). Pleural fluid anaerobic culture positive for prevotella melaninogenica, proprionibacterium acnes, beta-lactimase positive Patient's currently sitting up in bed in no acute distress. States he is still short of breath but does feel better every day. Denies pain. Oxygen requirements are being weaned down. Patient has had instillation of alteplase daily into his pigtail catheter. Objective - Vital Signs Vital signs: Vital Signs Temp 97.2 F L 07/08/17 04:00 Pulse 72 07/08/17 06:55 Resp 18 07/08/17 04:00 BP 119/69 07/08/17 04:00 Pulse Ox 96 07/08/17 04:00 Intake & Output 07/07/17 07/08/17 07/08/17 18:59 06:59 18:59 Intake Total 1700 1150 Output Total 1560 1330 Balance 140 -180 Weight 112 kg Intake: IV 740 1150 Magnesium Sulfate-D5w Pmx 200 1 gm In Dextrose/Water 1 100ml.bag @ 100 mls/hr IVPB Q1H [facility] Rx#: [id number] Piperacillin-Tazobactam 3 50 300 .375 gm In Dextrose/Water 1 50ml.bag @ 12.5 mls/hr IVPB Q8H [facility] Rx#: [id number] Sodium Chloride 0.9% 1, 240 600 000 ml @ 50 mls/hr IV . Q20H [facility] Rx#:[id number] Vancomycin 1,750 mg In 250 250 Sodium Chloride 0.9% 250 ml @ 125 mls/hr IVPB Q8H [facility] Rx#:[id number] Oral 960 Output: Chest Tube Drainage 60 30 Pigtail in left posterior 60 30 Back Urine 1500 1300 Other: Voiding Method Urinal Urinal # Voids 1 1 # Bowel Movements 1 - Constitutional General appearance: Present: cooperative, no acute distress, obese - Respiratory Details: Lungs sounds diminished bilaterally with coarse breath sounds in the left base. Respirations even, nonlabored. Currently on 6 L nasal cannula with oxygen saturation 96%. Only able to achieve 500 mL on his incentive spirometry. Left- sided pigtail catheter present, connected to atrium at -20 cm wall suction, 20 mL thin cloudy serous drainage overnight, 60 mL in the last 24 hours. - Cardiovascular Details: S1, S2 present. Regular rate and rhythm, sinus rhythm on telemetry. Sternum stable. Palpable peripheral pulses bilaterally. No edema present. No calf pain or tenderness noted. Left-sided peripherally inserted central catheter present. - Gastrointestinal Gastrointestinal Comment(s): Abdomen soft, nontender, nondistended. Active bowel sounds 4 quadrants. Tolerating diet. - Genitourinary Genitourinary Comment(s): Continues to void clear, yellow urine. - Integumentary Integumentary Comment(s): Skin warm, dry, pink with evidence of good perfusion. Sternal incision well healed. - Neurologic Neurologic: Present: CNII-XII intact - Musculoskeletal Musculoskeletal: Present: gait normal, strength equal bilaterally - Psychiatric Psychiatric: Present: A&O x's 3, appropriate affect, intact judgment & insight - Allied health notes Allied health notes reviewed: nursing - Labs CBC & Chem 7: 07/08/17 05:57 07/08/17 05:57 Labs: Abnormal Lab Results - Last 24 Hours (Table) 07/07/17 07/07/17 07/07/17 Range/Units 12:18 17:56 20:57 WBC (3.8-10.6) k/uL RBC (4.30-5.90) m/uL Hgb (13.0-17.5) gm/dL Hct (39.0-53.0) % MCV (80.0-100.0) fL MCH (25.0-35.0) pg MCHC (31.0-37.0) g/dL RDW (11.5-15.5) % Plt Count (150-450) k/uL Neutrophils # (1.3-7.7) k/uL Carbon Dioxide (22-30) mmol/L POC Glucose (mg/dL) 178 H 239 H 282 H (75-99) mg/dL ALT (21-72) U/L Alkaline Phosphatase (38-126) U/L Total Protein (6.3-8.2) g/dL Albumin (3.5-5.0) g/dL 07/08/17 07/08/17 Range/Units 05:57 05:57 WBC 12.7 H (3.8-10.6) k/uL RBC 4.13 L (4.30-5.90) m/uL Hgb 9.0 L (13.0-17.5) gm/dL Hct 32.5 L (39.0-53.0) % MCV 78.5 L (80.0-100.0) fL MCH 21.8 L (25.0-35.0) pg MCHC 27.8 L (31.0-37.0) g/dL RDW 17.6 H (11.5-15.5) % Plt Count 692 H (150-450) k/uL Neutrophils # 9.7 H (1.3-7.7) k/uL Carbon Dioxide 33 H (22-30) mmol/L POC Glucose (mg/dL) (75-99) mg/dL ALT 116 H (21-72) U/L Alkaline Phosphatase 129 H (38-126) U/L Total Protein 5.2 L (6.3-8.2) g/dL Albumin 2.5 L (3.5-5.0) g/dL Microbiology - Last 24 Hours (Table) 07/03/17 14:45 Anaerobic Culture - Final Pleural Fluid Prevotella melaninogenica Proprionibacterium acnes 07/03/17 14:45 Gram Stain - Final Pleural Fluid Body Fluid Culture - Final - Imaging and Cardiology Chest x-ray: report reviewed, image reviewed CT scan - chest: image reviewed Assessment and Plan (1) Hyperlipidemia Current Visit: Yes Status: Chronic Code(s): E78.5 - HYPERLIPIDEMIA, UNSPECIFIED SNOMED Code(s): 67228097 (2) History of myocardial infarction Current Visit: No Status: Resolved Code(s): I25.2 - OLD MYOCARDIAL INFARCTION SNOMED Code(s): 509970237 (3) Pneumonia Current Visit: Yes Status: Acute Code(s): J18.9 - PNEUMONIA, UNSPECIFIED ORGANISM SNOMED Code(s): 985734828 (4) Coronary artery disease Current Visit: No Status: Chronic Code(s): I25.10 - ATHSCL HEART DISEASE OF [place] CORONARY ARTERY W/O ANG PCTRS SNOMED Code(s): 42084628 (5) Status post coronary artery bypass grafting Current Visit: No Status: Resolved Code(s): Z95.1 - PRESENCE OF AORTOCORONARY BYPASS GRAFT SNOMED Code(s): 208094242 (6) Anxiety Current Visit: Yes Status: Chronic Code(s): F41.9 - ANXIETY DISORDER, UNSPECIFIED SNOMED Code(s): 92050903 (7) Diabetes mellitus type 2 in obese Current Visit: Yes Status: Chronic Code(s): E11.69 - TYPE 2 DIABETES MELLITUS WITH OTHER SPECIFIED COMPLICATION; E66.9 - OBESITY, UNSPECIFIED SNOMED Code(s): 87588153 (8) Hypertension Current Visit: Yes Status: Chronic Code(s): I10 - ESSENTIAL (PRIMARY) HYPERTENSION SNOMED Code(s): 19822188 (9) Obesity (BMI 30.0-34.9) Current Visit: Yes Status: Chronic Code(s): E66.9 - OBESITY, UNSPECIFIED SNOMED Code(s): 235301727 Plan: 1. Continue aspirin, statin, Plavix, amiodarone, Lasix, beta ewa. 2. Wean oxygen as tolerated. Encourage incentive spirometry use. 3. Antibiotics per infectious disease recommendations. 4. Will instill alteplase to pigtail catheter today, clamped for one hour then place back to low continuous wall suction. 5. Medical comorbidities per primary care service. 6. GI/DVT prophylaxis. 7. Increase activity, ambulate in hallway. 8. Will review computed tomography scan with Dr. Okeefe. 9. More recommendations to follow regarding possible thoracotomy with decortication. Time with Patient: Greater than 30
--- NOTE | 2017-07-08 08:33 | CT ---
EXAMINATION TYPE: CT chest wo con DATE OF EXAM: 07/08/2017 COMPARISON: 07/03/2017 HISTORY: 62-year-old male shortness of breath, evaluate for left lower lobe Pneumonia TECHNIQUE: Contiguous axial scanning of the chest without IV contrast. Coronal and sagittal reconstru ctions performed. CT DLP: 781.30 mGycm Automated exposure control for dose reduction was used. FINDINGS: There appears to be a left PICC line which is short, tip in the lower left brachiocephalic vein. Median sternotomy wires are present with post-CABG changes. Heart borderline enlarged with mild to moderate areas of pericardial fluid measuring up to 2 cm thick along the left heart margin. Increased from prior exam. Ascending aorta is ectatic at 3.7 cm. Conventional arch vessel branching anatomy. Mildly enlarged caliber to the main right and left pulmonary arteries at 2.7 cm each suggesting under lying pulmonary arterial hypertension. Previous right paratracheal lymph node measures 1.1 cm versus 1.3 cm, previously. Otherwise, no obvio us thoracic lymphadenopathy seen. 2.1 cm rounded lesion anterior left breast lateral to the nipple, axial image 37. Small right pleural effusion persists with a continued adjacent consolidation. Considerable improvement in the patient's previous left subpulmonic fluid collection with a pleural c atheter in place. Trace left posterior basilar effusion remains. The second pleural-based fluid collection along the lower major fissure measures 6.2 x 4.1 cm versus 4.7 x 4.3 cm, previously. Volume loss and consolidation partially opacifying the left lower lobe. Otherwise, the remaining upper midlungs show persistent but slightly improved confluent groundglass d ensities and septal lines. Visualized upper abdomen shows cholecystectomy clips and moderate scattered stool. Bones: Endplate spondylosis throughout and degenerative changes of the left shoulder. IMPRESSION: 1. LEFT BASILAR PLEURAL CATHETER IN PLACE WITH CONSIDERABLE DECREASE IN SIZE OF THE PATIENT'S PREVIOU S LEFT SUBPULMONIC FLUID COLLECTION. TRACE EFFUSION REMAINS HERE. PROMINENT PARTIAL ATELECTASIS AND R ESIDUAL CONSOLIDATION WITHIN THE LEFT LOWER LOBE. 2. THE SECOND PLEURAL-BASED COLLECTION ALONG THE LOWER LEFT MAJOR FISSURE SHOWS SLIGHT INTERVAL INCRE ASE IN SIZE NOW MEASURING 6.2 X 4.1 CM VERSUS 4.7 X 4.3 CM, PREVIOUSLY. 3. GROUNDGLASS AND INTERSTITIAL INFILTRATES IN THE UPPER MID LUNGS PERSIST BUT SHOW IMPROVEMENT FROM 07/03/2017. 4. SIMILAR SMALL RIGHT EFFUSION WITH ADJACENT AND OR CONSOLIDATION. 5. A 2.1 CM NODULE ANTERIOR LATERAL LEFT BREAST. POSSIBLE SEBACEOUS CYST. CORRELATE WITH PHYSICAL EXA M FINDINGS TO EXCLUDE A MASS HERE.
[2017-07-08] MEDS: HYDROmorphone 2 MG/ML 1 ML SYRINGE IVP PRN ×2 (10:25→20:45)
[2017-07-08] MEDS: VANCOMYCIN 1,750 MG in SODIUM CHLORIDE 0.9% 250 ML IVPB SCH (10:25)
[2017-07-08 11:37] LABS: Glucose,Whole Blood 130 mg/dL (75-99)
[2017-07-08] MEDS: ASCORBIC ACID 500 MG TAB PO SCH (12:16)
[2017-07-08] MEDS: LEVOFLOXACIN 750 MG TAB PO SCH (12:16)
[2017-07-08] MEDS: FERROUS SULFATE 325 MG TAB PO SCH (12:16)
--- NOTE | 2017-07-08 14:12 | P.PN ---
Subjective Progress Note Date: 07/08/17 62 year old male who presented to the emergency room on 06/30/2017 with a chief complaint of shortness of breath that was worsening in severity x 1 week. Patient states he was having sputum production that was initially clear in color and then progressed to a greenish/yellow. The patient has a history of chronic obstructive disease, diabetes mellitus, gastroesophageal reflux disease, hypertension, myocardial infarction, pneumonia , STEMI in May 2017 with heart catheterization. He underwent CABG 4 in May 2017. Postoperatively, he had persistant left sided pleural effusion and required thoracentesis on 05/30/2017. Cultures from pleural fluid were positive for alpha hemolytic strep and enterococcus faecalis. He had a PICC line placed and was discharged home with IV antibiotic infusions. In the emergency room, a chest x-ray was completed which revealed worsening and now completely opacification of the left hemothorax which may related to pleural effusion and/or multifocal pneumonia. Patchy alveolar opacities within the right lower lung are also seen. EKG revealed sinus tachycardia. He was febrile with a temperature of 102.0 in the emergency room. He was found to be hypoxic with an oxygen saturation of 82% on room air. He was also tachycardic with a heart rate in the low 100s. Laboratory studies revealed a white count of 20.7, hemoglobin 10.6, INR 1.3, sodium 139, potassium 4.7, BUN 17, creatinine 0.58, lactic acid 1.7, AST 56, PLT 123, and alkaline phosphatase 159. Urinalysis reveals 1+ protein but otherwise unremarkable. Testing for influenza A and B was negative. 07/01/2017 The patient was seen and examined at the bedside in the intensive care unit with Dr. bAreu. He appears short of breath at rest. He is currently wearing a nonrebreather mask. Maintaining oxygen saturations greater than 92%. He appears diaphoretic. Denies chest pain or pressure. Denies pain or discomfort. Urine culture is negative at the 18 hour jacquelyn. Blood cultures are negative at the 24 hour jacquelyn. His vital signs are relatively stable at this time. Consultations have been placed for infectious disease, pulmonology, and cardiovascular surgery. 07/02/2017 Patient seen and examined at the bedside in the ICU with Dr. Abreu. Patient is currently on Airvo on 65%. Oxygen saturations are greater than 92%. He is eating breakfast at this time. Denies nausea or vomiting. Chest xray this morning shows stable findings with diffuse bilateral left greater than right pneumonia. Blood culture is negative at 24 hour jacquelyn. Urine culture is positive for daya albicans. Infectious disease is following. Patient remains on Levaquin, Vanco, and Zosyn at this time. WBC today is 13.6. Hemoglobin is 8.7, down from 9.1 yesterday. Cardiothoracic surgery is following. Patient may require intervention for possible loculated pleural effusion. 07/03/2017 Patient seen and examined at the bedside on rounds with Dr. Abreu. Patient remains in intensive care unit. Chest x-ray from 07/03/2017 shows slight improved aeration of the left upper lung with persistent confluent multifocal P cities representing multifocal pneumonia. He underwent a ultrasound of the chest on 07/02/2017 which revealed findings suggestive of a loculated effusion. Case discussed with Janelle Chambers NP with pulmonology who states that patient is likely to undergo pigtail catheter insertion in the left pleural space with infusion of TPA. Patient states that cardiothoracic surgery also mentioned thoracotomy as an option if TPA does not resolve the loculated effusion. The patient states he is feeling better today. He feels as though his shortness of breath is improving. He remains on AIRVO at 50% Fio2. He remains afebrile. Blood pressure has been stable. His white count is trending upward and is 17.0 today from 13.6 yesterday. Infectious disease remains on consult. He is currently receiving vancomycin, Levaquin, and Zosyn. 07/04/2017 Patient seen and examined in the bedside in the intensive care unit. He is sitting up in the chair. is at the bedside. He is about to work with physical therapy. He received a dose of 20mg lasix IV this morning per Dr. Abreu. He is diuresing well. His breathing seems to be improved today and he states he is less short of breath. He is no longer requiring Airvo. He is on 8L high flow NC. He underwent pigtail catheter insertion yesterday to left pleural space with a dose of TPA yesterday and today. Upon examination, there is 800 mL of purulent drainage in the chest tube. His states that they spoke with Dr. Okeefe today and he recommended patient undergo thoracotomy. WBC is 15.9 today, down from 17.0. He is afebrile. Infectious disease is on consult. He remains on vancomycin, Levaquin, and Zosyn. Pleural fluid has been cultured and results are currently pending. 07/05/2017 Patient seen and examined at the bedside in the intensive care unit. Chest xray this morning shows findings compatible with pneumonia and empyema. Also reveals possible for volume overload and congestive heart failure. Patients blood sugars were elevated in the 200s yesterday. His lantus was increased from 25 units to 30 units. His novolog with meals was increased form 8 units to 10 units. His serum blood glucose was 105 this morning. His first capillary glucose this morning was 325 and then repeat approximately 15 minutes later was 117. Spoke with nursing who states that patient only had a few bites of eggs and did not eat anything that would have caused his blood sugar to spike that high. She states she checked it on his other hand and it was 117. Suspect reading of 325 was in error. Patient received 3rd dose of TPA into pigtail catheter. Pigtail catheter remains intact to chest tube atrium. Yellowish purulent drainage present. Total drainage thus far in atrium is 1050cc. Preliminary cultures from pleural fluid are negative at the 24 hour jacquelyn. He has been working with therapy and states he ambulated twice yesterday. 07/06/2017-Notes per Dr. Abreu 07/07/2017-Notes per Dr. Abreu 07/08/2017 Patient seen and examined at the bedside. Patient has been transferred out of the intensive care unit to the selective care unit. Patients at bedside. Patient underwent CT of the chest this morning which revealed decreased in size of left subpulmonic fluid collection with a trace pleural effusion remaining. A second pleural-based collection along the lower left major fissure shows increase in size, approximately 6 x 4 cm, ground glass and interstitial infiltrates in the upper mid lungs, small right pleural effusion, and 2.1 cm nodule lateral to the left breast which may be a possible sebaceous cyst. Patient remains on 6 L nasal cannula with oxygen saturations greater than 92%. Patient states his breathing has improved and he denies shortness of breath. Patient's states this morning during TPA administration into the pigtail catheter there was leakage present. Patients states cardiothoracic surgery is to assess patency of tube this afternoon. 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 Per patients , no definite plans regarding decortication. Patient states he has been up to the chair daily, but has not been up yet this morning secondary to his CT scan. Patient states he is voiding without difficulty. He states he had 3 bowel movements yesterday. Denies abdominal pain. Denies nausea or vomiting. Objective - Vital Signs Vital signs: Vital Signs Temp 97.3 F L 07/08/17 08:00 Pulse 75 07/08/17 10:59 Resp 18 07/08/17 08:00 BP 131/73 07/08/17 08:00 Pulse Ox 96 07/08/17 08:00 Intake & Output 07/07/17 07/08/17 07/08/17 18:59 06:59 18:59 Intake Total 1700 1150 340 Output Total 1560 1330 Balance 140 -180 340 Weight 112 kg Intake: IV 740 1150 Magnesium Sulfate-D5w Pmx 200 1 gm In Dextrose/Water 1 100ml.bag @ 100 mls/hr IVPB Q1H [facility] Rx#: [id number] Piperacillin-Tazobactam 3 50 300 .375 gm In Dextrose/Water 1 50ml.bag @ 12.5 mls/hr IVPB Q8H [facility] Rx#: [id number] Sodium Chloride 0.9% 1, 240 600 000 ml @ 50 mls/hr IV . Q20H [facility] Rx#:[id number] Vancomycin 1,750 mg In 250 250 Sodium Chloride 0.9% 250 ml @ 125 mls/hr IVPB Q8H [facility] Rx#:[id number] Oral 960 340 Output: Chest Tube Drainage 60 30 Pigtail in left posterior 60 30 Back Urine 1500 1300 Other: Voiding Method Urinal Urinal # Voids 1 1 # Bowel Movements 1 - Exam GENERAL: This is a 62-year-old male who appears comfortable and in no acute distress at the time of examination. Pleasant and cooperative. HEENT: Head is atraumatic, normocephalic. Pupils are equal, round, and reactive to light. Sclerae anicteric. Conjunctivae are clear. Mucus membranes of the mouth are moist. Neck is supple. RESPIRATORY: Lungs diminished throughout. No wheezing noted. Left posterior pigtail catheter intact connected to atrium. No use of accessory muscles. Patient maintaining oxygen saturation greater than 92% on 6 L NC. No chest wall tenderness is noted on palpation or with deep breathing. CARDIOVASCULAR: Regular rate and rhythm. S1 and S2 noted. No systolic or diastolic murmur auscultated. No JVD noted. No S3 or S4 noted. GASTROINTESTINAL: No distention noted. Abdomen soft and round. Normal active bowel sounds auscultated x 4 quadrants. No pain or tenderness noted upon palpation. INTEGUMENTARY: Midline chest incision without drainage or erythema. No cyanosis. No jaundice. No rashes noted. No cellulitis noted. EXTREMITIES: 2+ peripheral pulses. No peripheral edema. No calf tenderness noted. NEUROLOGIC: Cranial nerves II-XII intact. PSYCHIATRIC: Awake, alert, and oriented X 3. Flat affect. - Labs CBC & Chem 7: 07/08/17 05:57 07/08/17 05:57 Labs: Abnormal Lab Results - Last 24 Hours (Table) 07/07/17 07/07/17 07/07/17 Range/Units 12:18 17:56 20:57 WBC (3.8-10.6) k/uL RBC (4.30-5.90) m/uL Hgb (13.0-17.5) gm/dL Hct (39.0-53.0) % MCV (80.0-100.0) fL MCH (25.0-35.0) pg MCHC (31.0-37.0) g/dL RDW (11.5-15.5) % Plt Count (150-450) k/uL Neutrophils # (1.3-7.7) k/uL Carbon Dioxide (22-30) mmol/L POC Glucose (mg/dL) 178 H 239 H 282 H (75-99) mg/dL ALT (21-72) U/L Alkaline Phosphatase (38-126) U/L Total Protein (6.3-8.2) g/dL Albumin (3.5-5.0) g/dL 07/08/17 07/08/17 Range/Units 05:57 05:57 WBC 12.7 H (3.8-10.6) k/uL RBC 4.13 L (4.30-5.90) m/uL Hgb 9.0 L (13.0-17.5) gm/dL Hct 32.5 L (39.0-53.0) % MCV 78.5 L (80.0-100.0) fL MCH 21.8 L (25.0-35.0) pg MCHC 27.8 L (31.0-37.0) g/dL RDW 17.6 H (11.5-15.5) % Plt Count 692 H (150-450) k/uL Neutrophils # 9.7 H (1.3-7.7) k/uL Carbon Dioxide 33 H (22-30) mmol/L POC Glucose (mg/dL) (75-99) mg/dL ALT 116 H (21-72) U/L Alkaline Phosphatase 129 H (38-126) U/L Total Protein 5.2 L (6.3-8.2) g/dL Albumin 2.5 L (3.5-5.0) g/dL Microbiology - Last 24 Hours (Table) 07/03/17 14:45 Anaerobic Culture - Final Pleural Fluid Prevotella melaninogenica Proprionibacterium acnes 07/03/17 14:45 Gram Stain - Final Pleural Fluid Body Fluid Culture - Final Assessment and Plan Plan: ASSESSMENT: Multifocal pneumonia, present on admission, sputum culture reveals normal respiratory aaron Acute hypoxic respiratory failure requiring supplemental oxygen, secondary to above Left side loculated pleural effusion, s/p left pigtail catheter insertion and TPA administration, 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 acnes Venous congestion and cardiomegaly with fluid overload, improved with IV Lasix Diabetes mellitus, type II, hemoglobin A1c 5.7% Coronary artery disease with previous myocardial infarction History of coronary artery bypass grafting 4 vessels History of left side pleural effusion requiring thoracentesis and empyema requiring pigtail drainage catheter with cultures positive for alpha hemolytic strep and enterococcus faecalis History of paroxysmal atrial fibrillation Chronic obstructive pulmonary disease Essential hypertension Hyperlipidemia Gastroesophageal reflux disease Anxiety, unspecified Obesity: BMI 31.2 PLAN: -Cardiothoracic surgery on consult. Appreciate recommendations and input -Await further input regarding pigtail catheter and possible thoracotomy/ decortication -Continuum Of Care Manager on consult. Appreciate recommendations and input -Infectious disease on consult. Appreciate recommendations and input -Antibiotics per infectious disease: Currently on Vancomycin, Levaquin, and Zosyn -Incentive spirometer 10 times an hour while awake -Activity as tolerated. Encourage ambulation -Up to chair daily -Capillary blood glucose accu-checks AC/HS -Novolog sliding scale coverage -Increase Novolog 12 units with meals and 32 units Lantus at HS -Home meds as appropriate -Monitor labs -GI prophylaxis: Protonix 40mg PO daily -DVT prophylaxis: Heparin 5000 units subcu every 12 hours -Monitor vital signs and address as appropriate -Discharge planning: Patient may require home care or ECF at the time of discharge depending on patients clinical course -Further recommendations pending patient's course Nurse practitioner note has been reviewed by physician. Signing provider agrees with the documented findings, assessment, and plan of care.
[2017-07-08 16:32] LABS: Glucose,Whole Blood 100 mg/dL (75-99)
--- NOTE | 2017-07-08 16:47 | P.PN ---
Subjective Progress Note Date: 07/08/17 Principal diagnosis: Acute hypoxic respiratory failure, secondary to left lung pneumonia and pleural effusion Progress note dated 07/02/2017 The patient continues to improve slowly. Radiographically, his chest x-ray has not changed all that much. Certainly not worse. Currently the patient is on the AIRVO at 65 L/m. He's had a saline IV at 50 mL an hour. The patient has a history of bilateral pneumonia with sepsis a history of asthma, diabetes, gastroesophageal reflux disease, hypertension, myocardial infarction and pneumonia. He also has a history of recent bypass grafting back on 05/22/[address] segment elevation myocardial infarction and legionnaires disease. He is a lifelong nonsmoker. His primary care physician is Dr. Gary Abreu. The patient apparently had a computed tomography scan late yesterday. I have not looked at it as yet. My partner expresses some concerns that he may have a loculated pleural effusion which need something more significantly done such as decortication. On 07/03/2017 patient remains in intensive care. Still requiring high flow nasal cannula, remains on AIRVO at FiO2 of 50% and 40 L/m flow. Afebrile, hemodynamically stable. Today's chest x-ray shows slight improvement in the aeration of the left upper lung with persistent confluent multifocal opacities representing multifocal pneumonia. Yesterday we have obtained a chest ultrasound to evaluate the complex and loculated left pleural effusion in the background of extensive left lung pneumonia. This was discussed with the interventional radiologist and cardiothoracic surgery. CT surgery feels the patient with benefit from a pigtail catheter insertion in the left pleural space and infusion of TPA over the next few days. This was discussed with the radiologist, who recommended getting a CT chest with contrast today. Otherwise patient is fairly comfortable, in no acute distress, respirations are shallow and tachypneic with a rate in the 30s. He is awake alert, tolerating a regular diet. His lab work shows upward trend of his WBCs, up to 17, hemoglobin is 9.0 , renal profile is stable, within normal limits no significant electrolyte abnormality. Blood and sputum culture show no growth, urine culture is positive for Vera albicans. ID service is on. Is on a combination of Levaquin, Zosyn and vancomycin. Currently not requiring any vasopressor support. On 07/04/2017 patient is seen in follow-up in intensive care unit. He is status post left pleural pigtail chest tube insertion with TPA infusion on 07/03. Patient had round 400 cc of milky yellow, purulent drainage in the atrium collection chamber since insertion. Clinically patient denies any acute distress, FiO2 was weaned down to 8 L per high flow nasal cannula. Blood sputum cultures remain negative, urine culture shows Vera albicans, pleural fluid culture was sent for culture as well and is pending. Patient will have another infusion of alteplase today per cardiothoracic surgery. Continues on empiric antibiotics with Levaquin, Zosyn and vancomycin. His IV fluids are 0.9 normal saline at 50 ML per hour. Patient's tolerating oral intake, on regular diet. Up in a chair, tolerating it well. Overall continues to significantly improve. On 07/08/2017 patient seen in follow-up on selective care unit. CT chest from this morning has been reviewed, shows left basilar pleural catheter in place with considerable decrease in size of the patient's previous left subpulmonic fluid collection, trace effusion remains. Permanent partial atelectasis and residual consolidation within the left lower lobe.(Second pleural-based collection along the lower left. She shows slight interval increase in size, ground glass and interstitial infiltrates in the midline is persistent show improvement from previous CT chest. Patient's left-sided pigtail has been noted to have moved, daily TPA infusions. There is small amount of serosanguineous drainage noted from the pigtail chest tube. He is afebrile, FiO2 is currently down to 6 L per high flow nasal cannula, vital signs are stable. Lung sounds are diminished, with a few scattered rales at left base. Cardiothoracic surgery has previously discussed decortication surgery left lung. Continue antibiotics per infectious disease recommendations. Continue encouraging incentive spirometry, increase activity as tolerated. Objective - Vital Signs Vital signs: Vital Signs Temp 97 F L 07/08/17 16:00 Pulse 75 07/08/17 16:00 Resp 18 07/08/17 16:00 BP 110/67 07/08/17 16:00 Pulse Ox 99 07/08/17 16:00 Intake & Output 07/07/17 07/08/17 07/08/17 18:59 06:59 18:59 Intake Total 1700 1150 958 Output Total 1560 1330 200 Balance 140 -180 758 Weight 112 kg Intake: IV 740 1150 250 Magnesium Sulfate-D5w Pmx 200 1 gm In Dextrose/Water 1 100ml.bag @ 100 mls/hr IVPB Q1H [facility] Rx#: [id number] Piperacillin-Tazobactam 3 50 300 .375 gm In Dextrose/Water 1 50ml.bag @ 12.5 mls/hr IVPB Q8H [facility] Rx#: [id number] Sodium Chloride 0.9% 1, 240 600 250 000 ml @ 50 mls/hr IV . Q20H [facility] Rx#:[id number] Vancomycin 1,750 mg In 250 250 Sodium Chloride 0.9% 250 ml @ 125 mls/hr IVPB Q8H [facility] Rx#:[id number] Intake, IV Titration 250 Amount Vancomycin 1,750 mg In 250 Sodium Chloride 0.9% 250 ml @ 125 mls/hr IVPB Q12H [facility] Rx#:[id number] Oral [id number] Output: Chest Tube Drainage 60 30 Pigtail in left posterior 60 30 Back Urine 1500 1300 200 Other: Voiding Method Urinal Urinal # Voids 1 1 # Bowel Movements 1 - Exam No acute distress, oriented 3. Patient currently on supplemental oxygen via high flow. HEENT examination is grossly unremarkable. Mucous membranes are moist. No oral lesions. Neck supple. Full range of motion. No adenopathy thyromegaly or neck vein distention. Cardiovascular examination reveals regular rhythm rate. S1-S2 normal. No S3 or S4. No discernible murmur noted. Lungs reveal a few bilateral rhonchi. Breath sounds show diminished air entry over left lower base, clear on the right. A few crackles are present over right lower lobe, No wheezes. There is a left posterior chest wall pleural pigtail chest tube connected to a atrium, with sero-sanguineous output Abdomen soft bowel sounds are heard. No masses or tenderness. Extremities are intact. No cyanosis clubbing or edema. Skin is without rash or lesion. Neurologic examination is brief but nonfocal - Labs CBC & Chem 7: 07/08/17 05:57 07/08/17 05:57 Labs: Abnormal Lab Results - Last 24 Hours (Table) 07/07/17 07/07/17 07/08/17 Range/Units 17:56 20:57 05:57 WBC (3.8-10.6) k/uL RBC (4.30-5.90) m/uL Hgb (13.0-17.5) gm/dL Hct (39.0-53.0) % MCV (80.0-100.0) fL MCH (25.0-35.0) pg MCHC (31.0-37.0) g/dL RDW (11.5-15.5) % Plt Count (150-450) k/uL Neutrophils # (1.3-7.7) k/uL Carbon Dioxide 33 H (22-30) mmol/L POC Glucose (mg/dL) 239 H 282 H (75-99) mg/dL ALT 116 H (21-72) U/L Alkaline Phosphatase 129 H (38-126) U/L Total Protein 5.2 L (6.3-8.2) g/dL Albumin 2.5 L (3.5-5.0) g/dL 07/08/17 07/08/17 Range/Units 05:57 11:33 WBC 12.7 H (3.8-10.6) k/uL RBC 4.13 L (4.30-5.90) m/uL Hgb 9.0 L (13.0-17.5) gm/dL Hct 32.5 L (39.0-53.0) % MCV 78.5 L (80.0-100.0) fL MCH 21.8 L (25.0-35.0) pg MCHC 27.8 L (31.0-37.0) g/dL RDW 17.6 H (11.5-15.5) % Plt Count 692 H (150-450) k/uL Neutrophils # 9.7 H (1.3-7.7) k/uL Carbon Dioxide (22-30) mmol/L POC Glucose (mg/dL) 130 H (75-99) mg/dL ALT (21-72) U/L Alkaline Phosphatase (38-126) U/L Total Protein (6.3-8.2) g/dL Albumin (3.5-5.0) g/dL Microbiology - Last 24 Hours (Table) 07/03/17 14:45 Anaerobic Culture - Final Pleural Fluid Prevotella melaninogenica Proprionibacterium acnes 07/03/17 14:45 Gram Stain - Final Pleural Fluid Body Fluid Culture - Final Assessment and Plan Plan: Assessment: #1. Acute hypoxic respiratory failure secondary to extensive left lung multifocal pneumonia and left pleural effusion, present on admission. Patient is status post left pigtail pleural chest tube catheter insertion, with TPA infusions. Pleural fluid cultures positive for Prevotella melaninogenica and Proprionibacterium acnes. #2. Sepsis, with leukocytosis and fever, secondary to the above #3. History of left-sided pleural effusion requiring thoracentesis and empyema requiring pigtail drainage catheter and cultures positive for alphahemolytic strep and enterococcus faecalis #4. Coronary artery disease, status post 4 vessel coronary artery bypass grafting #5. COPD #6. Essential hypertension #7. Hyperlipidemia #8. GERD #9. Anxiety #10. Obesity Plan: Pleural fluid cultures are positive for anaerobic species, Prevotella melaninogenica, Proprionbacterium acnes, antibiotics per ID service. Incentive spirometry, nebulized treatments, will follow with cardiothoracic surgery regarding management of the pig tail catheter. I performed a history & physical examination of the patient and discussed their management with my nurse practitioner, Janelle Chambers. I reviewed the nurse practitioner's note and agree with the documented findings and plan of care. Lung sounds are diminished air entry over left lower lobe, a few scattered rales over right lower lobe. The findings and the impression was discussed with the patient. I attest to the documentation by the nurse practitioner. Time with Patient: Less than 30
[2017-07-08] MEDS: ALPRAZolam 0.25 MG TAB PO PRN (17:33)
--- NOTE | 2017-07-08 18:56 | P.PN ---
Subjective Progress Note Date: 07/08/17 Principal diagnosis: Shortness of breath This is a 62 year old male presented to hospital on 05/21/2017 with chest pain and found to have acute myocardial infarction. Heart catheterization found evidence of multivessel coronary artery disease and he is status post coronary artery bypass grafting procedure. He said difficulties postoperatively with bleeding to require somewhat protracted ventilation. He did require repeat surgery for control of the bleeding. He developed cardiac dysrhythmia with atrial fibrillation requiring amiodarone treatment. The patient also developed difficulties with his left chest. A large fluid collection was found and he underwent thoracentesis he was having some difficulty with shortness of breath and consequently further imaging was performed. Computed tomography scan showed evidence of the left lower lobe infiltration as well as some right upper lobe infiltrate. Because of and leukocytosis the infectious diseases consultation was requested. He required placement of percutaneous drainage of the empyema. He was eventually stabilized and discharged home on June 07. He was continued on IV antibioticsat an [facility] office on a daily basis for enterococcus and alpha hemolytic strep empyema. Patient last saw Dr. Nixon on Saturday any extended IV antibiotic therapy for another week. Patient states he was feeling fine when he was in the office on Saturday and also on Saturday. But on Saturday morning he started coughing around 3 in the morning and was clear sputum production the change to yellow and he felt exhausted. He was having difficulty breathing and his called Dr. Nixon recommended that he come into the evaluated. EMS was called and patient was transferred to [facility] emergency center. Chest x-ray initially showed worsening of bilateral pneumonias, cardiomegaly and left pleural effusion. Repeat chest x- ray showed worsening and near complete obesity of the left hemithorax, pleural effusion and multifocal pneumonia in differential. Patchy alveolar opacity within the right lower lobe. He was found to be febrile which he denied having any fevers chills or rigors at home. His pulse ox was down to 82% and he was hypotensive. White count was elevated at 20.7 but improved to 13.5. ALT was 123 and alkaline phosphatase 159. Albumin is 3. Urinalysis was clear, protein 1+, nitrate and leukoesterase negative. Urine culture is in progress. Blood culture and sputum culture status received. Influenza testing was negative. ALT is 123 and alkaline phosphatase 159. Albumin is 3. Patient has been admitted into the intensive care unit. He has not required vasopressors. Consult in place with pulmonary medicine and CAT scan of the chest has been ordered. Consult in place with cardiothoracic surgery. Computed tomography scan as noted showing evidence of near collapse of left lung. Ultrasound has been performed showing and the complex fluid Radiology has now placed pigtail catheter and 20 mL of grossly purulent material was sent to the laboratory for culture and tube continues to drain. Patient is off of the high flow oxygen remains on 6 L nasal cannula at this time. He does feel slightly improved. Has been up and walking a bit. Altepase has been placed into the pleural space and is being monitored. He has been followed by the cardiothoracic surgeon. We'll likely have his thoracotomy performed tomorrow. Objective - Vital Signs Vital signs: Vital Signs Temp 97 F L 07/08/17 16:00 Pulse 75 07/08/17 16:00 Resp 18 07/08/17 16:00 BP 110/67 07/08/17 16:00 Pulse Ox 99 07/08/17 16:00 Intake & Output 07/07/17 07/08/17 07/08/17 18:59 06:59 18:59 Intake Total 1700 1150 1076 Output Total 1560 1330 200 Balance 140 -180 876 Weight 112 kg Intake: IV 740 1150 250 Magnesium Sulfate-D5w Pmx 200 1 gm In Dextrose/Water 1 100ml.bag @ 100 mls/hr IVPB Q1H [facility] Rx#: [id number] Piperacillin-Tazobactam 3 50 300 .375 gm In Dextrose/Water 1 50ml.bag @ 12.5 mls/hr IVPB Q8H [facility] Rx#: [id number] Sodium Chloride 0.9% 1, 240 600 250 000 ml @ 50 mls/hr IV . Q20H [facility] Rx#:[id number] Vancomycin 1,750 mg In 250 250 Sodium Chloride 0.9% 250 ml @ 125 mls/hr IVPB Q8H [facility] Rx#:[id number] Intake, IV Titration 250 Amount Vancomycin 1,750 mg In 250 Sodium Chloride 0.9% 250 ml @ 125 mls/hr IVPB Q12H [facility] Rx#:[id number] Oral 960 576 Output: Chest Tube Drainage 60 30 Pigtail in left posterior 60 30 Back Urine 1500 1300 200 Other: Voiding Method Urinal Urinal # Voids 1 1 # Bowel Movements 1 - Exam Gen: This is a 62-year-old male patient sitting up in the ICU bed and mild to moderate respiratory distress with nonrebreather in place. HEENT: Head is atraumatic, normocephalic. Pupils equal, round. Sclerae is anicteric. Junk developed pink. Mucous membranes of the mouth are somewhat dry. White coating on his tongue noted. NECK: Supple. No JVD. No lymphadenopathy. No thyromegaly. LUNGS: Right chest with good air entry with few crackles at the base. Left chest with markedly diminished air entry. Only few crackles are heard in the left upper zone. Dullness is noted to the left base with egophony. HEART: Regular rate and rhythm. No murmur. ABDOMEN: Soft. Bowel sounds are present. No masses. No tenderness. EXTREMITIES: No pedal edema. No calf tenderness. Dorsalis pedis +2 bilaterally. NEUROLOGICAL: Patient is awake, alert and oriented x3. - Labs CBC & Chem 7: 07/08/17 05:57 07/08/17 05:57 Labs: Abnormal Lab Results - Last 24 Hours (Table) 07/07/17 07/08/17 07/08/17 Range/Units 20:57 05:57 05:57 WBC 12.7 H (3.8-10.6) k/uL RBC 4.13 L (4.30-5.90) m/uL Hgb 9.0 L (13.0-17.5) gm/dL Hct 32.5 L (39.0-53.0) % MCV 78.5 L (80.0-100.0) fL MCH 21.8 L (25.0-35.0) pg MCHC 27.8 L (31.0-37.0) g/dL RDW 17.6 H (11.5-15.5) % Plt Count 692 H (150-450) k/uL Neutrophils # 9.7 H (1.3-7.7) k/uL Carbon Dioxide 33 H (22-30) mmol/L POC Glucose (mg/dL) 282 H (75-99) mg/dL ALT 116 H (21-72) U/L Alkaline Phosphatase 129 H (38-126) U/L Total Protein 5.2 L (6.3-8.2) g/dL Albumin 2.5 L (3.5-5.0) g/dL 07/08/17 07/08/17 Range/Units 11:33 16:30 WBC (3.8-10.6) k/uL RBC (4.30-5.90) m/uL Hgb (13.0-17.5) gm/dL Hct (39.0-53.0) % MCV (80.0-100.0) fL MCH (25.0-35.0) pg MCHC (31.0-37.0) g/dL RDW (11.5-15.5) % Plt Count (150-450) k/uL Neutrophils # (1.3-7.7) k/uL Carbon Dioxide (22-30) mmol/L POC Glucose (mg/dL) 130 H 100 H (75-99) mg/dL ALT (21-72) U/L Alkaline Phosphatase (38-126) U/L Total Protein (6.3-8.2) g/dL Albumin (3.5-5.0) g/dL Microbiology - Last 24 Hours (Table) 07/03/17 14:45 Anaerobic Culture - Final Pleural Fluid Prevotella melaninogenica Proprionibacterium acnes 07/03/17 14:45 Gram Stain - Final Pleural Fluid Body Fluid Culture - Final Laboratory Results WBC 12.7 k/uL (3.8-10.6) H 07/08/17 05:57 RBC 4.13 m/uL (4.30-5.90) L 07/08/17 05:57 Hgb 9.0 gm/dL (13.0-17.5) L 07/08/17 05:57 Hct 32.5 % (39.0-53.0) L 07/08/17 05:57 MCV 78.5 fL (80.0-100.0) L 07/08/17 05:57 MCH 21.8 pg (25.0-35.0) L 07/08/17 05:57 MCHC 27.8 g/dL (31.0-37.0) L 07/08/17 05:57 RDW 17.6 % (11.5-15.5) H 07/08/17 05:57 Plt Count 692 k/uL (150-450) H 07/08/17 05:57 Neutrophils % 76 % 07/08/17 05:57 Lymphocytes % 13 % 07/08/17 05:57 Monocytes % 5 % 07/08/17 05:57 Eosinophils % 3 % 07/08/17 05:57 Basophils % 1 % 07/08/17 05:57 Neutrophils # 9.7 k/uL (1.3-7.7) H 07/08/17 05:57 Lymphocytes # 1.7 k/uL (1.0-4.8) 07/08/17 05:57 Monocytes # 0.7 k/uL (0-1.0) 07/08/17 05:57 Eosinophils # 0.4 k/uL (0-0.7) 07/08/17 05:57 Basophils # 0.1 k/uL (0-0.2) 07/08/17 05:57 Hypochromasia Marked 07/08/17 05:57 Poikilocytosis Slight 07/08/17 05:57 Anisocytosis Slight 07/08/17 05:57 Microcytosis Slight 07/08/17 05:57 PT 12.1 sec (9.0-12.0) H 06/30/17 10:34 INR 1.3 (<1.2) H 06/30/17 10:34 APTT 23.4 sec (22.0-30.0) 06/30/17 10:34 Sodium 142 mmol/L (137-145) 07/08/17 05:57 Potassium 4.4 mmol/L (3.5-5.1) 07/08/17 05:57 Chloride 103 mmol/L (98-107) 07/08/17 05:57 Carbon Dioxide 33 mmol/L (22-30) H 07/08/17 05:57 Anion Gap 6 mmol/L 07/08/17 05:57 BUN 16 mg/dL (9-20) 07/08/17 05:57 Creatinine 0.70 mg/dL (0.66-1.25) 07/08/17 05:57 Est GFR (MDRD) Af Amer >60 (>60 ml/min/1.73 sqM) 07/08/17 05:57 Est GFR (MDRD) Non-Af >60 (>60 ml/min/1.73 sqM) 07/08/17 05:57 Glucose 86 mg/dL (74-99) 07/08/17 05:57 POC Glucose (mg/dL) 100 mg/dL (75-99) H 07/08/17 16:30 POC Glu [employer] Mi Hernandez 07/08/17 16:[address] Glu mg/dL 117 06/30/17 10:34 Hemoglobin A1c 5.7 % (4.0-6.0) 06/30/17 10:34 Plasma Lactic Acid Kashif 1.7 mmol/L (0.7-2.0) 06/30/17 10:34 Calcium 9.1 mg/dL (8.4-10.2) 07/08/17 05:57 Phosphorus 3.6 mg/dL (2.5-4.5) 07/05/17 04:00 Magnesium 2.0 mg/dL (1.6-2.3) 07/08/17 05:57 Total Bilirubin 0.2 mg/dL (0.2-1.3) 07/08/17 05:57 AST 59 U/L (17-59) 07/08/17 05:57 ALT 116 U/L (21-72) H 07/08/17 05:57 Alkaline Phosphatase 129 U/L (38-126) H 07/08/17 05:57 Total Protein 5.2 g/dL (6.3-8.2) L 07/08/17 05:57 Albumin 2.5 g/dL (3.5-5.0) L 07/08/17 05:57 TSH 1.800 mIU/L (0.465-4.680) 07/03/17 04:31 Free T4 1.55 ng/dL (0.78-2.19) 07/03/17 04:31 Urine Color Yellow 06/30/17 10:34 Urine Appearance Clear (Clear) 06/30/17 10:34 Urine pH 5.0 (5.0-8.0) 06/30/17 10:34 Ur Specific [place] 1.021 (1.001-1.035) 06/30/17 10:34 Urine Protein 1+ (Negative) H 06/30/17 10:34 Urine Glucose (UA) Negative (Negative) 06/30/17 10:34 Urine Ketones Negative (Negative) 06/30/17 10:34 Urine Blood Negative (Negative) 06/30/17 10:34 Urine Nitrite Negative (Negative) 06/30/17 10:34 Urine Bilirubin Negative (Negative) 06/30/17 10:34 Urine Urobilinogen <2.0 mg/dL (<2.0) 06/30/17 10:34 Ur Leukocyte Esterase Negative (Negative) 06/30/17 10:34 Urine RBC 1 /hpf (0-5) 06/30/17 10:34 Urine WBC <1 /hpf (0-5) 06/30/17 10:34 Urine Mucus Few /hpf (None) H 06/30/17 10:34 Vancomycin Trough 27.1 ug/mL 07/07/17 09:40 Influenza Type A RNA Not Detected (Not Detectd) 06/30/17 10:34 Influenza Type B (PCR) Not Detected (Not Detectd) 06/30/17 10:34 Microbiology 07/03/17 14:45 Pleural Fluid Anaerobic Culture - Final Prevotella melaninogenica Proprionibacterium acnes 07/03/17 14:45 Pleural Fluid Gram Stain - Final 07/03/17 14:45 Pleural Fluid Body Fluid Culture - Final 06/30/17 10:34 Blood Blood Culture - Final No Growth after 144 hours 07/01/17 07:50 Sputum Gram Stain - Final 07/01/17 07:50 Sputum Sputum Culture - Final 06/30/17 10:34 Urine,Voided Urine Culture - Final Vera albicans Assessment and Plan (1) Pleural effusion on left Narrative/Plan: 62-year-old male with status post coronary artery bypass grafting procedure without difficulty significant infection of his left chest after surgery. Has been receiving a course of intravenous antibiotic therapy with ertapenem for coverage of the pathogens. Has not had a marked worsening of his status requiring hospitalization. His oxygenation is improved and he is no longer on the high flow oxygen but is on 6 L nasal cannula. Feeling somewhat better today. He still however has shortness of breath. Appetite is improved. Fever is improved. He is being available by pulmonary critical care and cardiothoracic surgery. Computed tomography scan ultrasound are noted. Patient is on a plethora of antibiotics at this time pending further culture data given his failure of ertapenem. Does have some mild improvement but does not still feel well. Patient will have a thoracotomy tomorrow with decortication to fill out resolution of the significant polymicrobial empyema. Continue current antibiotic therapy at this time based on the culture results. Course of antibiotics at discharge will be constructed with further data. Current Visit: No Status: Acute Code(s): J90 - PLEURAL EFFUSION, NOT ELSEWHERE CLASSIFIED SNOMED Code(s): 65148890 (2) Pneumonia Current Visit: Yes Status: Acute Code(s): J18.9 - PNEUMONIA, UNSPECIFIED ORGANISM SNOMED Code(s): 692473567 (3) History of atrial fibrillation less than 8 weeks after coronary artery bypass graft Current Visit: Yes Status: Acute Code(s): JVW7908 - SNOMED Code(s): 054772921067686
[2017-07-08 20:38] LABS: Glucose,Whole Blood 176 mg/dL (75-99)
[2017-07-08] MEDS: INSULIN DETEMIR 100 UNIT/ML 10 ML VIAL SQ SCH (20:45)
[2017-07-09] MEDS: VANCOMYCIN 1,750 MG in SODIUM CHLORIDE 0.9% 250 ML IVPB SCH ×2 (01:22→16:10)
[2017-07-09] MEDS: PIPERACILLIN-TAZOBACTAM 3.375 GM in DEXTROSE/WATER 1 50ML.BAG IVPB SCH ×3 (05:03→20:48)
[2017-07-09] MEDS: INSULIN ASPART 100 UNIT/ML 1 ML 10 ML VIAL SQ SCH ×7 (05:03→20:58)
[2017-07-09] MEDS: PANTOPRAZOLE 40 MG TABLET PO SCH (05:03)
[2017-07-09 06:14] LABS: Glucose,Whole Blood 110 mg/dL (75-99)
[2017-07-09 06:38] LABS: HCT 30.7 % (39.0-53.0); HGB 8.6 gm/dL (13.0-17.5); Hypochromasia Marked; MCHC 27.9 g/dL (31.0-37.0); MCV 78.9 fL (80.0-100.0); Mean Platelet Volume 5.7; Platelet Count 604 k/uL (150-450); Poikilocytosis Slight; RBC 3.89 m/uL (4.30-5.90); RDW 15.9 % (11.5-15.5); WBC 10.2 k/uL (3.8-10.6)
[2017-07-09 06:43] LABS: ALT 92 U/L (21-72); AST 37 U/L (17-59); Albumin 2.4 g/dL (3.5-5.0); Alkaline Phosphatase 104 U/L (38-126); Anion Gap 6 mmol/L; Blood Urea Nitrogen 21 mg/dL (9-20); Calcium 8.8 mg/dL (8.4-10.2); Carbon Dioxide 34 mmol/L (22-30); Chloride 103 mmol/L (98-107); Glucose 100 mg/dL (74-99); Potassium 4.3 mmol/L (3.5-5.1); Sodium 143 mmol/L (137-145); Total Bilirubin 0.1 mg/dL (0.2-1.3)
[2017-07-09] MEDS ORDERED: IV FLUID CONTINUATION 1,000 ML IV ONE (07:33)
[2017-07-09 07:40] LABS: Glucose,Whole Blood 113 mg/dL (75-99)
[2017-07-09] MEDS ORDERED: DEXAMETHASONE SOD PHOSPHATE 10 MG/ML 1 ML VIAL IV ONE (07:40)
[2017-07-09] MEDS ORDERED: HYDROmorphone 0.5 MG/0.5 ML SYRINGE IVP PRN (07:40)
[2017-07-09] MEDS ORDERED: LACTATED RINGERS 1,000 ML IV SCH (07:40)
[2017-07-09] MEDS ORDERED: ONDANSETRON 4 MG/2 ML VIAL IVP ONE (07:52)
[2017-07-09] MEDS: IPRATROPIUM-ALBUTEROL 3 ML NEB INHALATION SCH ×4 (08:00→20:10)
[2017-07-09] MEDS ORDERED: LABETALOL 5 MG/ML VIAL MDV ONE (08:35)
[2017-07-09] MEDS ORDERED: SUCCINYLCHOLINE CHLORIDE 100 MG/5 ML SYR IV ONE (08:35)
[2017-07-09] MEDS ORDERED: ROCURONIUM BROMIDE 10 MG/ML 10 ML VIAL IV ONE (08:35)
[2017-07-09] MEDS ORDERED: GLYCOPYRROLATE 0.2 MG/ML 2 ML VIAL ONE (08:35)
[2017-07-09] MEDS ORDERED: PHENYLEPHRINE-0.9% NACL SYG 1 MG/10 ML SYRINGE ONE (08:35)
[2017-07-09] MEDS ORDERED: fentaNYL (PF) 50 MCG/ML 2 ML AMP ONE (08:35)
[2017-07-09] MEDS ORDERED: NEOSTIGMINE 1 MG/ML 10 ML VIAL ONE (08:35)
[2017-07-09] MEDS ORDERED: MIDAZOLAM 2 MG/2 ML VIAL ONE (08:35)
[2017-07-09] MEDS ORDERED: LIDOCAINE 1% INJ 10MG/ML (20 ML MDV) ONE (08:35)
--- NOTE | 2017-07-09 09:40 | P.PN ---
Subjective Progress Note Date: 07/09/17 62 year old male who presented to the emergency room on 06/30/2017 with a chief complaint of shortness of breath that was worsening in severity x 1 week. Patient states he was having sputum production that was initially clear in color and then progressed to a greenish/yellow. The patient has a history of chronic obstructive disease, diabetes mellitus, gastroesophageal reflux disease, hypertension, myocardial infarction, pneumonia , STEMI in May 2017 with heart catheterization. He underwent CABG 4 in May 2017. Postoperatively, he had persistant left sided pleural effusion and required thoracentesis on 05/30/2017. Cultures from pleural fluid were positive for alpha hemolytic strep and enterococcus faecalis. He had a PICC line placed and was discharged home with IV antibiotic infusions. In the emergency room, a chest x-ray was completed which revealed worsening and now completely opacification of the left hemothorax which may related to pleural effusion and/or multifocal pneumonia. Patchy alveolar opacities within the right lower lung are also seen. EKG revealed sinus tachycardia. He was febrile with a temperature of 102.0 in the emergency room. He was found to be hypoxic with an oxygen saturation of 82% on room air. He was also tachycardic with a heart rate in the low 100s. Laboratory studies revealed a white count of 20.7, hemoglobin 10.6, INR 1.3, sodium 139, potassium 4.7, BUN 17, creatinine 0.58, lactic acid 1.7, AST 56, PLT 123, and alkaline phosphatase 159. Urinalysis reveals 1+ protein but otherwise unremarkable. Testing for influenza A and B was negative. 07/01/2017 The patient was seen and examined at the bedside in the intensive care unit with Dr. Abreu. He appears short of breath at rest. He is currently wearing a nonrebreather mask. Maintaining oxygen saturations greater than 92%. He appears diaphoretic. Denies chest pain or pressure. Denies pain or discomfort. Urine culture is negative at the 18 hour jacquelyn. Blood cultures are negative at the 24 hour jacquelyn. His vital signs are relatively stable at this time. Consultations have been placed for infectious disease, pulmonology, and cardiovascular surgery. 07/02/2017 Patient seen and examined at the bedside in the ICU with Dr. Abreu. Patient is currently on Airvo on 65%. Oxygen saturations are greater than 92%. He is eating breakfast at this time. Denies nausea or vomiting. Chest xray this morning shows stable findings with diffuse bilateral left greater than right pneumonia. Blood culture is negative at 24 hour jacquelyn. Urine culture is positive for daya albicans. Infectious disease is following. Patient remains on Levaquin, Vanco, and Zosyn at this time. WBC today is 13.6. Hemoglobin is 8.7, down from 9.1 yesterday. Cardiothoracic surgery is following. Patient may require intervention for possible loculated pleural effusion. 07/03/2017 Patient seen and examined at the bedside on rounds with Dr. Abreu. Patient remains in intensive care unit. Chest x-ray from 07/03/2017 shows slight improved aeration of the left upper lung with persistent confluent multifocal P cities representing multifocal pneumonia. He underwent a ultrasound of the chest on 07/02/2017 which revealed findings suggestive of a loculated effusion. Case discussed with Janelle Chambers NP with pulmonology who states that patient is likely to undergo pigtail catheter insertion in the left pleural space with infusion of TPA. Patient states that cardiothoracic surgery also mentioned thoracotomy as an option if TPA does not resolve the loculated effusion. The patient states he is feeling better today. He feels as though his shortness of breath is improving. He remains on AIRVO at 50% Fio2. He remains afebrile. Blood pressure has been stable. His white count is trending upward and is 17.0 today from 13.6 yesterday. Infectious disease remains on consult. He is currently receiving vancomycin, Levaquin, and Zosyn. 07/04/2017 Patient seen and examined in the bedside in the intensive care unit. He is sitting up in the chair. is at the bedside. He is about to work with physical therapy. He received a dose of 20mg lasix IV this morning per Dr. Abreu. He is diuresing well. His breathing seems to be improved today and he states he is less short of breath. He is no longer requiring Airvo. He is on 8L high flow NC. He underwent pigtail catheter insertion yesterday to left pleural space with a dose of TPA yesterday and today. Upon examination, there is 800 mL of purulent drainage in the chest tube. His states that they spoke with Dr. Okeefe today and he recommended patient undergo thoracotomy. WBC is 15.9 today, down from 17.0. He is afebrile. Infectious disease is on consult. He remains on vancomycin, Levaquin, and Zosyn. Pleural fluid has been cultured and results are currently pending. 07/05/2017 Patient seen and examined at the bedside in the intensive care unit. Chest xray this morning shows findings compatible with pneumonia and empyema. Also reveals possible for volume overload and congestive heart failure. Patients blood sugars were elevated in the 200s yesterday. His lantus was increased from 25 units to 30 units. His novolog with meals was increased form 8 units to 10 units. His serum blood glucose was 105 this morning. His first capillary glucose this morning was 325 and then repeat approximately 15 minutes later was 117. Spoke with nursing who states that patient only had a few bites of eggs and did not eat anything that would have caused his blood sugar to spike that high. She states she checked it on his other hand and it was 117. Suspect reading of 325 was in error. Patient received 3rd dose of TPA into pigtail catheter. Pigtail catheter remains intact to chest tube atrium. Yellowish purulent drainage present. Total drainage thus far in atrium is 1050cc. Preliminary cultures from pleural fluid are negative at the 24 hour jacquelyn. He has been working with therapy and states he ambulated twice yesterday. 07/06/2017-Notes per Dr. Abreu 07/07/2017-Notes per Dr. Abreu 07/08/2017 Patient seen and examined at the bedside. Patient has been transferred out of the intensive care unit to the selective care unit. Patients at bedside. Patient underwent CT of the chest this morning which revealed decreased in size of left subpulmonic fluid collection with a trace pleural effusion remaining. A second pleural-based collection along the lower left major fissure shows increase in size, approximately 6 x 4 cm, ground glass and interstitial infiltrates in the upper mid lungs, small right pleural effusion, and 2.1 cm nodule lateral to the left breast which may be a possible sebaceous cyst. Patient remains on 6 L nasal cannula with oxygen saturations greater than 92%. Patient states his breathing has improved and he denies shortness of breath. Patient's states this morning during TPA administration into the pigtail catheter there was leakage present. Patients states cardiothoracic surgery is to assess patency of tube this afternoon. 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 Per patients , no definite plans regarding decortication. Patient states he has been up to the chair daily, but has not been up yet this morning secondary to his CT scan. Patient states he is voiding without difficulty. He states he had 3 bowel movements yesterday. Denies abdominal pain. Denies nausea or vomiting. 07/09/2017 Patient seen and examined at the bedside on rounds with Dr. Abreu. Patient was examined while lying on a stretcher. He is about to undergo thoracotomy with decortication. His chest tube remains intact. He denies shortness of breath. Remains on 6L NC with oxygen saturations greater than 92%. Denies chest pain. His blood sugars have improved with recent readings of 113, 110, and 100. His novolog was increased to 12 units with meals and his levemir was increased to 32 units. Objective - Vital Signs Vital signs: Vital Signs Temp 98.5 F 07/09/17 07:34 Pulse 73 07/09/17 07:34 Resp 18 07/09/17 07:34 BP 127/71 07/09/17 07:34 Pulse Ox 95 07/09/17 07:34 Intake & Output 07/08/17 07/09/17 07/09/17 18:59 06:59 18:59 Intake Total 1076 50 100 Output Total 200 210 Balance 876 -160 100 Weight 117 kg Intake: IV 250 50 100 Sodium Chloride 0.9% 1, 250 50 000 ml @ 50 mls/hr IV . Q20H [facility] Rx#:[id number] Intake, IV Titration 250 Amount Vancomycin 1,750 mg In 250 Sodium Chloride 0.9% 250 ml @ 125 mls/hr IVPB Q12H [facility] Rx#:[id number] Oral 576 Output: Chest Tube Drainage 10 Pigtail in left posterior 10 Back Urine 200 200 Other: Voiding Method Urinal - Exam GENERAL: This is a 62-year-old male who appears comfortable and in no acute distress at the time of examination. Pleasant and cooperative. HEENT: Head is atraumatic, normocephalic. Pupils are equal, round, and reactive to light. Sclerae anicteric. Conjunctivae are clear. Mucus membranes of the mouth are moist. Neck is supple. RESPIRATORY: Lungs diminished throughout. No wheezing noted. Left posterior pigtail catheter intact connected to atrium. No use of accessory muscles. Patient maintaining oxygen saturation greater than 92% on 6 L NC. No chest wall tenderness is noted on palpation or with deep breathing. CARDIOVASCULAR: Regular rate and rhythm. S1 and S2 noted. No systolic or diastolic murmur auscultated. No JVD noted. No S3 or S4 noted. GASTROINTESTINAL: No distention noted. Abdomen soft and round. Normal active bowel sounds auscultated x 4 quadrants. No pain or tenderness noted upon palpation. INTEGUMENTARY: Midline chest incision healing well without drainage or erythema. No cyanosis. No jaundice. No rashes noted. No cellulitis noted. EXTREMITIES: 2+ peripheral pulses. No peripheral edema. No calf tenderness noted. NEUROLOGIC: Cranial nerves II-XII intact. PSYCHIATRIC: Awake, alert, and oriented X 3. Flat affect. - Labs CBC & Chem 7: 07/09/17 06:18 07/09/17 06:18 Labs: Abnormal Lab Results - Last 24 Hours (Table) 07/08/17 07/08/17 07/08/17 Range/Units 11:33 16:30 20:30 RBC (4.30-5.90) m/uL Hgb (13.0-17.5) gm/dL Hct (39.0-53.0) % MCV (80.0-100.0) fL MCH (25.0-35.0) pg MCHC (31.0-37.0) g/dL RDW (11.5-15.5) % Plt Count (150-450) k/uL Carbon Dioxide (22-30) mmol/L BUN (9-20) mg/dL Glucose (74-99) mg/dL POC Glucose (mg/dL) 130 H 100 H 176 H (75-99) mg/dL Total Bilirubin (0.2-1.3) mg/dL ALT (21-72) U/L Total Protein (6.3-8.2) g/dL Albumin (3.5-5.0) g/dL 07/09/17 07/09/17 07/09/17 Range/Units 06:09 06:18 06:18 RBC 3.89 L (4.30-5.90) m/uL Hgb 8.6 L (13.0-17.5) gm/dL Hct 30.7 L (39.0-53.0) % MCV 78.9 L (80.0-100.0) fL MCH 22.0 L (25.0-35.0) pg MCHC 27.9 L (31.0-37.0) g/dL RDW 15.9 H (11.5-15.5) % Plt Count 604 H (150-450) k/uL Carbon Dioxide 34 H (22-30) mmol/L BUN 21 H (9-20) mg/dL Glucose 100 H (74-99) mg/dL POC Glucose (mg/dL) 110 H (75-99) mg/dL Total Bilirubin 0.1 L (0.2-1.3) mg/dL ALT 92 H (21-72) U/L Total Protein 5.0 L (6.3-8.2) g/dL Albumin 2.4 L (3.5-5.0) g/dL 07/09/17 Range/Units 07:37 RBC (4.30-5.90) m/uL Hgb (13.0-17.5) gm/dL Hct (39.0-53.0) % MCV (80.0-100.0) fL MCH (25.0-35.0) pg MCHC (31.0-37.0) g/dL RDW (11.5-15.5) % Plt Count (150-450) k/uL Carbon Dioxide (22-30) mmol/L BUN (9-20) mg/dL Glucose (74-99) mg/dL POC Glucose (mg/dL) 113 H (75-99) mg/dL Total Bilirubin (0.2-1.3) mg/dL ALT (21-72) U/L Total Protein (6.3-8.2) g/dL Albumin (3.5-5.0) g/dL Assessment and Plan Plan: ASSESSMENT: Multifocal pneumonia, present on admission, sputum culture reveals normal respiratory aaron Acute hypoxic respiratory failure requiring supplemental oxygen, secondary to above Left side loculated pleural effusion, s/p left pigtail catheter insertion and TPA administration, 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 acnes Venous congestion and cardiomegaly with fluid overload, improved with IV Lasix Diabetes mellitus, type II, hemoglobin A1c 5.7% Coronary artery disease with previous myocardial infarction History of coronary artery bypass grafting 4 vessels History of left side pleural effusion requiring thoracentesis and empyema requiring pigtail drainage catheter with cultures positive for alpha hemolytic strep and enterococcus faecalis History of paroxysmal atrial fibrillation Chronic obstructive pulmonary disease Essential hypertension Hyperlipidemia Gastroesophageal reflux disease Anxiety, unspecified Obesity: BMI 31.2 PLAN: -Cardiothoracic surgery on consult. Appreciate recommendations and input -Patient to undergo thoracotomy with decortication today -Compound Finisher on consult. Appreciate recommendations and input -Infectious disease on consult. Appreciate recommendations and input -Antibiotics per infectious disease: Currently on Vancomycin, Levaquin, and Zosyn -Incentive spirometer 10 times an hour while awake -Activity as tolerated. Encourage ambulation -Up to chair daily -Capillary blood glucose accu-checks AC/HS -Novolog sliding scale coverage AC/HS -Continue Novolog 12 units with meals and 32 units Lantus at HS -Home meds as appropriate -Monitor labs -GI prophylaxis: Protonix 40mg PO daily -DVT prophylaxis: Heparin 5000 units subcu every 12 hours -Monitor vital signs and address as appropriate -Discharge planning: Patient may require home care or ECF at the time of discharge depending on patients clinical course -Further recommendations pending patient's course Nurse practitioner note has been reviewed by physician. Signing provider agrees with the documented findings, assessment, and plan of care.
[2017-07-09] MEDS ORDERED: LACTATED RINGERS 1,000 ML IV ONE ×2 (11:00)
[2017-07-09] MEDS ORDERED: ONDANSETRON 4 MG/2 ML VIAL IVP PRN (12:28)
[2017-07-09 13:08] LABS: Glucose,Whole Blood 145 mg/dL (75-99)
--- NOTE | 2017-07-09 14:10 | XR ---
EXAMINATION TYPE: XR chest 1V DATE OF EXAM: 07/09/2017 COMPARISON: 07/08/2017 HISTORY: Postthoracotomy TECHNIQUE: Single frontal view of the chest is obtained. FINDINGS: Subcutaneous emphysema and surgical jose david are noted. There is a less than 5% left apical pneumothorax. Left-sided central line noted. Postsurgical changes. Left-sided chest tube noted. Cardiomegaly and bilateral infiltrate and pleural effusion. Interstitial pattern noted. Underlying ve nous congestion not excluded. IMPRESSION: 1. Bilateral infiltrate and pleural effusion. 2. Postsurgical changes with extensive subcutaneous emphysema on the left. Tiny less than 5% apical p neumothorax likely present.
[2017-07-09] MEDS: HYDROmorphone 2 MG/ML 1 ML SYRINGE IVP PRN ×2 (14:47→20:57)
[2017-07-09] MEDS: ASPIRIN 325 MG TAB PO SCH (16:09)
[2017-07-09] MEDS: guaiFENesin 600 MG TABLET.ER PO SCH ×2 (16:09→20:48)
[2017-07-09] MEDS: HEPARIN SODIUM,PORCINE 5,000 UNIT/ML 1 ML VIAL SQ SCH ×2 (16:09→20:48)
[2017-07-09] MEDS: FERROUS SULFATE 325 MG TAB PO SCH (16:10)
[2017-07-09] MEDS: METOPROLOL TARTRATE 25 MG TAB PO SCH ×2 (16:10→20:48)
[2017-07-09] MEDS: ASCORBIC ACID 500 MG TAB PO SCH (16:10)
[2017-07-09] MEDS: FUROSEMIDE 10 MG/ML 2 ML VIAL IV SCH (16:13)
[2017-07-09 16:45] LABS: Glucose,Whole Blood 146 mg/dL (75-99)
--- NOTE | 2017-07-09 17:02 | P.PN ---
<Janelle Chambers - Last Filed: 07/09/17 16:53> Subjective Progress Note Date: 07/09/17 Principal diagnosis: Acute hypoxic respiratory failure, secondary to left lung pneumonia and pleural effusion Progress note dated 07/02/2017 The patient continues to improve slowly. Radiographically, his chest x-ray has not changed all that much. Certainly not worse. Currently the patient is on the AIRVO at 65 L/m. He's had a saline IV at 50 mL an hour. The patient has a history of bilateral pneumonia with sepsis a history of asthma, diabetes, gastroesophageal reflux disease, hypertension, myocardial infarction and pneumonia. He also has a history of recent bypass grafting back on 05/22/[address] segment elevation myocardial infarction and legionnaires disease. He is a lifelong nonsmoker. His primary care physician is Dr. Gary Abreu. The patient apparently had a computed tomography scan late yesterday. I have not looked at it as yet. My partner expresses some concerns that he may have a loculated pleural effusion which need something more significantly done such as decortication. On 07/03/2017 patient remains in intensive care. Still requiring high flow nasal cannula, remains on AIRVO at FiO2 of 50% and 40 L/m flow. Afebrile, hemodynamically stable. Today's chest x-ray shows slight improvement in the aeration of the left upper lung with persistent confluent multifocal opacities representing multifocal pneumonia. Yesterday we have obtained a chest ultrasound to evaluate the complex and loculated left pleural effusion in the background of extensive left lung pneumonia. This was discussed with the interventional radiologist and cardiothoracic surgery. CT surgery feels the patient with benefit from a pigtail catheter insertion in the left pleural space and infusion of TPA over the next few days. This was discussed with the radiologist, who recommended getting a CT chest with contrast today. Otherwise patient is fairly comfortable, in no acute distress, respirations are shallow and tachypneic with a rate in the 30s. He is awake alert, tolerating a regular diet. His lab work shows upward trend of his WBCs, up to 17, hemoglobin is 9.0 , renal profile is stable, within normal limits no significant electrolyte abnormality. Blood and sputum culture show no growth, urine culture is positive for Vera albicans. ID service is on. Is on a combination of Levaquin, Zosyn and vancomycin. Currently not requiring any vasopressor support. On 07/04/2017 patient is seen in follow-up in intensive care unit. He is status post left pleural pigtail chest tube insertion with TPA infusion on 07/03. Patient had round 400 cc of milky yellow, purulent drainage in the atrium collection chamber since insertion. Clinically patient denies any acute distress, FiO2 was weaned down to 8 L per high flow nasal cannula. Blood sputum cultures remain negative, urine culture shows Vera albicans, pleural fluid culture was sent for culture as well and is pending. Patient will have another infusion of alteplase today per cardiothoracic surgery. Continues on empiric antibiotics with Levaquin, Zosyn and vancomycin. His IV fluids are 0.9 normal saline at 50 ML per hour. Patient's tolerating oral intake, on regular diet. Up in a chair, tolerating it well. Overall continues to significantly improve. On 07/08/2017 patient seen in follow-up on selective care unit. CT chest from this morning has been reviewed, shows left basilar pleural catheter in place with considerable decrease in size of the patient's previous left subpulmonic fluid collection, trace effusion remains. Permanent partial atelectasis and residual consolidation within the left lower lobe.(Second pleural-based collection along the lower left. She shows slight interval increase in size, ground glass and interstitial infiltrates in the midline is persistent show improvement from previous CT chest. Patient's left-sided pigtail has been noted to have moved, daily TPA infusions. There is small amount of serosanguineous drainage noted from the pigtail chest tube. He is afebrile, FiO2 is currently down to 6 L per high flow nasal cannula, vital signs are stable. Lung sounds are diminished, with a few scattered rales at left base. Cardiothoracic surgery has previously discussed decortication surgery left lung. Continue antibiotics per infectious disease recommendations. Continue encouraging incentive spirometry, increase activity as tolerated. On 07/09/2017 patient is seen in follow-up post left-sided thoracotomy with decortication by Dr. Tellez. Patient is sedated, he arrived back to the room at around 1430 per the spouse, was in significant amount of pain, and was given IV narcotics. Currently resting comfortably, somnolent, but arouses to verbal stimuli. Lung sounds are diminished, more so over the left lower lobe. There are 2 left-sided chest tubes why connected to an atrium, there is about 200 mL of serosanguineous output in the collection chamber. Patient is currently on 45 % Ventimask, with O2 sat at 93%. Vital signs are stable. Left-sided pigtail chest tube has been discontinued. Patient continues on Levaquin and vancomycin as well as Zosyn. Urine culture was positive for Vera, pleural fluid showed anaerobic species, Prevotella melaninogenica, and Proprionibacterium acnes. Objective - Vital Signs Vital signs: Vital Signs Temp 99 F 07/09/17 14:30 Pulse 87 07/09/17 15:45 Resp 20 07/09/17 15:45 BP 153/80 07/09/17 15:45 Pulse Ox 93 L 07/09/17 15:45 Intake & Output 07/08/17 07/09/17 07/09/17 18:59 06:59 18:59 Intake Total 1076 50 1650 Output Total 200 210 710 Balance 876 -160 940 Weight 117 kg Intake: IV 314 83 1158 Sodium Chloride 0.9% 1, 250 50 000 ml @ 50 mls/hr IV . Q20H [facility] Rx#:[id number] Intake, IV Titration 250 Amount Vancomycin 1,750 mg In 250 Sodium Chloride 0.9% 250 ml @ 125 mls/hr IVPB Q12H [facility] Rx#:[id number] Oral 576 Output: Chest Tube Drainage 10 Pigtail in left posterior 10 Back Urine 200 200 410 Estimated Blood Loss 300 Other: Voiding Method Urinal - Exam No acute distress, patient is currently sedated, resting in bed, status post left-sided thoracotomy with decortication HEENT examination is grossly unremarkable. Mucous membranes are moist. No oral lesions. Neck supple. Full range of motion. No adenopathy thyromegaly or neck vein distention. Cardiovascular examination reveals regular rhythm rate. S1-S2 normal. No S3 or S4. No discernible murmur noted. Lungs reveal a few bilateral rhonchi. Breath sounds show diminished air entry over left lower base, clear on the right. A few crackles are present over right lower lobe, No wheezes. There are 2 left-sided chest tubes why connected to an atrium collection chamber , with 200 mL of serosanguineous output Abdomen soft bowel sounds are heard. No masses or tenderness. Extremities are intact. No cyanosis clubbing or edema. Skin is without rash or lesion. Neurologic examination is brief but nonfocal - Labs CBC & Chem 7: 07/09/17 06:18 07/09/17 06:18 Labs: Abnormal Lab Results - Last 24 Hours (Table) 07/08/17 07/09/17 07/09/17 Range/Units 20:30 06:09 06:18 RBC (4.30-5.90) m/uL Hgb (13.0-17.5) gm/dL Hct (39.0-53.0) % MCV (80.0-100.0) fL MCH (25.0-35.0) pg MCHC (31.0-37.0) g/dL RDW (11.5-15.5) % Plt Count (150-450) k/uL Carbon Dioxide 34 H (22-30) mmol/L BUN 21 H (9-20) mg/dL Glucose 100 H (74-99) mg/dL POC Glucose (mg/dL) 176 H 110 H (75-99) mg/dL Total Bilirubin 0.1 L (0.2-1.3) mg/dL ALT 92 H (21-72) U/L Total Protein 5.0 L (6.3-8.2) g/dL Albumin 2.4 L (3.5-5.0) g/dL 07/09/17 07/09/17 07/09/17 Range/Units 06:18 07:37 13:03 RBC 3.89 L (4.30-5.90) m/uL Hgb 8.6 L (13.0-17.5) gm/dL Hct 30.7 L (39.0-53.0) % MCV 78.9 L (80.0-100.0) fL MCH 22.0 L (25.0-35.0) pg MCHC 27.9 L (31.0-37.0) g/dL RDW 15.9 H (11.5-15.5) % Plt Count 604 H (150-450) k/uL Carbon Dioxide (22-30) mmol/L BUN (9-20) mg/dL Glucose (74-99) mg/dL POC Glucose (mg/dL) 113 H 145 H (75-99) mg/dL Total Bilirubin (0.2-1.3) mg/dL ALT (21-72) U/L Total Protein (6.3-8.2) g/dL Albumin (3.5-5.0) g/dL 07/09/17 Range/Units 16:43 RBC (4.30-5.90) m/uL Hgb (13.0-17.5) gm/dL Hct (39.0-53.0) % MCV (80.0-100.0) fL MCH (25.0-35.0) pg MCHC (31.0-37.0) g/dL RDW (11.5-15.5) % Plt Count (150-450) k/uL Carbon Dioxide (22-30) mmol/L BUN (9-20) mg/dL Glucose (74-99) mg/dL POC Glucose (mg/dL) 146 H (75-99) mg/dL Total Bilirubin (0.2-1.3) mg/dL ALT (21-72) U/L Total Protein (6.3-8.2) g/dL Albumin (3.5-5.0) g/dL Assessment and Plan Plan: Assessment: #1. Acute hypoxic respiratory failure secondary to extensive left lung multifocal pneumonia and left pleural effusion, present on admission. Patient is status post left thoracotomy with decortication, postop day 0. Left pigtail pleural chest tube catheter insertion, with TPA infusions has been discontinued on 07/09/2017. Pleural fluid cultures positive for Prevotella melaninogenica and Proprionibacterium acnes. Currently on Levaquin, Zosyn and vancomycin #2. Sepsis, with leukocytosis and fever, secondary to the above #3. History of left-sided pleural effusion requiring thoracentesis and empyema requiring pigtail drainage catheter and cultures positive for alphahemolytic strep and enterococcus faecalis #4. Coronary artery disease, status post 4 vessel coronary artery bypass grafting #5. COPD #6. Essential hypertension #7. Hyperlipidemia #8. GERD #9. Anxiety #10. Obesity Plan: Continue current medical treatment, continue Levaquin, vancomycin and Zosyn. Pleural fluid cultures are positive for anaerobic species, Prevotella melaninogenica, Proprionbacterium acnes, antibiotics per ID service. Pain control, incentive spirometry, nebulized treatments, will follow with cardiothoracic surgery regarding management of the left-sided chest tubes. I performed a history & physical examination of the patient and discussed their management with my nurse practitioner, Janelle Chambers. I reviewed the nurse practitioner's note and agree with the documented findings and plan of care. Lung sounds are diminished air entry over left lower lobe. The findings and the impression was discussed with the patient. I attest to the documentation by the nurse practitioner. Time with Patient: Less than 30 <El Barker - Last Filed: 07/09/17 19:17> Objective - Vital Signs Vital signs: Vital Signs Temp 99 F 07/09/17 14:30 Pulse 90 07/09/17 18:45 Resp 20 07/09/17 18:45 BP 126/63 07/09/17 18:45 Pulse Ox 94 L 07/09/17 18:45 Intake & Output 07/09/17 07/09/17 07/10/17 06:59 18:59 06:59 Intake Total 50 1890 Output Total 210 880 Balance -160 1010 Weight 117 kg Intake: IV 50 1650 Sodium Chloride 0.9% 1, 50 000 ml @ 50 mls/hr IV . Q20H [facility] Rx#:[id number] Oral 240 Output: Chest Tube Drainage 10 Pigtail in left posterior 10 Back Drainage 170 Left Chest 170 Urine 200 410 Estimated Blood Loss 300 Other: Voiding Method Urinal - Labs CBC & Chem 7: 07/09/17 06:18 07/09/17 06:18 Labs: Abnormal Lab Results - Last 24 Hours (Table) 07/08/17 07/09/17 07/09/17 Range/Units 20:30 06:09 06:18 RBC (4.30-5.90) m/uL Hgb (13.0-17.5) gm/dL Hct (39.0-53.0) % MCV (80.0-100.0) fL MCH (25.0-35.0) pg MCHC (31.0-37.0) g/dL RDW (11.5-15.5) % Plt Count (150-450) k/uL Carbon Dioxide 34 H (22-30) mmol/L BUN 21 H (9-20) mg/dL Glucose 100 H (74-99) mg/dL POC Glucose (mg/dL) 176 H 110 H (75-99) mg/dL Total Bilirubin 0.1 L (0.2-1.3) mg/dL ALT 92 H (21-72) U/L Total Protein 5.0 L (6.3-8.2) g/dL Albumin 2.4 L (3.5-5.0) g/dL 07/09/17 07/09/17 07/09/17 Range/Units 06:18 07:37 13:03 RBC 3.89 L (4.30-5.90) m/uL Hgb 8.6 L (13.0-17.5) gm/dL Hct 30.7 L (39.0-53.0) % MCV 78.9 L (80.0-100.0) fL MCH 22.0 L (25.0-35.0) pg MCHC 27.9 L (31.0-37.0) g/dL RDW 15.9 H (11.5-15.5) % Plt Count 604 H (150-450) k/uL Carbon Dioxide (22-30) mmol/L BUN (9-20) mg/dL Glucose (74-99) mg/dL POC Glucose (mg/dL) 113 H 145 H (75-99) mg/dL Total Bilirubin (0.2-1.3) mg/dL ALT (21-72) U/L Total Protein (6.3-8.2) g/dL Albumin (3.5-5.0) g/dL 07/09/17 Range/Units 16:43 RBC (4.30-5.90) m/uL Hgb (13.0-17.5) gm/dL Hct (39.0-53.0) % MCV (80.0-100.0) fL MCH (25.0-35.0) pg MCHC (31.0-37.0) g/dL RDW (11.5-15.5) % Plt Count (150-450) k/uL Carbon Dioxide (22-30) mmol/L BUN (9-20) mg/dL Glucose (74-99) mg/dL POC Glucose (mg/dL) 146 H (75-99) mg/dL Total Bilirubin (0.2-1.3) mg/dL ALT (21-72) U/L Total Protein (6.3-8.2) g/dL Albumin (3.5-5.0) g/dL Microbiology - Last 24 Hours (Table) 07/09/17 10:50 Fungal Culture - Preliminary Other - Other 07/09/17 10:50 Tissue Culture - Preliminary Other - Other 07/09/17 10:50 Anaerobic Culture - Preliminary Other - Other 07/09/17 10:30 Anaerobic Culture - Preliminary Pleural Fluid 07/09/17 10:30 Body Fluid Culture - Preliminary Pleural Fluid 07/09/17 10:30 Fungal Culture - Preliminary Pleural Fluid Assessment and Plan Plan: This is a joint evaluation that was done along with a nurse practitioner. I discussed the case with the cardiothoracic surgeon. Our recommendation is to proceed with a thoracoscopic evaluation of the left hemithorax and possible evacuation of the loculated pleural effusion and decortication. Meanwhile the patient will be kept on the same antibiotic coverage. We'll continue to follow. The patient is postop following carotid bypass surgery and the patient about bilateral pneumonia and empyema of the left lung as mentioned earlier now dictation note.
[2017-07-09] MEDS: KETOROLAC 30 MG/ML 1 ML VIAL IVP SCH (17:14)
[2017-07-09] MEDS: SODIUM CHLORIDE 0.9% 1,000 ML IV SCH (18:13)
[2017-07-09 20:43] LABS: Glucose,Whole Blood 162 mg/dL (75-99)
[2017-07-09] MEDS: SERTRALINE 100 MG TAB PO SCH (20:47)
[2017-07-09] MEDS: ATORVASTATIN 40 MG TAB PO SCH (20:47)
[2017-07-09] MEDS: CLOPIDOGREL 75 MG TAB PO SCH (20:47)
[2017-07-09] MEDS: LEVOFLOXACIN 750 MG TAB PO SCH (20:47)
[2017-07-09] MEDS: AMIODARONE 200 MG TAB PO SCH (20:47)
[2017-07-09] MEDS: INSULIN DETEMIR 100 UNIT/ML 10 ML VIAL SQ SCH (20:48)
--- NOTE | 2017-07-09 21:28 | P.PN ---
Subjective Progress Note Date: 07/09/17 Principal diagnosis: Shortness of breath This is a 62 year old male presented to hospital on 05/21/2017 with chest pain and found to have acute myocardial infarction. Heart catheterization found evidence of multivessel coronary artery disease and he is status post coronary artery bypass grafting procedure. He said difficulties postoperatively with bleeding to require somewhat protracted ventilation. He did require repeat surgery for control of the bleeding. He developed cardiac dysrhythmia with atrial fibrillation requiring amiodarone treatment. The patient also developed difficulties with his left chest. A large fluid collection was found and he underwent thoracentesis he was having some difficulty with shortness of breath and consequently further imaging was performed. Computed tomography scan showed evidence of the left lower lobe infiltration as well as some right upper lobe infiltrate. Because of and leukocytosis the infectious diseases consultation was requested. He required placement of percutaneous drainage of the empyema. He was eventually stabilized and discharged home on June 07. He was continued on IV antibioticsat an [facility] office on a daily basis for enterococcus and alpha hemolytic strep empyema. Patient last saw Dr. Nixon on Saturday any extended IV antibiotic therapy for another week. Patient states he was feeling fine when he was in the office on Saturday and also on Saturday. But on Saturday morning he started coughing around 3 in the morning and was clear sputum production the change to yellow and he felt exhausted. He was having difficulty breathing and his called Dr. Nixon recommended that he come into the evaluated. EMS was called and patient was transferred to [facility] emergency center. Chest x-ray initially showed worsening of bilateral pneumonias, cardiomegaly and left pleural effusion. Repeat chest x- ray showed worsening and near complete obesity of the left hemithorax, pleural effusion and multifocal pneumonia in differential. Patchy alveolar opacity within the right lower lobe. He was found to be febrile which he denied having any fevers chills or rigors at home. His pulse ox was down to 82% and he was hypotensive. White count was elevated at 20.7 but improved to 13.5. ALT was 123 and alkaline phosphatase 159. Albumin is 3. Urinalysis was clear, protein 1+, nitrate and leukoesterase negative. Urine culture is in progress. Blood culture and sputum culture status received. Influenza testing was negative. ALT is 123 and alkaline phosphatase 159. Albumin is 3. Patient has been admitted into the intensive care unit. He has not required vasopressors. Consult in place with pulmonary medicine and CAT scan of the chest has been ordered. Consult in place with cardiothoracic surgery. Computed tomography scan as noted showing evidence of near collapse of left lung. Ultrasound has been performed showing and the complex fluid Radiology has now placed pigtail catheter and 20 mL of grossly purulent material was sent to the laboratory for culture and tube continues to drain. Patient is off of the high flow oxygen remains on 6 L nasal cannula at this time. He does feel slightly improved. Has been up and walking a bit. Altepase has been placed into the pleural space and is being monitored. He has been followed by the cardiothoracic surgeon. 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 Resting comfortably at this time. Objective - Vital Signs Vital signs: Vital Signs Temp 99 F 07/09/17 14:30 Pulse 96 07/09/17 20:28 Resp 20 07/09/17 18:45 BP 126/63 07/09/17 18:45 Pulse Ox 96 07/09/17 20:12 Intake & Output 07/09/17 07/09/17 07/10/17 06:59 18:59 06:59 Intake Total 50 1890 Output Total 210 880 775 Balance -160 1010 -775 Weight 117 kg Intake: IV 50 1650 Sodium Chloride 0.9% 1, 50 000 ml @ 50 mls/hr IV . [facility] Rx#:[id number] Oral 240 Output: Chest Tube Drainage 10 Pigtail in left posterior 10 Back Drainage 170 Left Chest 170 Urine 200 410 775 Estimated Blood Loss 300 Other: Voiding Method Urinal # Voids 1 - Exam Gen: This is a 62-year-old male patient supine resting comfortably after his surgery he has received narcotics for pain control and is well controlled at this time HEENT: Head is atraumatic, normocephalic. Pupils equal, round. Sclerae is anicteric. Junk developed pink. Mucous membranes of the mouth are somewhat dry. NECK: Supple. No JVD. No lymphadenopathy. No thyromegaly. LUNGS: Right chest with good air entry with few crackles at the base. Left chest has improved air entry at this time chest tubes in place. HEART: Regular rate and rhythm. No murmur. ABDOMEN: Soft. Bowel sounds are present. No masses. No tenderness. EXTREMITIES: No pedal edema. No calf tenderness. Dorsalis pedis +2 bilaterally. NEUROLOGICAL: Patient is resting quietly in no distress - Labs CBC & Chem 7: 07/09/17 06:18 07/09/17 06:18 Labs: Abnormal Lab Results - Last 24 Hours (Table) 07/09/17 07/09/17 07/09/17 Range/Units 06:09 06:18 06:18 RBC 3.89 L (4.30-5.90) m/uL Hgb 8.6 L (13.0-17.5) gm/dL Hct 30.7 L (39.0-53.0) % MCV 78.9 L (80.0-100.0) fL MCH 22.0 L (25.0-35.0) pg MCHC 27.9 L (31.0-37.0) g/dL RDW 15.9 H (11.5-15.5) % Plt Count 604 H (150-450) k/uL Carbon Dioxide 34 H (22-30) mmol/L BUN 21 H (9-20) mg/dL Glucose 100 H (74-99) mg/dL POC Glucose (mg/dL) 110 H (75-99) mg/dL Total Bilirubin 0.1 L (0.2-1.3) mg/dL ALT 92 H (21-72) U/L Total Protein 5.0 L (6.3-8.2) g/dL Albumin 2.4 L (3.5-5.0) g/dL 07/09/17 07/09/17 07/09/17 Range/Units 07:37 13:03 16:43 RBC (4.30-5.90) m/uL Hgb (13.0-17.5) gm/dL Hct (39.0-53.0) % MCV (80.0-100.0) fL MCH (25.0-35.0) pg MCHC (31.0-37.0) g/dL RDW (11.5-15.5) % Plt Count (150-450) k/uL Carbon Dioxide (22-30) mmol/L BUN (9-20) mg/dL Glucose (74-99) mg/dL POC Glucose (mg/dL) 113 H 145 H 146 H (75-99) mg/dL Total Bilirubin (0.2-1.3) mg/dL ALT (21-72) U/L Total Protein (6.3-8.2) g/dL Albumin (3.5-5.0) g/dL 07/09/17 Range/Units 20:41 RBC (4.30-5.90) m/uL Hgb (13.0-17.5) gm/dL Hct (39.0-53.0) % MCV (80.0-100.0) fL MCH (25.0-35.0) pg MCHC (31.0-37.0) g/dL RDW (11.5-15.5) % Plt Count (150-450) k/uL Carbon Dioxide (22-30) mmol/L BUN (9-20) mg/dL Glucose (74-99) mg/dL POC Glucose (mg/dL) 162 H (75-99) mg/dL Total Bilirubin (0.2-1.3) mg/dL ALT (21-72) U/L Total Protein (6.3-8.2) g/dL Albumin (3.5-5.0) g/dL Microbiology - Last 24 Hours (Table) 07/09/17 10:50 Fungal Culture - Preliminary Other - Other 07/09/17 10:50 Tissue Culture - Preliminary Other - Other 07/09/17 10:50 Anaerobic Culture - Preliminary Other - Other 07/09/17 10:30 Anaerobic Culture - Preliminary Pleural Fluid 07/09/17 10:30 Body Fluid Culture - Preliminary Pleural Fluid 07/09/17 10:30 Fungal Culture - Preliminary Pleural Fluid Laboratory Results WBC 10.2 k/uL (3.8-10.6) 07/09/17 06:18 RBC 3.89 m/uL (4.30-5.90) L 07/09/17 06:18 Hgb 8.6 gm/dL (13.0-17.5) L 07/09/17 06:18 Hct 30.7 % (39.0-53.0) L 07/09/17 06:18 MCV 78.9 fL (80.0-100.0) L 07/09/17 06:18 MCH 22.0 pg (25.0-35.0) L 07/09/17 06:18 MCHC 27.9 g/dL (31.0-37.0) L 07/09/17 06:18 RDW 15.9 % (11.5-15.5) H 07/09/17 06:18 Plt Count 604 k/uL (150-450) H 07/09/17 06:18 Neutrophils % 76 % 07/08/17 05:57 Lymphocytes % 13 % 07/08/17 05:57 Monocytes % 5 % 07/08/17 05:57 Eosinophils % 3 % 07/08/17 05:57 Basophils % 1 % 07/08/17 05:57 Neutrophils # 9.7 k/uL (1.3-7.7) H 07/08/17 05:57 Lymphocytes # 1.7 k/uL (1.0-4.8) 07/08/17 05:57 Monocytes # 0.7 k/uL (0-1.0) 07/08/17 05:57 Eosinophils # 0.4 k/uL (0-0.7) 07/08/17 05:57 Basophils # 0.1 k/uL (0-0.2) 07/08/17 05:57 Hypochromasia Marked 07/09/17 06:18 Poikilocytosis Slight 07/09/17 06:18 Anisocytosis Slight 07/08/17 05:57 Microcytosis Slight 07/08/17 05:57 PT 12.1 sec (9.0-12.0) H 06/30/17 10:34 INR 1.3 (<1.2) H 06/30/17 10:34 APTT 23.4 sec (22.0-30.0) 06/30/17 10:34 Sodium 143 mmol/L (137-145) 07/09/17 06:18 Potassium 4.3 mmol/L (3.5-5.1) 07/09/17 06:18 Chloride 103 mmol/L (98-107) 07/09/17 06:18 Carbon Dioxide 34 mmol/L (22-30) H 07/09/17 06:18 Anion Gap 6 mmol/L 07/09/17 06:18 BUN 21 mg/dL (9-20) H 07/09/17 06:18 Creatinine 0.85 mg/dL (0.66-1.25) 07/09/17 06:18 Est GFR (MDRD) Af Amer >60 (>60 ml/min/1.73 sqM) 07/09/17 06:18 Est GFR (MDRD) Non-Af >60 (>60 ml/min/1.73 sqM) 07/09/17 06:18 Glucose 100 mg/dL (74-99) H 07/09/17 06:18 POC Glucose (mg/dL) 162 mg/dL (75-99) H 07/09/17 20:41 POC Glu Visual Arts Teacher ID Alfreda Rush 07/09/17 20:[address] Glu mg/dL 117 06/30/17 10:34 Hemoglobin A1c 5.7 % (4.0-6.0) 06/30/17 10:34 Plasma Lactic Acid Kashif 1.7 mmol/L (0.7-2.0) 06/30/17 10:34 Calcium 8.8 mg/dL (8.4-10.2) 07/09/17 06:18 Phosphorus 3.6 mg/dL (2.5-4.5) 07/05/17 04:00 Magnesium 2.0 mg/dL (1.6-2.3) 07/08/17 05:57 Total Bilirubin 0.1 mg/dL (0.2-1.3) L 07/09/17 06:18 AST 37 U/L (17-59) 07/09/17 06:18 ALT 92 U/L (21-72) H 07/09/17 06:18 Alkaline Phosphatase 104 U/L (38-126) 07/09/17 06:18 Total Protein 5.0 g/dL (6.3-8.2) L 07/09/17 06:18 Albumin 2.4 g/dL (3.5-5.0) L 07/09/17 06:18 TSH 1.800 mIU/L (0.465-4.680) 07/03/17 04:31 Free T4 1.55 ng/dL (0.78-2.19) 07/03/17 04:31 Urine Color Yellow 06/30/17 10:34 Urine Appearance Clear (Clear) 06/30/17 10:34 Urine pH 5.0 (5.0-8.0) 06/30/17 10:34 Ur Specific [place] 1.021 (1.001-1.035) 06/30/17 10:34 Urine Protein 1+ (Negative) H 06/30/17 10:34 Urine Glucose (UA) Negative (Negative) 06/30/17 10:34 Urine Ketones Negative (Negative) 06/30/17 10:34 Urine Blood Negative (Negative) 06/30/17 10:34 Urine Nitrite Negative (Negative) 06/30/17 10:34 Urine Bilirubin Negative (Negative) 06/30/17 10:34 Urine Urobilinogen <2.0 mg/dL (<2.0) 06/30/17 10:34 Ur Leukocyte Esterase Negative (Negative) 06/30/17 10:34 Urine RBC 1 /hpf (0-5) 06/30/17 10:34 Urine WBC <1 /hpf (0-5) 06/30/17 10:34 Urine Mucus Few /hpf (None) H 06/30/17 10:34 Vancomycin Trough 27.1 ug/mL 07/07/17 09:40 Influenza Type A RNA Not Detected (Not Detectd) 06/30/17 10:34 Influenza Type B (PCR) Not Detected (Not Detectd) 06/30/17 10:34 Blood Type A Positive 07/09/17 08:05 Blood Type Recheck No 07/09/17 08:05 Antibody Screen NEGATIVE 07/09/17 08:05 Spec Expiration Date 07/12/2017 - 2305 07/09/17 08:05 Microbiology 07/09/17 10:50 Other - Other Fungal Culture - Preliminary 07/09/17 10:50 Other - Other Tissue Culture - Preliminary 07/09/17 10:50 Other - Other Anaerobic Culture - Preliminary 07/09/17 10:30 Pleural Fluid Anaerobic Culture - Preliminary 07/09/17 10:30 Pleural Fluid Body Fluid Culture - Preliminary 07/09/17 10:30 Pleural Fluid Fungal Culture - Preliminary 07/03/17 14:45 Pleural Fluid Anaerobic Culture - Final Prevotella melaninogenica Proprionibacterium acnes 07/03/17 14:45 Pleural Fluid Gram Stain - Final 07/03/17 14:45 Pleural Fluid Body Fluid Culture - Final 06/30/17 10:34 Blood Blood Culture - Final No Growth after 144 hours 07/01/17 07:50 Sputum Gram Stain - Final 07/01/17 07:50 Sputum Sputum Culture - Final 06/30/17 10:34 Urine,Voided Urine Culture - Final Vera albicans Assessment and Plan (1) Pleural effusion on left Narrative/Plan: 62-year-old male with status post coronary artery bypass grafting procedure without difficulty significant infection of his left chest after surgery. Has been receiving a course of intravenous antibiotic therapy with ertapenem for coverage of the pathogens. Has not had a marked worsening of his status requiring hospitalization. His oxygenation is improved and he is no longer on the high flow oxygen but is on 6 L nasal cannula. Feeling somewhat better today. He still however has shortness of breath. Appetite is improved. Fever is improved. He is being available by pulmonary critical care and cardiothoracic surgery. Computed tomography scan ultrasound are noted. Patient is on a plethora of antibiotics at this time pending further culture data given his failure of ertapenem. Does have some mild improvement but does not still feel well. Patient is status post thoracotomy with decortication to allow resolution of the significant polymicrobial empyema. Continue current antibiotic therapy at this time based on the culture results. Course of antibiotics at discharge will be constructed with further data. Doing well postoperatively will monitor. Current Visit: No Status: Acute Code(s): J90 - PLEURAL EFFUSION, NOT ELSEWHERE CLASSIFIED SNOMED Code(s): 65939741 (2) Pneumonia Current Visit: Yes Status: Acute Code(s): J18.9 - PNEUMONIA, UNSPECIFIED ORGANISM SNOMED Code(s): 079375449 (3) History of atrial fibrillation less than 8 weeks after coronary artery bypass graft Current Visit: Yes Status: Acute Code(s): UEF9806 - SNOMED Code(s): 218673334602960
[2017-07-10] MEDS ORDERED: HYDROmorphone 2 MG/ML 1 ML SYRINGE ONE (00:35)
[2017-07-10] MEDS: VANCOMYCIN 1,750 MG in SODIUM CHLORIDE 0.9% 250 ML IVPB SCH ×3 (04:49→20:57)
[2017-07-10] MEDS: KETOROLAC 30 MG/ML 1 ML VIAL IVP SCH ×4 (04:50→23:38)
--- NOTE | 2017-07-10 05:04 | OP ---
OPERATIVE REPORT DATE OF SURGERY: 07/09/2017 PREOPERATIVE DIAGNOSIS: Empyema. POSTOPERATIVE DIAGNOSIS: Empyema. PROCEDURE: Left thoracotomy with decortication. SURGEON: Mario Tellez MD ANESTHESIA: General. SPECIMEN: 1. Pleural fluid. 2. Pleural peel. COMPLICATIONS: None. INDICATION: The patient is a 62-year-old male who underwent coronary bypass grafting in May of 2017. His postoperative course was complicated by pneumonia, which was treated with antibiotics. He was readmitted to the hospital with worsening shortness of breath. A CT scan of the chest revealed a loculated left-sided pleural effusion along with evidence of pneumonia. He was continued on antibiotics and a pigtail catheter was placed. Thrombolytics were injected through the pigtail catheter and a portion of the fluid was drained. However, followup CT scan still revealed persistent fluid collection. Left thoracotomy with decortication was recommended. The risks, benefits and alternatives of this procedure were discussed with the patient. All questions were answered. Consent was obtained. FINDINGS: There were significant dense adhesions noted throughout the left chest between the lung and the chest wall. The left lower lobe was densely adhered to the underlying diaphragm. Serous sanguinous fluid pockets were identified. PROCEDURE IN DETAIL: The patient was taken to the operative room and placed supine on the operating room table. A double-lumen endotracheal tube was placed. Its position was confirmed using a bronchoscope. The patient was then turned to the right lateral decubitus position with the left side up. The left chest and flank were prepped and draped in the usual sterile fashion. The previously placed pigtail catheter was removed. A posterior lateral thoracotomy was then performed. The latissmus muscles was also divided. The serratus anterior muscle was spared. I entered the chest at about the sixth interspace. Dense adhesions were noted throughout the left chest. Meticulous dissection was carried down to free up the lung. The left upper lobe was essentially freed circumferentially. A thin peel was noted on this lobe, which was carefully excised. The left lower lobe was decorticated in a similar fashion. This lobe was densely adhered to the underlying diaphragmatic surface. Dissection was carried out to help try and free it up. However, bleeding from the lung parenchyma was noted. Fluid pockets were freed up and drained. A portion of fluid was sent for microbiology. A portion of the peel was sent for microbiology and the remainder of the peel was sent for pathology. The peel was excised off the left lower lobe. The chest was copiously irrigated with warm saline solution. Air was let into the left lung and it appeared to inflate nicely. Two chest tubes were placed. The anterior chest tube was a right angle chest tube, which was directed over the diaphragm. The posterior placed chest tube was directed posteriorly behind the lung toward the apex. These were secured to the skin using sutures. The ribs were then reapproximated using 0 Vicryl sutures in a [id number] fashion. The serratus anterior muscle was tacked down to the underlying fascia. The latissimus muscle was reapproximated. The remainder of the wound was closed in layers. The skin was reapproximated with jose david. The patient appeared to have tolerated the procedure well. There were no immediate complications. He returned to the recovery room in stable condition. MMMOLINAL / AZEEMN: [id number] / MTDD
[2017-07-10 05:51] LABS: Glucose,Whole Blood 134 mg/dL (75-99)
[2017-07-10] MEDS: PIPERACILLIN-TAZOBACTAM 3.375 GM in DEXTROSE/WATER 1 50ML.BAG IVPB SCH ×3 (06:05→23:07)
[2017-07-10] MEDS: HYDROmorphone 2 MG/ML 1 ML SYRINGE IVP PRN (06:19)
[2017-07-10] MEDS: INSULIN ASPART 100 UNIT/ML 1 ML 10 ML VIAL SQ SCH ×7 (06:49→22:46)
[2017-07-10] MEDS: IPRATROPIUM-ALBUTEROL 3 ML NEB INHALATION SCH ×4 (07:15→20:52)
[2017-07-10 07:19] LABS: Anisocytosis Slight; Basophils # (A) 0.1 k/uL (0-0.2); Basophils % (A) 0 %; Eosinophils % (A) 0 %; HCT 30.4 % (39.0-53.0); HGB 8.6 gm/dL (13.0-17.5); Hypochromasia Marked; Lymphocytes # (A) 1.3 k/uL (1.0-4.8); Lymphocytes % (A) 7 %; MCHC 28.2 g/dL (31.0-37.0); MCV 78.1 fL (80.0-100.0); Mean Platelet Volume 6.7; Microcytosis Slight; Monocytes # (A) 0.8 k/uL (0-1.0); Monocytes % (A) 5 %; Neutrophils # (A) 14.7 k/uL (1.3-7.7); Neutrophils % (A) 87 %; Platelet Count 608 k/uL (150-450); Poikilocytosis Slight; RBC 3.89 m/uL (4.30-5.90); RDW 17.2 % (11.5-15.5); WBC 16.9 k/uL (3.8-10.6)
[2017-07-10 07:25] LABS: Anion Gap 7 mmol/L; Blood Urea Nitrogen 29 mg/dL (9-20); Calcium 9.1 mg/dL (8.4-10.2); Carbon Dioxide 32 mmol/L (22-30); Chloride 103 mmol/L (98-107); Glucose 130 mg/dL (74-99); Potassium 5.1 mmol/L (3.5-5.1); Sodium 142 mmol/L (137-145)
--- NOTE | 2017-07-10 07:27 | XR ---
EXAMINATION TYPE: XR chest 1V DATE OF EXAM: 07/10/2017 COMPARISON: 07/09/2017 HISTORY: Postthoracotomy TECHNIQUE: Single frontal view of the chest is obtained. FINDINGS: Bilateral airspace disease and pleural effusion. Cardiomegaly and postsurgical changes. Avila bcutaneous emphysema and surgical jose david noted. No sizable pneumothorax IMPRESSION: 1. Postsurgical changes with bilateral airspace disease and pleural effusion stable. 2. Stable subcutaneous emphysema.
[2017-07-10] MEDS ORDERED: HYDROcodone/APAP 5-325MG 1 EACH TAB PO PRN ×2 (10:01)
[2017-07-10] MEDS ORDERED: HYDROmorphone 0.5 MG/0.5 ML SYRINGE IVP PRN (10:02)
[2017-07-10] MEDS: ASPIRIN 325 MG TAB PO SCH (10:08)
[2017-07-10] MEDS: AMIODARONE 200 MG TAB PO SCH (10:08)
[2017-07-10] MEDS: CLOPIDOGREL 75 MG TAB PO SCH (10:09)
[2017-07-10] MEDS: ATORVASTATIN 40 MG TAB PO SCH (10:09)
[2017-07-10] MEDS: guaiFENesin 600 MG TABLET.ER PO SCH ×2 (10:10→20:46)
[2017-07-10] MEDS: METOPROLOL TARTRATE 25 MG TAB PO SCH ×2 (10:12→20:45)
[2017-07-10] MEDS: HEPARIN SODIUM,PORCINE 5,000 UNIT/ML 1 ML VIAL SQ SCH ×2 (10:12→20:46)
[2017-07-10] MEDS: SERTRALINE 100 MG TAB PO SCH (10:15)
[2017-07-10] MEDS: FUROSEMIDE 10 MG/ML 2 ML VIAL IV SCH (10:16)
[2017-07-10] MEDS ORDERED: HYDROcodone/APAP 7.5-325MG 1 EACH TAB PO PRN (10:27)
[2017-07-10] MEDS: PANTOPRAZOLE 40 MG TABLET PO SCH (11:06)
[2017-07-10] MEDS: HYDROcodone/APAP 7.5-325MG 1 EACH TAB PO PRN ×2 (11:12→18:12)
[2017-07-10 11:30] LABS: Glucose,Whole Blood 135 mg/dL (75-99)
--- NOTE | 2017-07-10 11:34 | P.PN ---
Subjective Progress Note Date: 07/10/17 62 year old male who presented to the emergency room on 06/30/2017 with a chief complaint of shortness of breath that was worsening in severity x 1 week. Patient states he was having sputum production that was initially clear in color and then progressed to a greenish/yellow. The patient has a history of chronic obstructive disease, diabetes mellitus, gastroesophageal reflux disease, hypertension, myocardial infarction, pneumonia , STEMI in May 2017 with heart catheterization. He underwent CABG 4 in May 2017. Postoperatively, he had persistant left sided pleural effusion and required thoracentesis on 05/30/2017. Cultures from pleural fluid were positive for alpha hemolytic strep and enterococcus faecalis. He had a PICC line placed and was discharged home with IV antibiotic infusions. In the emergency room, a chest x-ray was completed which revealed worsening and now completely opacification of the left hemothorax which may related to pleural effusion and/or multifocal pneumonia. Patchy alveolar opacities within the right lower lung are also seen. EKG revealed sinus tachycardia. He was febrile with a temperature of 102.0 in the emergency room. He was found to be hypoxic with an oxygen saturation of 82% on room air. He was also tachycardic with a heart rate in the low 100s. Laboratory studies revealed a white count of 20.7, hemoglobin 10.6, INR 1.3, sodium 139, potassium 4.7, BUN 17, creatinine 0.58, lactic acid 1.7, AST 56, PLT 123, and alkaline phosphatase 159. Urinalysis reveals 1+ protein but otherwise unremarkable. Testing for influenza A and B was negative. 07/01/2017 The patient was seen and examined at the bedside in the intensive care unit with Dr. Abreu. He appears short of breath at rest. He is currently wearing a nonrebreather mask. Maintaining oxygen saturations greater than 92%. He appears diaphoretic. Denies chest pain or pressure. Denies pain or discomfort. Urine culture is negative at the 18 hour jacquelyn. Blood cultures are negative at the 24 hour jacquelyn. His vital signs are relatively stable at this time. Consultations have been placed for infectious disease, pulmonology, and cardiovascular surgery. 07/02/2017 Patient seen and examined at the bedside in the ICU with Dr. Abreu. Patient is currently on Airvo on 65%. Oxygen saturations are greater than 92%. He is eating breakfast at this time. Denies nausea or vomiting. Chest xray this morning shows stable findings with diffuse bilateral left greater than right pneumonia. Blood culture is negative at 24 hour jacquelyn. Urine culture is positive for daya albicans. Infectious disease is following. Patient remains on Levaquin, Vanco, and Zosyn at this time. WBC today is 13.6. Hemoglobin is 8.7, down from 9.1 yesterday. Cardiothoracic surgery is following. Patient may require intervention for possible loculated pleural effusion. 07/03/2017 Patient seen and examined at the bedside on rounds with Dr. Abreu. Patient remains in intensive care unit. Chest x-ray from 07/03/2017 shows slight improved aeration of the left upper lung with persistent confluent multifocal P cities representing multifocal pneumonia. He underwent a ultrasound of the chest on 07/02/2017 which revealed findings suggestive of a loculated effusion. Case discussed with Janelle Chambers NP with pulmonology who states that patient is likely to undergo pigtail catheter insertion in the left pleural space with infusion of TPA. Patient states that cardiothoracic surgery also mentioned thoracotomy as an option if TPA does not resolve the loculated effusion. The patient states he is feeling better today. He feels as though his shortness of breath is improving. He remains on AIRVO at 50% Fio2. He remains afebrile. Blood pressure has been stable. His white count is trending upward and is 17.0 today from 13.6 yesterday. Infectious disease remains on consult. He is currently receiving vancomycin, Levaquin, and Zosyn. 07/04/2017 Patient seen and examined in the bedside in the intensive care unit. He is sitting up in the chair. is at the bedside. He is about to work with physical therapy. He received a dose of 20mg lasix IV this morning per Dr. Abreu. He is diuresing well. His breathing seems to be improved today and he states he is less short of breath. He is no longer requiring Airvo. He is on 8L high flow NC. He underwent pigtail catheter insertion yesterday to left pleural space with a dose of TPA yesterday and today. Upon examination, there is 800 mL of purulent drainage in the chest tube. His states that they spoke with Dr. Okeefe today and he recommended patient undergo thoracotomy. WBC is 15.9 today, down from 17.0. He is afebrile. Infectious disease is on consult. He remains on vancomycin, Levaquin, and Zosyn. Pleural fluid has been cultured and results are currently pending. 07/05/2017 Patient seen and examined at the bedside in the intensive care unit. Chest xray this morning shows findings compatible with pneumonia and empyema. Also reveals possible for volume overload and congestive heart failure. Patients blood sugars were elevated in the 200s yesterday. His lantus was increased from 25 units to 30 units. His novolog with meals was increased form 8 units to 10 units. His serum blood glucose was 105 this morning. His first capillary glucose this morning was 325 and then repeat approximately 15 minutes later was 117. Spoke with nursing who states that patient only had a few bites of eggs and did not eat anything that would have caused his blood sugar to spike that high. She states she checked it on his other hand and it was 117. Suspect reading of 325 was in error. Patient received 3rd dose of TPA into pigtail catheter. Pigtail catheter remains intact to chest tube atrium. Yellowish purulent drainage present. Total drainage thus far in atrium is 1050cc. Preliminary cultures from pleural fluid are negative at the 24 hour jacquelyn. He has been working with therapy and states he ambulated twice yesterday. 07/06/2017-Notes per Dr. Abreu 07/07/2017-Notes per Dr. Abreu 07/08/2017 Patient seen and examined at the bedside. Patient has been transferred out of the intensive care unit to the selective care unit. Patients at bedside. Patient underwent CT of the chest this morning which revealed decreased in size of left subpulmonic fluid collection with a trace pleural effusion remaining. A second pleural-based collection along the lower left major fissure shows increase in size, approximately 6 x 4 cm, ground glass and interstitial infiltrates in the upper mid lungs, small right pleural effusion, and 2.1 cm nodule lateral to the left breast which may be a possible sebaceous cyst. Patient remains on 6 L nasal cannula with oxygen saturations greater than 92%. Patient states his breathing has improved and he denies shortness of breath. Patient's states this morning during TPA administration into the pigtail catheter there was leakage present. Patients states cardiothoracic surgery is to assess patency of tube this afternoon. 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 Per patients , no definite plans regarding decortication. Patient states he has been up to the chair daily, but has not been up yet this morning secondary to his CT scan. Patient states he is voiding without difficulty. He states he had 3 bowel movements yesterday. Denies abdominal pain. Denies nausea or vomiting. 07/09/2017 Patient seen and examined at the bedside on rounds with Dr. Abreu. Patient was examined while lying on a stretcher. He is about to undergo thoracotomy with decortication. His chest tube remains intact. He denies shortness of breath. Remains on 6L NC with oxygen saturations greater than 92%. Denies chest pain. His blood sugars have improved with recent readings of 113, 110, and 100. His novolog was increased to 12 units with meals and his levemir was increased to 32 units. 07/10/2017 Patient seen and examined at the bedside on rounds with Dr. Abreu. Spouse at bedside. Patient underwent left thoractomy with decortication. Specimens were sent for microbiology and pathology. His pigtail catheter was removed and he has two pleural chest tubes "Y-ed" together to a single atrium. Approximately 400 mL of serosanguineous drainage is present in the collection chamber. Patient remains lethargic secondary to anesthesia and pain medications but it easily arousable to verbal stimuli. Chest xray this morning shows bilateral airspace disease and bilateral effusions with stable subcutaneous emphysema. He is on 8L high flow cannula with oxygen saturations greater than 92%. WBC is 16.9. Hemoglobin is stable at 8.6. Potassium is slightly elevated at 5.1. Patient states he wants to rest this morning and then would like to get up to the chair this afternoon. Objective - Vital Signs Vital signs: Vital Signs Temp 98.6 F 07/10/17 07:08 Pulse 87 07/10/17 09:00 Resp 17 07/10/17 09:00 BP 140/75 07/10/17 07:08 Pulse Ox 95 07/10/17 04:00 Intake & Output 07/09/17 07/10/17 07/10/17 18:59 06:59 18:59 Intake Total 1890 800 Output Total 880 1460 Balance 1010 -1460 800 Weight 117 kg Intake: IV 1650 800 Piperacillin-Tazobactam 3 50 .375 gm In Dextrose/Water 1 50ml.bag @ 12.5 mls/hr IVPB Q8H [facility] Rx#: [id number] Sodium Chloride 0.9% 1, 500 000 ml @ 50 mls/hr IV . Q20H [facility] Rx#:[id number] Vancomycin 1,750 mg In 250 Sodium Chloride 0.9% 250 ml @ 125 mls/hr IVPB Q12H [facility] Rx#:[id number] Oral 240 Output: Chest Tube Drainage 60 Pigtail in left posterior 60 Back Drainage 170 Left Chest 170 Urine 410 1400 Estimated Blood Loss 300 Other: Voiding Method Indwelling Catheter Indwelling Catheter # Voids 1 - Exam GENERAL: This is a 62-year-old male who appears lethargic at the time of examination and is complaining of pain to left chest tube sites. HEENT: Head is atraumatic, normocephalic. Pupils are equal, round, and reactive to light. Sclerae anicteric. Conjunctivae are clear. Mucus membranes of the mouth are moist. Neck is supple. RESPIRATORY: Lungs coarse with scattered rhonchi. No use of accessory muscles. Patient maintaining oxygen saturation greater than 92% on 8 L NC. Two chest tubes present and connected to a single atrium with approximately 400 mL of serosanguineous drainage noted in collection chamber CARDIOVASCULAR: Regular rate and rhythm. S1 and S2 noted. No systolic or diastolic murmur auscultated. No JVD noted. No S3 or S4 noted. GASTROINTESTINAL: Obese. No distention noted. Abdomen soft and round. Normal active bowel sounds auscultated x 4 quadrants. No pain or tenderness noted upon palpation. INTEGUMENTARY: Midline chest incision healing well without drainage or erythema. No cyanosis. No jaundice. No rashes noted. No cellulitis noted. EXTREMITIES: 2+ peripheral pulses. No peripheral edema. No calf tenderness noted. NEUROLOGIC: Cranial nerves II-XII intact. PSYCHIATRIC: Lethargic, easily arousable to verbal stimuli. Flat affect. - Labs CBC & Chem 7: 07/10/17 06:43 07/10/17 06:43 Labs: Abnormal Lab Results - Last 24 Hours (Table) 07/09/17 07/09/17 07/09/17 Range/Units 13:03 16:43 20:41 WBC (3.8-10.6) k/uL RBC (4.30-5.90) m/uL Hgb (13.0-17.5) gm/dL Hct (39.0-53.0) % MCV (80.0-100.0) fL MCH (25.0-35.0) pg MCHC (31.0-37.0) g/dL RDW (11.5-15.5) % Plt Count (150-450) k/uL Neutrophils # (1.3-7.7) k/uL Carbon Dioxide (22-30) mmol/L BUN (9-20) mg/dL Glucose (74-99) mg/dL POC Glucose (mg/dL) 145 H 146 H 162 H (75-99) mg/dL 07/10/17 07/10/17 07/10/17 Range/Units 05:47 06:43 06:43 WBC 16.9 H (3.8-10.6) k/uL RBC 3.89 L (4.30-5.90) m/uL Hgb 8.6 L (13.0-17.5) gm/dL Hct 30.4 L (39.0-53.0) % MCV 78.1 L (80.0-100.0) fL MCH 22.0 L (25.0-35.0) pg MCHC 28.2 L (31.0-37.0) g/dL RDW 17.2 H (11.5-15.5) % Plt Count 608 H (150-450) k/uL Neutrophils # 14.7 H (1.3-7.7) k/uL Carbon Dioxide 32 H (22-30) mmol/L BUN 29 H (9-20) mg/dL Glucose 130 H (74-99) mg/dL POC Glucose (mg/dL) 134 H (75-99) mg/dL Microbiology - Last 24 Hours (Table) 07/09/17 10:30 Gram Stain - Preliminary Pleural Fluid Body Fluid Culture - Preliminary 07/09/17 10:50 Gram Stain - Preliminary Other - Other Tissue Culture - Preliminary 07/09/17 10:50 Fungal Culture - Preliminary Other - Other 07/09/17 10:50 Anaerobic Culture - Preliminary Other - Other 07/09/17 10:30 Anaerobic Culture - Preliminary Pleural Fluid 07/09/17 10:30 Fungal Culture - Preliminary Pleural Fluid Assessment and Plan Plan: ASSESSMENT: Multifocal pneumonia and left side loculated pleural effusion, present on admission, s/p left pigtail catheter insertion and TPA administration which has since been discontinued, 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 acnes, S/P left thoracotomy with decortication, POD #1 Acute hypoxic respiratory failure requiring supplemental oxygen, secondary to above Venous congestion and cardiomegaly with fluid overload, improved with IV Lasix Diabetes mellitus, type II, hemoglobin A1c 5.7% Coronary artery disease with previous myocardial infarction History of coronary artery bypass grafting 4 vessels History of left side pleural effusion requiring thoracentesis and empyema requiring pigtail drainage catheter with cultures positive for alpha hemolytic strep and enterococcus faecalis History of paroxysmal atrial fibrillation Chronic obstructive pulmonary disease Essential hypertension Hyperlipidemia Gastroesophageal reflux disease Anxiety, unspecified Obesity: BMI 31.2 PLAN: -Cardiothoracic surgery on consult. Appreciate recommendations and input -Await results of pleural fluid cultures and pleural peel pathology -Monitor output from pleural chest tubes -Pain control, continue IV Dilaudid -Incentive spirometer 10 times an hour while awake -Community Living Coach on consult. Appreciate recommendations and input -Infectious disease on consult. Appreciate recommendations and input -Antibiotics per infectious disease: Currently on Vancomycin, Levaquin, and Zosyn -Activity as tolerated -Up to chair daily -Capillary blood glucose accu-checks AC/HS -Novolog sliding scale coverage AC/HS -Continue Novolog 12 units with meals and 32 units Lantus at HS -Home meds as appropriate -Monitor labs -GI prophylaxis: Protonix 40mg PO daily -DVT prophylaxis: Heparin 5000 units subcu every 12 hours -Monitor vital signs and address as appropriate -Discharge planning: Patient may require home care or ECF at the time of discharge depending on patients clinical course -Further recommendations pending patient's course Nurse practitioner note has been reviewed by physician. Signing provider agrees with the documented findings, assessment, and plan of care.
[2017-07-10] MEDS: LEVOFLOXACIN 750 MG TAB PO SCH (12:06)
[2017-07-10] MEDS: ASCORBIC ACID 500 MG TAB PO SCH (12:06)
[2017-07-10] MEDS: FERROUS SULFATE 325 MG TAB PO SCH (12:06)
--- NOTE | 2017-07-10 14:23 | P.PN ---
Subjective Progress Note Date: 07/10/17 Principal diagnosis: History of recent urgent coronary artery bypass grafting on 05/22/2017, non-ST elevation myocardial infarction, hypertension, hyperlipidemia, insulin- dependent diabetes mellitus, anxiety, family history of premature coronary artery disease, COPD, paroxysmal atrial fibrillation, left-sided thoracentesis on 05/30/2017 and left chest pigtail catheter placement with fluid cultures positive for all for hemolytic strep and enterococcuss faecalis, left lower lobe pneumonia requiring placement of PICC line for home IV antibiotic therapy, and obesity. The patient was admitted to the hospital on 06/30/2017, after presenting to the emergency department with complaints of increase in shortness of breath over the last several days, with worsening productive cough. The patient has been receiving outpatient IV antibiotic therapy per his PICC line for treatment of his left lower lobe pneumonia which is been managed by Dr. Nixon. POD #6, ultrasound-guided chest tube insertion. (Pigtail catheter), pigtail catheter was removed during the left thoracotomy with decortication surgery. POD #1, left thoracotomy with decortication. The patient is lying in bed with his head elevated. He is in no acute distress. The patient is sedated, opens his eyes with verbal stimuli. His Shirley is at his bedside. Questions answered to the best of my ability. He is oriented 3. He states that he ambulated in the ICU hallway yesterday 2. He is on 8 L nasalcannula with oxygen saturation is 95%. Objective - Vital Signs Vital signs: Vital Signs Temp 98.6 F 07/10/17 07:08 Pulse 89 07/10/17 07:36 Resp 17 07/10/17 07:08 BP 140/75 07/10/17 07:08 Pulse Ox 95 07/10/17 04:00 Intake & Output 07/09/17 07/10/17 07/10/17 18:59 06:59 18:59 Intake Total 1890 800 Output Total 880 1460 Balance 1010 -1460 800 Weight 117 kg Intake: IV 1650 800 Piperacillin-Tazobactam 3 50 .375 gm In Dextrose/Water 1 50ml.bag @ 12.5 mls/hr IVPB Q8H [facility] Rx#: [id number] Sodium Chloride 0.9% 1, 500 000 ml @ 50 mls/hr IV . Q20H [facility] Rx#:[id number] Vancomycin 1,750 mg In 250 Sodium Chloride 0.9% 250 ml @ 125 mls/hr IVPB Q12H [facility] Rx#:[id number] Oral 240 Output: Chest Tube Drainage 60 Pigtail in left posterior 60 Back Drainage 170 Left Chest 170 Urine 410 1400 Estimated Blood Loss 300 Other: Voiding Method Indwelling Catheter # Voids 1 - Constitutional Constitutional Comment(s): Sedated. General appearance: Present: cooperative, no acute distress, obese - EENT ENT: Present: hearing grossly normal - Neck Details: No JVD, no lymphadenopathy, neck is supple. - Respiratory Details: Lung sounds essentially clear to his bilateral upper lobes, diminished to his bilateral bases. Respirations are symmetrical and nonlabored. Oxygen saturation are 95% on 8 L high flow oxygen. Left pleural chest tubes remain in place to low continuous wall suction -20 cm H2O. Draining thin serosanguineous drainage. 60 mL output in the last 8 hours, 400 mL output since surgery. Not tolerating his incentive spirometry at this time due to his sedation. - Cardiovascular Details: Regular rhythm and rate. S1 and S2 present, for S3, gallop or murmur. Sternum is stable. Remote telemetry showing normal sinus rhythm heart rate 80. No edema present. Knee-high WALESKA hose and sequential compression devices in place to his bilateral lower extremities. - Gastrointestinal Gastrointestinal Comment(s): Abdomen is soft, nontender and nondistended. Active bowel sounds to all 4 abdominal quadrants. No guarding or rigidity. - Genitourinary Genitourinary Comment(s): Urine output adequate. Clear yellow urine. 625 mL output in the last 8 hours. - Integumentary Integumentary Comment(s): Midline sternal incision clean dry and approximated. No drainage noted. Healed. Left leg EVH harvest site clean dry and approximated. Healed. Skin warm, dry, pink. No clubbing or cyanosis. - Neurologic Neurologic: Present: CNII-XII intact - Musculoskeletal Musculoskeletal: Present: generalized weakness, strength equal bilaterally - Psychiatric Psychiatric: Present: A&O x's 3, appropriate affect, intact judgment & insight - Allied health notes Allied health notes reviewed: nursing - Labs CBC & Chem 7: 07/10/17 06:43 07/10/17 06:43 Labs: Abnormal Lab Results - Last 24 Hours (Table) 07/09/17 07/09/1707/09/18 Range/Units 13:03 16:43 20:41 WBC (3.8-10.6) k/uL RBC (4.30-5.90) m/uL Hgb (13.0-17.5) gm/dL Hct (39.0-53.0) % MCV (80.0-100.0) fL MCH (25.0-35.0) pg MCHC (31.0-37.0) g/dL RDW (11.5-15.5) % Plt Count (150-450) k/uL Neutrophils # (1.3-7.7) k/uL Carbon Dioxide (22-30) mmol/L BUN (9-20) mg/dL Glucose (74-99) mg/dL POC Glucose (mg/dL) 145 H 146 H 162 H (75-99) mg/dL 07/10/17 07/10/17 07/10/17 Range/Units 05:47 06:43 06:43 WBC 16.9 H (3.8-10.6) k/uL RBC 3.89 L (4.30-5.90) m/uL Hgb 8.6 L (13.0-17.5) gm/dL Hct 30.4 L (39.0-53.0) % MCV 78.1 L (80.0-100.0) fL MCH 22.0 L (25.0-35.0) pg MCHC 28.2 L (31.0-37.0) g/dL RDW 17.2 H (11.5-15.5) % Plt Count 608 H (150-450) k/uL Neutrophils # 14.7 H (1.3-7.7) k/uL Carbon Dioxide 32 H (22-30) mmol/L BUN 29 H (9-20) mg/dL Glucose 130 H (74-99) mg/dL POC Glucose (mg/dL) 134 H (75-99) mg/dL Microbiology - Last 24 Hours (Table) 07/09/17 10:50 Gram Stain - Preliminary Other - Other Tissue Culture - Preliminary 07/09/17 10:30 Gram Stain - Preliminary Pleural Fluid Body Fluid Culture - Preliminary 07/09/17 10:50 Fungal Culture - Preliminary Other - Other 07/09/17 10:50 Anaerobic Culture - Preliminary Other - Other 07/09/17 10:30 Anaerobic Culture - Preliminary Pleural Fluid 07/09/17 10:30 Fungal Culture - Preliminary Pleural Fluid - Imaging and Cardiology Chest x-ray: report reviewed, image reviewed Assessment and Plan (1) History of atrial fibrillation less than 8 weeks after coronary artery bypass graft Current Visit: Yes Status: Acute Code(s): BYC7394 - SNOMED Code(s): 619271815149351 (2) History of myocardial infarction Current Visit: Yes Status: Acute Code(s): I25.2 - OLD MYOCARDIAL INFARCTION SNOMED Code(s): 060070076 (3) Status post aorto-coronary artery bypass graft Current Visit: Yes Status: Acute Code(s): Z95.1 - PRESENCE OF AORTOCORONARY BYPASS GRAFT SNOMED Code(s): 556283076 (4) Anxiety Current Visit: Yes Status: Chronic Code(s): F41.9 - ANXIETY DISORDER, UNSPECIFIED SNOMED Code(s): 22945580 (5) Diabetes mellitus type 2 in obese Current Visit: Yes Status: Chronic Code(s): E11.69 - TYPE 2 DIABETES MELLITUS WITH OTHER SPECIFIED COMPLICATION; E66.9 - OBESITY, UNSPECIFIED SNOMED Code(s): 74844153 (6) Hyperlipidemia Current Visit: Yes Status: Chronic Code(s): E78.5 - HYPERLIPIDEMIA, UNSPECIFIED SNOMED Code(s): 54697675 (7) Hypertension Current Visit: Yes Status: Chronic Code(s): I10 - ESSENTIAL (PRIMARY) HYPERTENSION SNOMED Code(s): 32457345 (8) Obesity (BMI 30.0-34.9) Current Visit: Yes Status: Chronic Code(s): E66.9 - OBESITY, UNSPECIFIED SNOMED Code(s): 152277727 (9) Coronary artery disease Current Visit: No Status: Chronic Code(s): I25.10 - ATHSCL HEART DISEASE OF [place] CORONARY ARTERY W/O ANG PCTRS SNOMED Code(s): 77208996 (10) Left lower lobe pneumonia Current Visit: No Status: Acute Code(s): J18.1 - LOBAR PNEUMONIA, UNSPECIFIED ORGANISM SNOMED Code(s): 114040873 Plan: 1. Continue aspirin, Plavix, statin, amiodarone and beta ewa. 2. Wean oxygen as tolerated, pulmonary management per Dr. Barker's recommendations. 3. Antibiotic management per infectious disease recommendations. Routine PICC line care. Pleural fluid cultures pulmonary results showing anaerobic Prevotella melaninogenica Proprionibacterium acnes. 4. Discontinue Dilaudid 2 mg every 2 hours, Marlin 7. 5/325 mg 1-2 tablets every 6 hours when necessary pain and Dilaudid 0.5 mg IV every 6 hours when necessary breakthrough pain. Continue Toradol as ordered. 5. Diabetic management per primary care service. 6. Encourage use of his incentive spirometry every hour while awake. 7. GI/DVT prophylaxis. 8. Pleural fluid for Chlyomicrons were not detected. 9. Continue to work with physical and occupational therapy. Out of bed to chair for all meals. 10. Continue chest tubes to low continuous wall suction -20 cm H2O. 11. More recommendations to follow as patient progresses and care. . Time with Patient: Greater than 30
--- NOTE | 2017-07-10 14:52 | P.PN ---
<Tamia Solano - Last Filed: 07/10/17 14:43> Subjective Progress Note Date: 07/10/17 Principal diagnosis: Acute hypoxic respiratory failure secondary to left lung pneumonia and pleural effusion, Progress note dated 07/02/2017 The patient continues to improve slowly. Radiographically, his chest x-ray has not changed all that much. Certainly not worse. Currently the patient is on the AIRVO at 65 L/m. He's had a saline IV at 50 mL an hour. The patient has a history of bilateral pneumonia with sepsis a history of asthma, diabetes, gastroesophageal reflux disease, hypertension, myocardial infarction and pneumonia. He also has a history of recent bypass grafting back on 05/22/[address] segment elevation myocardial infarction and legionnaires disease. He is a lifelong nonsmoker. His primary care physician is Dr. Gary Abreu. The patient apparently had a computed tomography scan late yesterday. I have not looked at it as yet. My partner expresses some concerns that he may have a loculated pleural effusion which need something more significantly done such as decortication. On 07/03/2017 patient remains in intensive care. Still requiring high flow nasal cannula, remains on AIRVO at FiO2 of 50% and 40 L/m flow. Afebrile, hemodynamically stable. Today's chest x-ray shows slight improvement in the aeration of the left upper lung with persistent confluent multifocal opacities representing multifocal pneumonia. Yesterday we have obtained a chest ultrasound to evaluate the complex and loculated left pleural effusion in the background of extensive left lung pneumonia. This was discussed with the interventional radiologist and cardiothoracic surgery. CT surgery feels the patient with benefit from a pigtail catheter insertion in the left pleural space and infusion of TPA over the next few days. This was discussed with the radiologist, who recommended getting a CT chest with contrast today. Otherwise patient is fairly comfortable, in no acute distress, respirations are shallow and tachypneic with a rate in the 30s. He is awake alert, tolerating a regular diet. His lab work shows upward trend of his WBCs, up to 17, hemoglobin is 9.0 , renal profile is stable, within normal limits no significant electrolyte abnormality. Blood and sputum culture show no growth, urine culture is positive for Vera albicans. ID service is on. Is on a combination of Levaquin, Zosyn and vancomycin. Currently not requiring any vasopressor support. On 07/04/2017 patient is seen in follow-up in intensive care unit. He is status post left pleural pigtail chest tube insertion with TPA infusion on 07/03. Patient had round 400 cc of milky yellow, purulent drainage in the atrium collection chamber since insertion. Clinically patient denies any acute distress, FiO2 was weaned down to 8 L per high flow nasal cannula. Blood sputum cultures remain negative, urine culture shows Vera albicans, pleural fluid culture was sent for culture as well and is pending. Patient will have another infusion of alteplase today per cardiothoracic surgery. Continues on empiric antibiotics with Levaquin, Zosyn and vancomycin. His IV fluids are 0.9 normal saline at 50 ML per hour. Patient's tolerating oral intake, on regular diet. Up in a chair, tolerating it well. Overall continues to significantly improve. The patient is seen again today 07/05/2017 in follow-up in the intensive care unit. He is currently sitting up in a chair at the bedside. He is awake and alert in no acute distress. The left-sided pigtail chest tube remains in place. The plan was for alteplase again today. He has been up ambulating with assistance which enhances the drainage process. Cultures are pending. His chest x-ray reveals stable findings compared to previous. White count 15.7, hemoglobin 8.8. He remains on vancomycin, Zosyn and Levaquin. He is maintaining good O2 saturations in the low 90s on 10 L high flow nasal cannula. He has a 0.9 normal saline at 50 MLS per hour. The patient is seen again today 07/06/2017 in follow-up in the intensive care unit. His been up ambulating in the hallway with assistance. He is doing quite well today. His chest x-ray continues to reveal evidence of cardiac enlargement along with patchy bilateral infiltrates and small left pleural effusion. There is been minimal output from the pigtail catheter in the left chest. He has a total of 150 MLS out yesterday, currently 90 out today. He has received alteplase No real improvement compared to yesterday. He is down to 8 L high flow nasal cannula to maintain O2 saturations in the 90s. He has been afebrile. Pleural fluid culture reveals no growth after 48 hours. White count 14.9. Hemoglobin 8.8. Creatinine 0.62. He remains on vancomycin and Zosyn and Levaquin for now. On 07/08/2017 patient seen in follow-up on selective care unit. CT chest from this morning has been reviewed, shows left basilar pleural catheter in place with considerable decrease in size of the patient's previous left subpulmonic fluid collection, trace effusion remains. Permanent partial atelectasis and residual consolidation within the left lower lobe.(Second pleural-based collection along the lower left. She shows slight interval increase in size, ground glass and interstitial infiltrates in the midline is persistent show improvement from previous CT chest. Patient's left-sided pigtail has been noted to have moved, daily TPA infusions. There is small amount of serosanguineous drainage noted from the pigtail chest tube. He is afebrile, FiO2 is currently down to 6 L per high flow nasal cannula, vital signs are stable. Lung sounds are diminished, with a few scattered rales at left base. Cardiothoracic surgery has previously discussed decortication surgery left lung. Continue antibiotics per infectious disease recommendations. Continue encouraging incentive spirometry, increase activity as tolerated. On 07/09/2017 patient is seen in follow-up post left-sided thoracotomy with decortication by Dr. Tellez. Patient is sedated, he arrived back to the room at around 1430 per the spouse, was in significant amount of pain, and was given IV narcotics. Currently resting comfortably, somnolent, but arouses to verbal stimuli. Lung sounds are diminished, more so over the left lower lobe. There are 2 left-sided chest tubes why connected to an atrium, there is about 200 mL of serosanguineous output in the collection chamber. Patient is currently on 45 % Ventimask, with O2 sat at 93%. Vital signs are stable. Left-sided pigtail chest tube has been discontinued. Patient continues on Levaquin and vancomycin as well as Zosyn. Urine culture was positive for Vera, pleural fluid showed anaerobic species, Prevotella melaninogenica, and Proprionibacterium acnes. The patient is seen again today 07/10/2017 in follow-up on the selective care unit. He is status post left-sided thoracotomy and decortication. He is doing quite well. He is maintaining good O2 saturations in the upper 90s on room air. He's been hemodynamically stable. Afebrile. White count 16.9. Hemoglobin 8.6. His chest x-ray shows bilateral airspace disease and pleural effusions which are stable. The subcutaneous emphysema is stable. Remains on DuoNeb inhalations, with antibiotics in the form of vancomycin, Zosyn and Levaquin. Pathology report is negative for malignancy. Objective - Vital Signs Vital signs: Vital Signs Temp 98.2 F 07/10/17 11:36 Pulse 88 07/10/17 11:42 Resp 19 07/10/17 14:34 BP 119/67 07/10/17 11:36 Pulse Ox 98 07/10/17 11:36 Intake & Output 07/09/17 07/10/17 07/10/17 18:59 06:59 18:59 Intake Total 1890 800 Output Total 880 1460 900 Balance 1010 -1460 -100 Weight 117 kg Intake: IV 1650 800 Piperacillin-Tazobactam 3 50 .375 gm In Dextrose/Water 1 50ml.bag @ 12.5 mls/hr IVPB Q8H [facility] Rx#: [id number] Sodium Chloride 0.9% 1, 500 000 ml @ 50 mls/hr IV . Q20H [facility] Rx#:[id number] Vancomycin 1,750 mg In 250 Sodium Chloride 0.9% 250 ml @ 125 mls/hr IVPB Q12H [facility] Rx#:[id number] Oral 240 0 Output: Chest Tube Drainage 60 Pigtail in left posterior 60 Back Drainage 170 Left Chest 170 Urine 410 1400 900 Estimated Blood Loss 300 Other: Voiding Method Indwelling Catheter Indwelling Catheter # Voids 1 # Bowel Movements 0 - Exam No acute distress, patient is currently sedated, resting in bed, status post left-sided thoracotomy with decortication HEENT examination is grossly unremarkable. Mucous membranes are moist. No oral lesions. Neck supple. Full range of motion. No adenopathy thyromegaly or neck vein distention. Cardiovascular examination reveals regular rhythm rate. S1-S2 normal. No S3 or S4. No discernible murmur noted. Lungs reveal a few bilateral rhonchi. Breath sounds show diminished air entry over left lower base, clear on the right. A few crackles are present over right lower lobe, No wheezes. There are 2 left-sided chest tubes why connected to an atrium collection chamber , with 200 mL of serosanguineous output Abdomen soft bowel sounds are heard. No masses or tenderness. Extremities are intact. No cyanosis clubbing or edema. Skin is without rash or lesion. Neurologic examination is brief but nonfocal - Labs CBC & Chem 7: 07/10/17 06:43 07/10/17 06:43 Labs: Abnormal Lab Results - Last 24 Hours (Table) 07/09/17 07/09/17 07/10/17 Range/Units 16:43 20:41 05:47 WBC (3.8-10.6) k/uL RBC (4.30-5.90) m/uL Hgb (13.0-17.5) gm/dL Hct (39.0-53.0) % MCV (80.0-100.0) fL MCH (25.0-35.0) pg MCHC (31.0-37.0) g/dL RDW (11.5-15.5) % Plt Count (150-450) k/uL Neutrophils # (1.3-7.7) k/uL Carbon Dioxide (22-30) mmol/L BUN (9-20) mg/dL Glucose (74-99) mg/dL POC Glucose (mg/dL) 146 H 162 H 134 H (75-99) mg/dL 07/10/17 07/10/17 07/10/17 Range/Units 06:43 06:43 11:25 WBC 16.9 H (3.8-10.6) k/uL RBC 3.89 L (4.30-5.90) m/uL Hgb 8.6 L (13.0-17.5) gm/dL Hct 30.4 L (39.0-53.0) % MCV 78.1 L (80.0-100.0) fL MCH 22.0 L (25.0-35.0) pg MCHC 28.2 L (31.0-37.0) g/dL RDW 17.2 H (11.5-15.5) % Plt Count 608 H (150-450) k/uL Neutrophils # 14.7 H (1.3-7.7) k/uL Carbon Dioxide 32 H (22-30) mmol/L BUN 29 H (9-20) mg/dL Glucose 130 H (74-99) mg/dL POC Glucose (mg/dL) 135 H (75-99) mg/dL Microbiology - Last 24 Hours (Table) 07/09/17 10:30 Gram Stain - Preliminary Pleural Fluid Body Fluid Culture - Preliminary 07/09/17 10:50 Gram Stain - Preliminary Other - Other Tissue Culture - Preliminary 07/09/17 10:50 Fungal Culture - Preliminary Other - Other 07/09/17 10:50 Anaerobic Culture - Preliminary Other - Other 07/09/17 10:30 Anaerobic Culture - Preliminary Pleural Fluid 07/09/17 10:30 Fungal Culture - Preliminary Pleural Fluid Assessment and Plan Assessment: Assessment: #1. Acute hypoxic respiratory failure secondary to extensive left lung multifocal pneumonia and left pleural effusion, present on admission. Patient is status post left pigtail pleural chest tube catheter insertion, with TPA infusions on 07/05/2017. Status post left thoracotomy with decortication on . #2. Sepsis, with leukocytosis and fever, secondary to the above #3. History of left-sided pleural effusion requiring thoracentesis and empyema requiring pigtail drainage catheter and cultures positive for alphahemolytic strep and enterococcus faecalis #4. Coronary artery disease, status post 4 vessel coronary artery bypass grafting #5. COPD #6. Essential hypertension #7. Hyperlipidemia #8. GERD #9. Anxiety #10. Obesity Plan: The patient was seen and evaluated by Dr. Barker. His chest x-ray and labs were reviewed. We'll continue with his current medications for now. We'll continue to increase his activity as tolerated. Daily chest x-rays. We have again encourage increased use of the incentive spirometer and cough and deep breathing exercises. We'll continue to follow and make further recommendations based on his clinical status. I, the cosigning physician, performed a history & physical examination of the patient. Lungs sounds with crackles in the bilateral posterior bases more so on the left.. Maintaining good O2 saturations in the 90s on room air. I discussed the assessment and plan of care with my nurse practitioner, Tamia Solano. I attest to the above note as dictated by her. <El Barker - Last Filed: 07/10/17 18:03> Objective - Vital Signs Vital signs: Vital Signs Temp 98.2 F 07/10/17 11:36 Pulse 94 07/10/17 17:09 Resp 19 07/10/17 14:34 BP 119/67 07/10/17 11:36 Pulse Ox 97 07/10/17 16:51 Intake & Output 07/09/17 07/10/17 07/10/17 18:59 06:59 18:59 Intake Total 1890 1280 Output Total 880 1460 900 Balance 1010 -1460 380 Weight 117 kg Intake: IV 1650 800 Piperacillin-Tazobactam 3 50 .375 gm In Dextrose/Water 1 50ml.bag @ 12.5 mls/hr IVPB Q8H [facility] Rx#: [id number] Sodium Chloride 0.9% 1, 500 000 ml @ 50 mls/hr IV . Q20H [facility] Rx#:[id number] Vancomycin 1,750 mg In 250 Sodium Chloride 0.9% 250 ml @ 125 mls/hr IVPB Q12H [facility] Rx#:[id number] Oral 240 480 Output: Chest Tube Drainage 60 Pigtail in left posterior 60 Back Drainage 170 Left Chest 170 Urine 410 1400 900 Estimated Blood Loss 300 Other: Voiding Method Indwelling Catheter Indwelling Catheter # Voids 1 # Bowel Movements 0 - Labs CBC & Chem 7: 07/10/17 06:43 07/10/17 06:43 Labs: Abnormal Lab Results - Last 24 Hours (Table) 07/09/17 07/10/17 07/10/17 Range/Units 20:41 05:47 06:43 WBC (3.8-10.6) k/uL RBC (4.30-5.90) m/uL Hgb (13.0-17.5) gm/dL Hct (39.0-53.0) % MCV (80.0-100.0) fL MCH (25.0-35.0) pg MCHC (31.0-37.0) g/dL RDW (11.5-15.5) % Plt Count (150-450) k/uL Neutrophils # (1.3-7.7) k/uL Carbon Dioxide 32 H (22-30) mmol/L BUN 29 H (9-20) mg/dL Glucose 130 H (74-99) mg/dL POC Glucose (mg/dL) 162 H 134 H (75-99) mg/dL 07/10/17 07/10/17 07/10/17 Range/Units 06:43 11:25 16:38 WBC 16.9 H (3.8-10.6) k/uL RBC 3.89 L (4.30-5.90) m/uL Hgb 8.6 L (13.0-17.5) gm/dL Hct 30.4 L (39.0-53.0) % MCV 78.1 L (80.0-100.0) fL MCH 22.0 L (25.0-35.0) pg MCHC 28.2 L (31.0-37.0) g/dL RDW 17.2 H (11.5-15.5) % Plt Count 608 H (150-450) k/uL Neutrophils # 14.7 H (1.3-7.7) k/uL Carbon Dioxide (22-30) mmol/L BUN (9-20) mg/dL Glucose (74-99) mg/dL POC Glucose (mg/dL) 135 H 137 H (75-99) mg/dL Microbiology - Last 24 Hours (Table) 07/09/17 10:30 Gram Stain - Preliminary Pleural Fluid Body Fluid Culture - Preliminary 07/09/17 10:50 Gram Stain - Preliminary Other - Other Tissue Culture - Preliminary 07/09/17 10:50 Fungal Culture - Preliminary Other - Other 07/09/17 10:50 Anaerobic Culture - Preliminary Other - Other 07/09/17 10:30 Anaerobic Culture - Preliminary Pleural Fluid 07/09/17 10:30 Fungal Culture - Preliminary Pleural Fluid Assessment and Plan Assessment: Joint evaluation done along with a nurse practitioner. The patient is post thoracotomy and limited decortication. We'll wean down the FiO2 as tolerated. Awaiting the cultures taken from the operating room at a time of his surgery. Chest tubes are in place. Monitor the output. Encouraged use of incentive spirometer. The patient is sluggish in his activity and he was asked to become more active and he has adequate pain control for now. We'll continue to follow.
[2017-07-10 16:40] LABS: Glucose,Whole Blood 137 mg/dL (75-99)
[2017-07-10] MEDS: SODIUM CHLORIDE 0.9% 1,000 ML IV SCH (20:57)
[2017-07-10 21:13] LABS: Glucose,Whole Blood 139 mg/dL (75-99)
[2017-07-10] MEDS ORDERED: FUROSEMIDE 10 MG/ML 2 ML VIAL IV ONE (22:23)
[2017-07-10] MEDS: INSULIN DETEMIR 100 UNIT/ML 10 ML VIAL SQ SCH (22:46)
[2017-07-10] MEDS: guaiFENesin-DM 100-10MG/5ML 10 ML CUP PO PRN (23:07)
[2017-07-11 06:20] LABS: Glucose,Whole Blood 136 mg/dL (75-99)
[2017-07-11 06:43] LABS: Anion Gap 5 mmol/L; Blood Urea Nitrogen 38 mg/dL (9-20); Calcium 8.7 mg/dL (8.4-10.2); Carbon Dioxide 31 mmol/L (22-30); Chloride 97 mmol/L (98-107); Glucose 128 mg/dL (74-99); Sodium 133 mmol/L (137-145)
[2017-07-11] MEDS: PIPERACILLIN-TAZOBACTAM 3.375 GM in DEXTROSE/WATER 1 50ML.BAG IVPB SCH ×3 (06:43→20:48)
[2017-07-11] MEDS: KETOROLAC 30 MG/ML 1 ML VIAL IVP SCH ×4 (06:44→23:03)
[2017-07-11] MEDS: guaiFENesin-DM 100-10MG/5ML 10 ML CUP PO PRN ×3 (06:56→20:48)
[2017-07-11] MEDS: PANTOPRAZOLE 40 MG TABLET PO SCH (06:59)
[2017-07-11] MEDS: INSULIN ASPART 100 UNIT/ML 1 ML 10 ML VIAL SQ SCH ×7 (07:00→20:48)
[2017-07-11 07:17] LABS: Anisocytosis Slight; Basophils % (A) 0 %; Eosinophils % (A) 0 %; HCT 26.6 % (39.0-53.0); HGB 7.8 gm/dL (13.0-17.5); Hypochromasia Marked; Lymphocytes # (A) 1.2 k/uL (1.0-4.8); Lymphocytes % (A) 9 %; MCH 22.1 pg (25.0-35.0); MCHC 29.2 g/dL (31.0-37.0); MCV 75.8 fL (80.0-100.0); Mean Platelet Volume 6.8; Microcytosis Slight; Monocytes # (A) 0.8 k/uL (0-1.0); Monocytes % (A) 6 %; Neutrophils # (A) 11.1 k/uL (1.3-7.7); Neutrophils % (A) 83 %; Platelet Count 515 k/uL (150-450); Poikilocytosis Slight; RBC 3.51 m/uL (4.30-5.90); RDW 17.5 % (11.5-15.5); WBC 13.3 k/uL (3.8-10.6)
[2017-07-11] MEDS: IPRATROPIUM-ALBUTEROL 3 ML NEB INHALATION SCH ×4 (07:51→20:27)
--- NOTE | 2017-07-11 09:30 | PN ---
PROGRESS NOTE This is a 62-year-old white male who was admitted with acute hypoxic respiratory failure secondary to left lower lobe pneumonia and pleural effusion. He was evaluated in the emergency room after increasing shortness of breath on the and placed in the hospital accordingly. At that period of time, he was he was bringing up green yellowish phlegm. He had a long-standing history of COPD, diabetes mellitus, GE reflux, hypertension, myocardial infarction, pneumonia. He had a STEMI May 2017, followed by cardiac catheterization. He then underwent a CABG x4 in May 2017. Possibly he has persistent left pleural effusion which required thoracentesis. Culture of the pleural effusion has been positive for alpha strep enterococcus. He has a PICC line placed and was discharged home on IV antibiotics. As he came into the emergency room, he felt worse. He had opacification of left hemothorax which related to pleural effusion and multifocal pneumonia. He also had patchy alveolar opacities within the right lower lung. EKG showed tachycardia. The temperature was 102 upon admission. He was found to have to be hypoxic with O2 saturation of 82 on room air. His tachycardia with a heart rate in the low 100s. Blood test at that time showed a white count of 20,000.7, hemoglobin was 10.6, INR was 1.3. Sodium was 139, potassium 4.7, BUN 17, creatinine 0.8. Lactic acid was 1.7, AST 56, platelets was 123, and alkaline phosphatase 123. Urinalysis showed +1 protein. Test for influenza A and B were negative. The patient was examined at bedside. Intensive care was on the , , , , , and by myself and Cherry Lizama, nurse practitioner. On many of those days at the period of time he was evaluated. He still had tachypnea during that period of time. He had a pigtail put in and was getting 10 mg/100 mils daily. On the , he was examined and was transferred out of ICU and I examined him along with nurse practitioner, Cherry Lizama. He at that time was found to have cultures of pleural fluid of Prevotella melaninogenica and Propionibacterium acnes in his pleural fluid. He was about to undergo decortication tomorrow. At this time, he was continued on same medication accordingly. On 07/09 he finished and was about to undergo thoracotomy with decortication and he actually was stable with a 92 O2 saturation at 6 L normal saline. Sugars were within normal limits on insulin scale. On 07/10/2017, he was followed by myself and nurse practitioner, Cherry Lizama, and he underwent left thoracotomy and decortication specimens for the micro and pathology and pigtail again were sent and we are waiting for the results. The patient was much more lethargic today and is post anesthesia and pain medication. Chest x-ray shows bilateral airspace disease bilaterally fusions stable less subcu and he has some stable subcutaneous emphysema. He is on 8 L of oxygen at this period time. Potassium was stable. Today, patient is found to have still some subcutaneous emphysema from previous surgery. He also has some swelling in his arms bilaterally. REVIEW OF SYSTEMS: CARDIOPULMONARY: He is unchanged. GI: Unchanged. : Unchanged. ALLERGIES: Unchanged. PSYCHIATRIC: Patient is more cognitive today. ENT: Unchanged. PHYSICAL EXAMINATION: VITAL SIGNS: Blood pressure is 94, 98, O2 is 91 on 6 L, respiratory rate is 18, and heart rate 71. EYES: Pupils are equal, round, react to light and accommodation. ENT: Showed tympanic membranes and pharynx to be negative. NECK: Supple. Midline trachea. CHEST: Essentially clear to auscultation. HEART: Sinus rhythm with no murmur. ABDOMEN: Soft, nontender with no organomegaly. Lower extremities are pretty much unchanged. Does have some subcutaneous emphysema. Does have a pigtail tube still in place with some serosanguineous drainage. LAB: Sodium 133, potassium 3.4, creatinine 110 with a BUN of 38. ASSESSMENT: 1. Multifocal pneumonia, left-sided loculated pleural effusion present on admission, status post left pigtail catheter insertion with tPA administration which has since been discharged. Pleural fluid for culture, positive for Prevotella melaninogenica and Propionibacterium acnes, status post left thoracotomy with decortication, postop day #2. 2. Acute hypoxia, respiratory failure requiring oxygenation. 3. Venous congestion, cardiomegaly, fluid overload with Lasix. 4. Diabetes mellitus type 2 with insulin support. 5. Coronary artery disease, 4 vessel coronary bypass. 6. Left pleural effusion requiring thoracentesis, previous pigtail, cultures positive for alpha Strep and enterococcus faecalis. 7. Proximal atrial fib, chronic. 8. Chronic obstructive pulmonary disease. 9. Essential hypertension. 10.Hyperlipidemia. 11.Gastroesophageal reflux. 12.Acute anxiety. 13.Obesity. PLAN: Following cardiovascular and pulmonary leads. We are awaiting results pleura cultures. Output for pleural tube noted. Pain medication with Dilaudid. Incentive spirometry 10 times a day. Infectious Disease also on consult appreciated. Medications currently is vancomycin, Levaquin, Zosyn. Activities as tolerated, up in the chair with assistance. Blood sugars a.c. meals and bedtime. Longer-term coverage also provided. Home medications. GI and DVT prophylaxis has occurred. Prognosis is guarded. MMODL / IJN: [id number] /
[2017-07-11] MEDS: AMIODARONE 200 MG TAB PO SCH (09:48)
[2017-07-11] MEDS: ATORVASTATIN 40 MG TAB PO SCH (09:49)
[2017-07-11] MEDS: CLOPIDOGREL 75 MG TAB PO SCH (09:49)
[2017-07-11] MEDS: ASPIRIN 325 MG TAB PO SCH (09:49)
[2017-07-11] MEDS: FUROSEMIDE 10 MG/ML 2 ML VIAL IV SCH (09:50)
[2017-07-11] MEDS: guaiFENesin 600 MG TABLET.ER PO SCH ×2 (09:52→20:47)
[2017-07-11] MEDS: HEPARIN SODIUM,PORCINE 5,000 UNIT/ML 1 ML VIAL SQ SCH ×2 (09:53→20:48)
[2017-07-11] MEDS: METOPROLOL TARTRATE 25 MG TAB PO SCH ×2 (09:54→20:48)
[2017-07-11] MEDS: SERTRALINE 100 MG TAB PO SCH (09:55)
[2017-07-11 10:50] VITALS: BMI 32.1
[2017-07-11] MEDS: VANCOMYCIN 1,750 MG in SODIUM CHLORIDE 0.9% 250 ML IVPB SCH ×2 (11:06→22:22)
[2017-07-11] MEDS: SODIUM CHLORIDE 0.9% 1,000 ML IV SCH (11:48)
[2017-07-11] MEDS: HYDROcodone/APAP 7.5-325MG 1 EACH TAB PO PRN ×2 (11:49→21:34)
[2017-07-11] MEDS: LEVOFLOXACIN 750 MG TAB PO SCH (11:49)
[2017-07-11] MEDS: ASCORBIC ACID 500 MG TAB PO SCH (11:50)
[2017-07-11] MEDS: FERROUS SULFATE 325 MG TAB PO SCH (11:50)
--- NOTE | 2017-07-11 11:53 | XR ---
EXAMINATION TYPE: XR chest 1V DATE OF EXAM: 07/11/2017 COMPARISON: Prior chest x-ray 07/10/2017 HISTORY: Status post thoracotomy, chest tube TECHNIQUE: Single frontal view of the chest is obtained. FINDINGS: Left-sided chest tube remains in place. Minimal apical pneumothorax present. Subcutaneous emphysema is present. Heart remains enlarged, patient is post median sternotomy. Retrocardiac density persists. Second chest tube present at the left lung base may be marginally within the pleural space . Lung volumes are low. Patchy basilar density also noted on the right. Left-sided PICC line in place with distal tip likely in the innominate vein. IMPRESSION: Findings are similar to prior exam. Postprocedural changes. Residua from empyema, there is likely pleural reaction, atelectasis.
[2017-07-11 11:54] LABS: Glucose,Whole Blood 187 mg/dL (75-99)
--- NOTE | 2017-07-11 13:01 | P.PN ---
<Tamia Solano - Last Filed: 07/11/17 12:44> Subjective Progress Note Date: 07/11/17 Principal diagnosis: Acute hypoxic respiratory failure secondary to left lung pneumonia and pleural effusion, Progress note dated 07/02/2017 The patient continues to improve slowly. Radiographically, his chest x-ray has not changed all that much. Certainly not worse. Currently the patient is on the AIRVO at 65 L/m. He's had a saline IV at 50 mL an hour. The patient has a history of bilateral pneumonia with sepsis a history of asthma, diabetes, gastroesophageal reflux disease, hypertension, myocardial infarction and pneumonia. He also has a history of recent bypass grafting back on 05/22/[address] segment elevation myocardial infarction and legionnaires disease. He is a lifelong nonsmoker. His primary care physician is Dr. Gary Abreu. The patient apparently had a computed tomography scan late yesterday. I have not looked at it as yet. My partner expresses some concerns that he may have a loculated pleural effusion which need something more significantly done such as decortication. On 07/03/2017 patient remains in intensive care. Still requiring high flow nasal cannula, remains on AIRVO at FiO2 of 50% and 40 L/m flow. Afebrile, hemodynamically stable. Today's chest x-ray shows slight improvement in the aeration of the left upper lung with persistent confluent multifocal opacities representing multifocal pneumonia. Yesterday we have obtained a chest ultrasound to evaluate the complex and loculated left pleural effusion in the background of extensive left lung pneumonia. This was discussed with the interventional radiologist and cardiothoracic surgery. CT surgery feels the patient with benefit from a pigtail catheter insertion in the left pleural space and infusion of TPA over the next few days. This was discussed with the radiologist, who recommended getting a CT chest with contrast today. Otherwise patient is fairly comfortable, in no acute distress, respirations are shallow and tachypneic with a rate in the 30s. He is awake alert, tolerating a regular diet. His lab work shows upward trend of his WBCs, up to 17, hemoglobin is 9.0 , renal profile is stable, within normal limits no significant electrolyte abnormality. Blood and sputum culture show no growth, urine culture is positive for Vera albicans. ID service is on. Is on a combination of Levaquin, Zosyn and vancomycin. Currently not requiring any vasopressor support. On 07/04/2017 patient is seen in follow-up in intensive care unit. He is status post left pleural pigtail chest tube insertion with TPA infusion on 07/03. Patient had round 400 cc of milky yellow, purulent drainage in the atrium collection chamber since insertion. Clinically patient denies any acute distress, FiO2 was weaned down to 8 L per high flow nasal cannula. Blood sputum cultures remain negative, urine culture shows Vera albicans, pleural fluid culture was sent for culture as well and is pending. Patient will have another infusion of alteplase today per cardiothoracic surgery. Continues on empiric antibiotics with Levaquin, Zosyn and vancomycin. His IV fluids are 0.9 normal saline at 50 ML per hour. Patient's tolerating oral intake, on regular diet. Up in a chair, tolerating it well. Overall continues to significantly improve. The patient is seen again today 07/05/2017 in follow-up in the intensive care unit. He is currently sitting up in a chair at the bedside. He is awake and alert in no acute distress. The left-sided pigtail chest tube remains in place. The plan was for alteplase again today. He has been up ambulating with assistance which enhances the drainage process. Cultures are pending. His chest x-ray reveals stable findings compared to previous. White count 15.7, hemoglobin 8.8. He remains on vancomycin, Zosyn and Levaquin. He is maintaining good O2 saturations in the low 90s on 10 L high flow nasal cannula. He has a 0.9 normal saline at 50 MLS per hour. The patient is seen again today 07/06/2017 in follow-up in the intensive care unit. His been up ambulating in the hallway with assistance. He is doing quite well today. His chest x-ray continues to reveal evidence of cardiac enlargement along with patchy bilateral infiltrates and small left pleural effusion. There is been minimal output from the pigtail catheter in the left chest. He has a total of 150 MLS out yesterday, currently 90 out today. He has received alteplase No real improvement compared to yesterday. He is down to 8 L high flow nasal cannula to maintain O2 saturations in the 90s. He has been afebrile. Pleural fluid culture reveals no growth after 48 hours. White count 14.9. Hemoglobin 8.8. Creatinine 0.62. He remains on vancomycin and Zosyn and Levaquin for now. On 07/08/2017 patient seen in follow-up on selective care unit. CT chest from this morning has been reviewed, shows left basilar pleural catheter in place with considerable decrease in size of the patient's previous left subpulmonic fluid collection, trace effusion remains. Permanent partial atelectasis and residual consolidation within the left lower lobe.(Second pleural-based collection along the lower left. She shows slight interval increase in size, ground glass and interstitial infiltrates in the midline is persistent show improvement from previous CT chest. Patient's left-sided pigtail has been noted to have moved, daily TPA infusions. There is small amount of serosanguineous drainage noted from the pigtail chest tube. He is afebrile, FiO2 is currently down to 6 L per high flow nasal cannula, vital signs are stable. Lung sounds are diminished, with a few scattered rales at left base. Cardiothoracic surgery has previously discussed decortication surgery left lung. Continue antibiotics per infectious disease recommendations. Continue encouraging incentive spirometry, increase activity as tolerated. On 07/09/2017 patient is seen in follow-up post left-sided thoracotomy with decortication by Dr. Tellez. Patient is sedated, he arrived back to the room at around 1430 per the spouse, was in significant amount of pain, and was given IV narcotics. Currently resting comfortably, somnolent, but arouses to verbal stimuli. Lung sounds are diminished, more so over the left lower lobe. There are 2 left-sided chest tubes why connected to an atrium, there is about 200 mL of serosanguineous output in the collection chamber. Patient is currently on 45 % Ventimask, with O2 sat at 93%. Vital signs are stable. Left-sided pigtail chest tube has been discontinued. Patient continues on Levaquin and vancomycin as well as Zosyn. Urine culture was positive for Vera, pleural fluid showed anaerobic species, Prevotella melaninogenica, and Proprionibacterium acnes. The patient is seen again today 07/10/2017 in follow-up on the selective care unit. He is status post left-sided thoracotomy and decortication. He is doing quite well. He is maintaining good O2 saturations in the upper 90s on room air. He's been hemodynamically stable. Afebrile. White count 16.9. Hemoglobin 8.6. His chest x-ray shows bilateral airspace disease and pleural effusions which are stable. The subcutaneous emphysema is stable. Remains on DuoNeb inhalations, with antibiotics in the form of vancomycin, Zosyn and Levaquin. Pathology report is negative for malignancy. The patient is seen again today 07/11/2017 in follow-up on the selective care unit. He is awake and alert in no acute distress. He sitting up in a chair at the bedside. He denies any worsening shortness of breath, cough or congestion. Today's chest x-ray reveals minimal apical pneumothorax present. There is some subcutaneous emphysema. The left-sided chest tubes remain. Heart is enlarged. The second chest tube in lung base is marginally within the pleural space. Patchy basilar density noted on the right. He's been in good O2 saturations in the high 90s on 4 L/m per nasal cannula. He's been afebrile. Hemodynamically stable. White count 13.3. Hemoglobin 7.8. Creatinine 1.10. He remains on vancomycin, Levaquin and Zosyn. Objective - Vital Signs Vital signs: Vital Signs Temp 98.4 F 07/11/17 11:00 Pulse 70 07/11/17 11:55 Resp 18 07/11/17 11:00 BP 118/52 07/11/17 11:00 Pulse Ox 98 07/11/17 11:00 Intake & Output 07/10/17 07/11/17 07/11/17 18:59 06:59 18:59 Intake Total 1520 240 Output Total 900 270 540 Balance 620 -270 -300 Weight 113.5 kg 113.5 kg Intake: IV 800 Piperacillin-Tazobactam 3 50 .375 gm In Dextrose/Water 1 50ml.bag @ 12.5 mls/hr IVPB Q8H [facility] Rx#: [id number] Sodium Chloride 0.9% 1, 500 000 ml @ 50 mls/hr IV . Q20H [facility] Rx#:[id number] Vancomycin 1,750 mg In 250 Sodium Chloride 0.9% 250 ml @ 125 mls/hr IVPB Q12H [facility] Rx#:[id number] Oral 720 240 Output: Chest Tube Drainage 70 40 Pigtail in left posterior 70 40 Back Urine 900 200 500 Other: Voiding Method Indwelling Catheter Urinal Urinal # Bowel Movements 0 - Exam No acute distress, currently up in the chair at the bedside. status post left- sided thoracotomy with decortication HEENT examination is grossly unremarkable. Mucous membranes are moist. No oral lesions. Neck supple. Full range of motion. No adenopathy thyromegaly or neck vein distention. Cardiovascular examination reveals regular rhythm rate. S1-S2 normal. No S3 or S4. No discernible murmur noted. Lungs reveal a few bilateral rhonchi. Breath sounds show diminished air entry over left lower base, A few crackles are present over right lower lobe, No wheezes. There are 2 left-sided chest tubes why connected to an atrium collection chamber , with 200 mL of serosanguineous output Abdomen soft bowel sounds are heard. No masses or tenderness. Extremities are intact. No cyanosis clubbing or edema. Skin is without rash or lesion. Neurologic examination is brief but nonfocal - Labs CBC & Chem 7: 07/11/17 06:58 07/11/17 05:41 Labs: Abnormal Lab Results - Last 24 Hours (Table) 07/10/17 07/10/17 07/11/17 Range/Units 16:38 21:07 05:41 WBC (3.8-10.6) k/uL RBC (4.30-5.90) m/uL Hgb (13.0-17.5) gm/dL Hct (39.0-53.0) % MCV (80.0-100.0) fL MCH (25.0-35.0) pg MCHC (31.0-37.0) g/dL RDW (11.5-15.5) % Plt Count (150-450) k/uL Neutrophils # (1.3-7.7) k/uL Sodium 133 L (137-145) mmol/L Chloride 97 L (98-107) mmol/L Carbon Dioxide 31 H (22-30) mmol/L BUN 38 H (9-20) mg/dL Glucose 128 H (74-99) mg/dL POC Glucose (mg/dL) 137 H 139 H (75-99) mg/dL 07/11/17 07/11/17 07/11/17 Range/Units 06:14 06:58 11:37 WBC 13.3 H (3.8-10.6) k/uL RBC 3.51 L (4.30-5.90) m/uL Hgb 7.8 L (13.0-17.5) gm/dL Hct 26.6 L (39.0-53.0) % MCV 75.8 L (80.0-100.0) fL MCH 22.1 L (25.0-35.0) pg MCHC 29.2 L (31.0-37.0) g/dL RDW 17.5 H (11.5-15.5) % Plt Count 515 H (150-450) k/uL Neutrophils # 11.1 H (1.3-7.7) k/uL Sodium (137-145) mmol/L Chloride (98-107) mmol/L Carbon Dioxide (22-30) mmol/L BUN (9-20) mg/dL Glucose (74-99) mg/dL POC Glucose (mg/dL) 136 H 187 H (75-99) mg/dL Microbiology - Last 24 Hours (Table) 07/09/17 10:30 Gram Stain - Preliminary Pleural Fluid Body Fluid Culture - Preliminary 07/09/17 10:50 Gram Stain - Preliminary Other - Other Tissue Culture - Preliminary Assessment and Plan Assessment: Assessment: #1. Acute hypoxic respiratory failure secondary to extensive left lung multifocal pneumonia and left pleural effusion, present on admission. Patient is status post left pigtail pleural chest tube catheter insertion, with TPA infusions on 07/05/2017. Status post left thoracotomy with decortication on . #2. Sepsis, with leukocytosis and fever, secondary to the above recovered. #3. 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 #4. Coronary artery disease, status post 4 vessel coronary artery bypass grafting #5. COPD #6. Essential hypertension #7. Hyperlipidemia #8. GERD #9. Anxiety #10. Obesity Plan: The patient was seen and evaluated by Dr. Barker. His chest x-ray and labs were reviewed. We'll continue with his current medications for now. We'll continue to increase his activity as tolerated. We have again encourage increased use of the incentive spirometer and cough and deep breathing exercises. We'll continue to follow and make further recommendations based on his clinical status. I, the cosigning physician, performed a history & physical examination of the patient. Lungs sounds with crackles in the bilateral posterior bases more so on the left.. Maintaining good O2 saturations in the 90s on 5 L/min per nasal canula. I discussed the assessment and plan of care with my nurse practitioner , Tamia Solano. I attest to the above note as dictated by her. <El Barker - Last Filed: 07/11/17 15:56> Objective - Vital Signs Vital signs: Vital Signs Temp 98.1 F 07/11/17 15:46 Pulse 71 07/11/17 15:46 Resp 18 07/11/17 15:46 BP 96/52 07/11/17 15:46 Pulse Ox 96 07/11/17 15:46 Intake & Output 07/10/17 07/11/17 07/11/17 18:59 06:59 18:59 Intake Total 1520 2660 Output Total 900 270 540 Balance 620 -270 2120 Weight 113.5 kg 113.5 kg Intake: IV 800 Piperacillin-Tazobactam 3 50 .375 gm In Dextrose/Water 1 50ml.bag @ 12.5 mls/hr IVPB Q8H [facility] Rx#: [id number] Sodium Chloride 0.9% 1, 500 000 ml @ 50 mls/hr IV . Q20H [facility] Rx#:[id number] Vancomycin 1,750 mg In 250 Sodium Chloride 0.9% 250 ml @ 125 mls/hr IVPB Q12H [facility] Rx#:[id number] Oral 720 2660 Output: Chest Tube Drainage 70 40 Pigtail in left posterior 70 40 Back Urine 900 200 500 Other: Voiding Method Indwelling Catheter Urinal Urinal # Bowel Movements 0 - Labs CBC & Chem 7: 07/11/17 06:58 07/11/17 05:41 Labs: Abnormal Lab Results - Last 24 Hours (Table) 07/10/17 07/10/17 07/11/17 Range/Units 16:38 21:07 05:41 WBC (3.8-10.6) k/uL RBC (4.30-5.90) m/uL Hgb (13.0-17.5) gm/dL Hct (39.0-53.0) % MCV (80.0-100.0) fL MCH (25.0-35.0) pg MCHC (31.0-37.0) g/dL RDW (11.5-15.5) % Plt Count (150-450) k/uL Neutrophils # (1.3-7.7) k/uL Sodium 133 L (137-145) mmol/L Chloride 97 L (98-107) mmol/L Carbon Dioxide 31 H (22-30) mmol/L BUN 38 H (9-20) mg/dL Glucose 128 H (74-99) mg/dL POC Glucose (mg/dL) 137 H 139 H (75-99) mg/dL 07/11/17 07/11/17 07/11/17 Range/Units 06:14 06:58 11:37 WBC 13.3 H (3.8-10.6) k/uL RBC 3.51 L (4.30-5.90) m/uL Hgb 7.8 L (13.0-17.5) gm/dL Hct 26.6 L (39.0-53.0) % MCV 75.8 L (80.0-100.0) fL MCH 22.1 L (25.0-35.0) pg MCHC 29.2 L (31.0-37.0) g/dL RDW 17.5 H (11.5-15.5) % Plt Count 515 H (150-450) k/uL Neutrophils # 11.1 H (1.3-7.7) k/uL Sodium (137-145) mmol/L Chloride (98-107) mmol/L Carbon Dioxide (22-30) mmol/L BUN (9-20) mg/dL Glucose (74-99) mg/dL POC Glucose (mg/dL) 136 H 187 H (75-99) mg/dL Microbiology - Last 24 Hours (Table) 07/09/17 10:50 Gram Stain - Preliminary Other - Other Tissue Culture - Preliminary Coagulase Negative Staph 07/09/17 10:30 Gram Stain - Preliminary Pleural Fluid Body Fluid Culture - Preliminary Assessment and Plan Assessment: Clinically much improved. I reviewed the chest x-ray in the chest tubes are all in place. There is improved aeration left upper lobe area and diminished mental pulmonary infiltrates. The patient is using incentive spirometer. No active pain issues. We'll continue to follow. We're also awaiting the final cultures from the sample obtained from the pleural space on the left.
[2017-07-11 16:39] LABS: Glucose,Whole Blood 107 mg/dL (75-99)
[2017-07-11] MEDS: INSULIN DETEMIR 100 UNIT/ML 10 ML VIAL SQ SCH (20:50)
[2017-07-11 21:29] LABS: Glucose,Whole Blood 162 mg/dL (75-99)
[2017-07-12] MEDS: HYDROcodone/APAP 7.5-325MG 1 EACH TAB PO PRN ×4 (03:19→20:10)
[2017-07-12] MEDS: PIPERACILLIN-TAZOBACTAM 3.375 GM in DEXTROSE/WATER 1 50ML.BAG IVPB SCH ×3 (05:18→20:10)
[2017-07-12] MEDS: SODIUM CHLORIDE 0.9% 1,000 ML IV SCH ×2 (05:19→14:23)
[2017-07-12 06:38] LABS: Glucose,Whole Blood 106 mg/dL (75-99)
[2017-07-12] MEDS: PANTOPRAZOLE 40 MG TABLET PO SCH (07:16)
[2017-07-12] MEDS: INSULIN ASPART 100 UNIT/ML 1 ML 10 ML VIAL SQ SCH ×7 (07:16→20:55)
[2017-07-12] MEDS: KETOROLAC 30 MG/ML 1 ML VIAL IVP SCH ×3 (08:10→17:24)
[2017-07-12] MEDS: IPRATROPIUM-ALBUTEROL 3 ML NEB INHALATION SCH ×4 (08:43→19:54)
[2017-07-12] MEDS ORDERED: VANCOMYCIN TROUGH DUE 1 EACH MISC MISCELLANE ONE (09:00)
[2017-07-12] MEDS: ASPIRIN 325 MG TAB PO SCH (09:12)
[2017-07-12] MEDS: AMIODARONE 200 MG TAB PO SCH (09:12)
[2017-07-12] MEDS: ATORVASTATIN 40 MG TAB PO SCH (09:13)
[2017-07-12] MEDS: CLOPIDOGREL 75 MG TAB PO SCH (09:13)
[2017-07-12] MEDS: guaiFENesin 600 MG TABLET.ER PO SCH ×2 (09:14→20:10)
[2017-07-12] MEDS: FUROSEMIDE 10 MG/ML 2 ML VIAL IV SCH (09:14)
[2017-07-12] MEDS: HEPARIN SODIUM,PORCINE 5,000 UNIT/ML 1 ML VIAL SQ SCH ×2 (09:15→20:11)
[2017-07-12] MEDS: METOPROLOL TARTRATE 25 MG TAB PO SCH ×2 (09:16→20:10)
[2017-07-12] MEDS: SERTRALINE 100 MG TAB PO SCH (09:16)
--- NOTE | 2017-07-12 09:17 | P.PN ---
Subjective Progress Note Date: 07/12/17 Principal diagnosis: Left-sided pleural effusion. History of urgent coronary artery bypass grafting on 05/22/2017, non-ST elevation myocardial infarction, hypertension, hyperlipidemia, insulin-dependent diabetes mellitus, anxiety, family history of premature coronary artery disease, COPD, obesity, paroxysmal atrial fibrillation , left sided thoracentesis on 05/30/2017 and left chest pigtail catheter placement with fluid culture positive for alpha hemolytic strep and enterococcus faecalis, and pneumonia requiring placement of PICC line for home IV antibiotic therapy. POD #8 ultrasound guided chest tube insertion (pigtail catheter). POD #3 left thoracotomy with decortication and removal of pigtail catheter. Patient's currently sitting up in the chair in no acute distress. States pain is well-controlled. States he is feeling better every day. Objective - Vital Signs Vital signs: Vital Signs Temp 97.8 F 07/12/17 07:42 Pulse 72 07/12/17 08:55 Resp 16 07/12/17 08:00 BP 108/56 07/12/17 07:42 Pulse Ox 96 07/12/17 07:42 Intake & Output 07/11/17 07/12/17 07/12/17 18:59 06:59 18:59 Intake Total 2900 298 Output Total 940 250 0 Balance 1960 -250 298 Weight 113.5 kg 113.5 kg Intake: Oral 2900 298 Output: Chest Tube Drainage 40 50 0 Chest Tube Left Lateral 50 0 Chest Pigtail in left posterior 40 Back Urine 900 200 Other: Voiding Method Urinal Urinal # Bowel Movements 1 - Constitutional General appearance: Present: cooperative, no acute distress, obese - Respiratory Details: Lungs sounds diminished with coarse breath sounds left base. Respirations even , nonlabored. Currently on 3 L nasal cannula with oxygen saturation 97%. Only able to achieve 500 mL on his incentive spirometry. Left anterior, posterior chest tubes to -20 cm wall suction, 10 mL serous fluid drainage in the last 24 hours. No air leak present. - Cardiovascular Details: S1, S2 present. Regular rate and rhythm, sinus rhythm on telemetry. Palpable peripheral pulses bilaterally. No edema present. No calf pain or tenderness noted. Antiembolism stockings, SCDs present. - Gastrointestinal Gastrointestinal Comment(s): Abdomen soft, nontender, nondistended. Active bowel sounds 4 quadrants. Tolerating diet. - Genitourinary Genitourinary Comment(s): Continues to void clear, yellow urine. Output 200-400 mL at a time. - Integumentary Integumentary Comment(s): Skin is warm, pink, dry with evidence of good perfusion. - Neurologic Neurologic: Present: CNII-XII intact - Musculoskeletal Musculoskeletal: Present: gait normal, strength equal bilaterally - Psychiatric Psychiatric Comment(s): Flat affect. Psychiatric: Present: A&O x's 3, intact judgment & insight - Allied health notes Allied health notes reviewed: nursing - Labs CBC & Chem 7: 07/11/17 06:58 07/11/17 05:41 Labs: Abnormal Lab Results - Last 24 Hours (Table) 07/11/17 07/11/17 07/11/17 Range/Units 11:37 16:37 20:48 POC Glucose (mg/dL) 187 H 107 H 162 H (75-99) mg/dL 07/12/17 Range/Units 06:20 POC Glucose (mg/dL) 106 H (75-99) mg/dL Microbiology - Last 24 Hours (Table) 07/09/17 10:50 Gram Stain - Preliminary Other - Other Tissue Culture - Preliminary Coagulase Negative Staph 07/09/17 10:30 Gram Stain - Preliminary Pleural Fluid Body Fluid Culture - Preliminary Assessment and Plan (1) Hyperlipidemia Current Visit: Yes Status: Chronic Code(s): E78.5 - HYPERLIPIDEMIA, UNSPECIFIED SNOMED Code(s): 20776327 (2) History of myocardial infarction Current Visit: No Status: Resolved Code(s): I25.2 - OLD MYOCARDIAL INFARCTION SNOMED Code(s): 538621653 (3) Pneumonia Current Visit: Yes Status: Acute Code(s): J18.9 - PNEUMONIA, UNSPECIFIED ORGANISM SNOMED Code(s): 096305550 (4) Coronary artery disease Current Visit: No Status: Chronic Code(s): I25.10 - ATHSCL HEART DISEASE OF [place] CORONARY ARTERY W/O ANG PCTRS SNOMED Code(s): 47679312 (5) Status post coronary artery bypass grafting Current Visit: No Status: Resolved Code(s): Z95.1 - PRESENCE OF AORTOCORONARY BYPASS GRAFT SNOMED Code(s): 432401402 (6) Anxiety Current Visit: Yes Status: Chronic Code(s): F41.9 - ANXIETY DISORDER, UNSPECIFIED SNOMED Code(s): 72155468 (7) Diabetes mellitus type 2 in obese Current Visit: Yes Status: Chronic Code(s): E11.69 - TYPE 2 DIABETES MELLITUS WITH OTHER SPECIFIED COMPLICATION; E66.9 - OBESITY, UNSPECIFIED SNOMED Code(s): 21503116 (8) Hypertension Current Visit: Yes Status: Chronic Code(s): I10 - ESSENTIAL (PRIMARY) HYPERTENSION SNOMED Code(s): 63102209 (9) Obesity (BMI 30.0-34.9) Current Visit: Yes Status: Chronic Code(s): E66.9 - OBESITY, UNSPECIFIED SNOMED Code(s): 888813969 Plan: 1. Continue aspirin, statin, Plavix, amiodarone, Lasix, beta ewa. 2. Wean oxygen as tolerated. Encourage incentive spirometry use. 3. Antibiotics per infectious disease recommendations. 4. Will discontinue pleural chest tubes today. 5. Medical comorbidities per primary care service. 6. GI/DVT prophylaxis. 7. Increase activity, ambulate in hallway. 8. More recommendations to follow regarding possible thoracotomy with decortication. Time with Patient: Greater than 30
--- NOTE | 2017-07-12 09:19 | PN ---
PROGRESS NOTE He is feeling much better today, less cough, less shortness of breath. Chest tube in place. Minimal amount of drainage. No fever throughout the night. Actually feels quite well. Lab today shows a WBC of 13.3 with a 7.8 hemoglobin. No coags. Blood sugars have been relatively within normal limits. REVIEW OF SYSTEMS: CARDIOPULMONARY: Minimal shortness of breath. Minimal cough. No orthopnea. No paroxysmal nocturnal dyspnea. A chest tube in place. ENT: Without problems. EYES: No problem seeing. ABDOMEN and GI: He has no nausea, no vomiting, no hematemesis, melena, hematochezia. NEUROMUSCULAR: Just weakness in his legs. Working with physical therapy. Weakness in his arms and basically lumbar has lumbar pain. The patient's legs he admits swelling of his lower legs. Other than that, there is no pain. PHYSICAL EXAMINATION: Vital signs today, blood pressure is 113/63, heart rate is 67, temperature is 98.1 with an 18 respiratory rate. EYES: Pupils are equal, round, reactive in accommodation. ENT showed tympanic membranes and pharynx to be negative. NECK: Supple. Midline trachea. Chest has minimal wheezes throughout, but no rhonchi. Decreased breath sounds to the left lower lung. HEART: Irregular, irregular of atrial fib. ABDOMEN: Soft, nontender with no organomegaly. No palpable masses. LOWER EXTREMITIES: +1 swelling, good palpable lower extremity pulses at this period of time. Good hand strength also. PSYCHIATRIC: The patient is not depressed and occasionally anxious. ASSESSMENT: 1. Acute hypoxic respiratory failure secondary to extensive left lung multifocal pneumonia and left pleural effusion present on admission. Patient is status post a left pleural catheter insertion with PUMP RUNNER infusion, which has stopped now. He has recently had a left thoracotomy and decortication on 07/09. 2. Empyema. Cultures positive for Prevotella melaninogenica and Propionibacterium acnes, sepsis and leukocytosis. 3. Chronic obstructive pulmonary disease. 4. Hypertension. 5. Hyperlipidemia. 6. Gastroesophageal reflux disease. 7. Obesity. 8. Anxiety neurosis. We will continue with the same medications. Chest x-ray will be followed accordingly. Following with Thoracic Surgery and also Infectious Disease and Pulmonary. His status is still guarded. MMODL / IJN: [id number] /
[2017-07-12 09:25] LABS: Anisocytosis Slight; Basophils % (A) 0 %; Eosinophils # (A) 0.1 k/uL (0-0.7); Eosinophils % (A) 1 %; HCT 25.9 % (39.0-53.0); HGB 7.4 gm/dL (13.0-17.5); Hypochromasia Marked; Lymphocytes # (A) 1.3 k/uL (1.0-4.8); Lymphocytes % (A) 12 %; MCH 21.8 pg (25.0-35.0); MCHC 28.4 g/dL (31.0-37.0); MCV 76.5 fL (80.0-100.0); Microcytosis Slight; Monocytes # (A) 0.6 k/uL (0-1.0); Monocytes % (A) 6 %; Neutrophils # (A) 8.5 k/uL (1.3-7.7); Neutrophils % (A) 80 %; Platelet Count 472 k/uL (150-450); Poikilocytosis Slight; RBC 3.39 m/uL (4.30-5.90); RDW 17.8 % (11.5-15.5); WBC 10.7 k/uL (3.8-10.6)
[2017-07-12 09:40] LABS: Anion Gap 9 mmol/L; Blood Urea Nitrogen 33 mg/dL (9-20); Calcium 8.5 mg/dL (8.4-10.2); Carbon Dioxide 28 mmol/L (22-30); Chloride 100 mmol/L (98-107); Glucose 155 mg/dL (74-99); Potassium 4.3 mmol/L (3.5-5.1); Sodium 137 mmol/L (137-145)
[2017-07-12] MEDS: ASCORBIC ACID 500 MG TAB PO SCH (11:16)
[2017-07-12] MEDS: LEVOFLOXACIN 750 MG TAB PO SCH (11:17)
[2017-07-12 11:36] LABS: Glucose,Whole Blood 108 mg/dL (75-99)
[2017-07-12] MEDS: FERROUS SULFATE 325 MG TAB PO SCH (12:40)
--- NOTE | 2017-07-12 13:25 | P.PN ---
<Tamia Solano - Last Filed: 07/12/17 13:20> Subjective Progress Note Date: 07/12/17 Principal diagnosis: Acute hypoxic respiratory failure secondary to left lung pneumonia and pleural effusion, Progress note dated 07/02/2017 The patient continues to improve slowly. Radiographically, his chest x-ray has not changed all that much. Certainly not worse. Currently the patient is on the AIRVO at 65 L/m. He's had a saline IV at 50 mL an hour. The patient has a history of bilateral pneumonia with sepsis a history of asthma, diabetes, gastroesophageal reflux disease, hypertension, myocardial infarction and pneumonia. He also has a history of recent bypass grafting back on 05/22/[address] segment elevation myocardial infarction and legionnaires disease. He is a lifelong nonsmoker. His primary care physician is Dr. Gary Abreu. The patient apparently had a computed tomography scan late yesterday. I have not looked at it as yet. My partner expresses some concerns that he may have a loculated pleural effusion which need something more significantly done such as decortication. On 07/03/2017 patient remains in intensive care. Still requiring high flow nasal cannula, remains on AIRVO at FiO2 of 50% and 40 L/m flow. Afebrile, hemodynamically stable. Today's chest x-ray shows slight improvement in the aeration of the left upper lung with persistent confluent multifocal opacities representing multifocal pneumonia. Yesterday we have obtained a chest ultrasound to evaluate the complex and loculated left pleural effusion in the background of extensive left lung pneumonia. This was discussed with the interventional radiologist and cardiothoracic surgery. CT surgery feels the patient with benefit from a pigtail catheter insertion in the left pleural space and infusion of TPA over the next few days. This was discussed with the radiologist, who recommended getting a CT chest with contrast today. Otherwise patient is fairly comfortable, in no acute distress, respirations are shallow and tachypneic with a rate in the 30s. He is awake alert, tolerating a regular diet. His lab work shows upward trend of his WBCs, up to 17, hemoglobin is 9.0 , renal profile is stable, within normal limits no significant electrolyte abnormality. Blood and sputum culture show no growth, urine culture is positive for Vera albicans. ID service is on. Is on a combination of Levaquin, Zosyn and vancomycin. Currently not requiring any vasopressor support. On 07/04/2017 patient is seen in follow-up in intensive care unit. He is status post left pleural pigtail chest tube insertion with TPA infusion on 07/03. Patient had round 400 cc of milky yellow, purulent drainage in the atrium collection chamber since insertion. Clinically patient denies any acute distress, FiO2 was weaned down to 8 L per high flow nasal cannula. Blood sputum cultures remain negative, urine culture shows Vera albicans, pleural fluid culture was sent for culture as well and is pending. Patient will have another infusion of alteplase today per cardiothoracic surgery. Continues on empiric antibiotics with Levaquin, Zosyn and vancomycin. His IV fluids are 0.9 normal saline at 50 ML per hour. Patient's tolerating oral intake, on regular diet. Up in a chair, tolerating it well. Overall continues to significantly improve. The patient is seen again today 07/05/2017 in follow-up in the intensive care unit. He is currently sitting up in a chair at the bedside. He is awake and alert in no acute distress. The left-sided pigtail chest tube remains in place. The plan was for alteplase again today. He has been up ambulating with assistance which enhances the drainage process. Cultures are pending. His chest x-ray reveals stable findings compared to previous. White count 15.7, hemoglobin 8.8. He remains on vancomycin, Zosyn and Levaquin. He is maintaining good O2 saturations in the low 90s on 10 L high flow nasal cannula. He has a 0.9 normal saline at 50 MLS per hour. The patient is seen again today 07/06/2017 in follow-up in the intensive care unit. His been up ambulating in the hallway with assistance. He is doing quite well today. His chest x-ray continues to reveal evidence of cardiac enlargement along with patchy bilateral infiltrates and small left pleural effusion. There is been minimal output from the pigtail catheter in the left chest. He has a total of 150 MLS out yesterday, currently 90 out today. He has received alteplase No real improvement compared to yesterday. He is down to 8 L high flow nasal cannula to maintain O2 saturations in the 90s. He has been afebrile. Pleural fluid culture reveals no growth after 48 hours. White count 14.9. Hemoglobin 8.8. Creatinine 0.62. He remains on vancomycin and Zosyn and Levaquin for now. On 07/08/2017 patient seen in follow-up on selective care unit. CT chest from this morning has been reviewed, shows left basilar pleural catheter in place with considerable decrease in size of the patient's previous left subpulmonic fluid collection, trace effusion remains. Permanent partial atelectasis and residual consolidation within the left lower lobe.(Second pleural-based collection along the lower left. She shows slight interval increase in size, ground glass and interstitial infiltrates in the midline is persistent show improvement from previous CT chest. Patient's left-sided pigtail has been noted to have moved, daily TPA infusions. There is small amount of serosanguineous drainage noted from the pigtail chest tube. He is afebrile, FiO2 is currently down to 6 L per high flow nasal cannula, vital signs are stable. Lung sounds are diminished, with a few scattered rales at left base. Cardiothoracic surgery has previously discussed decortication surgery left lung. Continue antibiotics per infectious disease recommendations. Continue encouraging incentive spirometry, increase activity as tolerated. On 07/09/2017 patient is seen in follow-up post left-sided thoracotomy with decortication by Dr. Tellez. Patient is sedated, he arrived back to the room at around 1430 per the spouse, was in significant amount of pain, and was given IV narcotics. Currently resting comfortably, somnolent, but arouses to verbal stimuli. Lung sounds are diminished, more so over the left lower lobe. There are 2 left-sided chest tubes why connected to an atrium, there is about 200 mL of serosanguineous output in the collection chamber. Patient is currently on 45 % Ventimask, with O2 sat at 93%. Vital signs are stable. Left-sided pigtail chest tube has been discontinued. Patient continues on Levaquin and vancomycin as well as Zosyn. Urine culture was positive for Vera, pleural fluid showed anaerobic species, Prevotella melaninogenica, and Proprionibacterium acnes. The patient is seen again today 07/10/2017 in follow-up on the selective care unit. He is status post left-sided thoracotomy and decortication. He is doing quite well. He is maintaining good O2 saturations in the upper 90s on room air. He's been hemodynamically stable. Afebrile. White count 16.9. Hemoglobin 8.6. His chest x-ray shows bilateral airspace disease and pleural effusions which are stable. The subcutaneous emphysema is stable. Remains on DuoNeb inhalations, with antibiotics in the form of vancomycin, Zosyn and Levaquin. Pathology report is negative for malignancy. The patient is seen again today 07/11/2017 in follow-up on the selective care unit. He is awake and alert in no acute distress. He sitting up in a chair at the bedside. He denies any worsening shortness of breath, cough or congestion. Today's chest x-ray reveals minimal apical pneumothorax present. There is some subcutaneous emphysema. The left-sided chest tubes remain. Heart is enlarged. The second chest tube in lung base is marginally within the pleural space. Patchy basilar density noted on the right. He's been in good O2 saturations in the high 90s on 4 L/m per nasal cannula. He's been afebrile. Hemodynamically stable. White count 13.3. Hemoglobin 7.8. Creatinine 1.10. He remains on vancomycin, Levaquin and Zosyn. The patient is seen again today 07/12/2017 in follow-up on the selective care unit. He is currently sitting up in a chair at the bedside. He is awake and alert in no acute distress. He did have his chest tubes removed today. He denies any worsening shortness of breath, cough or congestion. He is maintaining good O2 saturations in the upper 90s on 4 L/m per nasal cannula. He 's been afebrile. No new growth in his cultures. White count 10.7. Hemoglobin 7.4. Crit and 1.02. He is working well with his incentive spirometer. He's been up emulating with assistance. Objective - Vital Signs Vital signs: Vital Signs Temp 97.4 F L 07/12/17 11:04 Pulse 78 07/12/17 11:42 Resp 16 07/12/17 12:07 BP 117/55 07/12/17 11:04 Pulse Ox 97 07/12/17 11:04 Intake & Output 07/11/17 07/12/17 07/12/17 18:59 06:59 18:59 Intake Total 2900 538 Output Total 940 250 400 Balance 1960 -250 138 Weight 113.5 kg 113.5 kg Intake: Oral 2900 538 Output: Chest Tube Drainage 40 50 0 Chest Tube Left Lateral 50 0 Chest Pigtail in left posterior 40 Back Urine 900 200 400 Other: Voiding Method Urinal Urinal Urinal # Bowel Movements 1 - Exam No acute distress, currently up in the chair at the bedside. status post left- sided thoracotomy with decortication HEENT examination is grossly unremarkable. Mucous membranes are moist. No oral lesions. Neck supple. Full range of motion. No adenopathy thyromegaly or neck vein distention. Cardiovascular examination reveals regular rhythm rate. S1-S2 normal. No S3 or S4. No discernible murmur noted. Lungs reveal a few bilateral rhonchi. Breath sounds show diminished air entry over left lower base, A few crackles are present over right lower lobe, No wheezes. There are 2 left-sided chest tubes why connected to an atrium collection chamber , with 200 mL of serosanguineous output Abdomen soft bowel sounds are heard. No masses or tenderness. Extremities are intact. No cyanosis clubbing or edema. Skin is without rash or lesion. Neurologic examination is brief but nonfocal - Labs CBC & Chem 7: 07/12/17 08:32 07/12/17 08:32 Labs: Abnormal Lab Results - Last 24 Hours (Table) 07/11/17 07/11/17 07/12/17 Range/Units 16:37 20:48 06:20 WBC (3.8-10.6) k/uL RBC (4.30-5.90) m/uL Hgb (13.0-17.5) gm/dL Hct (39.0-53.0) % MCV (80.0-100.0) fL MCH (25.0-35.0) pg MCHC (31.0-37.0) g/dL RDW (11.5-15.5) % Plt Count (150-450) k/uL Neutrophils # (1.3-7.7) k/uL BUN (9-20) mg/dL Glucose (74-99) mg/dL POC Glucose (mg/dL) 107 H 162 H 106 H (75-99) mg/dL 07/12/17 07/12/17 07/12/17 Range/Units 08:32 08:32 11:33 WBC 10.7 H (3.8-10.6) k/uL RBC 3.39 L (4.30-5.90) m/uL Hgb 7.4 L (13.0-17.5) gm/dL Hct 25.9 L (39.0-53.0) % MCV 76.5 L (80.0-100.0) fL MCH 21.8 L (25.0-35.0) pg MCHC 28.4 L (31.0-37.0) g/dL RDW 17.8 H (11.5-15.5) % Plt Count 472 H (150-450) k/uL Neutrophils # 8.5 H (1.3-7.7) k/uL BUN 33 H (9-20) mg/dL Glucose 155 H (74-99) mg/dL POC Glucose (mg/dL) 108 H (75-99) mg/dL Microbiology - Last 24 Hours (Table) 07/09/17 10:50 Gram Stain - Preliminary Other - Other Tissue Culture - Preliminary Coagulase Negative Staph 07/09/17 10:30 Gram Stain - Preliminary Pleural Fluid Body Fluid Culture - Preliminary Assessment and Plan Assessment: Assessment: #1. Acute hypoxic respiratory failure secondary to extensive left lung multifocal pneumonia and left pleural effusion, present on admission. Patient is status post left pigtail pleural chest tube catheter insertion, with TPA infusions on 07/05/2017. Status post left thoracotomy with decortication on . #2. Sepsis, with leukocytosis and fever, secondary to the above recovered. #3. 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 #4. Coronary artery disease, status post 4 vessel coronary artery bypass grafting #5. COPD #6. Essential hypertension #7. Hyperlipidemia #8. GERD #9. Anxiety #10. Obesity Plan: The patient was seen and evaluated by Dr. Barker. His labs were reviewed. He remains on vancomycin, Zosyn and Levaquin. His chest tubes have been removed. We'll continue with his current medications for now. We'll continue to increase his activity as tolerated. We have again encourage increased use of the incentive spirometer and cough and deep breathing exercises. We'll continue to follow and make further recommendations based on his clinical status. I, the cosigning physician, performed a history & physical examination of the patient. Lungs sounds with crackles in the bilateral posterior bases more so on the left.. Maintaining good O2 saturations in the 90s on 4 L/min per nasal canula. I discussed the assessment and plan of care with my nurse practitioner , Tamia Solano. I attest to the above note as dictated by her. <El Barker - Last Filed: 07/12/17 15:53> Objective - Vital Signs Vital signs: Vital Signs Temp 97.4 F L 07/12/17 11:04 Pulse 78 07/12/17 11:42 Resp 16 07/12/17 12:07 BP 117/55 07/12/17 11:04 Pulse Ox 97 07/12/17 11:04 Intake & Output 07/11/17 07/12/17 07/12/17 18:59 06:59 18:59 Intake Total 2900 538 Output Total 940 250 600 Balance 1960 -250 -62 Weight 113.5 kg 113.5 kg Intake: Oral 2900 538 Output: Chest Tube Drainage 40 50 0 Chest Tube Left Lateral 50 0 Chest Pigtail in left posterior 40 Back Urine 900 200 600 Other: Voiding Method Urinal Urinal Urinal # Bowel Movements 1 - Labs CBC & Chem 7: 07/12/17 08:32 07/12/17 08:32 Labs: Abnormal Lab Results - Last 24 Hours (Table) 07/11/17 07/11/17 07/12/17 Range/Units 16:37 20:48 06:20 WBC (3.8-10.6) k/uL RBC (4.30-5.90) m/uL Hgb (13.0-17.5) gm/dL Hct (39.0-53.0) % MCV (80.0-100.0) fL MCH (25.0-35.0) pg MCHC (31.0-37.0) g/dL RDW (11.5-15.5) % Plt Count (150-450) k/uL Neutrophils # (1.3-7.7) k/uL BUN (9-20) mg/dL Glucose (74-99) mg/dL POC Glucose (mg/dL) 107 H 162 H 106 H (75-99) mg/dL 07/12/17 07/12/17 07/12/17 Range/Units 08:32 08:32 11:33 WBC 10.7 H (3.8-10.6) k/uL RBC 3.39 L (4.30-5.90) m/uL Hgb 7.4 L (13.0-17.5) gm/dL Hct 25.9 L (39.0-53.0) % MCV 76.5 L (80.0-100.0) fL MCH 21.8 L (25.0-35.0) pg MCHC 28.4 L (31.0-37.0) g/dL RDW 17.8 H (11.5-15.5) % Plt Count 472 H (150-450) k/uL Neutrophils # 8.5 H (1.3-7.7) k/uL BUN 33 H (9-20) mg/dL Glucose 155 H (74-99) mg/dL POC Glucose (mg/dL) 108 H (75-99) mg/dL Microbiology - Last 24 Hours (Table) 07/09/17 10:50 Anaerobic Culture - Preliminary Other - Other 07/09/17 10:30 Anaerobic Culture - Preliminary Pleural Fluid 07/09/17 10:30 Gram Stain - Preliminary Pleural Fluid Body Fluid Culture - Preliminary 07/09/17 10:50 Gram Stain - Final Other - Other Tissue Culture - Final Staphylococcus epidermidis Assessment and Plan Assessment: I do attest to the above-mentioned information and the chest tubes have been removed and the patient is doing well. The cultures that were obtained and the operating room has shown coagulase-negative staph . Patient has no specific complaints. FiO2 will be gradually weaned and currently the patient is on 4 L of oxygen nasal cannula.
[2017-07-12] MEDS ORDERED: VANCOMYCIN 1,750 MG in SODIUM CHLORIDE 0.9% 250 ML IVPB SCH (14:00)
[2017-07-12 16:38] LABS: Glucose,Whole Blood 162 mg/dL (75-99)
--- NOTE | 2017-07-12 18:43 | P.PN ---
Subjective Progress Note Date: 07/12/17 Principal diagnosis: Shortness of breath This is a 62 year old male presented to hospital on 05/21/2017 with chest pain and found to have acute myocardial infarction. Heart catheterization found evidence of multivessel coronary artery disease and he is status post coronary artery bypass grafting procedure. He said difficulties postoperatively with bleeding to require somewhat protracted ventilation. He did require repeat surgery for control of the bleeding. He developed cardiac dysrhythmia with atrial fibrillation requiring amiodarone treatment. The patient also developed difficulties with his left chest. A large fluid collection was found and he underwent thoracentesis he was having some difficulty with shortness of breath and consequently further imaging was performed. Computed tomography scan showed evidence of the left lower lobe infiltration as well as some right upper lobe infiltrate. Because of and leukocytosis the infectious diseases consultation was requested. He required placement of percutaneous drainage of the empyema. He was eventually stabilized and discharged home on June 07. He was continued on IV antibioticsat an [facility] office on a daily basis for enterococcus and alpha hemolytic strep empyema. Patient last saw Dr. Nixon on Saturday any extended IV antibiotic therapy for another week. Patient states he was feeling fine when he was in the office on Saturday and also on Saturday. But on Saturday morning he started coughing around 3 in the morning and was clear sputum production the change to yellow and he felt exhausted. He was having difficulty breathing and his called Dr. Nixon recommended that he come into the evaluated. EMS was called and patient was transferred to [facility] emergency center. Chest x-ray initially showed worsening of bilateral pneumonias, cardiomegaly and left pleural effusion. Repeat chest x- ray showed worsening and near complete obesity of the left hemithorax, pleural effusion and multifocal pneumonia in differential. Patchy alveolar opacity within the right lower lobe. He was found to be febrile which he denied having any fevers chills or rigors at home. His pulse ox was down to 82% and he was hypotensive. White count was elevated at 20.7 but improved to 13.5. ALT was 123 and alkaline phosphatase 159. Albumin is 3. Urinalysis was clear, protein 1+, nitrate and leukoesterase negative. Urine culture is in progress. Blood culture and sputum culture status received. Influenza testing was negative. ALT is 123 and alkaline phosphatase 159. Albumin is 3. Patient has been admitted into the intensive care unit. He has not required vasopressors. Consult in place with pulmonary medicine and CAT scan of the chest has been ordered. Consult in place with cardiothoracic surgery. Computed tomography scan as noted showing evidence of near collapse of left lung. Ultrasound has been performed showing and the complex fluid Radiology has now placed pigtail catheter and 20 mL of grossly purulent material was sent to the laboratory for culture and tube continues to drain. Patient is off of the high flow oxygen remains on 6 L nasal cannula at this time. He does feel slightly improved. Has been up and walking a bit. Altepase has been placed into the pleural space and is being monitored. He has been followed by the cardiothoracic surgeon. Now post thoracotomy with decortication and doing well did not require retirement manager mechanical vent support. Resting more comfortabl at this time with removal of the chest tubes. He is attempting his deep breathing exercises to mobilize secretions. Objective - Vital Signs Vital signs: Vital Signs Temp 98.1 F 07/12/17 15:00 Pulse 68 07/12/17 16:30 Resp 16 07/12/17 16:30 BP 98/58 07/12/17 15:00 Pulse Ox 98 07/12/17 16:20 Intake & Output 07/11/17 07/12/17 07/12/17 18:59 06:59 18:59 Intake Total 2900 538 Output Total 940 250 600 Balance 1959250 Weight 113.5 kg 113.5 kg Intake: Oral 2900 538 Output: Chest Tube Drainage 40 50 0 Chest Tube Left Lateral 50 0 Chest Pigtail in left posterior 40 Back Urine 900 200 600 Other: Voiding Method Urinal Urinal Urinal # Bowel Movements 1 - Exam Gen: This is a 62-year-old male patient supine resting comfortably after his surgery he has received narcotics for pain control and is well controlled at this time HEENT: Head is atraumatic, normocephalic. Pupils equal, round. Sclerae is anicteric. Junk developed pink. Mucous membranes of the mouth are somewhat dry. NECK: Supple. No JVD. No lymphadenopathy. No thyromegaly. LUNGS: Right chest with good air entry with few crackles at the base. Left chest has improved air entry at this time chest tubes removed, HEART: Regular rate and rhythm. No murmur. ABDOMEN: Soft. Bowel sounds are present. No masses. No tenderness. EXTREMITIES: No pedal edema. No calf tenderness. Dorsalis pedis +2 bilaterally. NEUROLOGICAL: Patient is resting well was up in the chair - Labs CBC & Chem 7: 07/12/17 08:32 07/12/17 08:32 Labs: Abnormal Lab Results - Last 24 Hours (Table) 07/11/17 07/12/17 07/12/17 Range/Units 20:48 06:20 08:32 WBC (3.8-10.6) k/uL RBC (4.30-5.90) m/uL Hgb (13.0-17.5) gm/dL Hct (39.0-53.0) % MCV (80.0-100.0) fL MCH (25.0-35.0) pg MCHC (31.0-37.0) g/dL RDW (11.5-15.5) % Plt Count (150-450) k/uL Neutrophils # (1.3-7.7) k/uL BUN 33 H (9-20) mg/dL Glucose 155 H (74-99) mg/dL POC Glucose (mg/dL) 162 H 106 H (75-99) mg/dL 07/12/17 07/12/17 07/12/17 Range/Units 08:32 11:33 16:36 WBC 10.7 H (3.8-10.6) k/uL RBC 3.39 L (4.30-5.90) m/uL Hgb 7.4 L (13.0-17.5) gm/dL Hct 25.9 L (39.0-53.0) % MCV 76.5 L (80.0-100.0) fL MCH 21.8 L (25.0-35.0) pg MCHC 28.4 L (31.0-37.0) g/dL RDW 17.8 H (11.5-15.5) % Plt Count 472 H (150-450) k/uL Neutrophils # 8.5 H (1.3-7.7) k/uL BUN (9-20) mg/dL Glucose (74-99) mg/dL POC Glucose (mg/dL) 108 H 162 H (75-99) mg/dL Microbiology - Last 24 Hours (Table) 07/09/17 10:50 Anaerobic Culture - Preliminary Other - Other 07/09/17 10:30 Anaerobic Culture - Preliminary Pleural Fluid 07/09/17 10:30 Gram Stain - Preliminary Pleural Fluid Body Fluid Culture - Preliminary 07/09/17 10:50 Gram Stain - Final Other - Other Tissue Culture - Final Staphylococcus epidermidis Laboratory Results WBC 10.7 k/uL (3.8-10.6) H 07/12/17 08:32 RBC 3.39 m/uL (4.30-5.90) L 07/12/17 08:32 Hgb 7.4 gm/dL (13.0-17.5) L 07/12/17 08:32 Hct 25.9 % (39.0-53.0) L 07/12/17 08:32 MCV 76.5 fL (80.0-100.0) L 07/12/17 08:32 MCH 21.8 pg (25.0-35.0) L 07/12/17 08:32 MCHC 28.4 g/dL (31.0-37.0) L 07/12/17 08:32 RDW 17.8 % (11.5-15.5) H 07/12/17 08:32 Plt Count 472 k/uL (150-450) H 07/12/17 08:32 Neutrophils % 80 % 07/12/17 08:32 Lymphocytes % 12 % 07/12/17 08:32 Monocytes % 6 % 07/12/17 08:32 Eosinophils % 1 % 07/12/17 08:32 Basophils % 0 % 07/12/17 08:32 Neutrophils # 8.5 k/uL (1.3-7.7) H 07/12/17 08:32 Lymphocytes # 1.3 k/uL (1.0-4.8) 07/12/17 08:32 Monocytes # 0.6 k/uL (0-1.0) 07/12/17 08:32 Eosinophils # 0.1 k/uL (0-0.7) 07/12/17 08:32 Basophils # 0.0 k/uL (0-0.2) 07/12/17 08:32 Hypochromasia Marked 07/12/17 08:32 Poikilocytosis Slight 07/12/17 08:32 Anisocytosis Slight 07/12/17 08:32 Microcytosis Slight 07/12/17 08:32 PT 12.1 sec (9.0-12.0) H 06/30/17 10:34 INR 1.3 (<1.2) H 06/30/17 10:34 APTT 23.4 sec (22.0-30.0) 06/30/17 10:34 Sodium 137 mmol/L (137-145) 07/12/17 08:32 Potassium 4.3 mmol/L (3.5-5.1) 07/12/17 08:32 Chloride 100 mmol/L (98-107) 07/12/17 08:32 Carbon Dioxide 28 mmol/L (22-30) 07/12/17 08:32 Anion Gap 9 mmol/L 07/12/17 08:32 BUN 33 mg/dL (9-20) H 07/12/17 08:32 Creatinine 1.02 mg/dL (0.66-1.25) 07/12/17 08:32 Est GFR (MDRD) Af Amer >60 (>60 ml/min/1.73 sqM) 07/12/17 08:32 Est GFR (MDRD) Non-Af >60 (>60 ml/min/1.73 sqM) 07/12/17 08:32 Glucose 155 mg/dL (74-99) H 07/12/17 08:32 POC Glucose (mg/dL) 162 mg/dL (75-99) H 07/12/17 16:36 POC Glu Primary Clinician ID [place], [place] 07/12/17 16:[address] Glu mg/dL 117 06/30/17 10:34 Hemoglobin A1c 5.7 % (4.0-6.0) 06/30/17 10:34 Plasma Lactic Acid [place] 1.7 mmol/L (0.7-2.0) 06/30/17 10:34 Calcium 8.5 mg/dL (8.4-10.2) 07/12/17 08:32 Phosphorus 3.6 mg/dL (2.5-4.5) 07/05/17 04:00 Magnesium 2.0 mg/dL (1.6-2.3) 07/08/17 05:57 Total Bilirubin 0.1 mg/dL (0.2-1.3) L 07/09/17 06:18 AST 37 U/L (17-59) 07/09/17 06:18 ALT 92 U/L (21-72) H 07/09/17 06:18 Alkaline Phosphatase 104 U/L (38-126) 07/09/17 06:18 Total Protein 5.0 g/dL (6.3-8.2) L 07/09/17 06:18 Albumin 2.4 g/dL (3.5-5.0) L 07/09/17 06:18 TSH 1.800 mIU/L (0.465-4.680) 07/03/17 04:31 Free T4 1.55 ng/dL (0.78-2.19) 07/03/17 04:31 Urine Color Yellow 06/30/17 10:34 Urine Appearance Clear (Clear) 06/30/17 10:34 Urine pH 5.0 (5.0-8.0) 06/30/17 10:34 Ur Specific [place] 1.021 (1.001-1.035) 06/30/17 10:34 Urine Protein 1+ (Negative) H 06/30/17 10:34 Urine Glucose (UA) Negative (Negative) 06/30/17 10:34 Urine Ketones Negative (Negative) 06/30/17 10:34 Urine Blood Negative (Negative) 06/30/17 10:34 Urine Nitrite Negative (Negative) 06/30/17 10:34 Urine Bilirubin Negative (Negative) 06/30/17 10:34 Urine Urobilinogen <2.0 mg/dL (<2.0) 06/30/17 10:34 Ur Leukocyte Esterase Negative (Negative) 06/30/17 10:34 Urine RBC 1 /hpf (0-5) 06/30/17 10:34 Urine WBC <1 /hpf (0-5) 06/30/17 10:34 Urine Mucus Few /hpf (None) H 06/30/17 10:34 Vancomycin Trough 24.1 ug/mL 07/12/17 08:32 Influenza Type A RNA Not Detected (Not Detectd) 06/30/17 10:34 Influenza Type B (PCR) Not Detected (Not Detectd) 06/30/17 10:34 Miscellaneous Test Triglycerides,Pleura 07/04/17 14:31 Misc Test Result See comment 07/04/17 14:31 Blood Type A Positive 07/09/17 08:05 Blood Type Recheck No 07/09/17 08:05 Antibody Screen NEGATIVE 07/09/17 08:05 Spec Expiration Date 07/12/2017 - 2305 07/09/17 08:05 Microbiology 07/09/17 10:50 Other - Other Anaerobic Culture - Preliminary 07/09/17 10:30 Pleural Fluid Anaerobic Culture - Preliminary 07/09/17 10:30 Pleural Fluid Gram Stain - Preliminary 07/09/17 10:30 Pleural Fluid Body Fluid Culture - Preliminary 07/09/17 10:50 Other - Other Gram Stain - Final 07/09/17 10:50 Other - Other Tissue Culture - Final Staphylococcus epidermidis 07/09/17 10:50 Other - Other Fungal Culture - Preliminary 07/09/17 10:30 Pleural Fluid Fungal Culture - Preliminary 07/03/17 14:45 Pleural Fluid Anaerobic Culture - Final Prevotella melaninogenica Proprionibacterium acnes 07/03/17 14:45 Pleural Fluid Gram Stain - Final 07/03/17 14:45 Pleural Fluid Body Fluid Culture - Final 06/30/17 10:34 Blood Blood Culture - Final No Growth after 144 hours 07/01/17 07:50 Sputum Gram Stain - Final 07/01/17 07:50 Sputum Sputum Culture - Final 06/30/17 10:34 Urine,Voided Urine Culture - Final Vera albicans Assessment and Plan (1) Pleural effusion on left Narrative/Plan: 62-year-old male with status post coronary artery bypass grafting procedure without difficulty significant infection of his left chest after surgery. Has been receiving a course of intravenous antibiotic therapy with ertapenem for coverage of the pathogens. Has not had a marked worsening of his status requiring hospitalization. His oxygenation is improved and he is no longer on the high flow oxygen but is on 6 L nasal cannula. Feeling somewhat better today. He still however has shortness of breath. Appetite is improved. Fever is improved. He is being available by pulmonary critical care and cardiothoracic surgery. Computed tomography scan ultrasound are noted. Patient is on a plethora of antibiotics at this time pending further culture data given his failure of ertapenem. Does have some mild improvement but does not still feel well. Patient is status post thoracotomy with decortication to allow resolution of the significant polymicrobial empyema. Postoperatively cultures are being monitored no new pathogens are found. Consequently vancomycin is discontinued. Currently on piperacillin tazobactam and levofloxacin. Course of antibiotics at discharge will be constructed with further data. Doing well postoperatively will monitor. Given the very complex nature we'll still consider further outpatient intravenous antibiotic therapy. Current Visit: No Status: Acute Code(s): J90 - PLEURAL EFFUSION, NOT ELSEWHERE CLASSIFIED SNOMED Code(s): 98532614 (2) Pneumonia Current Visit: Yes Status: Acute Code(s): J18.9 - PNEUMONIA, UNSPECIFIED ORGANISM SNOMED Code(s): 648635314 (3) History of atrial fibrillation less than 8 weeks after coronary artery bypass graft Current Visit: Yes Status: Acute Code(s): GMY3155 - SNOMED Code(s): 685265624587909
[2017-07-12 20:51] LABS: Glucose,Whole Blood 117 mg/dL (75-99)
[2017-07-12] MEDS: INSULIN DETEMIR 100 UNIT/ML 10 ML VIAL SQ SCH (21:21)
[2017-07-13] MEDS: KETOROLAC 30 MG/ML 1 ML VIAL IVP SCH ×3 (00:12→12:03)
[2017-07-13] MEDS: PIPERACILLIN-TAZOBACTAM 3.375 GM in DEXTROSE/WATER 1 50ML.BAG IVPB SCH ×3 (04:00→21:08)
[2017-07-13] MEDS: HYDROcodone/APAP 7.5-325MG 1 EACH TAB PO PRN ×3 (05:56→21:07)
[2017-07-13] MEDS: INSULIN ASPART 100 UNIT/ML 1 ML 10 ML VIAL SQ SCH ×7 (06:05→20:55)
[2017-07-13 06:07] LABS: Glucose,Whole Blood 100 mg/dL (75-99)
[2017-07-13] MEDS: IPRATROPIUM-ALBUTEROL 3 ML NEB INHALATION SCH ×4 (06:14→19:32)
[2017-07-13 06:26] LABS: Anisocytosis Slight; Basophils # (A) 0.1 k/uL (0-0.2); Basophils % (A) 1 %; Eosinophils # (A) 0.2 k/uL (0-0.7); Eosinophils % (A) 2 %; HCT 27.8 % (39.0-53.0); HGB 7.7 gm/dL (13.0-17.5); Hypochromasia Marked; Lymphocytes % (A) 21 %; MCH 21.6 pg (25.0-35.0); MCHC 27.8 g/dL (31.0-37.0); MCV 77.5 fL (80.0-100.0); Mean Platelet Volume 6.7; Microcytosis Slight; Monocytes # (A) 0.5 k/uL (0-1.0); Monocytes % (A) 5 %; Neutrophils # (A) 6.8 k/uL (1.3-7.7); Neutrophils % (A) 70 %; Platelet Count 481 k/uL (150-450); Poikilocytosis Slight; RBC 3.59 m/uL (4.30-5.90); RDW 17.6 % (11.5-15.5); WBC 9.7 k/uL (3.8-10.6)
[2017-07-13 07:04] LABS: ALT 71 U/L (21-72); AST 62 U/L (17-59); Albumin 2.4 g/dL (3.5-5.0); Alkaline Phosphatase 75 U/L (38-126); Anion Gap 10 mmol/L; Blood Urea Nitrogen 29 mg/dL (9-20); Calcium 8.7 mg/dL (8.4-10.2); Carbon Dioxide 32 mmol/L (22-30); Chloride 100 mmol/L (98-107); Glucose 64 mg/dL (74-99); Sodium 142 mmol/L (137-145); Total Bilirubin 0.1 mg/dL (0.2-1.3)
[2017-07-13] MEDS: PANTOPRAZOLE 40 MG TABLET PO SCH (07:06)
--- NOTE | 2017-07-13 07:15 | XR ---
EXAMINATION TYPE: XR chest 2V DATE OF EXAM: 07/13/2017 HISTORY: post thoracotomy. REFERENCE: Previous study dated 07/11/2015. FINDINGS: The patient's left pleural drain has been removed. There has been a midline sternotomy. The re are continuing atelectatic changes at the right lung base. There is left basilar airspace disease. The heart is enlarged. There is blunting of both CP angles. I could not exclude small effusions. I d o not see evidence of pneumothorax. IMPRESSION: 1. CONTINUING BIBASILAR AIRSPACE DISEASE. 2. CARDIOMEGALY. 3. I COULD NOT EXCLUDE SMALL, BILATERAL EFFUSIONS.
[2017-07-13] MEDS: ASPIRIN 325 MG TAB PO SCH (07:41)
[2017-07-13] MEDS: CLOPIDOGREL 75 MG TAB PO SCH (07:41)
[2017-07-13] MEDS: ATORVASTATIN 40 MG TAB PO SCH (07:41)
[2017-07-13] MEDS: AMIODARONE 200 MG TAB PO SCH (07:41)
[2017-07-13] MEDS: HEPARIN SODIUM,PORCINE 5,000 UNIT/ML 1 ML VIAL SQ SCH ×2 (07:42→21:08)
[2017-07-13] MEDS: guaiFENesin 600 MG TABLET.ER PO SCH ×2 (07:42→21:08)
[2017-07-13] MEDS: FUROSEMIDE 10 MG/ML 2 ML VIAL IV SCH (07:42)
[2017-07-13] MEDS: METOPROLOL TARTRATE 25 MG TAB PO SCH ×2 (07:43→21:08)
[2017-07-13] MEDS: SERTRALINE 100 MG TAB PO SCH (07:43)
--- NOTE | 2017-07-13 09:21 | P.PN ---
Subjective Progress Note Date: 07/13/17 Principal diagnosis: Left-sided pleural effusion. History of urgent coronary artery bypass grafting on 05/22/2017, non-ST elevation myocardial infarction, hypertension, hyperlipidemia, insulin-dependent diabetes mellitus, anxiety, family history of premature coronary artery disease, COPD, obesity, paroxysmal atrial fibrillation , left sided thoracentesis on 05/30/2017 and left chest pigtail catheter placement with fluid culture positive for alpha hemolytic strep and enterococcus faecalis, and pneumonia requiring placement of PICC line for home IV antibiotic therapy. POD #9 ultrasound guided chest tube insertion (pigtail catheter). POD #4 left thoracotomy with decortication and removal of pigtail catheter. Patient's currently sitting up in the chair in no acute distress. States pain is well-controlled. States he is feeling better every day. Left pleural chest tubes were discontinued yesterday, patient tolerated well. Objective - Vital Signs Vital signs: Vital Signs Temp 97.6 F 07/13/17 07:30 Pulse 69 07/13/17 08:00 Resp 18 07/13/17 04:00 BP 116/53 07/13/17 07:30 Pulse Ox 95 07/13/17 07:30 Intake & Output 07/12/17 07/13/17 07/13/17 18:59 06:59 18:59 Intake Total 538 180 Output Total 600 Balance -62 180 Weight 113.5 kg 115.9 kg Intake: Oral 538 180 Output: Chest Tube Drainage 0 Chest Tube Left Lateral 0 Chest Urine 600 Other: Voiding Method Urinal # Bowel Movements 1 1 - Constitutional General appearance: Present: cooperative, no acute distress, obese - Respiratory Details: Lungs sounds diminished bilaterally, faint expiratory wheezes heard in the bases. Respirations even, nonlabored. Currently on 2 L nasal cannula with oxygen saturation 96%. Able to achieve 750 mL on his incentive spirometry. - Cardiovascular Details: S1, S2 present. Regular rate and rhythm, sinus rhythm on telemetry. Sternum stable. Palpable peripheral pulses bilaterally. No edema present. No calf pain or tenderness noted. - Gastrointestinal Gastrointestinal Comment(s): Abdomen soft, nontender, nondistended. Active bowel sounds 4 quadrants. Tolerating diet. Positive bowel movement. - Genitourinary Genitourinary Comment(s): Continues to void clear, yellow urine. - Integumentary Integumentary Comment(s): Skin warm, dry, pink with evidence of good perfusion. Left-sided pleural chest tube site covered with intact dressing. - Neurologic Neurologic: Present: CNII-XII intact - Musculoskeletal Musculoskeletal: Present: gait normal, strength equal bilaterally - Psychiatric Psychiatric Comment(s): Flat affect Psychiatric: Present: A&O x's 3, intact judgment & insight - Allied health notes Allied health notes reviewed: nursing - Labs CBC & Chem 7: 07/13/17 05:44 07/13/17 05:44 Labs: Abnormal Lab Results - Last 24 Hours (Table) 07/12/17 07/12/17 07/12/17 Range/Units 08:32 08:32 11:33 WBC 10.7 H (3.8-10.6) k/uL RBC 3.39 L (4.30-5.90) m/uL Hgb 7.4 L (13.0-17.5) gm/dL Hct 25.9 L (39.0-53.0) % MCV 76.5 L (80.0-100.0) fL MCH 21.8 L (25.0-35.0) pg MCHC 28.4 L (31.0-37.0) g/dL RDW 17.8 H (11.5-15.5) % Plt Count 472 H (150-450) k/uL Neutrophils # 8.5 H (1.3-7.7) k/uL Carbon Dioxide (22-30) mmol/L BUN 33 H (9-20) mg/dL Glucose 155 H (74-99) mg/dL POC Glucose (mg/dL) 108 H (75-99) mg/dL Total Bilirubin (0.2-1.3) mg/dL AST (17-59) U/L Total Protein (6.3-8.2) g/dL Albumin (3.5-5.0) g/dL 07/12/17 07/12/17 07/13/17 Range/Units 16:36 20:50 05:44 WBC (3.8-10.6) k/uL RBC (4.30-5.90) m/uL Hgb (13.0-17.5) gm/dL Hct (39.0-53.0) % MCV (80.0-100.0) fL MCH (25.0-35.0) pg MCHC (31.0-37.0) g/dL RDW (11.5-15.5) % Plt Count (150-450) k/uL Neutrophils # (1.3-7.7) k/uL Carbon Dioxide 32 H (22-30) mmol/L BUN 29 H (9-20) mg/dL Glucose 64 L (74-99) mg/dL POC Glucose (mg/dL) 162 H 117 H (75-99) mg/dL Total Bilirubin 0.1 L (0.2-1.3) mg/dL AST 62 H (17-59) U/L Total Protein 5.0 L (6.3-8.2) g/dL Albumin 2.4 L (3.5-5.0) g/dL 07/13/17 07/13/17 Range/Units 05:44 06:02 WBC (3.8-10.6) k/uL RBC 3.59 L (4.30-5.90) m/uL Hgb 7.7 L (13.0-17.5) gm/dL Hct 27.8 L (39.0-53.0) % MCV 77.5 L (80.0-100.0) fL MCH 21.6 L (25.0-35.0) pg MCHC 27.8 L (31.0-37.0) g/dL RDW 17.6 H (11.5-15.5) % Plt Count 481 H (150-450) k/uL Neutrophils # (1.3-7.7) k/uL Carbon Dioxide (22-30) mmol/L BUN (9-20) mg/dL Glucose (74-99) mg/dL POC Glucose (mg/dL) 100 H (75-99) mg/dL Total Bilirubin (0.2-1.3) mg/dL AST (17-59) U/L Total Protein (6.3-8.2) g/dL Albumin (3.5-5.0) g/dL Microbiology - Last 24 Hours (Table) 07/09/17 10:50 Anaerobic Culture - Preliminary Other - Other 07/09/17 10:30 Anaerobic Culture - Preliminary Pleural Fluid 07/09/17 10:30 Gram Stain - Preliminary Pleural Fluid Body Fluid Culture - Preliminary 07/09/17 10:50 Gram Stain - Final Other - Other Tissue Culture - Final Staphylococcus epidermidis - Imaging and Cardiology Chest x-ray: report reviewed, image reviewed Assessment and Plan (1) Hyperlipidemia Current Visit: Yes Status: Chronic Code(s): E78.5 - HYPERLIPIDEMIA, UNSPECIFIED SNOMED Code(s): 49958602 (2) History of myocardial infarction Current Visit: No Status: Resolved Code(s): I25.2 - OLD MYOCARDIAL INFARCTION SNOMED Code(s): 584658320 (3) Pneumonia Current Visit: Yes Status: Acute Code(s): J18.9 - PNEUMONIA, UNSPECIFIED ORGANISM SNOMED Code(s): 666087927 (4) Coronary artery disease Current Visit: No Status: Chronic Code(s): I25.10 - ATHSCL HEART DISEASE OF [place] CORONARY ARTERY W/O ANG PCTRS SNOMED Code(s): 99826659 (5) Status post coronary artery bypass grafting Current Visit: No Status: Resolved Code(s): Z95.1 - PRESENCE OF AORTOCORONARY BYPASS GRAFT SNOMED Code(s): 179849713 (6) Anxiety Current Visit: Yes Status: Chronic Code(s): F41.9 - ANXIETY DISORDER, UNSPECIFIED SNOMED Code(s): 74481296 (7) Diabetes mellitus type 2 in obese Current Visit: Yes Status: Chronic Code(s): E11.69 - TYPE 2 DIABETES MELLITUS WITH OTHER SPECIFIED COMPLICATION; E66.9 - OBESITY, UNSPECIFIED SNOMED Code(s): 11509457 (8) Hypertension Current Visit: Yes Status: Chronic Code(s): I10 - ESSENTIAL (PRIMARY) HYPERTENSION SNOMED Code(s): 80062375 (9) Obesity (BMI 30.0-34.9) Current Visit: Yes Status: Chronic Code(s): E66.9 - OBESITY, UNSPECIFIED SNOMED Code(s): 664351341 Plan: 1. Continue aspirin, statin, Plavix, amiodarone, Lasix, beta ewa. 2. Wean oxygen as tolerated. Encourage incentive spirometry use. 3. Antibiotics per infectious disease recommendations. 4. Medical comorbidities per primary care service. 5. GI/DVT prophylaxis. 6. Increase activity, ambulate in hallway. 7. Pain control per ordered regimen. 8. More recommendations to follow. Time with Patient: Greater than 30
--- NOTE | 2017-07-13 11:32 | PN ---
PROGRESS NOTE Today's progress note concerns his present illness. Patient was hospitalized, found to have chest pain, shortness of breath with progressive disease. Found out he ended up having pleural effusion with fluid in the left lower lung, which apparently was an early empyema. Since this period of time, he has been on IV antibiotics per Dr. Nixon and Pulmonary support through the [facility] and had decortication with thoracic group, Dr. Okeefe and associates and has continued to improve. He has less coughing up phlegm, but does continue to cough. He has been somewhat short of breath. He has also been noted early that both of his boys were seen in my office this week with influenza A of which they have been avoided to see him. After CT scan evaluation the left lower lobe infiltrate and some infiltrates in the right lower lobe also stated that he probably had a somewhat of a pneumonia. So he was treated here accordingly and at this time, he continues to improve. His microbiology today shows pretty much a final fluid culture of Prevotella melaninogenica and also propionibacterium acnes and is being treated accordingly with by Dr. Nixon with appropriate antibiotics. REVIEW OF SYSTEMS: EYES: He is having no problem seeing. ENT: He has a dry mouth. NECK: No problems swallowing today. CHEST: Still bringing up a minimal amount of phlegm. HEART: No palpitations. No chest pain. ABDOMEN: Soft. He has no problems with distention. He has negative pain. No nausea, no vomiting, no diarrhea. No hematemesis, melena, hematochezia. : No problem with urination. LEGS: He is still very weak. He is working with physical therapy to regain strength, felt also decrease strength in his arms. Decreased swelling in his arms on previous note. PSYCHIATRIC: Patient says he is not depressed. He is not anxious. INTEGUMENTARY: Shows no new rashes. LABORATORY: He has had a 7.7 hemoglobin. His white count 7.7. His complete metabolic profile was basically within normal limits with sugars being under control and insulin to scale, He does have some low protein. At this time, vital signs, alert white male, well oriented to person, place, and thing. Has a blood pressure 160/53, heart rate is in the 60s, temperature 97.6, and respiratory rate of 18, on 2 L of O2 nasal cannula 95 O2 saturation. EYES: Pupils are equal, round, reactive to light and accommodation. ENT: Showed tympanic membranes and pharynx to be negative. NECK: Supple. Midline trachea. CHEST: Essentially clear to auscultation except for minimal rhonchi anterior chest. HEART: Heart is irregular irregular rhythm. ABDOMEN: Soft, nontender with no organomegaly. LEGS: +1 swelling, good palpable lower extremity pulses. INTEGUMENTARY: Does not show any new rashes with good skin turgor. GENITOURINARY: He is having no problem urinating. RECTAL: Examination not done. MUSCULOSKELETAL: He seems like he has better strength in his legs and also I see him walking in the room. MEDICATIONS: At this time continue with [place] 7.5/325 two every 6 hours p.r.n. pain, DuoNeb updraft up to 4 times a day, Xanax 0.25 twice a day. Cordarone 200 mg daily. Vitamin C 500 daily, aspirin 325 daily, Lipitor 40 daily, Plavix 75 daily, ferrous sulfate 325 daily, Lasix 20 IV daily, which is now being switched over to p.o. today. Mucinex at q.12 hours, Robitussin DM 5 use up to every 3-4 hours p.r.n. pain. Subcutaneous heparin 5000 q.12h. Dilaudid for breakthrough pain. He has not had any of that. Insulin to scale 12 units a.c. meals. Levemir 32 units at night. Toradol 50 mg IV for moderately severe pain. Antibiotics, he is still on Levaquin 500 mg q.24 hours, Zosyn 3.375 IV push q.8. Zoloft 100 mg a day, Protonix 40 mg with breakfast, Zofran p.r.n., Lopressor 75 b.i.d. ASSESSMENT: 1. Acute respiratory failure secondary to extensive left lung, multifactorial pneumonia, left pleural effusion and empyema status. 2. Status post decortication and previous SAMPLE TAKER OPERATOR infusion. 3. Chronic obstructive pulmonary disease. 4. Hypertension. 5. Hyperlipidemia. 6. Gastroesophageal reflux. 7. Obesity. 8. Anxiety neurosis. 9. Bypass surgery, CABG x4 vessels. 10.Anemia, multifactorial. PLAN: Continue same antibiotics and medications accordingly. Patient continues to improve. MMODL / IJN: [id number] /
[2017-07-13 11:50] LABS: Glucose,Whole Blood 110 mg/dL (75-99)
[2017-07-13] MEDS: ASCORBIC ACID 500 MG TAB PO SCH (12:03)
[2017-07-13] MEDS: FERROUS SULFATE 325 MG TAB PO SCH (12:05)
[2017-07-13] MEDS: LEVOFLOXACIN 750 MG TAB PO SCH (12:05)
--- NOTE | 2017-07-13 12:46 | P.PN ---
<Tamia Solano - Last Filed: 07/13/17 12:42> Subjective Progress Note Date: 07/13/17 Principal diagnosis: Acute hypoxic respiratory failure secondary to left lung pneumonia and pleural effusion, Progress note dated 07/02/2017 The patient continues to improve slowly. Radiographically, his chest x-ray has not changed all that much. Certainly not worse. Currently the patient is on the AIRVO at 65 L/m. He's had a saline IV at 50 mL an hour. The patient has a history of bilateral pneumonia with sepsis a history of asthma, diabetes, gastroesophageal reflux disease, hypertension, myocardial infarction and pneumonia. He also has a history of recent bypass grafting back on 05/22/[address] segment elevation myocardial infarction and legionnaires disease. He is a lifelong nonsmoker. His primary care physician is Dr. Gary Abreu. The patient apparently had a computed tomography scan late yesterday. I have not looked at it as yet. My partner expresses some concerns that he may have a loculated pleural effusion which need something more significantly done such as decortication. On 07/03/2017 patient remains in intensive care. Still requiring high flow nasal cannula, remains on AIRVO at FiO2 of 50% and 40 L/m flow. Afebrile, hemodynamically stable. Today's chest x-ray shows slight improvement in the aeration of the left upper lung with persistent confluent multifocal opacities representing multifocal pneumonia. Yesterday we have obtained a chest ultrasound to evaluate the complex and loculated left pleural effusion in the background of extensive left lung pneumonia. This was discussed with the interventional radiologist and cardiothoracic surgery. CT surgery feels the patient with benefit from a pigtail catheter insertion in the left pleural space and infusion of TPA over the next few days. This was discussed with the radiologist, who recommended getting a CT chest with contrast today. Otherwise patient is fairly comfortable, in no acute distress, respirations are shallow and tachypneic with a rate in the 30s. He is awake alert, tolerating a regular diet. His lab work shows upward trend of his WBCs, up to 17, hemoglobin is 9.0 , renal profile is stable, within normal limits no significant electrolyte abnormality. Blood and sputum culture show no growth, urine culture is positive for Vera albicans. ID service is on. Is on a combination of Levaquin, Zosyn and vancomycin. Currently not requiring any vasopressor support. On 07/04/2017 patient is seen in follow-up in intensive care unit. He is status post left pleural pigtail chest tube insertion with TPA infusion on 07/03. Patient had round 400 cc of milky yellow, purulent drainage in the atrium collection chamber since insertion. Clinically patient denies any acute distress, FiO2 was weaned down to 8 L per high flow nasal cannula. Blood sputum cultures remain negative, urine culture shows Vera albicans, pleural fluid culture was sent for culture as well and is pending. Patient will have another infusion of alteplase today per cardiothoracic surgery. Continues on empiric antibiotics with Levaquin, Zosyn and vancomycin. His IV fluids are 0.9 normal saline at 50 ML per hour. Patient's tolerating oral intake, on regular diet. Up in a chair, tolerating it well. Overall continues to significantly improve. The patient is seen again today 07/05/2017 in follow-up in the intensive care unit. He is currently sitting up in a chair at the bedside. He is awake and alert in no acute distress. The left-sided pigtail chest tube remains in place. The plan was for alteplase again today. He has been up ambulating with assistance which enhances the drainage process. Cultures are pending. His chest x-ray reveals stable findings compared to previous. White count 15.7, hemoglobin 8.8. He remains on vancomycin, Zosyn and Levaquin. He is maintaining good O2 saturations in the low 90s on 10 L high flow nasal cannula. He has a 0.9 normal saline at 50 MLS per hour. The patient is seen again today 07/06/2017 in follow-up in the intensive care unit. His been up ambulating in the hallway with assistance. He is doing quite well today. His chest x-ray continues to reveal evidence of cardiac enlargement along with patchy bilateral infiltrates and small left pleural effusion. There is been minimal output from the pigtail catheter in the left chest. He has a total of 150 MLS out yesterday, currently 90 out today. He has received alteplase No real improvement compared to yesterday. He is down to 8 L high flow nasal cannula to maintain O2 saturations in the 90s. He has been afebrile. Pleural fluid culture reveals no growth after 48 hours. White count 14.9. Hemoglobin 8.8. Creatinine 0.62. He remains on vancomycin and Zosyn and Levaquin for now. On 07/08/2017 patient seen in follow-up on selective care unit. CT chest from this morning has been reviewed, shows left basilar pleural catheter in place with considerable decrease in size of the patient's previous left subpulmonic fluid collection, trace effusion remains. Permanent partial atelectasis and residual consolidation within the left lower lobe.(Second pleural-based collection along the lower left. She shows slight interval increase in size, ground glass and interstitial infiltrates in the midline is persistent show improvement from previous CT chest. Patient's left-sided pigtail has been noted to have moved, daily TPA infusions. There is small amount of serosanguineous drainage noted from the pigtail chest tube. He is afebrile, FiO2 is currently down to 6 L per high flow nasal cannula, vital signs are stable. Lung sounds are diminished, with a few scattered rales at left base. Cardiothoracic surgery has previously discussed decortication surgery left lung. Continue antibiotics per infectious disease recommendations. Continue encouraging incentive spirometry, increase activity as tolerated. On 07/09/2017 patient is seen in follow-up post left-sided thoracotomy with decortication by Dr. Tellez. Patient is sedated, he arrived back to the room at around 1430 per the spouse, was in significant amount of pain, and was given IV narcotics. Currently resting comfortably, somnolent, but arouses to verbal stimuli. Lung sounds are diminished, more so over the left lower lobe. There are 2 left-sided chest tubes why connected to an atrium, there is about 200 mL of serosanguineous output in the collection chamber. Patient is currently on 45 % Ventimask, with O2 sat at 93%. Vital signs are stable. Left-sided pigtail chest tube has been discontinued. Patient continues on Levaquin and vancomycin as well as Zosyn. Urine culture was positive for Vera, pleural fluid showed anaerobic species, Prevotella melaninogenica, and Proprionibacterium acnes. The patient is seen again today 07/10/2017 in follow-up on the selective care unit. He is status post left-sided thoracotomy and decortication. He is doing quite well. He is maintaining good O2 saturations in the upper 90s on room air. He's been hemodynamically stable. Afebrile. White count 16.9. Hemoglobin 8.6. His chest x-ray shows bilateral airspace disease and pleural effusions which are stable. The subcutaneous emphysema is stable. Remains on DuoNeb inhalations, with antibiotics in the form of vancomycin, Zosyn and Levaquin. Pathology report is negative for malignancy. The patient is seen again today 07/11/2017 in follow-up on the selective care unit. He is awake and alert in no acute distress. He sitting up in a chair at the bedside. He denies any worsening shortness of breath, cough or congestion. Today's chest x-ray reveals minimal apical pneumothorax present. There is some subcutaneous emphysema. The left-sided chest tubes remain. Heart is enlarged. The second chest tube in lung base is marginally within the pleural space. Patchy basilar density noted on the right. He's been in good O2 saturations in the high 90s on 4 L/m per nasal cannula. He's been afebrile. Hemodynamically stable. White count 13.3. Hemoglobin 7.8. Creatinine 1.10. He remains on vancomycin, Levaquin and Zosyn. The patient is seen again today 07/12/2017 in follow-up on the selective care unit. He is currently sitting up in a chair at the bedside. He is awake and alert in no acute distress. He did have his chest tubes removed today. He denies any worsening shortness of breath, cough or congestion. He is maintaining good O2 saturations in the upper 90s on 4 L/m per nasal cannula. He 's been afebrile. No new growth in his cultures. White count 10.7. Hemoglobin 7.4. Crit and 1.02. He is working well with his incentive spirometer. He's been up emulating with assistance. The patient is seen again today 07/13/2018 in follow-up on the selective care unit. He is currently sitting up in chair at the bedside. He is awake and alert in no acute distress. Chest x-ray continues to show some basilar infiltrate. There is evidence of cardiomegaly. There is no leukocytosis. Hemoglobin 7.7. He is maintaining good O2 saturations in the upper 90s on 2 L/ m per nasal cannula. He remains afebrile. Objective - Vital Signs Vital signs: Vital Signs Temp 97.2 F L 01/27/18 10:57 Pulse 72 07/13/17 11:42 Resp 17 07/13/17 11:30 BP 119/50 07/13/17 10:57 Pulse Ox 97 07/13/17 10:57 Intake & Output 07/12/17 07/13/17 07/13/17 18:59 06:59 18:59 Intake Total 538 180 Output Total 600 Balance -62 180 Weight 113.5 kg 115.9 kg Intake: Oral 538 180 Output: Chest Tube Drainage 0 Chest Tube Left Lateral 0 Chest Urine 600 Other: Voiding Method Urinal # Voids 0 # Bowel Movements 1 1 - Exam No acute distress, currently up in the chair at the bedside. status post left- sided thoracotomy with decortication HEENT examination is grossly unremarkable. Mucous membranes are moist. No oral lesions. Neck supple. Full range of motion. No adenopathy thyromegaly or neck vein distention. Cardiovascular examination reveals regular rhythm rate. S1-S2 normal. No S3 or S4. No discernible murmur noted. Lungs reveal a few bilateral rhonchi. Breath sounds show diminished air entry over left lower base, A few crackles are present over right lower lobe, No wheezes. There are 2 left-sided chest tubes why connected to an atrium collection chamber , with 200 mL of serosanguineous output Abdomen soft bowel sounds are heard. No masses or tenderness. Extremities are intact. No cyanosis clubbing or edema. Skin is without rash or lesion. Neurologic examination is brief but nonfocal - Labs CBC & Chem 7: 07/13/17 05:44 07/13/17 05:44 Labs: Abnormal Lab Results - Last 24 Hours (Table) 07/12/17 07/12/17 07/13/17 Range/Units 16:36 20:50 05:44 RBC (4.30-5.90) m/uL Hgb (13.0-17.5) gm/dL Hct (39.0-53.0) % MCV (80.0-100.0) fL MCH (25.0-35.0) pg MCHC (31.0-37.0) g/dL RDW (11.5-15.5) % Plt Count (150-450) k/uL Carbon Dioxide 32 H (22-30) mmol/L BUN 29 H (9-20) mg/dL Glucose 64 L (74-99) mg/dL POC Glucose (mg/dL) 162 H 117 H (75-99) mg/dL Total Bilirubin 0.1 L (0.2-1.3) mg/dL AST 62 H (17-59) U/L Total Protein 5.0 L (6.3-8.2) g/dL Albumin 2.4 L (3.5-5.0) g/dL 07/13/17 07/13/17 07/13/17 Range/Units 05:44 06:02 11:47 RBC 3.59 L (4.30-5.90) m/uL Hgb 7.7 L (13.0-17.5) gm/dL Hct 27.8 L (39.0-53.0) % MCV 77.5 L (80.0-100.0) fL MCH 21.6 L (25.0-35.0) pg MCHC 27.8 L (31.0-37.0) g/dL RDW 17.6 H (11.5-15.5) % Plt Count 481 H (150-450) k/uL Carbon Dioxide (22-30) mmol/L BUN (9-20) mg/dL Glucose (74-99) mg/dL POC Glucose (mg/dL) 100 H 110 H (75-99) mg/dL Total Bilirubin (0.2-1.3) mg/dL AST (17-59) U/L Total Protein (6.3-8.2) g/dL Albumin (3.5-5.0) g/dL Microbiology - Last 24 Hours (Table) 07/09/17 10:50 Anaerobic Culture - Final Other - Other 07/09/17 10:30 Anaerobic Culture - Final Pleural Fluid 07/09/17 10:30 Gram Stain - Final Pleural Fluid Body Fluid Culture - Final 07/09/17 10:50 Gram Stain - Final Other - Other Tissue Culture - Final Staphylococcus epidermidis Assessment and Plan Assessment: Assessment: #1. Acute hypoxic respiratory failure secondary to extensive left lung multifocal pneumonia and left pleural effusion, present on admission. Patient is status post left pigtail pleural chest tube catheter insertion, with TPA infusions on 07/05/2017. Status post left thoracotomy with decortication on . #2. Sepsis, with leukocytosis and fever, secondary to the above recovered. #3. 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 #4. Coronary artery disease, status post 4 vessel coronary artery bypass grafting #5. COPD #6. Essential hypertension #7. Hyperlipidemia #8. GERD #9. Anxiety #10. Obesity Plan: The patient was seen and evaluated by Dr. Barker. His labs were reviewed. He remains on Zosyn. His chest tubes have been removed. We'll continue with his current medications for now. We'll continue to increase his activity as tolerated. We have again encourage increased use of the incentive spirometer and cough and deep breathing exercises. We'll continue to follow and make further recommendations based on his clinical status. I, the cosigning physician, performed a history & physical examination of the patient. Lungs sounds with crackles in the bilateral posterior bases more so on the left.. Maintaining good O2 saturations in the 90s on 2 L/min per nasal canula. I discussed the assessment and plan of care with my nurse practitioner , Tamia Solano. I attest to the above note as dictated by her. <El Barker - Last Filed: 07/14/17 13:25> Objective - Vital Signs Vital signs: Vital Signs Temp 98.2 F 07/14/17 11:13 Pulse 64 07/14/17 11:54 Resp 17 07/14/17 11:13 BP 145/64 07/14/17 11:13 Pulse Ox 100 07/14/17 11:13 Intake & Output 07/13/17 07/14/17 07/14/17 18:59 06:59 18:59 Intake Total 652 50 Output Total 600 Balance 652 -550 Intake: IV 50 Piperacillin-Tazobactam 3 50 .375 gm In Dextrose/Water 1 50ml.bag @ 12.5 mls/hr IVPB Q8H NICHO Rx#: [id number] Oral 652 Output: Urine 600 Other: Voiding Method Urinal # Voids 0 - Labs CBC & Chem 7: 07/14/17 05:53 07/14/17 05:53 Labs: Abnormal Lab Results - Last 24 Hours (Table) 07/13/17 07/14/17 07/14/17 Range/Units 20:48 05:53 05:53 RBC 3.27 L (4.30-5.90) m/uL Hgb 7.1 L (13.0-17.5) gm/dL Hct 25.5 L (39.0-53.0) % MCV 78.2 L (80.0-100.0) fL MCH 21.7 L (25.0-35.0) pg MCHC 27.8 L (31.0-37.0) g/dL RDW 16.2 H (11.5-15.5) % Plt Count 477 H (150-450) k/uL BUN 25 H (9-20) mg/dL POC Glucose (mg/dL) 134 H (75-99) mg/dL Total Bilirubin <0.1 L (0.2-1.3) mg/dL Total Protein 4.6 L (6.3-8.2) g/dL Albumin 2.1 L (3.5-5.0) g/dL Microbiology - Last 24 Hours (Table) 07/09/17 10:50 Anaerobic Culture - Final Other - Other 07/09/17 10:30 Anaerobic Culture - Final Pleural Fluid 07/09/17 10:30 Gram Stain - Final Pleural Fluid Body Fluid Culture - Final Assessment and Plan Assessment: This is a joint evaluation that is being done along with the nurse practitioner. The patient is clinically improving. He is on nasal cannula at 6 L. Were going to gradually wean him down in terms of his FiO2. No fever. No chills. Still on same antibiotic coverage. Chest tubes are removed. We'll follow.
[2017-07-13 16:51] LABS: Glucose,Whole Blood 86 mg/dL (75-99)
[2017-07-13] MEDS: SODIUM CHLORIDE 0.9% 1,000 ML IV SCH (17:13)
[2017-07-13 20:54] LABS: Glucose,Whole Blood 134 mg/dL (75-99)
[2017-07-13] MEDS: INSULIN DETEMIR 100 UNIT/ML 10 ML VIAL SQ SCH (21:08)
[2017-07-13] MEDS: KETOROLAC 30 MG/ML 1 ML VIAL IVP PRN (23:05)
[2017-07-14] MEDS ORDERED: KETOROLAC 30 MG/ML 1 ML VIAL IVP SCH
[2017-07-14] MEDS: PIPERACILLIN-TAZOBACTAM 3.375 GM in DEXTROSE/WATER 1 50ML.BAG IVPB SCH ×3 (05:41→21:11)
[2017-07-14 06:20] LABS: Glucose,Whole Blood 78 mg/dL (75-99)
[2017-07-14] MEDS: INSULIN ASPART 100 UNIT/ML 1 ML 10 ML VIAL SQ SCH ×7 (06:36→21:10)
[2017-07-14 06:38] LABS: Anisocytosis Slight; Basophils % (A) 0 %; Eosinophils # (A) 0.2 k/uL (0-0.7); Eosinophils % (A) 2 %; HCT 25.5 % (39.0-53.0); HGB 7.1 gm/dL (13.0-17.5); Hypochromasia Marked; Lymphocytes # (A) 1.9 k/uL (1.0-4.8); Lymphocytes % (A) 24 %; MCH 21.7 pg (25.0-35.0); MCHC 27.8 g/dL (31.0-37.0); MCV 78.2 fL (80.0-100.0); Mean Platelet Volume 6.4; Microcytosis Slight; Monocytes # (A) 0.4 k/uL (0-1.0); Monocytes % (A) 6 %; Neutrophils # (A) 5.1 k/uL (1.3-7.7); Neutrophils % (A) 66 %; Platelet Count 477 k/uL (150-450); Poikilocytosis Moderate; RBC 3.27 m/uL (4.30-5.90); RDW 16.2 % (11.5-15.5); WBC 7.7 k/uL (3.8-10.6)
[2017-07-14] MEDS: PANTOPRAZOLE 40 MG TABLET PO SCH (06:46)
[2017-07-14] MEDS: KETOROLAC 30 MG/ML 1 ML VIAL IVP PRN ×3 (06:46→19:40)
[2017-07-14 06:47] LABS: ALT 58 U/L (21-72); AST 46 U/L (17-59); Albumin 2.1 g/dL (3.5-5.0); Alkaline Phosphatase 64 U/L (38-126); Anion Gap 5 mmol/L; Blood Urea Nitrogen 25 mg/dL (9-20); Calcium 8.6 mg/dL (8.4-10.2); Carbon Dioxide 28 mmol/L (22-30); Chloride 105 mmol/L (98-107); Glucose 79 mg/dL (74-99); Potassium 4.5 mmol/L (3.5-5.1); Sodium 138 mmol/L (137-145); Total Bilirubin <0.1 mg/dL (0.2-1.3); Total Protein 4.6 g/dL (6.3-8.2)
[2017-07-14] MEDS: IPRATROPIUM-ALBUTEROL 3 ML NEB INHALATION SCH ×4 (07:31→19:47)
[2017-07-14] MEDS: AMIODARONE 200 MG TAB PO SCH (07:38)
[2017-07-14] MEDS: CLOPIDOGREL 75 MG TAB PO SCH (07:39)
[2017-07-14] MEDS: ATORVASTATIN 40 MG TAB PO SCH (07:39)
[2017-07-14] MEDS: HEPARIN SODIUM,PORCINE 5,000 UNIT/ML 1 ML VIAL SQ SCH ×2 (07:40→19:40)
[2017-07-14] MEDS: FUROSEMIDE 10 MG/ML 2 ML VIAL IV SCH (07:40)
[2017-07-14] MEDS: guaiFENesin 600 MG TABLET.ER PO SCH ×2 (07:40→19:40)
[2017-07-14] MEDS: METOPROLOL TARTRATE 25 MG TAB PO SCH ×2 (07:41→19:40)
[2017-07-14] MEDS: SERTRALINE 100 MG TAB PO SCH (07:41)
[2017-07-14] MEDS: ASPIRIN 325 MG TAB PO SCH (07:42)
--- NOTE | 2017-07-14 07:42 | XR ---
EXAMINATION TYPE: XR chest 2V DATE OF EXAM: 07/14/2017 HISTORY: post thoracotomy. REFERENCE: Previous study dated 07/13/2017. FINDINGS: There has been a midline sternotomy. There is bibasilar airspace disease. There are small, bilateral effusions. There has been little of a ny interval change in the appearance of the lungs. IMPRESSION: NO SIGNIFICANT INTERVAL CHANGE IN THE APPEARANCE OF THE CHEST.
--- NOTE | 2017-07-14 08:51 | P.PN ---
Subjective Progress Note Date: 07/14/17 Principal diagnosis: Left-sided pleural effusion. History of urgent coronary artery bypass grafting on 05/22/2017, non-ST elevation myocardial infarction, hypertension, hyperlipidemia, insulin-dependent diabetes mellitus, anxiety, family history of premature coronary artery disease, COPD, obesity, paroxysmal atrial fibrillation , left sided thoracentesis on 05/30/2017 and left chest pigtail catheter placement with fluid culture positive for alpha hemolytic strep and enterococcus faecalis, and pneumonia requiring placement of PICC line for home IV antibiotic therapy. POD #10 ultrasound guided chest tube insertion (pigtail catheter). POD #5 left thoracotomy with decortication and removal of pigtail catheter. Patient's currently sitting up in the chair in no acute distress. States pain is well-controlled. States he is feeling better every day. No new concerns. Objective - Vital Signs Vital signs: Vital Signs Temp 98.1 F 07/14/17 07:31 Pulse 64 07/14/17 07:44 Resp 17 07/14/17 07:31 BP 120/61 07/14/17 07:31 Pulse Ox 95 07/14/17 07:31 Intake & Output 07/13/17 07/14/17 07/14/17 18:59 06:59 18:59 Intake Total 652 Balance 652 Intake: Oral 652 Other: Voiding Method Urinal # Voids 0 - Constitutional General appearance: Present: cooperative, no acute distress, obese - Respiratory Details: Lungs sounds diminished bilaterally, coarse breath sounds left base. Respirations even, nonlabored. Currently on 2 L nasal cannula with oxygen saturation 93%. - Cardiovascular Details: S1, S2 present. Regular rate and rhythm, sinus rhythm on telemetry. Sternum stable. Palpable peripheral pulses bilaterally. No edema present. No calf pain or tenderness noted. Antiembolism stockings, SCDs present. - Gastrointestinal Gastrointestinal Comment(s): Abdomen soft, nontender, nondistended. Active bowel sounds 4 quadrants. Tolerating diet. Positive bowel movement. - Genitourinary Genitourinary Comment(s): Continues to void clear, yellow urine per , output 200-300 mL at a time. - Integumentary Integumentary Comment(s): Left lateral chest tube incision well approximated covered with dry intact dressing. Sternal incision well approximated with excellent healing. Skin warm , pink, dry with evidence of good perfusion. - Neurologic Neurologic: Present: CNII-XII intact - Musculoskeletal Musculoskeletal: Present: gait normal, strength equal bilaterally - Psychiatric Psychiatric Comment(s): Flat affect Psychiatric: Present: A&O x's 3, intact judgment & insight - Allied health notes Allied health notes reviewed: nursing - Labs CBC & Chem 7: 07/14/17 05:53 07/14/17 05:53 Labs: Abnormal Lab Results - Last 24 Hours (Table) 07/13/17 07/13/17 07/14/17 Range/Units 11:47 20:48 05:53 RBC (4.30-5.90) m/uL Hgb (13.0-17.5) gm/dL Hct (39.0-53.0) % MCV (80.0-100.0) fL MCH (25.0-35.0) pg MCHC (31.0-37.0) g/dL RDW (11.5-15.5) % Plt Count (150-450) k/uL BUN 25 H (9-20) mg/dL POC Glucose (mg/dL) 110 H 134 H (75-99) mg/dL Total Bilirubin <0.1 L (0.2-1.3) mg/dL Total Protein 4.6 L (6.3-8.2) g/dL Albumin 2.1 L (3.5-5.0) g/dL 07/14/17 Range/Units 05:53 RBC 3.27 L (4.30-5.90) m/uL Hgb 7.1 L (13.0-17.5) gm/dL Hct 25.5 L (39.0-53.0) % MCV 78.2 L (80.0-100.0) fL MCH 21.7 L (25.0-35.0) pg MCHC 27.8 L (31.0-37.0) g/dL RDW 16.2 H (11.5-15.5) % Plt Count 477 H (150-450) k/uL BUN (9-20) mg/dL POC Glucose (mg/dL) (75-99) mg/dL Total Bilirubin (0.2-1.3) mg/dL Total Protein (6.3-8.2) g/dL Albumin (3.5-5.0) g/dL Microbiology - Last 24 Hours (Table) 07/09/17 10:50 Anaerobic Culture - Final Other - Other 07/09/17 10:30 Anaerobic Culture - Final Pleural Fluid 07/09/17 10:30 Gram Stain - Final Pleural Fluid Body Fluid Culture - Final - Imaging and Cardiology Chest x-ray: report reviewed, image reviewed Assessment and Plan (1) Hyperlipidemia Current Visit: Yes Status: Chronic Code(s): E78.5 - HYPERLIPIDEMIA, UNSPECIFIED SNOMED Code(s): 82944668 (2) History of myocardial infarction Current Visit: No Status: Resolved Code(s): I25.2 - OLD MYOCARDIAL INFARCTION SNOMED Code(s): 071822314 (3) Pneumonia Current Visit: Yes Status: Acute Code(s): J18.9 - PNEUMONIA, UNSPECIFIED ORGANISM SNOMED Code(s): 316648474 (4) Coronary artery disease Current Visit: No Status: Chronic Code(s): I25.10 - ATHSCL HEART DISEASE OF [place] CORONARY ARTERY W/O ANG PCTRS SNOMED Code(s): 53577314 (5) Status post coronary artery bypass grafting Current Visit: No Status: Resolved Code(s): Z95.1 - PRESENCE OF AORTOCORONARY BYPASS GRAFT SNOMED Code(s): 151556763 (6) Anxiety Current Visit: Yes Status: Chronic Code(s): F41.9 - ANXIETY DISORDER, UNSPECIFIED SNOMED Code(s): 65001238 (7) Diabetes mellitus type 2 in obese Current Visit: Yes Status: Chronic Code(s): E11.69 - TYPE 2 DIABETES MELLITUS WITH OTHER SPECIFIED COMPLICATION; E66.9 - OBESITY, UNSPECIFIED SNOMED Code(s): 45308683 (8) Hypertension Current Visit: Yes Status: Chronic Code(s): I10 - ESSENTIAL (PRIMARY) HYPERTENSION SNOMED Code(s): 25756112 (9) Obesity (BMI 30.0-34.9) Current Visit: Yes Status: Chronic Code(s): E66.9 - OBESITY, UNSPECIFIED SNOMED Code(s): 809955047 Plan: 1. Continue aspirin, statin, Plavix, amiodarone, Lasix, beta ewa. 2. Wean oxygen as tolerated. Encourage incentive spirometry use. 3. Antibiotics per infectious disease recommendations. 4. Medical comorbidities per primary care service. 5. GI/DVT prophylaxis. 6. Increase activity, ambulate in hallway. 7. Pain control per ordered regimen. 8. Will continue to see as needed. Time with Patient: Greater than 30
[2017-07-14 11:28] LABS: Glucose,Whole Blood 81 mg/dL (75-99)
[2017-07-14] MEDS: ASCORBIC ACID 500 MG TAB PO SCH (12:13)
[2017-07-14] MEDS: FERROUS SULFATE 325 MG TAB PO SCH (12:13)
--- NOTE | 2017-07-14 13:28 | P.PN ---
Subjective Progress Note Date: 07/14/17 62-year-old male patient post thoracotomy and decortication for empyema. The patient is doing well. The patient has been weaned down to 2 L of oxygen by nasal cannula. Chest x-ray from today shows volume loss in the left lung base yet overall dilation in the left upper lung areas essentially improved. Clinically the patient is doing very well. He is ambulating. No fever chills or night sweats. No chest pain. No nausea or vomiting. No headaches. No other significant events over the past 24 hours. He remains on antibiotics and patient is currently on IV Zosyn. His blood sugars under good control with Levemir insulin. He is on amiodarone 200 mg by mouth daily and his current rhythm is sinus. Pain is under good control with [place]. IV fluids at 50 mL an hour. Objective - Vital Signs Vital signs: Vital Signs Temp 98.2 F 07/14/17 11:13 Pulse 64 07/14/17 11:54 Resp 17 07/14/17 11:13 BP 145/64 07/14/17 11:13 Pulse Ox 100 07/14/17 11:13 Intake & Output 07/13/17 07/14/17 07/14/17 18:59 06:59 18:59 Intake Total 652 50 Output Total 600 Balance 652 -550 Intake: IV 50 Piperacillin-Tazobactam 3 50 .375 gm In Dextrose/Water 1 50ml.bag @ 12.5 mls/hr IVPB Q8H [facility] Rx#: [id number] Oral 652 Output: Urine 600 Other: Voiding Method Urinal # Voids 0 - Exam No acute distress, currently up in the chair at the bedside. status post left- sided thoracotomy with decortication HEENT examination is grossly unremarkable. Mucous membranes are moist. No oral lesions. Neck supple. Full range of motion. No adenopathy thyromegaly or neck vein distention. Cardiovascular examination reveals regular rhythm rate. S1-S2 normal. No S3 or S4. No discernible murmur noted. Lungs reveal a few bilateral rhonchi. Breath sounds show diminished air entry over left lower base, A few crackles are present over right lower lobe, No wheezes. There are 2 left-sided chest tubes why connected to an [facility] collection chamber , with 200 mL of serosanguineous output Abdomen soft bowel sounds are heard. No masses or tenderness. Extremities are intact. No cyanosis clubbing or edema. Skin is without rash or lesion. Neurologic examination is brief but nonfocal - Labs CBC & Chem 7: 07/14/17 05:53 07/14/17 05:53 Labs: Abnormal Lab Results - Last 24 Hours (Table) 07/13/17 07/14/17 07/14/17 Range/Units 20:48 05:53 05:53 RBC 3.27 L (4.30-5.90) m/uL Hgb 7.1 L (13.0-17.5) gm/dL Hct 25.5 L (39.0-53.0) % MCV 78.2 L (80.0-100.0) fL MCH 21.7 L (25.0-35.0) pg MCHC 27.8 L (31.0-37.0) g/dL RDW 16.2 H (11.5-15.5) % Plt Count 477 H (150-450) k/uL BUN 25 H (9-20) mg/dL POC Glucose (mg/dL) 134 H (75-99) mg/dL Total Bilirubin <0.1 L (0.2-1.3) mg/dL Total Protein 4.6 L (6.3-8.2) g/dL Albumin 2.1 L (3.5-5.0) g/dL Microbiology - Last 24 Hours (Table) 07/09/17 10:50 Anaerobic Culture - Final Other - Other 07/09/17 10:30 Anaerobic Culture - Final Pleural Fluid 07/09/17 10:30 Gram Stain - Final Pleural Fluid Body Fluid Culture - Final Assessment and Plan Plan: #1. Acute hypoxic respiratory failure secondary to extensive left lung multifocal pneumonia and left pleural effusion, present on admission. Patient is status post left pigtail pleural chest tube catheter insertion, with TPA infusions on 07/05/2017. Status post left thoracotomy with decortication on . The patient is recovering very well from his surgery. No significant respiratory distress. Oxygenation is improved and the patient's FiO2 has been weaned down to 2 L. No chest pain. Pain is under good control with oral [place]. No fever or chills or any signs of septicemia. #2. Sepsis, with leukocytosis and fever, secondary to the above recovered. #3. 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 The patient's intraoperative cultures showed coagulase-negative staph. This was a staph epidermidis. The patient is currently on IV Zosyn. #4. Coronary artery disease, status post 4 vessel coronary artery bypass grafting #5. COPD #6. Essential hypertension #7. Hyperlipidemia #8. GERD #9. Anxiety #10. Obesity Plan Encourage activity. Occasional use of spirometer. Will monitor this patient's clinical progress. He has unimpressive improvement since his thoracotomy and decortication. He has a PICC line. Continue IV Zosyn. Duration of the antibiotic to be decided by infectious disease. Review the changes chest x-ray and the findings are favorable. We'll continue to follow. Discharge planning is in progress.
--- NOTE | 2017-07-14 15:12 | PN ---
PROGRESS NOTE Patient feels very good today. Appetite is back. He has minimal amount of chest pain and minimal amount of shortness of breath. He has been walking around the room. Patient's medications accordingly have not changed with IV antibiotics accordingly and post decortication from thoracic group with [facility], have improved his breathing dramatically. He has no fever. No chills. No sweats throughout the night. Microbiology, his bacteria found in pleural fluid. Blood culture, urine culture, sputum culture is no change from yesterday. His lab shows a WBC is 7.7. He has a hemoglobin of 7 1. His Chem 17 is within normal limits except for lower protein and his sugar has been under excellent control. MEDICATIONS: To continue to use a [place] 7.5-325 every 6 to 8 hours p.r.n. pain. He also has using injectable Toradol 15 mg for moderate pain and DuoNeb updraft 4 times a day, Xanax 0.25 twice a day, Cordarone 200 mg daily, ascorbic acid 500 daily, aspirin 325, Lipitor 40, Plavix 75, ferrous sulfate 325, Lasix 20, Mucinex 120 p.o. b.i.d., Robitussin DM, 32 units of the Levemir at night and 12 units a.c. meals with scale, Lopressor 75 b.i.d., Protonix 40 daily, heparin 5000 subcu q.12. REVIEW OF SYSTEMS: EYES: He is seeing well. ENT: No problem with his mouth, neck or ears. RESPIRATORY: Occasional cough, still some phlegm in his chest. HEART: Palpitations, occasional chest pain. GI: Good appetite. No orthopnea or proximal nocturnal dyspnea. No hematemesis, melena, hematochezia. : Was within normal limits. SKIN: Changes of dry skin. ALLERGIES: He has stuffy nose and seasonal allergies. PSYCHIATRIC: He is not depressed. He is not anxious, actually feels very good today. PHYSICAL EXAM: For this gentleman at this point: VITAL SIGNS: Blood pressure 154/64, heart rate in the 60s, respiratory 17, temperature 98.2. EYES: Pupils are equal, round, reactive to light accommodation. ENT: Showed tympanic. Pharynx negative. NECK: Supple. Midline trachea. CHEST: Essentially clear to auscultation today. HEART: Basically regular rhythm with sinus rhythm mostly. ABDOMEN: Soft, nontender with no organomegaly. He is somewhat obese. LOWER EXTREMITIES: Have +1 swelling but nonpitting. VASCULAR: Good palpable lower extremity pulses. SKIN: Dry hands, arm, legs. ASSESSMENT: Multifocal pneumonia present on admission. Sputum culture reveals moderate gram- positive bacilli with some cocci. Sepsis with leukocytosis, acute hypoxic renal respiratory failure, some loculated pleural effusion with a left pigtail was placed and TP administrated then removed and then decortication was completed with good results. Diabetes mellitus type 2 with insulin support, coronary artery disease with previous non STEMI, history of bypass vessel disease in May 2017 here, some paroxysmal atrial fib, chronic obstructive pulmonary disease, essential hypertension, hyperlipidemia, anxiety, GE reflux. PLAN: Still with Lasix. We will DC that today and put him on oral. Continue his IV antibiotics. Consults and follow thoracic, Pulmonary and Infectious Disease. Incentive spirometry 10 times daily. Capillary blood glucose a.c. meals on 10 units with meals and at bedtime and scale. GI prophylaxis with Protonix 40. DVT prophylaxis with heparin 5000 units subcu q.12h. The patient is planned for discharge soon depending on IV antibiotics continued home with further recommendations. MMODL / IJN: [id number] /
[2017-07-14] MEDS: SODIUM CHLORIDE 0.9% 1,000 ML IV SCH (15:53)
[2017-07-14] MEDS: HYDROcodone/APAP 7.5-325MG 1 EACH TAB PO PRN ×2 (15:54→23:21)
[2017-07-14 16:57] LABS: Glucose,Whole Blood 130 mg/dL (75-99)
[2017-07-14] MEDS: INSULIN DETEMIR 100 UNIT/ML 10 ML VIAL SQ SCH (21:11)
[2017-07-14 21:17] LABS: Glucose,Whole Blood 130 mg/dL (75-99)
[2017-07-15] MEDS: KETOROLAC 30 MG/ML 1 ML VIAL IVP PRN ×2 (05:36→11:58)
[2017-07-15] MEDS: PIPERACILLIN-TAZOBACTAM 3.375 GM in DEXTROSE/WATER 1 50ML.BAG IVPB SCH ×3 (05:36→20:34)
[2017-07-15 06:11] LABS: Glucose,Whole Blood 97 mg/dL (75-99)
[2017-07-15 06:26] LABS: Anisocytosis Slight; Basophils % (A) 1 %; Eosinophils # (A) 0.2 k/uL (0-0.7); Eosinophils % (A) 3 %; HCT 24.8 % (39.0-53.0); HGB 7.2 gm/dL (13.0-17.5); Hypochromasia Marked; Lymphocytes # (A) 2.6 k/uL (1.0-4.8); Lymphocytes % (A) 33 %; MCH 21.7 pg (25.0-35.0); MCV 74.8 fL (80.0-100.0); Mean Platelet Volume 6.7; Microcytosis Slight; Monocytes # (A) 0.5 k/uL (0-1.0); Monocytes % (A) 6 %; Neutrophils # (A) 4.4 k/uL (1.3-7.7); Neutrophils % (A) 56 %; Platelet Count 474 k/uL (150-450); Poikilocytosis Slight; RBC 3.32 m/uL (4.30-5.90); RDW 17.4 % (11.5-15.5); WBC 7.9 k/uL (3.8-10.6)
[2017-07-15 06:43] LABS: ALT 64 U/L (21-72); AST 50 U/L (17-59); Albumin 2.3 g/dL (3.5-5.0); Alkaline Phosphatase 72 U/L (38-126); Anion Gap 7 mmol/L; Blood Urea Nitrogen 28 mg/dL (9-20); Calcium 8.3 mg/dL (8.4-10.2); Carbon Dioxide 30 mmol/L (22-30); Chloride 105 mmol/L (98-107); Glucose 88 mg/dL (74-99); Potassium 4.6 mmol/L (3.5-5.1); Sodium 142 mmol/L (137-145); Total Bilirubin <0.1 mg/dL (0.2-1.3); Total Protein 4.8 g/dL (6.3-8.2)
[2017-07-15] MEDS: INSULIN ASPART 100 UNIT/ML 1 ML 10 ML VIAL SQ SCH ×7 (06:46→21:03)
[2017-07-15] MEDS: PANTOPRAZOLE 40 MG TABLET PO SCH (06:47)
--- NOTE | 2017-07-15 08:06 | P.PN ---
Subjective Progress Note Date: 07/15/17 Principal diagnosis: Left-sided pleural effusion. History of urgent coronary artery bypass grafting on 05/22/2017, non-ST elevation myocardial infarction, hypertension, hyperlipidemia, insulin-dependent diabetes mellitus, anxiety, family history of premature coronary artery disease, COPD, obesity, paroxysmal atrial fibrillation , left sided thoracentesis on 05/30/2017 and left chest pigtail catheter placement with fluid culture positive for alpha hemolytic strep and enterococcus faecalis, and pneumonia requiring placement of PICC line for home IV antibiotic therapy. POD #11 ultrasound guided chest tube insertion (pigtail catheter). POD #6 left thoracotomy with decortication and removal of pigtail catheter. Patient's currently sitting up in the chair in no acute distress. States pain is well-controlled. States he is feeling better every day. No new concerns. He has been ambulating in the hallway. Objective - Vital Signs Vital signs: Vital Signs Temp 97.1 F L 07/15/17 04:00 Pulse 66 07/15/17 04:00 Resp 18 07/15/17 04:00 BP 147/84 07/15/17 04:00 Pulse Ox 94 L 07/15/17 04:00 Intake & Output 07/14/17 07/15/17 07/15/17 18:59 06:59 18:59 Intake Total 572 Output Total 1650 300 Balance -1078 -300 Weight 116.9 kg Intake: IV 100 Piperacillin-Tazobactam 3 100 .375 gm In Dextrose/Water 1 50ml.bag @ 12.5 mls/hr IVPB Q8H [facility] Rx#: [id number] Oral 472 Output: Urine 1650 300 Other: Voiding Method Urinal # Voids 2 # Bowel Movements 1 1 - Constitutional General appearance: Present: cooperative, no acute distress, obese - Respiratory Details: lungs sounds diminished bilaterally with expiratory wheezes present. Respirations even, nonlabored. Currently on 1 liter NC with oxygen saturation 94%. Able to achieve 750 mL on his incentive spirometry. - Cardiovascular Details: S1, S2 present. Regular rate and rhythm, sinus rhythm on telemetry. Sternum stable. Palpable peripheral pulses bilaterally. No edema present. No Tenderness noted. SCDs present. - Gastrointestinal Gastrointestinal Comment(s): abdomen soft, nontender, nondistended. Active bowel sounds 4 quadrants. Tolerating diet. Positive bowel movement. - Genitourinary Genitourinary Comment(s): continues to void clear, yellow urine, 200-700 mL at a time. - Integumentary Integumentary Comment(s): left lateral chest wall incision well approximated with jose david. Skin is warm, dry, pink with evidence of good perfusion. - Neurologic Neurologic: Present: CNII-XII intact - Musculoskeletal Musculoskeletal: Present: gait normal, strength equal bilaterally - Psychiatric Psychiatric Comment(s): flat affect. Psychiatric: Present: A&O x's 3, intact judgment & insight - Allied health notes Allied health notes reviewed: nursing - Labs CBC & Chem 7: 07/15/17 05:10 07/15/17 05:10 Labs: Abnormal Lab Results - Last 24 Hours (Table) 07/14/17 07/14/17 07/15/17 Range/Units 16:56 21:10 05:10 RBC 3.32 L (4.30-5.90) m/uL Hgb 7.2 L (13.0-17.5) gm/dL Hct 24.8 L (39.0-53.0) % MCV 74.8 L (80.0-100.0) fL MCH 21.7 L (25.0-35.0) pg MCHC 29.0 L (31.0-37.0) g/dL RDW 17.4 H (11.5-15.5) % Plt Count 474 H (150-450) k/uL BUN (9-20) mg/dL POC Glucose (mg/dL) 130 H 130 H (75-99) mg/dL Calcium (8.4-10.2) mg/dL Total Bilirubin (0.2-1.3) mg/dL Total Protein (6.3-8.2) g/dL Albumin (3.5-5.0) g/dL 07/15/17 Range/Units 05:10 RBC (4.30-5.90) m/uL Hgb (13.0-17.5) gm/dL Hct (39.0-53.0) % MCV (80.0-100.0) fL MCH (25.0-35.0) pg MCHC (31.0-37.0) g/dL RDW (11.5-15.5) % Plt Count (150-450) k/uL BUN 28 H (9-20) mg/dL POC Glucose (mg/dL) (75-99) mg/dL Calcium 8.3 L (8.4-10.2) mg/dL Total Bilirubin <0.1 L (0.2-1.3) mg/dL Total Protein 4.8 L (6.3-8.2) g/dL Albumin 2.3 L (3.5-5.0) g/dL Assessment and Plan (1) Hyperlipidemia Current Visit: Yes Status: Chronic Code(s): E78.5 - HYPERLIPIDEMIA, UNSPECIFIED SNOMED Code(s): 17008501 (2) History of myocardial infarction Current Visit: No Status: Resolved Code(s): I25.2 - OLD MYOCARDIAL INFARCTION SNOMED Code(s): 959736148 (3) Pneumonia Current Visit: Yes Status: Acute Code(s): J18.9 - PNEUMONIA, UNSPECIFIED ORGANISM SNOMED Code(s): 325539861 (4) Coronary artery disease Current Visit: No Status: Chronic Code(s): I25.10 - ATHSCL HEART DISEASE OF [place] CORONARY ARTERY W/O ANG PCTRS SNOMED Code(s): 89594609 (5) Status post coronary artery bypass grafting Current Visit: No Status: Resolved Code(s): Z95.1 - PRESENCE OF AORTOCORONARY BYPASS GRAFT SNOMED Code(s): 468884484 (6) Anxiety Current Visit: Yes Status: Chronic Code(s): F41.9 - ANXIETY DISORDER, UNSPECIFIED SNOMED Code(s): 03739428 (7) Diabetes mellitus type 2 in obese Current Visit: Yes Status: Chronic Code(s): E11.69 - TYPE 2 DIABETES MELLITUS WITH OTHER SPECIFIED COMPLICATION; E66.9 - OBESITY, UNSPECIFIED SNOMED Code(s): 77659215 (8) Hypertension Current Visit: Yes Status: Chronic Code(s): I10 - ESSENTIAL (PRIMARY) HYPERTENSION SNOMED Code(s): 17732431 (9) Obesity (BMI 30.0-34.9) Current Visit: Yes Status: Chronic Code(s): E66.9 - OBESITY, UNSPECIFIED SNOMED Code(s): 499481222 Plan: 1. Continue aspirin, statin, Plavix, amiodarone, Lasix, beta ewa. 2. Wean oxygen as tolerated. Encourage incentive spirometry use. 3. Antibiotics per infectious disease recommendations. 4. Medical comorbidities per primary care service. 5. GI/DVT prophylaxis. 6. Increase activity, ambulate in hallway. 7. Pain control per ordered regimen. 8. May discharged home from our standpoint when okay with primary care service. Will have patient follow-up in the office for staple removal. Time with Patient: Greater than 30
[2017-07-15] MEDS: HEPARIN SODIUM,PORCINE 5,000 UNIT/ML 1 ML VIAL SQ SCH ×2 (08:10→20:34)
[2017-07-15] MEDS: guaiFENesin 600 MG TABLET.ER PO SCH ×2 (08:10→20:33)
[2017-07-15] MEDS: ATORVASTATIN 40 MG TAB PO SCH (08:10)
[2017-07-15] MEDS: CLOPIDOGREL 75 MG TAB PO SCH (08:10)
[2017-07-15] MEDS: ASPIRIN 325 MG TAB PO SCH (08:11)
[2017-07-15] MEDS: METOPROLOL TARTRATE 25 MG TAB PO SCH ×2 (08:11→20:34)
[2017-07-15] MEDS: SERTRALINE 100 MG TAB PO SCH (08:11)
[2017-07-15] MEDS: AMIODARONE 200 MG TAB PO SCH (08:11)
[2017-07-15] MEDS: HYDROcodone/APAP 7.5-325MG 1 EACH TAB PO PRN ×3 (08:19→20:37)
[2017-07-15] MEDS: FUROSEMIDE 20 MG TAB PO SCH (08:19)
[2017-07-15] MEDS: IPRATROPIUM-ALBUTEROL 3 ML NEB INHALATION SCH ×4 (08:36→20:27)
--- NOTE | 2017-07-15 09:22 | PN ---
PROGRESS NOTE Patient is doing well today. Appetite is back, even though he does not like the taste of the food at this point. He has minimal amount of chest pain, shortness of breath. He is walking around the room. His medications at this point, all went orally except for the IV antibiotics. He has had dramatic improvement since his is decortication. Feels better. Occasionally sweats with minimal to no chills and he is still on IV antibiotics. MEDICATIONS: [place] 7.5/325 every 6 to 8 hours p.r.n. pain, injectable Toradol 50 mg for moderate pain, DuoNeb updrafts 4 times a day, Xanax 0.25 daily, Cordarone 200 mg daily, ascorbic acid 500 daily, aspirin 325 daily, Lipitor 40, Plavix 75, ferrous sulfate 325, Lasix 20 mils an X 120 b.i.d. both dose in the a.m. Levemir 32 units at night and 12 with meals on a scale, Lopressor 75 twice a day, Protonix 40 mg and heparin 500 mg subcutaneous. He is also on IV antibiotics. Also Lasix 20 mg IV push. He is on antibiotics Zosyn 3.375 mg q.8 along with Zoloft 100 mg daily. LABORATORY: This morning, hemoglobin 7.2, 7.9, WBC count in his basic metabolic profile is within normal limits. Blood sugars are within normal limits a.c. meals and bedtime. REVIEW OF SYSTEMS: EYES: No problem seeing. ENT: He has a dry mouth, but no problems with his neck or ears. RESPIRATORY: Occasional cough, bringing up minimal amount of clear phlegm. HEART: No palpitations. No chest pain at this time. No orthopnea or proximal nocturnal dyspnea. GI: Good appetite. No hematemesis, no hematochezia. : Within normal limits. SKIN: Dry. It is dry. ALLERGY: Dry, stuffy nose. PSYCHIATRIC: Not depressed and not anxious today, actually feels very good. MUSCULOSKELETAL: Just weak in general. He says he has lost a lot of strength in the arms and the legs since his bypass surgery in May. VITAL SIGNS: Blood pressure 132/80, heart rate is in the 60s, respiratory rate is 17, temperature is 98. EYES: Pupils are equal, round, react to light accommodation. ENT: Showed tympanic membranes appears to be negative. NECK: Supple. Midline trachea. CHEST: An incision is seen on the chest but is clean, noninfected. Essentially clear to auscultation. Decreased breath sounds still in the left lower lung. Heart is irregular, regular rhythm. ABDOMEN: Soft, nontender with no organomegaly. Somewhat obese. Lower extremities have good swelling, but no pitting. VASCULAR: Good palpable lower extremity pulses. SKIN: Dry. ASSESSMENT: 1. Multifocal pneumonia. 2. Sepsis with leukocytosis. 3. Acute hypoxic renal failure. 4. Loculated pleural effusion on the left with previous insertion of the left pigtail for placement of TPA, followed by decortication with good results. 5. Diabetes type 2, insulin support. 6. Coronary artery disease, previous non-STEMI. 7. Bypass surgery, 4 vessels in May of 2017. 8. Proximal atrial fibrillation, sinus rhythm now. 9. Chronic obstructive pulmonary disease. 10.Essential hypertension. 11.Anxiety. 12.Gastroesophageal reflux. PLAN: Will continue on oral Lasix. Will DC the IV. Pulmonary, Infectious Disease and Cardiothoracic Surgery following carefully. Their plans capillary blood glucose is a.c. meals followed with insulin to scale. GI prophylaxis with Protonix. DVT prophylaxis, heparin 5000 units subcutaneously. Continue with IV antibiotics. His prognosis is good. Discharge home soon. MMODL / IJN: [id number] /
[2017-07-15 11:25] LABS: Glucose,Whole Blood 130 mg/dL (75-99)
[2017-07-15] MEDS: FERROUS SULFATE 325 MG TAB PO SCH (11:59)
[2017-07-15] MEDS: ASCORBIC ACID 500 MG TAB PO SCH (11:59)
--- NOTE | 2017-07-15 14:52 | P.PN ---
Subjective Progress Note Date: 07/15/17 Principal diagnosis: Acute hypoxic respiratory failure, secondary to left lung pneumonia and pleural effusion Progress note dated 07/02/2017 The patient continues to improve slowly. Radiographically, his chest x-ray has not changed all that much. Certainly not worse. Currently the patient is on the AIRVO at 65 L/m. He's had a saline IV at 50 mL an hour. The patient has a history of bilateral pneumonia with sepsis a history of asthma, diabetes, gastroesophageal reflux disease, hypertension, myocardial infarction and pneumonia. He also has a history of recent bypass grafting back on 05/22/[address] segment elevation myocardial infarction and legionnaires disease. He is a lifelong nonsmoker. His primary care physician is Dr. Gary Abreu. The patient apparently had a computed tomography scan late yesterday. I have not looked at it as yet. My partner expresses some concerns that he may have a loculated pleural effusion which need something more significantly done such as decortication. On 07/03/2017 patient remains in intensive care. Still requiring high flow nasal cannula, remains on AIRVO at FiO2 of 50% and 40 L/m flow. Afebrile, hemodynamically stable. Today's chest x-ray shows slight improvement in the aeration of the left upper lung with persistent confluent multifocal opacities representing multifocal pneumonia. Yesterday we have obtained a chest ultrasound to evaluate the complex and loculated left pleural effusion in the background of extensive left lung pneumonia. This was discussed with the interventional radiologist and cardiothoracic surgery. CT surgery feels the patient with benefit from a pigtail catheter insertion in the left pleural space and infusion of TPA over the next few days. This was discussed with the radiologist, who recommended getting a CT chest with contrast today. Otherwise patient is fairly comfortable, in no acute distress, respirations are shallow and tachypneic with a rate in the 30s. He is awake alert, tolerating a regular diet. His lab work shows upward trend of his WBCs, up to 17, hemoglobin is 9.0 , renal profile is stable, within normal limits no significant electrolyte abnormality. Blood and sputum culture show no growth, urine culture is positive for Vera albicans. ID service is on. Is on a combination of Levaquin, Zosyn and vancomycin. Currently not requiring any vasopressor support. On 07/04/2017 patient is seen in follow-up in intensive care unit. He is status post left pleural pigtail chest tube insertion with TPA infusion on 07/03. Patient had round 400 cc of milky yellow, purulent drainage in the atrium collection chamber since insertion. Clinically patient denies any acute distress, FiO2 was weaned down to 8 L per high flow nasal cannula. Blood sputum cultures remain negative, urine culture shows Vera albicans, pleural fluid culture was sent for culture as well and is pending. Patient will have another infusion of alteplase today per cardiothoracic surgery. Continues on empiric antibiotics with Levaquin, Zosyn and vancomycin. His IV fluids are 0.9 normal saline at 50 ML per hour. Patient's tolerating oral intake, on regular diet. Up in a chair, tolerating it well. Overall continues to significantly improve. On 07/08/2017 patient seen in follow-up on selective care unit. CT chest from this morning has been reviewed, shows left basilar pleural catheter in place with considerable decrease in size of the patient's previous left subpulmonic fluid collection, trace effusion remains. Permanent partial atelectasis and residual consolidation within the left lower lobe.(Second pleural-based collection along the lower left. She shows slight interval increase in size, ground glass and interstitial infiltrates in the midline is persistent show improvement from previous CT chest. Patient's left-sided pigtail has been noted to have moved, daily TPA infusions. There is small amount of serosanguineous drainage noted from the pigtail chest tube. He is afebrile, FiO2 is currently down to 6 L per high flow nasal cannula, vital signs are stable. Lung sounds are diminished, with a few scattered rales at left base. Cardiothoracic surgery has previously discussed decortication surgery left lung. Continue antibiotics per infectious disease recommendations. Continue encouraging incentive spirometry, increase activity as tolerated. On 07/09/2017 patient is seen in follow-up post left-sided thoracotomy with decortication by Dr. Tellez. Patient is sedated, he arrived back to the room at around 1430 per the spouse, was in significant amount of pain, and was given IV narcotics. Currently resting comfortably, somnolent, but arouses to verbal stimuli. Lung sounds are diminished, more so over the left lower lobe. There are 2 left-sided chest tubes why connected to an atrium, there is about 200 mL of serosanguineous output in the collection chamber. Patient is currently on 45 % Ventimask, with O2 sat at 93%. Vital signs are stable. Left-sided pigtail chest tube has been discontinued. Patient continues on Levaquin and vancomycin as well as Zosyn. Urine culture was positive for Vera, pleural fluid showed anaerobic species, Prevotella melaninogenica, and Proprionibacterium acnes. On 07/15/2017 patient is seen again in follow-up. He is status post thoracotomy and decortication for empyema area he is doing very well. Currently on room air, with a pulse ox at 99%. Remains afebrile hemodynamically stable. His chest tube was discontinued 2 days ago. Left posterior lower chest incision is clean dry and intact, jose david are intact. Microbiology results have been reviewed, pleural fluid culture from 07/03/2017 showed anaerobic species Prevotella melaninogenica and Proprionibacterium acnes. Tissue culture from 07/09/2017 showed Staphylococcus epidermidis. Fungal and anaerobic cultures collected during decortication on 07/09/2017 remain negative so far. Patient continues on IV Zosyn. He ambulated to the bathroom and back, tolerates it well, although remains generally weak. He was cleared for discharge from cardiothoracic standpoint. Chest x-ray from 2017 showed no significant interval change in the appearance of the chest. Remains stable from our standpoint and can be cleared for discharge pending recommendations from infectious disease recommendations regarding the length of treatment and the type of antibiotic. Objective - Vital Signs Vital signs: Vital Signs Temp 97.9 F 07/15/17 12:00 Pulse 78 07/15/17 12:36 Resp 16 07/15/17 12:00 BP 106/57 07/15/17 12:00 Pulse Ox 99 07/15/17 08:36 Intake & Output 07/14/17 07/15/17 07/15/17 18:59 06:59 18:59 Intake Total 572 1220 Output Total 1650 300 800 Balance -1078 -300 420 Weight 116.9 kg Intake: IV 100 500 Piperacillin-Tazobactam 3 100 100 .375 gm In Dextrose/Water 1 50ml.bag @ 12.5 mls/hr IVPB Q8H [facility] Rx#: [id number] Sodium Chloride 0.9% 1, 400 000 ml @ 50 mls/hr IV . Q20H [facility] Rx#:[id number] Oral 472 720 Output: Urine 1650 300 800 Other: Voiding Method Urinal Urinal # Voids 2 # Bowel Movements 1 1 - Exam No acute distress, patient is currently sedated, resting in bed, status post left-sided thoracotomy with decortication HEENT examination is grossly unremarkable. Mucous membranes are moist. No oral lesions. Neck supple. Full range of motion. No adenopathy thyromegaly or neck vein distention. Cardiovascular examination reveals regular rhythm rate. S1-S2 normal. No S3 or S4. No discernible murmur noted. Lungs sounds: Breath sounds show diminished air entry over left lower base, clear on the right. A few crackles are present over bilateral bases. No wheezes. Left-sided chest tubes have been discontinued, left posterior chest wall incisions clean dry and intact, jose david are intact. Abdomen soft bowel sounds are heard. No masses or tenderness. Extremities are intact. No cyanosis clubbing or edema. Skin is without rash or lesion. Neurologic examination is brief but nonfocal - Labs CBC & Chem 7: 07/15/17 05:10 07/15/17 05:10 Labs: Abnormal Lab Results - Last 24 Hours (Table) 07/14/17 07/14/17 07/15/17 Range/Units 16:56 21:10 05:10 RBC 3.32 L (4.30-5.90) m/uL Hgb 7.2 L (13.0-17.5) gm/dL Hct 24.8 L (39.0-53.0) % MCV 74.8 L (80.0-100.0) fL MCH 21.7 L (25.0-35.0) pg MCHC 29.0 L (31.0-37.0) g/dL RDW 17.4 H (11.5-15.5) % Plt Count 474 H (150-450) k/uL BUN (9-20) mg/dL POC Glucose (mg/dL) 130 H 130 H (75-99) mg/dL Calcium (8.4-10.2) mg/dL Total Bilirubin (0.2-1.3) mg/dL Total Protein (6.3-8.2) g/dL Albumin (3.5-5.0) g/dL 07/15/17 07/15/17 Range/Units 05:10 11:23 RBC (4.30-5.90) m/uL Hgb (13.0-17.5) gm/dL Hct (39.0-53.0) % MCV (80.0-100.0) fL MCH (25.0-35.0) pg MCHC (31.0-37.0) g/dL RDW (11.5-15.5) % Plt Count (150-450) k/uL BUN 28 H (9-20) mg/dL POC Glucose (mg/dL) 130 H (75-99) mg/dL Calcium 8.3 L (8.4-10.2) mg/dL Total Bilirubin <0.1 L (0.2-1.3) mg/dL Total Protein 4.8 L (6.3-8.2) g/dL Albumin 2.3 L (3.5-5.0) g/dL Assessment and Plan Plan: Assessment: #1. Acute hypoxic respiratory failure secondary to extensive left lung multifocal pneumonia and left pleural effusion, present on admission. Patient is status post left thoracotomy with decortication, postop day 6. Left pigtail pleural chest tube catheter insertion, with TPA infusions has been discontinued on 07/09/2017. Pleural fluid cultures positive for Prevotella melaninogenica and Proprionibacterium acnes. Tissue culture from 07/09/2017 shows Staphylococcus epidermidis. Patient is currently on IV Zosyn. #2. Sepsis, with leukocytosis and fever, secondary to the empyema and cultures positive for anaerobic species, patient's intraoperative cultures showed coagulase-negative staph. Staph epidermidis, patient is currently on IV Zosyn. #3. History of left-sided pleural effusion requiring thoracentesis and empyema requiring pigtail drainage catheter and cultures positive for alphahemolytic strep and enterococcus faecalis #4. Coronary artery disease, status post 4 vessel coronary artery bypass grafting #5. COPD #6. Essential hypertension #7. Hyperlipidemia #8. GERD #9. Anxiety #10. Obesity Plan: Continue increasing activity as tolerated. Continue incentive spirometry use. Continue current medical treatment, Zosyn. From pulmonary standpoint she remains stable, he has been cleared for discharge by cardiothoracic surgery, we will await the input of the ID service regarding the type and the length of antibiotic treatment. He is stable for discharge from pulmonary standpoint as well. I performed a history & physical examination of the patient and discussed their management with my nurse practitioner, Janelle Chambers. I reviewed the nurse practitioner's note and agree with the documented findings and plan of care. Lung sounds are diminished with a few bibasilar rales. The findings and the impression was discussed with the patient. I attest to the documentation by the nurse practitioner. Time with Patient: Less than 30
[2017-07-15] MEDS: SODIUM CHLORIDE 0.9% 1,000 ML IV SCH (15:26)
[2017-07-15 16:49] LABS: Glucose,Whole Blood 120 mg/dL (75-99)
[2017-07-15 20:56] LABS: Glucose,Whole Blood 136 mg/dL (75-99)
[2017-07-15] MEDS: INSULIN DETEMIR 100 UNIT/ML 10 ML VIAL SQ SCH (21:03)
--- NOTE | 2017-07-15 21:08 | P.PN ---
Subjective Progress Note Date: 07/15/17 Principal diagnosis: Shortness of breath This is a 62 year old male presented to hospital on 05/21/2017 with chest pain and found to have acute myocardial infarction. Heart catheterization found evidence of multivessel coronary artery disease and he is status post coronary artery bypass grafting procedure. He said difficulties postoperatively with bleeding to require somewhat protracted ventilation. He did require repeat surgery for control of the bleeding. He developed cardiac dysrhythmia with atrial fibrillation requiring amiodarone treatment. The patient also developed difficulties with his left chest. A large fluid collection was found and he underwent thoracentesis he was having some difficulty with shortness of breath and consequently further imaging was performed. Computed tomography scan showed evidence of the left lower lobe infiltration as well as some right upper lobe infiltrate. Because of and leukocytosis the infectious diseases consultation was requested. He required placement of percutaneous drainage of the empyema. He was eventually stabilized and discharged home on June 07. He was continued on IV antibioticsat an [facility] office on a daily basis for enterococcus and alpha hemolytic strep empyema. Patient last saw Dr. Nixon on Saturday any extended IV antibiotic therapy for another week. Patient states he was feeling fine when he was in the office on Saturday and also on Saturday. But on Saturday morning he started coughing around 3 in the morning and was clear sputum production the change to yellow and he felt exhausted. He was having difficulty breathing and his called Dr. Nixon recommended that he come into the evaluated. EMS was called and patient was transferred to [facility] emergency center. Chest x-ray initially showed worsening of bilateral pneumonias, cardiomegaly and left pleural effusion. Repeat chest x- ray showed worsening and near complete obesity of the left hemithorax, pleural effusion and multifocal pneumonia in differential. Patchy alveolar opacity within the right lower lobe. He was found to be febrile which he denied having any fevers chills or rigors at home. His pulse ox was down to 82% and he was hypotensive. White count was elevated at 20.7 but improved to 13.5. ALT was 123 and alkaline phosphatase 159. Albumin is 3. Urinalysis was clear, protein 1+, nitrate and leukoesterase negative. Urine culture is in progress. Blood culture and sputum culture status received. Influenza testing was negative. ALT is 123 and alkaline phosphatase 159. Albumin is 3. Patient has been admitted into the intensive care unit. He has not required vasopressors. Consult in place with pulmonary medicine and CAT scan of the chest has been ordered. Consult in place with cardiothoracic surgery. Computed tomography scan as noted showing evidence of near collapse of left lung. Ultrasound has been performed showing and the complex fluid Radiology has now placed pigtail catheter and 20 mL of grossly purulent material was sent to the laboratory for culture and tube continues to drain. Patient is off of the high flow oxygen remains on 6 L nasal cannula at this time. He does feel slightly improved. Has been up and walking a bit. Altepase has been placed into the pleural space and is being monitored. He has been followed by the cardiothoracic surgeon. Now post thoracotomy with decortication and doing well did not require supervisor intermediates mechanical vent support. Resting more comfortably at this time with removal of the chest tubes. Relates 48 hours ago and is an improvement of his pulmonary status. He's had mobilization of a large amount of secretions. He feels considerably better. Shortness of breath is generally resolving. Pulse ox 99%. Objective - Vital Signs Vital signs: Vital Signs Temp 97.7 F 07/15/17 15:31 Pulse 80 07/15/17 20:44 Resp 16 07/15/17 15:31 BP 136/69 07/15/17 15:31 Pulse Ox 95 07/15/17 15:31 Intake & Output 07/15/17 07/15/17 07/16/17 06:59 18:59 06:59 Intake Total 1700 Output Total 300 800 Balance -300 900 Weight 116.9 kg Intake: IV 500 Piperacillin-Tazobactam 3 100 .375 gm In Dextrose/Water 1 50ml.bag @ 12.5 mls/hr IVPB Q8H [facility] Rx#: [id number] Sodium Chloride 0.9% 1, 400 000 ml @ 50 mls/hr IV . Q20H [facility] Rx#:[id number] Oral 1200 Output: Urine 300 800 Other: Voiding Method Urinal Urinal # Voids 2 # Bowel Movements 1 - Exam Gen: This is a 62-year-old male patient supine resting comfortably after his surgery he has received narcotics for pain control and is well controlled at this time HEENT: Head is atraumatic, normocephalic. Pupils equal, round. Sclerae is anicteric. Junk developed pink. Mucous membranes of the mouth are somewhat dry. NECK: Supple. No JVD. No lymphadenopathy. No thyromegaly. LUNGS: Right chest with good air entry with few crackles at the base. Left chest has improved air entry at this time chest tubes removed, HEART: Regular rate and rhythm. No murmur. ABDOMEN: Soft. Bowel sounds are present. No masses. No tenderness. EXTREMITIES: No pedal edema. No calf tenderness. Dorsalis pedis +2 bilaterally. NEUROLOGICAL: Patient is resting well was up in the chair - Labs CBC & Chem 7: 07/15/17 05:10 07/15/17 05:10 Labs: Abnormal Lab Results - Last 24 Hours (Table) 07/14/17 07/15/17 07/15/17 Range/Units 21:10 05:10 05:10 RBC 3.32 L (4.30-5.90) m/uL Hgb 7.2 L (13.0-17.5) gm/dL Hct 24.8 L (39.0-53.0) % MCV 74.8 L (80.0-100.0) fL MCH 21.7 L (25.0-35.0) pg MCHC 29.0 L (31.0-37.0) g/dL RDW 17.4 H (11.5-15.5) % Plt Count 474 H (150-450) k/uL BUN 28 H (9-20) mg/dL POC Glucose (mg/dL) 130 H (75-99) mg/dL Calcium 8.3 L (8.4-10.2) mg/dL Total Bilirubin <0.1 L (0.2-1.3) mg/dL Total Protein 4.8 L (6.3-8.2) g/dL Albumin 2.3 L (3.5-5.0) g/dL 07/15/17 07/15/17 Range/Units 11:23 16:46 RBC (4.30-5.90) m/uL Hgb (13.0-17.5) gm/dL Hct (39.0-53.0) % MCV (80.0-100.0) fL MCH (25.0-35.0) pg MCHC (31.0-37.0) g/dL RDW (11.5-15.5) % Plt Count (150-450) k/uL BUN (9-20) mg/dL POC Glucose (mg/dL) 130 H 120 H (75-99) mg/dL Calcium (8.4-10.2) mg/dL Total Bilirubin (0.2-1.3) mg/dL Total Protein (6.3-8.2) g/dL Albumin (3.5-5.0) g/dL Laboratory Results WBC 7.9 k/uL (3.8-10.6) 07/15/17 05:10 RBC 3.32 m/uL (4.30-5.90) L 07/15/17 05:10 Hgb 7.2 gm/dL (13.0-17.5) L 07/15/17 05:10 Hct 24.8 % (39.0-53.0) L 07/15/17 05:10 MCV 74.8 fL (80.0-100.0) L 07/15/17 05:10 MCH 21.7 pg (25.0-35.0) L 07/15/17 05:10 MCHC 29.0 g/dL (31.0-37.0) L 07/15/17 05:10 RDW 17.4 % (11.5-15.5) H 07/15/17 05:10 Plt Count 474 k/uL (150-450) H 07/15/17 05:10 Neutrophils % 56 % 07/15/17 05:10 Lymphocytes % 33 % 07/15/17 05:10 Monocytes % 6 % 07/15/17 05:10 Eosinophils % 3 % 07/15/17 05:10 Basophils % 1 % 07/15/17 05:10 Neutrophils # 4.4 k/uL (1.3-7.7) 07/15/17 05:10 Lymphocytes # 2.6 k/uL (1.0-4.8) 07/15/17 05:10 Monocytes # 0.5 k/uL (0-1.0) 07/15/17 05:10 Eosinophils # 0.2 k/uL (0-0.7) 07/15/17 05:10 Basophils # 0.0 k/uL (0-0.2) 07/15/17 05:10 Hypochromasia Marked 07/15/17 05:10 Poikilocytosis Slight 07/15/17 05:10 Anisocytosis Slight 07/15/17 05:10 Microcytosis Slight 07/15/17 05:10 PT 12.1 sec (9.0-12.0) H 06/30/17 10:34 INR 1.3 (<1.2) H 06/30/17 10:34 APTT 23.4 sec (22.0-30.0) 06/30/17 10:34 Sodium 142 mmol/L (137-145) 07/15/17 05:10 Potassium 4.6 mmol/L (3.5-5.1) 07/15/17 05:10 Chloride 105 mmol/L (98-107) 07/15/17 05:10 Carbon Dioxide 30 mmol/L (22-30) 07/15/17 05:10 Anion Gap 7 mmol/L 07/15/17 05:10 BUN 28 mg/dL (9-20) H 07/15/17 05:10 Creatinine 0.90 mg/dL (0.66-1.25) 07/15/17 05:10 Est GFR (MDRD) Af Amer >60 (>60 ml/min/1.73 sqM) 07/15/17 05:10 Est GFR (MDRD) Non-Af >60 (>60 ml/min/1.73 sqM) 07/15/17 05:10 Glucose 88 mg/dL (74-99) 07/15/17 05:10 POC Glucose (mg/dL) 120 mg/dL (75-99) H 07/15/17 16:46 POC Glu Spine Surgeon ID Mi Caballero 07/15/17 16:[address] Glu mg/dL 117 06/30/17 10:34 Hemoglobin A1c 5.7 % (4.0-6.0) 06/30/17 10:34 Plasma Lactic Acid Kashif 1.7 mmol/L (0.7-2.0) 06/30/17 10:34 Calcium 8.3 mg/dL (8.4-10.2) L 07/15/17 05:10 Phosphorus 3.6 mg/dL (2.5-4.5) 07/05/17 04:00 Magnesium 2.0 mg/dL (1.6-2.3) 07/08/17 05:57 Total Bilirubin <0.1 mg/dL (0.2-1.3) L 07/15/17 05:10 AST 50 U/L (17-59) 07/15/17 05:10 ALT 64 U/L (21-72) 07/15/17 05:10 Alkaline Phosphatase 72 U/L (38-126) 07/15/17 05:10 Total Protein 4.8 g/dL (6.3-8.2) L 07/15/17 05:10 Albumin 2.3 g/dL (3.5-5.0) L 07/15/17 05:10 TSH 1.800 mIU/L (0.465-4.680) 07/03/17 04:31 Free T4 1.55 ng/dL (0.78-2.19) 07/03/17 04:31 Urine Color Yellow 06/30/17 10:34 Urine Appearance Clear (Clear) 06/30/17 10:34 Urine pH 5.0 (5.0-8.0) 06/30/17 10:34 Ur Specific [place] 1.021 (1.001-1.035) 06/30/17 10:34 Urine Protein 1+ (Negative) H 06/30/17 10:34 Urine Glucose (UA) Negative (Negative) 06/30/17 10:34 Urine Ketones Negative (Negative) 06/30/17 10:34 Urine Blood Negative (Negative) 06/30/17 10:34 Urine Nitrite Negative (Negative) 06/30/17 10:34 Urine Bilirubin Negative (Negative) 06/30/17 10:34 Urine Urobilinogen <2.0 mg/dL (<2.0) 06/30/17 10:34 Ur Leukocyte Esterase Negative (Negative) 06/30/17 10:34 Urine RBC 1 /hpf (0-5) 06/30/17 10:34 Urine WBC <1 /hpf (0-5) 06/30/17 10:34 Urine Mucus Few /hpf (None) H 06/30/17 10:34 Vancomycin Trough 24.1 ug/mL 07/12/17 08:32 Influenza Type A RNA Not Detected (Not Detectd) 06/30/17 10:34 Influenza Type B (PCR) Not Detected (Not Detectd) 06/30/17 10:34 Miscellaneous Test Triglycerides,Pleura 07/04/17 14:31 Misc Test Result See comment 07/04/17 14:31 Blood Type A Positive 07/09/17 08:05 Blood Type Recheck No 07/09/17 08:05 Antibody Screen NEGATIVE 07/09/17 08:05 Spec Expiration Date 07/12/2017 - 2305 07/09/17 08:05 Microbiology 07/09/17 10:50 Other - Other Anaerobic Culture - Final 07/09/17 10:30 Pleural Fluid Anaerobic Culture - Final 07/09/17 10:30 Pleural Fluid Gram Stain - Final 07/09/17 10:30 Pleural Fluid Body Fluid Culture - Final 07/09/17 10:50 Other - Other Gram Stain - Final 07/09/17 10:50 Other - Other Tissue Culture - Final Staphylococcus epidermidis 07/09/17 10:50 Other - Other Fungal Culture - Preliminary 07/09/17 10:30 Pleural Fluid Fungal Culture - Preliminary 07/03/17 14:45 Pleural Fluid Anaerobic Culture - Final Prevotella melaninogenica Proprionibacterium acnes 07/03/17 14:45 Pleural Fluid Gram Stain - Final 07/03/17 14:45 Pleural Fluid Body Fluid Culture - Final 06/30/17 10:34 Blood Blood Culture - Final No Growth after 144 hours 07/01/17 07:50 Sputum Gram Stain - Final 07/01/17 07:50 Sputum Sputum Culture - Final 06/30/17 10:34 Urine,Voided Urine Culture - Final Vera albicans Assessment and Plan (1) Pleural effusion on left Narrative/Plan: 62-year-old male with status post coronary artery bypass grafting procedure without difficulty significant infection of his left chest after surgery. Has been receiving a course of intravenous antibiotic therapy with ertapenem for coverage of the pathogens. Has not had a marked worsening of his status requiring hospitalization. His oxygenation is improved and he is no longer on the high flow oxygen but is on 6 L nasal cannula. Feeling somewhat better today. He still however has shortness of breath. Appetite is improved. Fever is improved. He is being available by pulmonary critical care and cardiothoracic surgery. Computed tomography scan ultrasound are noted. Patient is on a plethora of antibiotics at this time pending further culture data given his failure of ertapenem. Does have some mild improvement but does not still feel well. Patient is status post thoracotomy with decortication to allow resolution of the significant polymicrobial empyema. Postoperatively cultures are being monitored no new pathogens are found. Consequently vancomycin is discontinued. Currently on piperacillin tazobactam and levofloxacin. He has had ongoing significant improvement since his decortication. His pulmonary status is now considerably improved. It is noted no further positive cultures and the time of the decortication. He said nearly 6 weeks of intravenous antibiotic therapy regarding his left chest infection. At this time with his marked improvement will be planning on oral antibiotic therapy at discharge with amoxicillin clavulanic acid. Current Visit: No Status: Acute Code(s): J90 - PLEURAL EFFUSION, NOT ELSEWHERE CLASSIFIED SNOMED Code(s): 13261970 (2) Pneumonia Current Visit: Yes Status: Acute Code(s): J18.9 - PNEUMONIA, UNSPECIFIED ORGANISM SNOMED Code(s): 274296639 (3) History of atrial fibrillation less than 8 weeks after coronary artery bypass graft Current Visit: Yes Status: Acute Code(s): XYA3337 - SNOMED Code(s): 132041703309170
[2017-07-15] MEDS ORDERED: KETOROLAC 30 MG/ML 1 ML VIAL IVP ONE (21:51)
[2017-07-16] MEDS: PIPERACILLIN-TAZOBACTAM 3.375 GM in DEXTROSE/WATER 1 50ML.BAG IVPB SCH ×3 (05:49→20:57)
[2017-07-16] MEDS: HYDROcodone/APAP 7.5-325MG 1 EACH TAB PO PRN ×4 (05:49→19:02)
[2017-07-16] MEDS: INSULIN ASPART 100 UNIT/ML 1 ML 10 ML VIAL SQ SCH ×7 (05:51→21:39)
[2017-07-16 05:57] LABS: Glucose,Whole Blood 105 mg/dL (75-99)
[2017-07-16] MEDS: PANTOPRAZOLE 40 MG TABLET PO SCH (07:00)
[2017-07-16] MEDS: IPRATROPIUM-ALBUTEROL 3 ML NEB INHALATION SCH ×4 (07:46→20:28)
--- NOTE | 2017-07-16 08:08 | PN ---
PROGRESS NOTE The patient is feeling better today, less shortness of breath, less chest pain. He said he can breathe freely now without discomfort even though he still feels like there is some restriction. He slept well. His appetite has returned. He seems to have a moderate amount of still chest pain at bedtime, but overall he has had a dramatic improvement since his decortication. He has been on IV antibiotics now approximately 6 weeks. This is a 62-year-old white male that was admitted here on 05/21/2017 with chest pain and found to have acute myocardial infarction, a non-STEMI. Cardiac catheterization showed multivessel coronary artery disease and he had 4-vessel bypass. He had surgery following that due to bleeding postoperatively and surgery was then completed again bleeding was stopped. He developed some cardiac dysrhythmias and atrial fib requiring amiodarone. The patient also had difficulties with left chest and a large fluid collection. He underwent thoracentesis for the difficulty of shortness of breath. Subsequently, was performed. His CT showed evidence of left lower lobe infiltrate as well as right upper lobe infiltrate. Because of this leukocytosis, Infectious Disease consultation was requested. He required placement of percutaneous drainage for the empyema. He was eventually stabilized and discharged home on June 07. He was continued on IV antibiotics in Dr. Nixon is office for enterococcus and also alpha hemolytic strep. He continued to improve and then over 24 to 48 hour period of time he became very weak problems with breathing. He called my office. He called Dr. Nixon office. Both of us recommended going into the hospital. He was then transferred from upstairs after chest x-ray showed some worsening of bilateral pneumonia, cardiomegaly and a left pleural effusion was showing repeated upon pneumonia. These patchy alveolar opacities were in the right lower lobe. His O2 sats worsened and he had respiratory failure, elevated white count of . At that period of time, he had been placed in the ICU, but then patient continued to improve until he had a near collapse of the left lung. The ultrasound was performed which showed fluid collection. At that time, a pigtail catheter was placed and 20 mL of grossly purulent material was removed for culture. After cardiothoracic surgeon followed him, he was continued on tPA of 2 pigtail daily approximately 10 mg in 100 mils of normal saline. The patient continued to worsen and a thoracotomy with decortication was completed. The patient at that time had been on piperacillin tazobactam and Levaquin. His anaerobic culture of 07/03/2017 did come back as Prevotella melaninogenica and also propionibacterium acnes and was treated accordingly with IV antibiotics. This morning there was no blood back. Medications still include that of Zosyn and no changes from yesterday's medication regimen. REVIEW OF SYSTEMS: His review of systems at this period are: EYES: No problems seeing. ENT: Has a dry mouth. NECK: No problems with swallowing. No masses on his neck. No pain. CHEST: He has had some shortness of breath, but minimal. Still coughing minimal amount of minimally productive clear material. HEART: He has had no palpitations. He has had no chest pain. No orthopnea or paroxysmal nocturnal dyspnea, though he says he is more comfortable sitting up in a chair than he is lying flat. ABDOMEN: Appetite has been fine. No nausea. No vomiting. No hematemesis, melena, hematochezia. : No problems with urination. NEUROMUSCULAR: Just weak legs and arms and he is anxious to get going and increase activity. INTEGUMENTARY: He has had no skin. PSYCHIATRIC: He says there is no depression, no anxiety, just the discomfort accordingly. PHYSICAL EXAMINATION: He had a blood pressure 113/80, heart rate is 87, temperature 97.8, respiratory rate is 18. The patient is alert, well oriented to person, place, and thing. No evidence of depression or anxiety. At this point, well orientated and very cognitive to all questions. EYES: Pupils are equal, round, react to light accommodation. ENT showed tympanic membranes and pharynx to be negative. NECK: Supple with a midline trachea. Chest has no rhonchi at this period of time. There are no wheezes. Still some decreased breath sounds in the left lung area. HEART: Regular, regular rhythm of atrial fib. ABDOMEN: Soft, nontender with no organomegaly. No palpable masses. Lower extremity does have +1 swelling, good palpable posterior tibialis pulses. His feet are warm. SKIN: He does have some dry hands and elbows, but no erythema. PLAN: All medications were reviewed. We will continue on the same. The patient is close to discharge, the change management administrator to oral medications per Dr. Nixon will probably be began today. If he does well, he will be able to be discharged in the a.m. All this was reiterated to the patient and had previously talked to his about the same things yesterday. YULIA / FRANCIA: [id number] /
--- NOTE | 2017-07-16 08:15 | P.PN ---
Subjective Progress Note Date: 07/16/17 Principal diagnosis: Left-sided pleural effusion, history of recent urgent coronary artery bypass grafting on 05/22/2017, non-ST elevation myocardial infarction, hypertension, hyperlipidemia, insulin-dependent diabetes mellitus, anxiety, family history of premature coronary artery disease, COPD, paroxysmal atrial fibrillation, left- sided thoracentesis on 05/30/2017 and left chest pigtail catheter placement with fluid cultures positive for all for hemolytic strep and enterococcuss faecalis, left lower lobe pneumonia requiring placement of PICC line for home IV antibiotic therapy, and obesity. The patient was admitted to the hospital on 06/30/2017, after presenting to the emergency department with complaints of increase in shortness of breath over the last several days, with worsening productive cough. The patient has been receiving outpatient IV antibiotic therapy per his PICC line for treatment of his left lower lobe pneumonia which is been managed by Dr. Nixon. POD #12, ultrasound-guided chest tube insertion. (Pigtail catheter), pigtail catheter was removed during the left thoracotomy with decortication surgery. Pigtail catheter was removed on 07/09/2017. POD #7, left thoracotomy with decortication. Patient is sitting up to the bedside chair. He is in no acute distress. He is alert and orientated 3. He denies any complaints of pain at this time. He reports he ambulated in the [facility] care hallway yesterday 2 to the nurse's station and back to his room. He states that he feels like he is ready to be discharged home. His Shirley is at his bedside. Objective - Vital Signs Vital signs: Vital Signs Temp 97.2 F L 07/16/17 04:00 Pulse 64 07/16/17 07:48 Resp 18 07/16/17 04:00 BP 132/73 07/16/17 04:00 Pulse Ox 93 L 07/16/17 07:48 Intake & Output 07/15/17 07/16/17 07/16/17 18:59 06:59 18:59 Intake Total 1700 Output Total 800 625 Balance 900 -625 Weight 118 kg Intake: IV 500 Piperacillin-Tazobactam 3 100 .375 gm In Dextrose/Water 1 50ml.bag @ 12.5 mls/hr IVPB Q8H [facility] Rx#: [id number] Sodium Chloride 0.9% 1, 400 000 ml @ 50 mls/hr IV . Q20H [facility] Rx#:[id number] Oral 1200 Output: Urine 800 625 Other: Voiding Method Urinal Urinal # Voids 1 - Constitutional General appearance: Present: cooperative, no acute distress, obese - EENT ENT: Present: hearing grossly normal - Neck Details: Neck is supple, no lymphadenopathy, no JVD. - Respiratory Details: Lung sounds essentially clear throughout, few scattered crackles to his left lower lobe. Respirations are symmetrical and nonlabored. Oxygen saturation are 93% on room air. He is achieving 750 mL on his incentive spirometry. Productive cough with guan-colored tenacious sputum. - Cardiovascular Details: Regular rhythm and rate. S1 and S2 present, negative for S3, gallop or murmur. Sternum is stable. Remote telemetry showing normal sinus rhythm with occasional PVC heart rate 64. +2 edema to his bilateral feet and to his right arm and hand. Knee-high WALESKA hose and sequential compression devices in place to his bilateral lower extremities. Left antecubital PICC line intact and patent. - Gastrointestinal Gastrointestinal Comment(s): Abdomen is soft, nontender and nondistended. Active bowel sounds to all 4 abdominal quadrants. Tolerating oral intake. Bowel movement yesterday 2017. - Genitourinary Genitourinary Comment(s): Clear yellow urine. Adequate urine output, 625 mL output in the last 8 hours. - Integumentary Integumentary Comment(s): Skin clean and dry and warm and intact. No clubbing or cyanosis. Midline sternal incision and left lower leg EVH site healed. No redness or drainage. Left posterior lateral chest incision clean and dry and well approximated. No drainage noted. Taylor clean dry and intact. - Neurologic Neurologic: Present: CNII-XII intact - Musculoskeletal Musculoskeletal: Present: gait normal, strength equal bilaterally - Psychiatric Psychiatric: Present: A&O x's 3, appropriate affect, intact judgment & insight - Allied health notes Allied health notes reviewed: nursing - Labs CBC & Chem 7: 07/15/17 05:10 07/15/17 05:10 Labs: Abnormal Lab Results - Last 24 Hours (Table) 07/15/17 07/15/17 07/15/17 Range/Units 11:23 16:46 20:54 POC Glucose (mg/dL) 130 H 120 H 136 H (75-99) mg/dL 07/16/17 Range/Units 05:50 POC Glucose (mg/dL) 105 H (75-99) mg/dL Assessment and Plan (1) History of atrial fibrillation less than 8 weeks after coronary artery bypass graft Current Visit: Yes Status: Acute Code(s): SPH6627 - SNOMED Code(s): 218486839188479 (2) History of myocardial infarction Current Visit: Yes Status: Acute Code(s): I25.2 - OLD MYOCARDIAL INFARCTION SNOMED Code(s): 659746817 (3) Status post aorto-coronary artery bypass graft Current Visit: Yes Status: Acute Code(s): Z95.1 - PRESENCE OF AORTOCORONARY BYPASS GRAFT SNOMED Code(s): 282612491 (4) Anxiety Current Visit: Yes Status: Chronic Code(s): F41.9 - ANXIETY DISORDER, UNSPECIFIED SNOMED Code(s): 84704000 (5) Diabetes mellitus type 2 in obese Current Visit: Yes Status: Chronic Code(s): E11.69 - TYPE 2 DIABETES MELLITUS WITH OTHER SPECIFIED COMPLICATION; E66.9 - OBESITY, UNSPECIFIED SNOMED Code(s): 27891306 (6) Hyperlipidemia Current Visit: Yes Status: Chronic Code(s): E78.5 - HYPERLIPIDEMIA, UNSPECIFIED SNOMED Code(s): 84976154 (7) Hypertension Current Visit: Yes Status: Chronic Code(s): I10 - ESSENTIAL (PRIMARY) HYPERTENSION SNOMED Code(s): 01585122 (8) Obesity (BMI 30.0-34.9) Current Visit: Yes Status: Chronic Code(s): E66.9 - OBESITY, UNSPECIFIED SNOMED Code(s): 198976983 (9) Coronary artery disease Current Visit: No Status: Chronic Code(s): I25.10 - ATHSCL HEART DISEASE OF [place] CORONARY ARTERY W/O ANG PCTRS SNOMED Code(s): 47343819 (10) Left lower lobe pneumonia Current Visit: No Status: Acute Code(s): J18.1 - LOBAR PNEUMONIA, UNSPECIFIED ORGANISM SNOMED Code(s): 368959063 Plan: 1. Continue aspirin, Plavix, statin, and beta ewa. 2. Discontinue amiodarone. 3. Antibiotic management per infectious disease recommendations. Routine PICC line care. 4. Encourage use of his incentive spirometry every hour while awake. 5. Diabetic management per primary care service. 6. Increase activity as tolerated, ambulate in the hallway with assistance. Physical therapy and occupational therapy following. 7. GI/DVT prophylaxis. 8. More recommendations to follow as patient progresses and care. Anticipate discharge home within the next 24-48 hours. Time with Patient: Greater than 30
[2017-07-16] MEDS: SODIUM CHLORIDE 0.9% 1,000 ML IV SCH (08:59)
[2017-07-16] MEDS: ATORVASTATIN 40 MG TAB PO SCH (09:00)
[2017-07-16] MEDS: AMIODARONE 200 MG TAB PO SCH (09:00)
[2017-07-16] MEDS: FUROSEMIDE 20 MG TAB PO SCH (09:00)
[2017-07-16] MEDS: CLOPIDOGREL 75 MG TAB PO SCH (09:00)
[2017-07-16] MEDS: ASPIRIN 325 MG TAB PO SCH (09:00)
[2017-07-16] MEDS: METOPROLOL TARTRATE 25 MG TAB PO SCH ×2 (09:01→21:39)
[2017-07-16] MEDS: guaiFENesin 600 MG TABLET.ER PO SCH ×2 (09:01→21:39)
[2017-07-16] MEDS: HEPARIN SODIUM,PORCINE 5,000 UNIT/ML 1 ML VIAL SQ SCH ×2 (09:01→21:40)
[2017-07-16] MEDS: SERTRALINE 100 MG TAB PO SCH (09:02)
[2017-07-16] MEDS ORDERED: HYDROcodone/APAP 7.5-325MG 1 EACH TAB PO PRN (10:24)
--- NOTE | 2017-07-16 11:11 | P.PN ---
Subjective Progress Note Date: 07/16/17 Principal diagnosis: Acute hypoxic respiratory failure, secondary to left lung pneumonia and pleural effusion Progress note dated 07/02/2017 The patient continues to improve slowly. Radiographically, his chest x-ray has not changed all that much. Certainly not worse. Currently the patient is on the AIRVO at 65 L/m. He's had a saline IV at 50 mL an hour. The patient has a history of bilateral pneumonia with sepsis a history of asthma, diabetes, gastroesophageal reflux disease, hypertension, myocardial infarction and pneumonia. He also has a history of recent bypass grafting back on 05/22/[address] segment elevation myocardial infarction and legionnaires disease. He is a lifelong nonsmoker. His primary care physician is Dr. Gary Abreu. The patient apparently had a computed tomography scan late yesterday. I have not looked at it as yet. My partner expresses some concerns that he may have a loculated pleural effusion which need something more significantly done such as decortication. On 07/03/2017 patient remains in intensive care. Still requiring high flow nasal cannula, remains on AIRVO at FiO2 of 50% and 40 L/m flow. Afebrile, hemodynamically stable. Today's chest x-ray shows slight improvement in the aeration of the left upper lung with persistent confluent multifocal opacities representing multifocal pneumonia. Yesterday we have obtained a chest ultrasound to evaluate the complex and loculated left pleural effusion in the background of extensive left lung pneumonia. This was discussed with the interventional radiologist and cardiothoracic surgery. CT surgery feels the patient with benefit from a pigtail catheter insertion in the left pleural space and infusion of TPA over the next few days. This was discussed with the radiologist, who recommended getting a CT chest with contrast today. Otherwise patient is fairly comfortable, in no acute distress, respirations are shallow and tachypneic with a rate in the 30s. He is awake alert, tolerating a regular diet. His lab work shows upward trend of his WBCs, up to 17, hemoglobin is 9.0 , renal profile is stable, within normal limits no significant electrolyte abnormality. Blood and sputum culture show no growth, urine culture is positive for Vera albicans. ID service is on. Is on a combination of Levaquin, Zosyn and vancomycin. Currently not requiring any vasopressor support. On 07/04/2017 patient is seen in follow-up in intensive care unit. He is status post left pleural pigtail chest tube insertion with TPA infusion on 07/03. Patient had round 400 cc of milky yellow, purulent drainage in the atrium collection chamber since insertion. Clinically patient denies any acute distress, FiO2 was weaned down to 8 L per high flow nasal cannula. Blood sputum cultures remain negative, urine culture shows Vera albicans, pleural fluid culture was sent for culture as well and is pending. Patient will have another infusion of alteplase today per cardiothoracic surgery. Continues on empiric antibiotics with Levaquin, Zosyn and vancomycin. His IV fluids are 0.9 normal saline at 50 ML per hour. Patient's tolerating oral intake, on regular diet. Up in a chair, tolerating it well. Overall continues to significantly improve. On 07/08/2017 patient seen in follow-up on selective care unit. CT chest from this morning has been reviewed, shows left basilar pleural catheter in place with considerable decrease in size of the patient's previous left subpulmonic fluid collection, trace effusion remains. Permanent partial atelectasis and residual consolidation within the left lower lobe.(Second pleural-based collection along the lower left. She shows slight interval increase in size, ground glass and interstitial infiltrates in the midline is persistent show improvement from previous CT chest. Patient's left-sided pigtail has been noted to have moved, daily TPA infusions. There is small amount of serosanguineous drainage noted from the pigtail chest tube. He is afebrile, FiO2 is currently down to 6 L per high flow nasal cannula, vital signs are stable. Lung sounds are diminished, with a few scattered rales at left base. Cardiothoracic surgery has previously discussed decortication surgery left lung. Continue antibiotics per infectious disease recommendations. Continue encouraging incentive spirometry, increase activity as tolerated. On 07/09/2017 patient is seen in follow-up post left-sided thoracotomy with decortication by Dr. Tellez. Patient is sedated, he arrived back to the room at around 1430 per the spouse, was in significant amount of pain, and was given IV narcotics. Currently resting comfortably, somnolent, but arouses to verbal stimuli. Lung sounds are diminished, more so over the left lower lobe. There are 2 left-sided chest tubes why connected to an atrium, there is about 200 mL of serosanguineous output in the collection chamber. Patient is currently on 45 % Ventimask, with O2 sat at 93%. Vital signs are stable. Left-sided pigtail chest tube has been discontinued. Patient continues on Levaquin and vancomycin as well as Zosyn. Urine culture was positive for Vera, pleural fluid showed anaerobic species, Prevotella melaninogenica, and Proprionibacterium acnes. On 07/15/2017 patient is seen again in follow-up. He is status post thoracotomy and decortication for empyema area he is doing very well. Currently on room air, with a pulse ox at 99%. Remains afebrile hemodynamically stable. His chest tube was discontinued 2 days ago. Left posterior lower chest incision is clean dry and intact, jose david are intact. Microbiology results have been reviewed, pleural fluid culture from 07/03/2017 showed anaerobic species Prevotella melaninogenica and Proprionibacterium acnes. Tissue culture from 07/09/2017 showed Staphylococcus epidermidis. Fungal and anaerobic cultures collected during decortication on 07/09/2017 remain negative so far. Patient continues on IV Zosyn. He ambulated to the bathroom and back, tolerates it well, although remains generally weak. He was cleared for discharge from cardiothoracic standpoint. Chest x-ray from 2017 showed no significant interval change in the appearance of the chest. Remains stable from our standpoint and can be cleared for discharge pending recommendations from infectious disease recommendations regarding the length of treatment and the type of antibiotic. On 07/16/2017 patient seen again. Doing well, denies any specific complaints. Afebrile, vital signs are stable, on room air with O2 sat 95%. Lung sounds are coarse, positive for a few rhonchi, but good air entry bilaterally. Patient remains generally weak, but has been able to ambulate short distances in the room, tolerating it well. ID service has recommended switching the IV Zosyn to oral Augmentin, no new growth on the cultures. Anticipate discharge home tomorrow. Objective - Vital Signs Vital signs: Vital Signs Temp 97.1 F L 07/16/17 09:10 Pulse 72 07/16/17 10:58 Resp 18 07/16/17 09:10 BP 128/68 07/16/17 09:10 Pulse Ox 95 07/16/17 09:10 Intake & Output 07/15/17 07/16/17 07/16/17 18:59 06:59 18:59 Intake Total 1700 240 Output Total 800 625 Balance 900 -625 240 Weight 118 kg Intake: IV 500 Piperacillin-Tazobactam 3 100 .375 gm In Dextrose/Water 1 50ml.bag @ 12.5 mls/hr IVPB Q8H [facility] Rx#: [id number] Sodium Chloride 0.9% 1, 400 000 ml @ 50 mls/hr IV . Q20H [facility] Rx#:[id number] Oral 1200 240 Output: Urine 800 625 Other: Voiding Method Urinal Urinal Urinal # Voids 1 - Exam No acute distress, patient is currently sedated, resting in bed, status post left-sided thoracotomy with decortication HEENT examination is grossly unremarkable. Mucous membranes are moist. No oral lesions. Neck supple. Full range of motion. No adenopathy thyromegaly or neck vein distention. Cardiovascular examination reveals regular rhythm rate. S1-S2 normal. No S3 or S4. No discernible murmur noted. Lungs sounds: Breath sounds show diminished air entry over left lower base, clear on the right. A few crackles are present over bilateral bases. No wheezes. Left-sided chest tubes have been discontinued, left posterior chest wall incisions clean dry and intact, jose david are intact. Abdomen soft bowel sounds are heard. No masses or tenderness. Extremities are intact. No cyanosis clubbing or edema. Skin is without rash or lesion. Neurologic examination is brief but nonfocal - Labs CBC & Chem 7: 07/15/17 05:10 07/15/17 05:10 Labs: Abnormal Lab Results - Last 24 Hours (Table) 07/15/17 07/15/17 07/15/17 Range/Units 11:23 16:46 20:54 POC Glucose (mg/dL) 130 H 120 H 136 H (75-99) mg/dL 07/16/17 Range/Units 05:50 POC Glucose (mg/dL) 105 H (75-99) mg/dL Assessment and Plan Plan: Assessment: #1. Acute hypoxic respiratory failure secondary to extensive left lung multifocal pneumonia and left pleural effusion, present on admission. Patient is status post left thoracotomy with decortication, postop day 6. Left pigtail pleural chest tube catheter insertion, with TPA infusions has been discontinued on 07/09/2017. Pleural fluid cultures positive for Prevotella melaninogenica and Proprionibacterium acnes. Tissue culture from 07/09/2017 shows Staphylococcus epidermidis. Patient is currently on IV Zosyn. #2. Sepsis, with leukocytosis and fever, secondary to the empyema and cultures positive for anaerobic species, patient's intraoperative cultures showed coagulase-negative staph. Staph epidermidis, patient is currently on IV Zosyn. #3. History of left-sided pleural effusion requiring thoracentesis and empyema requiring pigtail drainage catheter and cultures positive for alphahemolytic strep and enterococcus faecalis #4. Coronary artery disease, status post 4 vessel coronary artery bypass grafting #5. COPD #6. Essential hypertension #7. Hyperlipidemia #8. GERD #9. Anxiety #10. Obesity Plan: Patient remains stable from pulmonary standpoint. No new growth on the cultures. Continue increasing activity as tolerated. Continue encouraging incentive spirometry use. From pulmonary standpoint patient is stable for discharge home. I performed a history & physical examination of the patient and discussed their management with my nurse practitioner, Janelle Chambers. I reviewed the nurse practitioner's note and agree with the documented findings and plan of care. Lung sounds are diminished with a few bibasilar rales. The findings and the impression was discussed with the patient. I attest to the documentation by the nurse practitioner. Time with Patient: Less than 30
[2017-07-16] MEDS: FERROUS SULFATE 325 MG TAB PO SCH (11:21)
[2017-07-16] MEDS: ASCORBIC ACID 500 MG TAB PO SCH (11:22)
[2017-07-16 11:32] LABS: Glucose,Whole Blood 152 mg/dL (75-99)
[2017-07-16 11:32] LABS: Glucose,Whole Blood 195 mg/dL (75-99)
[2017-07-16 15:09] LABS: Reticulocyte % 3.5 % (0.5-2.0)
[2017-07-16 16:57] LABS: Glucose,Whole Blood 115 mg/dL (75-99)
[2017-07-16 21:11] LABS: Glucose,Whole Blood 136 mg/dL (75-99)
--- NOTE | 2017-07-16 21:20 | P.PN ---
Subjective Progress Note Date: 07/16/17 Principal diagnosis: Shortness of breath This is a 62 year old male presented to hospital on 05/21/2017 with chest pain and found to have acute myocardial infarction. Heart catheterization found evidence of multivessel coronary artery disease and he is status post coronary artery bypass grafting procedure. He said difficulties postoperatively with bleeding to require somewhat protracted ventilation. He did require repeat surgery for control of the bleeding. He developed cardiac dysrhythmia with atrial fibrillation requiring amiodarone treatment. The patient also developed difficulties with his left chest. A large fluid collection was found and he underwent thoracentesis he was having some difficulty with shortness of breath and consequently further imaging was performed. Computed tomography scan showed evidence of the left lower lobe infiltration as well as some right upper lobe infiltrate. Because of and leukocytosis the infectious diseases consultation was requested. He required placement of percutaneous drainage of the empyema. He was eventually stabilized and discharged home on June 07. He was continued on IV antibioticsat an [facility] office on a daily basis for enterococcus and alpha hemolytic strep empyema. Patient last saw Dr. Nixon on Saturday any extended IV antibiotic therapy for another week. Patient states he was feeling fine when he was in the office on Saturday and also on Saturday. But on Saturday morning he started coughing around 3 in the morning and was clear sputum production the change to yellow and he felt exhausted. He was having difficulty breathing and his called Dr. Nixon recommended that he come into the evaluated. EMS was called and patient was transferred to [facility] emergency center. Chest x-ray initially showed worsening of bilateral pneumonias, cardiomegaly and left pleural effusion. Repeat chest x- ray showed worsening and near complete obesity of the left hemithorax, pleural effusion and multifocal pneumonia in differential. Patchy alveolar opacity within the right lower lobe. He was found to be febrile which he denied having any fevers chills or rigors at home. His pulse ox was down to 82% and he was hypotensive. White count was elevated at 20.7 but improved to 13.5. ALT was 123 and alkaline phosphatase 159. Albumin is 3. Urinalysis was clear, protein 1+, nitrate and leukoesterase negative. Urine culture is in progress. Blood culture and sputum culture status received. Influenza testing was negative. ALT is 123 and alkaline phosphatase 159. Albumin is 3. Patient has been admitted into the intensive care unit. He has not required vasopressors. Consult in place with pulmonary medicine and CAT scan of the chest has been ordered. Consult in place with cardiothoracic surgery. Computed tomography scan as noted showing evidence of near collapse of left lung. Ultrasound has been performed showing and the complex fluid Radiology has now placed pigtail catheter and 20 mL of grossly purulent material was sent to the laboratory for culture and tube continues to drain. Patient is off of the high flow oxygen remains on 6 L nasal cannula at this time. He does feel slightly improved. Has been up and walking a bit. Altepase has been placed into the pleural space and is being monitored. He has been followed by the cardiothoracic surgeon. Now post thoracotomy with decortication and doing well did not require terminal operator mechanical vent support. Resting more comfortably at this time with removal of the chest tubes. Relates over the weekend had the sudden improvement of his pulmonary status. He 's had mobilization of a large amount of secretions. He feels considerably better. Shortness of breath is generally resolving. Pulse ox 99%. Continues to improve. We'll transition to oral antibiotic therapy as he gets ready for his transition to home. Objective - Vital Signs Vital signs: Vital Signs Temp 97.1 F L 07/16/17 15:00 Pulse 60 07/16/17 20:42 Resp 18 07/16/17 15:00 BP 122/71 07/16/17 15:00 Pulse Ox 95 07/16/17 15:00 Intake & Output 07/16/17 07/16/17 07/17/17 06:59 18:59 06:59 Intake Total 720 Output Total 625 600 Balance -625 120 Weight 118 kg Intake: Oral 720 Output: Urine 625 600 Other: Voiding Method Urinal Urinal # Voids 1 # Bowel Movements 1 - Exam Gen: This is a 62-year-old male patient supine resting comfortably after his surgery he has received narcotics for pain control and is well controlled at this time HEENT: Head is atraumatic, normocephalic. Pupils equal, round. Sclerae is anicteric. Junk developed pink. Mucous membranes of the mouth are somewhat dry. NECK: Supple. No JVD. No lymphadenopathy. No thyromegaly. LUNGS: Right chest with good air entry with few crackles at the base. Left chest has improved air entry at this time chest tubes removed, HEART: Regular rate and rhythm. No murmur. ABDOMEN: Soft. Bowel sounds are present. No masses. No tenderness. EXTREMITIES: No pedal edema. No calf tenderness. Dorsalis pedis +2 bilaterally. NEUROLOGICAL: Patient is looking well Y sitting up in the chair is just returned from a walk. - Labs CBC & Chem 7: 07/15/17 05:10 07/15/17 05:10 Labs: Abnormal Lab Results - Last 24 Hours (Table) 07/16/17 07/16/17 07/16/17 Range/Units 05:50 11:26 11:29 Retic Count (0.5-2.0) % POC Glucose (mg/dL) 105 H 195 H 152 H (75-99) mg/dL 07/16/17 07/16/17 07/16/17 Range/Units 13:39 16:56 21:10 Retic Count 3.5 H (0.5-2.0) % POC Glucose (mg/dL) 115 H 136 H (75-99) mg/dL Laboratory Results WBC 7.9 k/uL (3.8-10.6) 07/15/17 05:10 RBC 3.32 m/uL (4.30-5.90) L 07/15/17 05:10 Hgb 7.2 gm/dL (13.0-17.5) L 07/15/17 05:10 Hct 24.8 % (39.0-53.0) L 07/15/17 05:10 MCV 74.8 fL (80.0-100.0) L 07/15/17 05:10 MCH 21.7 pg (25.0-35.0) L 07/15/17 05:10 MCHC 29.0 g/dL (31.0-37.0) L 07/15/17 05:10 RDW 17.4 % (11.5-15.5) H 07/15/17 05:10 Plt Count 474 k/uL (150-450) H 07/15/17 05:10 Neutrophils % 56 % 07/15/17 05:10 Lymphocytes % 33 % 07/15/17 05:10 Monocytes % 6 % 07/15/17 05:10 Eosinophils % 3 % 07/15/17 05:10 Basophils % 1 % 07/15/17 05:10 Neutrophils # 4.4 k/uL (1.3-7.7) 07/15/17 05:10 Lymphocytes # 2.6 k/uL (1.0-4.8) 07/15/17 05:10 Monocytes # 0.5 k/uL (0-1.0) 07/15/17 05:10 Eosinophils # 0.2 k/uL (0-0.7) 07/15/17 05:10 Basophils # 0.0 k/uL (0-0.2) 07/15/17 05:10 Hypochromasia Marked 07/15/17 05:10 Poikilocytosis Slight 07/15/17 05:10 Anisocytosis Slight 07/15/17 05:10 Microcytosis Slight 07/15/17 05:10 Retic Count 3.5 % (0.5-2.0) H 07/16/17 13:39 PT 12.1 sec (9.0-12.0) H 06/30/17 10:34 INR 1.3 (<1.2) H 06/30/17 10:34 APTT 23.4 sec (22.0-30.0) 06/30/17 10:34 Sodium 142 mmol/L (137-145) 07/15/17 05:10 Potassium 4.6 mmol/L (3.5-5.1) 07/15/17 05:10 Chloride 105 mmol/L (98-107) 07/15/17 05:10 Carbon Dioxide 30 mmol/L (22-30) 07/15/17 05:10 Anion Gap 7 mmol/L 07/15/17 05:10 BUN 28 mg/dL (9-20) H 07/15/17 05:10 Creatinine 0.90 mg/dL (0.66-1.25) 07/15/17 05:10 Est GFR (MDRD) Af Amer >60 (>60 ml/min/1.73 sqM) 07/15/17 05:10 Est GFR (MDRD) Non-Af >60 (>60 ml/min/1.73 sqM) 07/15/17 05:10 Glucose 88 mg/dL (74-99) 07/15/17 05:10 POC Glucose (mg/dL) 136 mg/dL (75-99) H 07/16/17 21:10 POC Glu Switch Maker ID Brent Funes 07/16/17 21:[address] Glu mg/dL 117 06/30/17 10:34 Hemoglobin A1c 5.7 % (4.0-6.0) 06/30/17 10:34 Plasma Lactic Acid Kashif 1.7 mmol/L (0.7-2.0) 06/30/17 10:34 Calcium 8.3 mg/dL (8.4-10.2) L 07/15/17 05:10 Phosphorus 3.6 mg/dL (2.5-4.5) 07/05/17 04:00 Magnesium 2.0 mg/dL (1.6-2.3) 07/08/17 05:57 Total Bilirubin <0.1 mg/dL (0.2-1.3) L 07/15/17 05:10 AST 50 U/L (17-59) 07/15/17 05:10 ALT 64 U/L (21-72) 07/15/17 05:10 Alkaline Phosphatase 72 U/L (38-126) 07/15/17 05:10 Total Protein 4.8 g/dL (6.3-8.2) L 07/15/17 05:10 Albumin 2.3 g/dL (3.5-5.0) L 07/15/17 05:10 TSH 1.800 mIU/L (0.465-4.680) 07/03/17 04:31 Free T4 1.55 ng/dL (0.78-2.19) 07/03/17 04:31 Urine Color Yellow 06/30/17 10:34 Urine Appearance Clear (Clear) 06/30/17 10:34 Urine pH 5.0 (5.0-8.0) 06/30/17 10:34 Ur Specific [place] 1.021 (1.001-1.035) 06/30/17 10:34 Urine Protein 1+ (Negative) H 06/30/17 10:34 Urine Glucose (UA) Negative (Negative) 06/30/17 10:34 Urine Ketones Negative (Negative) 06/30/17 10:34 Urine Blood Negative (Negative) 06/30/17 10:34 Urine Nitrite Negative (Negative) 06/30/17 10:34 Urine Bilirubin Negative (Negative) 06/30/17 10:34 Urine Urobilinogen <2.0 mg/dL (<2.0) 06/30/17 10:34 Ur Leukocyte Esterase Negative (Negative) 06/30/17 10:34 Urine RBC 1 /hpf (0-5) 06/30/17 10:34 Urine WBC <1 /hpf (0-5) 06/30/17 10:34 Urine Mucus Few /hpf (None) H 06/30/17 10:34 Vancomycin Trough 24.1 ug/mL 07/12/17 08:32 Influenza Type A RNA Not Detected (Not Detectd) 06/30/17 10:34 Influenza Type B (PCR) Not Detected (Not Detectd) 06/30/17 10:34 Miscellaneous Test Triglycerides,Pleura 07/04/17 14:31 Misc Test Result See comment 07/04/17 14:31 Blood Type A Positive 07/09/17 08:05 Blood Type Recheck No 07/09/17 08:05 Antibody Screen NEGATIVE 07/09/17 08:05 Spec Expiration Date 07/12/2017 - 2305 07/09/17 08:05 Microbiology 07/09/17 10:50 Other - Other Anaerobic Culture - Final 07/09/17 10:30 Pleural Fluid Anaerobic Culture - Final 07/09/17 10:30 Pleural Fluid Gram Stain - Final 07/09/17 10:30 Pleural Fluid Body Fluid Culture - Final 07/09/17 10:50 Other - Other Gram Stain - Final 07/09/17 10:50 Other - Other Tissue Culture - Final Staphylococcus epidermidis 07/09/17 10:50 Other - Other Fungal Culture - Preliminary 07/09/17 10:30 Pleural Fluid Fungal Culture - Preliminary 07/03/17 14:45 Pleural Fluid Anaerobic Culture - Final Prevotella melaninogenica Proprionibacterium acnes 07/03/17 14:45 Pleural Fluid Gram Stain - Final 07/03/17 14:45 Pleural Fluid Body Fluid Culture - Final 06/30/17 10:34 Blood Blood Culture - Final No Growth after 144 hours 07/01/17 07:50 Sputum Gram Stain - Final 07/01/17 07:50 Sputum Sputum Culture - Final 06/30/17 10:34 Urine,Voided Urine Culture - Final Vera albicans Assessment and Plan (1) Pleural effusion on left Narrative/Plan: 62-year-old male with status post coronary artery bypass grafting procedure without difficulty significant infection of his left chest after surgery. Has been receiving a course of intravenous antibiotic therapy with ertapenem for coverage of the pathogens. Has not had a marked worsening of his status requiring hospitalization. His oxygenation is improved and he is no longer on the high flow oxygen but is on 6 L nasal cannula. Feeling somewhat better today. He still however has shortness of breath. Appetite is improved. Fever is improved. He is being available by pulmonary critical care and cardiothoracic surgery. Computed tomography scan ultrasound are noted. Patient is on a plethora of antibiotics at this time pending further culture data given his failure of ertapenem. Does have some mild improvement but does not still feel well. Patient is status post thoracotomy with decortication to allow resolution of the significant polymicrobial empyema. Postoperatively cultures are being monitored no new pathogens are found. Consequently vancomycin is discontinued. Currently on piperacillin tazobactam and levofloxacin. He has had ongoing significant improvement since his decortication. His pulmonary status is now considerably improved. It is noted no further positive cultures and the time of the decortication. He has had nearly 6 weeks of intravenous antibiotic therapy regarding his left chest infection. At this time with his marked improvement will be planning on oral antibiotic therapy at discharge with amoxicillin clavulanic acid. Likely discharge tomorrow. Current Visit: No Status: Acute Code(s): J90 - PLEURAL EFFUSION, NOT ELSEWHERE CLASSIFIED SNOMED Code(s): 59923825 (2) Pneumonia Current Visit: Yes Status: Acute Code(s): J18.9 - PNEUMONIA, UNSPECIFIED ORGANISM SNOMED Code(s): 669776731 (3) History of atrial fibrillation less than 8 weeks after coronary artery bypass graft Current Visit: Yes Status: Acute Code(s): MNM0468 - SNOMED Code(s): 716077528131571
[2017-07-16] MEDS: INSULIN DETEMIR 100 UNIT/ML 10 ML VIAL SQ SCH (21:39)
[2017-07-17] MEDS: HYDROcodone/APAP 7.5-325MG 1 EACH TAB PO PRN ×3 (04:53→13:20)
[2017-07-17] MEDS: SODIUM CHLORIDE 0.9% 1,000 ML IV SCH (04:56)
[2017-07-17 06:04] LABS: Glucose,Whole Blood 85 mg/dL (75-99)
[2017-07-17] MEDS: INSULIN ASPART 100 UNIT/ML 1 ML 10 ML VIAL SQ SCH ×4 (06:26→13:19)
[2017-07-17] MEDS: PANTOPRAZOLE 40 MG TABLET PO SCH (06:58)
[2017-07-17] MEDS: IPRATROPIUM-ALBUTEROL 3 ML NEB INHALATION SCH ×2 (08:26→12:02)
[2017-07-17 08:44] VITALS: RESP 18
[2017-07-17] MEDS: ATORVASTATIN 40 MG TAB PO SCH (09:06)
[2017-07-17] MEDS: ASPIRIN 325 MG TAB PO SCH (09:06)
[2017-07-17] MEDS: METOPROLOL TARTRATE 25 MG TAB PO SCH (09:07)
[2017-07-17] MEDS: CLOPIDOGREL 75 MG TAB PO SCH (09:07)
[2017-07-17] MEDS: FUROSEMIDE 20 MG TAB PO SCH (09:07)
[2017-07-17] MEDS: guaiFENesin 600 MG TABLET.ER PO SCH (09:07)
[2017-07-17] MEDS: SERTRALINE 100 MG TAB PO SCH (09:08)
[2017-07-17] MEDS: HEPARIN SODIUM,PORCINE 5,000 UNIT/ML 1 ML VIAL SQ SCH (09:08)
--- NOTE | 2017-07-17 10:28 | P.PN ---
Subjective Progress Note Date: 07/17/17 Principal diagnosis: Acute hypoxic respiratory failure, secondary to left lung pneumonia and pleural effusion Progress note dated 07/02/2017 The patient continues to improve slowly. Radiographically, his chest x-ray has not changed all that much. Certainly not worse. Currently the patient is on the AIRVO at 65 L/m. He's had a saline IV at 50 mL an hour. The patient has a history of bilateral pneumonia with sepsis a history of asthma, diabetes, gastroesophageal reflux disease, hypertension, myocardial infarction and pneumonia. He also has a history of recent bypass grafting back on 05/22/[address] segment elevation myocardial infarction and legionnaires disease. He is a lifelong nonsmoker. His primary care physician is Dr. Gary Abreu. The patient apparently had a computed tomography scan late yesterday. I have not looked at it as yet. My partner expresses some concerns that he may have a loculated pleural effusion which need something more significantly done such as decortication. On 07/03/2017 patient remains in intensive care. Still requiring high flow nasal cannula, remains on AIRVO at FiO2 of 50% and 40 L/m flow. Afebrile, hemodynamically stable. Today's chest x-ray shows slight improvement in the aeration of the left upper lung with persistent confluent multifocal opacities representing multifocal pneumonia. Yesterday we have obtained a chest ultrasound to evaluate the complex and loculated left pleural effusion in the background of extensive left lung pneumonia. This was discussed with the interventional radiologist and cardiothoracic surgery. CT surgery feels the patient with benefit from a pigtail catheter insertion in the left pleural space and infusion of TPA over the next few days. This was discussed with the radiologist, who recommended getting a CT chest with contrast today. Otherwise patient is fairly comfortable, in no acute distress, respirations are shallow and tachypneic with a rate in the 30s. He is awake alert, tolerating a regular diet. His lab work shows upward trend of his WBCs, up to 17, hemoglobin is 9.0 , renal profile is stable, within normal limits no significant electrolyte abnormality. Blood and sputum culture show no growth, urine culture is positive for Vera albicans. ID service is on. Is on a combination of Levaquin, Zosyn and vancomycin. Currently not requiring any vasopressor support. On 07/04/2017 patient is seen in follow-up in intensive care unit. He is status post left pleural pigtail chest tube insertion with TPA infusion on 07/03. Patient had round 400 cc of milky yellow, purulent drainage in the atrium collection chamber since insertion. Clinically patient denies any acute distress, FiO2 was weaned down to 8 L per high flow nasal cannula. Blood sputum cultures remain negative, urine culture shows Vera albicans, pleural fluid culture was sent for culture as well and is pending. Patient will have another infusion of alteplase today per cardiothoracic surgery. Continues on empiric antibiotics with Levaquin, Zosyn and vancomycin. His IV fluids are 0.9 normal saline at 50 ML per hour. Patient's tolerating oral intake, on regular diet. Up in a chair, tolerating it well. Overall continues to significantly improve. On 07/08/2017 patient seen in follow-up on selective care unit. CT chest from this morning has been reviewed, shows left basilar pleural catheter in place with considerable decrease in size of the patient's previous left subpulmonic fluid collection, trace effusion remains. Permanent partial atelectasis and residual consolidation within the left lower lobe.(Second pleural-based collection along the lower left. She shows slight interval increase in size, ground glass and interstitial infiltrates in the midline is persistent show improvement from previous CT chest. Patient's left-sided pigtail has been noted to have moved, daily TPA infusions. There is small amount of serosanguineous drainage noted from the pigtail chest tube. He is afebrile, FiO2 is currently down to 6 L per high flow nasal cannula, vital signs are stable. Lung sounds are diminished, with a few scattered rales at left base. Cardiothoracic surgery has previously discussed decortication surgery left lung. Continue antibiotics per infectious disease recommendations. Continue encouraging incentive spirometry, increase activity as tolerated. On 07/09/2017 patient is seen in follow-up post left-sided thoracotomy with decortication by Dr. Tellez. Patient is sedated, he arrived back to the room at around 1430 per the spouse, was in significant amount of pain, and was given IV narcotics. Currently resting comfortably, somnolent, but arouses to verbal stimuli. Lung sounds are diminished, more so over the left lower lobe. There are 2 left-sided chest tubes why connected to an atrium, there is about 200 mL of serosanguineous output in the collection chamber. Patient is currently on 45 % Ventimask, with O2 sat at 93%. Vital signs are stable. Left-sided pigtail chest tube has been discontinued. Patient continues on Levaquin and vancomycin as well as Zosyn. Urine culture was positive for Vera, pleural fluid showed anaerobic species, Prevotella melaninogenica, and Proprionibacterium acnes. On 07/15/2017 patient is seen again in follow-up. He is status post thoracotomy and decortication for empyema area he is doing very well. Currently on room air, with a pulse ox at 99%. Remains afebrile hemodynamically stable. His chest tube was discontinued 2 days ago. Left posterior lower chest incision is clean dry and intact, jose david are intact. Microbiology results have been reviewed, pleural fluid culture from 07/03/2017 showed anaerobic species Prevotella melaninogenica and Proprionibacterium acnes. Tissue culture from 07/09/2017 showed Staphylococcus epidermidis. Fungal and anaerobic cultures collected during decortication on 07/09/2017 remain negative so far. Patient continues on IV Zosyn. He ambulated to the bathroom and back, tolerates it well, although remains generally weak. He was cleared for discharge from cardiothoracic standpoint. Chest x-ray from 2017 showed no significant interval change in the appearance of the chest. Remains stable from our standpoint and can be cleared for discharge pending recommendations from infectious disease recommendations regarding the length of treatment and the type of antibiotic. On 07/16/2017 patient seen again. Doing well, denies any specific complaints. Afebrile, vital signs are stable, on room air with O2 sat 95%. Lung sounds are coarse, positive for a few rhonchi, but good air entry bilaterally. Patient remains generally weak, but has been able to ambulate short distances in the room, tolerating it well. ID service has recommended switching the IV Zosyn to oral Augmentin, no new growth on the cultures. Anticipate discharge home tomorrow. On 07/17/2017 patient seen in follow-up. Continues to improve, sitting up in the chair, in no acute distress. He had been ambulating in the hallway, and in the room, tolerating activity well. He is afebrile, vital signs are stable. Davida on room air with pulse ox of 95%. Denies any difficulty breathing. Lung sounds are clear to auscultation. No rhonchi or wheezes noted. No cough. Incentive spirometer effort today is 750-1000 mL. Patient is expected to be discharged today on oral Augmentin. Still has a PICC line in the left upper arm. Per nursing report is still flushes well, but there is no blood return. Anticipate discontinuation of the PICC line. Objective - Vital Signs Vital signs: Vital Signs Temp 97.1 F L 07/17/17 07:45 Pulse 68 07/17/17 08:41 Resp 18 07/17/17 07:45 BP 119/65 07/17/17 07:45 Pulse Ox 95 07/17/17 07:45 Intake & Output 07/16/17 07/17/17 07/17/17 18:59 06:59 18:59 Intake Total 720 540 480 Output Total 600 900 325 Balance 120 -360 155 Weight 121.5 kg Intake: IV 300 Sodium Chloride 0.9% 1, 300 000 ml @ 50 mls/hr IV . Q20H NICHO Rx#:[id number] Oral 720 240 480 Output: Urine 600 900 325 Other: Voiding Method Urinal Urinal Urinal # Voids 3 # Bowel Movements 1 - Exam No acute distress, patient is currently sedated, resting in bed, status post left-sided thoracotomy with decortication HEENT examination is grossly unremarkable. Mucous membranes are moist. No oral lesions. Neck supple. Full range of motion. No adenopathy thyromegaly or neck vein distention. Cardiovascular examination reveals regular rhythm rate. S1-S2 normal. No S3 or S4. No discernible murmur noted. Lungs sounds: Breath sounds show diminished air entry over left lower base, clear on the right. .No wheezes. Left-sided chest tubes have been discontinued, left posterior chest wall incisions clean dry and intact, jose david are intact. Abdomen soft bowel sounds are heard. No masses or tenderness. Extremities are intact. No cyanosis clubbing or edema. Skin is without rash or lesion. Neurologic examination is brief but nonfocal - Labs CBC & Chem 7: 07/15/17 05:10 07/15/17 05:10 Labs: Abnormal Lab Results - Last 24 Hours (Table) 07/16/17 07/16/17 07/16/17 Range/Units 11:26 11:29 13:39 Retic Count (0.5-2.0) % POC Glucose (mg/dL) 195 H 152 H (75-99) mg/dL Iron 42 L (65-175) ug/dL 07/16/17 07/16/17 07/16/17 Range/Units 13:39 16:56 21:10 Retic Count 3.5 H (0.5-2.0) % POC Glucose (mg/dL) 115 H 136 H (75-99) mg/dL Iron (65-175) ug/dL Assessment and Plan Plan: Assessment: #1. Acute hypoxic respiratory failure secondary to extensive left lung multifocal pneumonia and left pleural effusion, present on admission. Patient is status post left thoracotomy with decortication, postop day 6. Left pigtail pleural chest tube catheter insertion, with TPA infusions has been discontinued on 07/09/2017. Pleural fluid cultures positive for Prevotella melaninogenica and Proprionibacterium acnes. Tissue culture from 07/09/2017 shows Staphylococcus epidermidis. Patient is currently on IV Zosyn. #2. Sepsis, with leukocytosis and fever, secondary to the empyema and cultures positive for anaerobic species, patient's intraoperative cultures showed coagulase-negative staph. Staph epidermidis, patient is currently on IV Zosyn. Resolved. #3. History of left-sided pleural effusion requiring thoracentesis and empyema requiring pigtail drainage, followed by left thoracotomy with decortication. Pleural fluid cultures positive for anaerobic species, Prevotella melaninogenica and Proprionibacterium acnes. Tissue culture positive for staph epidermidis. Patient was treated with IV Zosyn. #4. Coronary artery disease, status post 4 vessel coronary artery bypass grafting #5. COPD #6. Essential hypertension #7. Hyperlipidemia #8. GERD #9. Anxiety #10. Obesity Plan: Patient remains stable from pulmonary standpoint. No new growth on the cultures. Continue increasing activity as tolerated. Continue encouraging incentive spirometry use. Stable for discharge home today with antibiotics per ID recommendation. I performed a history & physical examination of the patient and discussed their management with my nurse practitioner, Janelle Chambers. I reviewed the nurse practitioner's note and agree with the documented findings and plan of care. Lung sounds are diminished. The findings and the impression was discussed with the patient. I attest to the documentation by the nurse practitioner. Time with Patient: Less than 30
[2017-07-17 11:39] VITALS: BP 108/62; TEMP 97.7
[2017-07-17 12:07] LABS: Glucose,Whole Blood 131 mg/dL (75-99)
--- NOTE | 2017-07-17 12:17 | P.PN ---
Subjective Progress Note Date: 07/17/17 Principal diagnosis: Left-sided pleural effusion, history of recent urgent coronary artery bypass grafting on 05/22/2017, non-ST elevation myocardial infarction, hypertension, hyperlipidemia, insulin-dependent diabetes mellitus, anxiety, family history of premature coronary artery disease, COPD, paroxysmal atrial fibrillation, left- sided thoracentesis on 05/30/2017 and left chest pigtail catheter placement with fluid cultures positive for all for hemolytic strep and enterococcuss faecalis, left lower lobe pneumonia requiring placement of PICC line for home IV antibiotic therapy, and obesity. The patient was admitted to the hospital on 06/30/2017, after presenting to the emergency department with complaints of increase in shortness of breath over the last several days, with worsening productive cough. The patient has been receiving outpatient IV antibiotic therapy per his PICC line for treatment of his left lower lobe pneumonia which is been managed by Dr. Nixon. POD #13, ultrasound-guided chest tube insertion. (Pigtail catheter), pigtail catheter was removed during the left thoracotomy with decortication surgery. Pigtail catheter was removed on 07/09/2017. POD #8, left thoracotomy with decortication. Patient is sitting up to the bedside chair. He is in no acute distress. He is alert and orientated 3. He is complaining of pain rated 4 out of 10 on the pain scale 2 his left thoracotomy incision site. He reports he ambulated in the [facility] care hallway yesterday 2 to the nurse's station and back to his room. His and he is at his bedside. He reports that he feels ready to be discharged home. Objective - Vital Signs Vital signs: Vital Signs Temp 97.7 F 07/17/17 11:15 Pulse 64 07/17/17 12:02 Resp 18 07/17/17 11:15 BP 108/62 07/17/17 11:15 Pulse Ox 93 L 07/17/17 11:15 Intake & Output 07/16/17 07/17/17 07/17/17 18:59 06:59 18:59 Intake Total 720 540 480 Output Total 600 900 325 Balance 120 -360 155 Weight 121.5 kg Intake: IV 300 Sodium Chloride 0.9% 1, 300 000 ml @ 50 mls/hr IV . Q20H NICHO Rx#:[id number] Oral 720 240 480 Output: Urine 600 900 325 Other: Voiding Method Urinal Urinal Urinal # Voids 3 # Bowel Movements 1 - Constitutional General appearance: Present: cooperative, no acute distress, obese - Neck Details: Neck is supple, no JVD, no lymphadenopathy. - Respiratory Details: Lungs sounds essentially clear throughout, diminished to his left lower lobe. Respirations are symmetrical and nonlabored. Oxygen saturation are 93% on room air. He is achieving 750-1000 mL on his incentive spirometry. Productive cough with guan colored tenacious sputum. - Cardiovascular Details: Regular rhythm and rate. S1 and S2 present, negative for S3, gallop or murmur. Sternum is stable. Remote telemetry showing a normal sinus rhythm heart rate 65. +1 edema to his right upper extremity and bilateral lower extremity Donald. Knee-high WALESKA hose and sequential compression devices in place was bilateral lower x-rays. Left antecubital PICC line intact and patent. - Gastrointestinal Gastrointestinal Comment(s): Abdomen is soft, nontender and nondistended. Active bowel sounds to all 4 abdominal quadrants. Bowel movement yesterday 07/16/2017. Tolerating oral intake. - Genitourinary Genitourinary Comment(s): Adequate urine output. Clear yellow urine. 325 mL output in the last 8 hours. - Integumentary Integumentary Comment(s): Skin pink, dry, warm and intact. Midline sternal incision and left leg EVH site healed. Left lateral chest wall incision clean dry and well approximated. No redness or drainage present. Taylor intact. - Neurologic Neurologic: Present: CNII-XII intact - Musculoskeletal Musculoskeletal: Present: gait normal, strength equal bilaterally - Psychiatric Psychiatric: Present: A&O x's 3, appropriate affect, intact judgment & insight - Allied health notes Allied health notes reviewed: nursing - Labs CBC & Chem 7: 07/15/17 05:10 07/15/17 05:10 Labs: Abnormal Lab Results - Last 24 Hours (Table) 07/16/17 07/16/17 07/16/17 Range/Units 13:39 13:39 16:56 Retic Count 3.5 H (0.5-2.0) % POC Glucose (mg/dL) 115 H (75-99) mg/dL Iron 42 L (65-175) ug/dL 07/16/17 07/17/17 Range/Units 21:10 12:05 Retic Count (0.5-2.0) % POC Glucose (mg/dL) 136 H 131 H (75-99) mg/dL Iron (65-175) ug/dL Assessment and Plan (1) History of atrial fibrillation less than 8 weeks after coronary artery bypass graft Current Visit: Yes Status: Acute Code(s): GSQ4678 - SNOMED Code(s): 521255942147358 (2) History of myocardial infarction Current Visit: Yes Status: Acute Code(s): I25.2 - OLD MYOCARDIAL INFARCTION SNOMED Code(s): 770132095 (3) Status post aorto-coronary artery bypass graft Current Visit: Yes Status: Acute Code(s): Z95.1 - PRESENCE OF AORTOCORONARY BYPASS GRAFT SNOMED Code(s): 969776505 (4) Anxiety Current Visit: Yes Status: Chronic Code(s): F41.9 - ANXIETY DISORDER, UNSPECIFIED SNOMED Code(s): 35980625 (5) Diabetes mellitus type 2 in obese Current Visit: Yes Status: Chronic Code(s): E11.69 - TYPE 2 DIABETES MELLITUS WITH OTHER SPECIFIED COMPLICATION; E66.9 - OBESITY, UNSPECIFIED SNOMED Code(s): 20194025 (6) Hyperlipidemia Current Visit: Yes Status: Chronic Code(s): E78.5 - HYPERLIPIDEMIA, UNSPECIFIED SNOMED Code(s): 73793238 (7) Hypertension Current Visit: Yes Status: Chronic Code(s): I10 - ESSENTIAL (PRIMARY) HYPERTENSION SNOMED Code(s): 58014344 (8) Obesity (BMI 30.0-34.9) Current Visit: Yes Status: Chronic Code(s): E66.9 - OBESITY, UNSPECIFIED SNOMED Code(s): 661887053 (9) Coronary artery disease Current Visit: No Status: Chronic Code(s): I25.10 - ATHSCL HEART DISEASE OF [place] CORONARY ARTERY W/O ANG PCTRS SNOMED Code(s): 10800466 (10) Left lower lobe pneumonia Current Visit: No Status: Acute Code(s): J18.1 - LOBAR PNEUMONIA, UNSPECIFIED ORGANISM SNOMED Code(s): 404954883 Plan: 1. Continue aspirin, heparin subcu, Plavix, statin, and beta ewa. 2. Increase activity as tolerated, ambulate in the hallway with assistance. Physical therapy and occupational therapy following. 3. Antibiotic management per infectious disease recommendations. Routine PICC line care. 4. Encourage use of his incentive spirometry every hour while awake. 5. Diabetic management per primary care service. 6. GI/DVT prophylaxis. 7. More recommendations to follow as patient progresses and care. Anticipate discharge home within the next 24. Time with Patient: Greater than 30
[2017-07-17 12:19] VITALS: PULSE 68
[2017-07-17] MEDS: ASCORBIC ACID 500 MG TAB PO SCH (13:20)
[2017-07-17] MEDS: FERROUS SULFATE 325 MG TAB PO SCH (13:20)
--- NOTE | 2017-07-17 18:03 | P.DS ---
Providers Date of admission: 06/30/17 11:45 Expected date of discharge: 07/17/17 Attending physician: Scott Abreu Consults: 06/30/17 11:47 Consult Physician Urgent Consulting Provider: Diego Nixon Consult Reason/Comments: sepsis Do you want consulting provider notified?: Yes 06/30/17 11:48 Consult Physician Urgent Consulting Provider: Benson Durand Consult Reason/Comments: dyspnea Do you want consulting provider notified?: Yes 06/30/17 12:11 Consult Physician Urgent Consulting Provider: Rufino Pugh Consult Reason/Comments: post op Do you want consulting provider notified?: Yes Primary care physician: Scott Abreu [facility] Course: 62 year old male who presented to the emergency room on 06/30/2017 with a chief complaint of shortness of breath that was worsening in severity x 1 week. Patient states he was having sputum production that was initially clear in color and then progressed to a greenish/yellow. The patient has a history of chronic obstructive disease, diabetes mellitus, gastroesophageal reflux disease, hypertension, myocardial infarction, pneumonia , STEMI in May 2017 with heart catheterization. He underwent CABG 4 in May 2017. Postoperatively, he had persistant left sided pleural effusion and required thoracentesis on 05/30/2017. Cultures from pleural fluid were positive for alpha hemolytic strep and enterococcus faecalis. He had a PICC line placed and was discharged home with IV antibiotic infusions. In the emergency room, a chest x-ray was completed which revealed worsening and now completely opacification of the left hemothorax which may related to pleural effusion and/or multifocal pneumonia. Patchy alveolar opacities within the right lower lung are also seen. EKG revealed sinus tachycardia. He was febrile with a temperature of 102.0 in the emergency room. He was found to be hypoxic with an oxygen saturation of 82% on room air. He was also tachycardic with a heart rate in the low 100s. Laboratory studies revealed a white count of 20.7, hemoglobin 10.6, INR 1.3, sodium 139, potassium 4.7, BUN 17, creatinine 0.58, lactic acid 1.7, AST 56, PLT 123, and alkaline phosphatase 159. Urinalysis reveals 1+ protein but otherwise unremarkable. Testing for influenza A and B was negative. Chest x-ray from 07/03/2017 shows slight improved aeration of the left upper lung with persistent confluent multifocal P cities representing multifocal pneumonia. He underwent a ultrasound of the chest on 07/02/2017 which revealed findings suggestive of a loculated effusion. Patient continued to be short of breath during hospitalization and required Airvo to maintain oxygen saturations greater than 92%. He underwent pigtail catheter insertion to left loculated effusion with daily TPA instilled into the catheter multiple times. He had a decent amount of amount from the pigtail catheter but his effusions remained on imaging and he was still short of breath. He also had some fluid overload and required IV lasix for a period of time. Patient underwent CT of the chest on 07/08/2017 which revealed decreased in size of left subpulmonic fluid collection with a trace pleural effusion remaining. A second pleural-based collection along the lower left major fissure shows increase in size, approximately 6 x 4 cm, ground glass and interstitial infiltrates in the upper mid lungs, small right pleural effusion, and 2.1 cm nodule lateral to the left breast which may be a possible sebaceous cyst. The decision was made by cardiothoracic surgery to take the patient for thoracotomy with decortication. The pigtail catheter was removed during this procedure. Infectious disease was consulted during hospitalization. He remained on multiple antibiotics during hospitalization. 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 He was discharged home on Augmentin per ID recommendations. The patient has improved greatly since surgery and his breathing has improved significantly. The patient was deemed stable for discharge per Dr. Abreu. He is to follow up on an outpatient basis. The patient is to have his jose david removed in one week by cardiothoracic surgery. He was given a handwritten prescription for [place] 10/325 mg 1 tablet every 4 hours when necessary for pain. Prescriptions were prescribed for Augmentin 875/125 BID for 10 days and Lasix 20 mg daily. He is to continue his NovoLog sliding scale at the time of discharge. He is being discharged with orders to administer 10 units of NovoLog in addition to sliding scale with meals and 32 units of Levemir at night. He may resume his metformin as well. 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, S/P left thoracotomy with decortication Acute hypoxic respiratory failure requiring supplemental oxygen, secondary to above Venous congestion and cardiomegaly with fluid overload, improved with IV Lasix Diabetes mellitus, type II, hemoglobin A1c 5.7% Coronary artery disease with previous myocardial infarction History of coronary artery bypass grafting 4 vessels History of left side pleural effusion requiring thoracentesis and empyema requiring pigtail drainage catheter with cultures positive for alpha hemolytic strep and enterococcus faecalis History of paroxysmal atrial fibrillation Chronic obstructive pulmonary disease Essential hypertension Hyperlipidemia Gastroesophageal reflux disease Anxiety, unspecified Obesity: BMI 31.2 Nurse practitioner note has been reviewed by physician. Signing provider agrees with the documented findings, assessment, and plan of care. Patient Condition at Discharge: Serious Plan - Discharge Summary Discharge Rx Participant: No New Discharge Prescriptions: New Furosemide [Lasix] 20 mg PO DAILY #30 tab Insulin Aspart [NovoLOG (formulary)] 10 unit SQ AC-TID vial Insulin Detemir [Levemir] 32 unit SQ HS syr Amoxic-Pot Clav 875-125Mg [Augmentin 875-125] 1 tab PO Q12HR #20 tablet HYDROcodone/APAP 10-325MG [[place] 10-325] 1 tab PO Q4HR PRN #30 tab PRN Reason: Pain Continue ALPRAZolam [Xanax] 0.25 mg PO BID PRN PRN Reason: Anxiety guaiFENesin [Mucinex] 1,200 mg PO Q12HR #60 tablet.er Ascorbic Acid [Vitamin C] 500 mg PO DAILY@1200 #30 tab Aspirin 325 mg PO DAILY #30 tab Atorvastatin [Lipitor] 40 mg PO DAILY #30 tab Clopidogrel [Plavix] 75 mg PO DAILY #30 tab Ferrous Sulfate [Iron (65 MG Elemental)] 325 mg PO W/LUNCH #30 tab Ipratropium-Albuterol Nebulize [Duoneb 0.5 mg-3 mg/3 ml Soln] 3 ml INHALATION RT-Q2H PRN #120 ampul.neb PRN Reason: Shortness Of Breath Or Wheezing metFORMIN HCL [Glucophage] 500 mg PO BID-W/MEALS #60 tab Metoprolol Tartrate [Lopressor] 75 mg PO BID #180 tab Pantoprazole [Protonix] 40 mg PO AC-BRKFST #30 tablet. Sertraline [Zoloft] 100 mg PO DAILY #30 tab Insulin Aspart [NovoLOG] See Protocol SQ AC-TID PRN PRN Reason: Blood Sugar - High CHLORPHEN-HYDROcod 8-10mg/5ml [Tussionex] 5 ml PO Q12HR Discontinued Amiodarone [Cordarone] 200 mg PO DAILY #30 tab Insulin Glargine,Hum.rec.anlog [Lantus Solostar] 25 unit SQ HS Insulin Aspart [NovoLOG] 8 units SQ AC-TID Discharge Medication List ALPRAZolam [Xanax] 0.25 mg PO BID PRN 05/21/17 [History] Ascorbic Acid [Vitamin C] 500 mg PO DAILY@1200 #30 tab 06/07/17 [Rx] Aspirin 325 mg PO DAILY #30 tab 06/07/17 [Rx] Atorvastatin [Lipitor] 40 mg PO DAILY #30 tab 06/07/17 [Rx] Clopidogrel [Plavix] 75 mg PO DAILY #30 tab 06/07/17 [Rx] Ferrous Sulfate [Iron (65 MG Elemental)] 325 mg PO W/LUNCH #30 tab 06/07/17 [Rx] Ipratropium-Albuterol Nebulize [Duoneb 0.5 mg-3 mg/3 ml Soln] 3 ml INHALATION RT -Q2H PRN #120 ampul.neb 06/07/17 [Rx] Metoprolol Tartrate [Lopressor] 75 mg PO BID #180 tab 06/07/17 [Rx] Pantoprazole [Protonix] 40 mg PO AC-BRKFST #30 tablet.dr 06/07/17 [Rx] Sertraline [Zoloft] 100 mg PO DAILY #30 tab 06/07/17 [Rx] guaiFENesin [Mucinex] 1,200 mg PO Q12HR #60 tablet.er 06/07/17 [Rx] metFORMIN HCL [Glucophage] 500 mg PO BID-W/MEALS #60 tab 06/07/17 [Rx] CHLORPHEN-HYDROcod 8-10mg/5ml [Tussionex] 5 ml PO Q12HR 06/30/17 [History] Insulin Aspart [NovoLOG] See Protocol SQ AC-TID PRN 06/30/17 [History] Amoxic-Pot Clav 875-125Mg [Augmentin 875-125] 1 tab PO Q12HR #20 tablet [Rx] Furosemide [Lasix] 20 mg PO DAILY #30 tab 07/17/17 [Rx] HYDROcodone/APAP 10-325MG [[place] 10-325] 1 tab PO Q4HR PRN #30 tab 07/17/17 [Rx] Insulin Aspart [NovoLOG (formulary)] 10 unit SQ AC-TID vial 07/17/17 [Rx] Insulin Detemir [Levemir] 32 unit SQ HS syr 07/17/17 [Rx] Follow up Appointment(s)/Referral(s): Diego Nixon MD [STAFF PHYSICIAN] - As Needed [facility], [NON-STAFF] - Mario Tellez MD [STAFF PHYSICIAN] - 07/26/17 12:15 pm Scott Abreu MD [Primary Care Provider] - 07/24/17 11:00 am (Saturday) El Barker MD [STAFF PHYSICIAN] - 07/26/17 10:50 am Ambulatory/Diagnostic Orders: Basic Metabolic Panel [LAB.AMB] Time Frame: 07/22/17, Location: Determined By Patient Complete Blood Count w/diff [LAB.AMB] Time Frame: 07/22/17, Location: Determined By Patient Patient Instructions/Handouts: Thoracotomy (DC) Activity/Diet/Wound Care/Special Instructions: No lifting, pushing, pulling more than 10 pounds for 4 more weeks. Continue with incentive spirometry 10 times every hour. Shower daily. No ointments, lotions, powders on incisions. Please notify surgeon/MANAGER INVENTORY for temperature greater than 101F or purulent drainage from incisions. Will remove jose david in Dr. Okeefe's office. Discharge Disposition: HOME WITH HOME HEALTH SERVICES
== END 2017-07-17 13:28 | disposition home health service (06) | DRG 853 ==
LOC: EC 09:35 → 6SEL 11:45 → 6ICU 12:45 → 6SEL 07-07 16:23
PROVIDERS: ADMIT Family Medicine; ATTEND Family Medicine
PROC: 0W9B30Z Drainage of Left Pleural Cavity with Drainage Device, Percutaneous Approach (ICD-10-PCS; 2017-07-03)
PROC: 3E0L3GC Introduction of Other Therapeutic Substance into Pleural Cavity, Percutaneous Approach (ICD-10-PCS; 2017-07-03)
PROC: 0BNL0ZZ Release Left Lung, Open Approach (ICD-10-PCS; principal; 2017-07-09 07:30)
DX: A41.9 Sepsis, unspecified organism (principal); A48.1 Legionnaires' disease; J96.01 Acute respiratory failure with hypoxia; J86.9 Pyothorax without fistula; I95.9 Hypotension, unspecified; J18.9 Pneumonia, unspecified organism; E66.01 Morbid (severe) obesity due to excess calories; J90 Pleural effusion, not elsewhere classified; J44.0 Chronic obstructive pulmonary disease with (acute) lower respiratory infection; J98.11 Atelectasis; E11.8 Type 2 diabetes mellitus with unspecified complications; I11.0 Hypertensive heart disease with heart failure; I48.0 Paroxysmal atrial fibrillation; I50.9 Heart failure, unspecified; D64.9 Anemia, unspecified; E78.5 Hyperlipidemia, unspecified; F41.1 Generalized anxiety disorder; I25.10 Atherosclerotic heart disease of native coronary artery without angina pectoris; I25.2 Old myocardial infarction; I48.2 Chronic atrial fibrillation; B95.0 Streptococcus, group A, as the cause of diseases classified elsewhere; B95.2 Enterococcus as the cause of diseases classified elsewhere; K21.9 Gastro-esophageal reflux disease without esophagitis; J98.2 Interstitial emphysema; M79.89 Other specified soft tissue disorders; Z68.31 Body mass index [BMI] 31.0-31.9, adult; Z95.1 Presence of aortocoronary bypass graft; Z79.02 Long term (current) use of antithrombotics/antiplatelets; Z79.4 Long term (current) use of insulin; Z79.82 Long term (current) use of aspirin; Z79.899 Other long term (current) drug therapy; Z86.14 Personal history of Methicillin resistant Staphylococcus aureus infection; Z87.01 Personal history of pneumonia (recurrent); Z90.49 Acquired absence of other specified parts of digestive tract; Z82.49 Family history of ischemic heart disease and other diseases of the circulatory system
CPT/HCPCS: 32551; 36415; 71045; 71046; 71250; 71260; 76604; 76942; 80048; 80053; 80202; 81001; 82664; 83036; 83540; 83550; 83605; 83735; 84100; 84439; 84443; 84478; 85025; 85027; 85045; 85610; 85730; 86850; 86900; 86901; 87040; 87070; 87075; 87077; 87086; 87102; 87186; 87205; 87502; 88305; 93005; 94640; 94760; 96361; 96365; 96366; 96367; 96368; 99291

== ENCOUNTER 2018-01-20 13:49 | Day surgery (SDC) | payer OTHER ==
[~2018-01-20 13:49] MED LIST: SODIUM CHLORIDE 0.9% 1,000 ML IV SCH
[2018-01-20] MEDS ORDERED: ceFAZolin 1,000 MG in SODIUM CHLORIDE 0.9% IRRIGATIO 250 ML IRRIGATION ONE (14:00)
[2018-01-20] MEDS ORDERED: ceFAZolin IN SWFI 2 GM/20 ML SYRINGE IVP ONE (14:00)
[2018-01-20 14:56] LABS: Basophils % (A) 0 %; Eosinophils # (A) 0.1 k/uL (0-0.7); Eosinophils % (A) 1 %; HCT 40.8 % (39.0-53.0); HGB 13.4 gm/dL (13.0-17.5); Lymphocytes # (A) 3.1 k/uL (1.0-4.8); Lymphocytes % (A) 30 %; MCH 25.8 pg (25.0-35.0); MCHC 32.9 g/dL (31.0-37.0); MCV 78.6 fL (80.0-100.0); Mean Platelet Volume 6.7; Monocytes # (A) 0.6 k/uL (0-1.0); Monocytes % (A) 6 %; Neutrophils # (A) 6.3 k/uL (1.3-7.7); Neutrophils % (A) 61 %; Platelet Count 233 k/uL (150-450); RBC 5.18 m/uL (4.30-5.90); RDW 15.3 % (11.5-15.5); WBC 10.4 k/uL (3.8-10.6)
[2018-01-20 15:02] LABS: Glucose,Whole Blood 121 mg/dL (75-99)
[2018-01-20 15:07] LABS: Anion Gap 9 mmol/L; Blood Urea Nitrogen 27 mg/dL (9-20); Calcium 9.5 mg/dL (8.4-10.2); Carbon Dioxide 26 mmol/L (22-30); Chloride 107 mmol/L (98-107); Glucose 110 mg/dL (74-99); Potassium 4.5 mmol/L (3.5-5.1); Sodium 142 mmol/L (137-145)
[2018-01-20] MEDS ORDERED: MIDAZOLAM 2 MG/2 ML VIAL ONE (15:08)
[2018-01-20] MEDS ORDERED: fentaNYL (PF) 50 MCG/ML 2 ML AMP ONE (15:08)
[2018-01-20] MEDS ORDERED: PROPOFOL 10 MG/ML 20 ML VIAL IV ONE (15:08)
[2018-01-20] MEDS ORDERED: IOPAMIDOL-250 50ML BTL IV ONE (15:21)
[2018-01-20] MEDS ORDERED: LIDOCAINE 1% INJ 10MG/ML (20 ML MDV) SQ ONE (15:51)
[2018-01-20] MEDS ORDERED: ACETAMINOPHEN TAB 325 MG TAB PO PRN (17:19)
[2018-01-20] MEDS ORDERED: ACETAMINOPHEN IV (For NPO) 1,000 MG in EMPTY BAG 1 BAG IVPB ONE (17:30)
--- NOTE | 2018-01-20 17:50 | CE ---
CARDIAC ELECTROPHYSIOLOGY REPORT Mir Jean Baptiste is a 62-year-old male patient with known ischemic cardiomyopathy, congestive heart failure, class 2, sick sinus syndrome, coronary artery disease, old ID, ischemic cardiomyopathy, ejection fraction 30%, that has not improved despite medical treatment. He was brought in for dual-chamber ICD implantation for primary prevention of sudden cardiac and management of sick sinus syndrome. Patient was brought to the EP lab in a fasting state. Written informed consent was obtained prior to the procedure. The left shoulder area was prepped and draped as per protocol. Lidocaine 1% was used for local anesthesia. A 4 cm incision was made parallel to the deltopectoral groove, about 1.5 cm medial to it. The incision was carried down to the level of the pectoralis muscle. A subfascial pocket was made. Hemostasis was assured. The left axillary vein was accessed at 2 separate points under fluoroscopy, and via appropriately sized introducer sheaths, 2 leads were positioned in the right heart. The atrial lead was a 52 cm Medtronic model #[id number], serial number [id number]. This was screwed to the right atrial appendage. P-waves were 3.5 mV. Pacing impedance 956 ohms. Pacing threshold 0.9 V at 0.5 milliseconds. Ten-volt test was negative. The RV lead was positioned in the mid RV septum using a Mond stylet. Current of injury protocol was followed. R-wave 6.3 mV. Pacing impedance 708 ohms. Pacing threshold 1.3 V at 0.5 milliseconds, which quickly improved following closure device. The leads were secured to the underlying pectoralis fascia using 2 non-absorbable sutures. Pocket was irrigated with antibiotic solution. Leads were connected to the generator (Medtronic model number [id number], serial number [id number]). Leads and the generator were then placed in the subfascial pocket and the wound was closed in 3 layers and dressed per protocol. RESULT: Successful dual-chamber ICD implantation for primary prevention of sudden cardiac . PLAN: Maximize beta blockers now. MMODL / IJN: [id number] /
[2018-01-20 18:42] VITALS: BMI 31.7
[2018-01-20] MEDS: INSULIN ASPART 100 UNIT/ML 1 ML 10 ML VIAL SQ SCH (20:17)
[2018-01-20 20:20] LABS: Glucose,Whole Blood 184 mg/dL (75-99)
[2018-01-20] MEDS ORDERED: INSULIN DETEMIR 100 UNIT/ML 10 ML VIAL SQ SCH (21:00)
[2018-01-20] MEDS: ceFAZolin IN SWFI 2 GM/20 ML SYRINGE IVP SCH (21:22)
[2018-01-21 00:05] VITALS: RESP 16
[2018-01-21] MEDS: ceFAZolin IN SWFI 2 GM/20 ML SYRINGE IVP SCH ×3 (03:35→16:21)
[2018-01-21] MEDS: HYDROcodone/APAP 5-325MG 1 EACH TAB PO PRN ×3 (03:37→13:42)
[2018-01-21 06:38] LABS: Glucose,Whole Blood 93 mg/dL (75-99)
[2018-01-21 07:02] LABS: Anion Gap 8 mmol/L; Blood Urea Nitrogen 24 mg/dL (9-20); Calcium 9.2 mg/dL (8.4-10.2); Carbon Dioxide 29 mmol/L (22-30); Chloride 106 mmol/L (98-107); Cholesterol 138 mg/dL (<200); Glucose 97 mg/dL (74-99); HDL Cholesterol 24 mg/dL (40-60); LDL Cholesterol,Calculated 72 mg/dL (0-99); Potassium 4.5 mmol/L (3.5-5.1); Sodium 143 mmol/L (137-145); Triglycerides 208 mg/dL (<150)
[2018-01-21] MEDS ORDERED: PANTOPRAZOLE 40 MG TABLET PO SCH (07:30)
[2018-01-21] MEDS: INSULIN ASPART 100 UNIT/ML 1 ML 10 ML VIAL SQ SCH (08:35)
[2018-01-21] MEDS ORDERED: ATORVASTATIN 40 MG TAB PO SCH (09:00)
[2018-01-21] MEDS ORDERED: SERTRALINE 100 MG TAB PO SCH (09:00)
[2018-01-21] MEDS ORDERED: CLOPIDOGREL 75 MG TAB PO SCH (09:00)
[2018-01-21] MEDS ORDERED: ASPIRIN 81 MG PO SCH (09:00)
[2018-01-21] MEDS ORDERED: METOPROLOL SUCCINATE (ER) 100 MG TAB.ER.24H PO SCH (09:00)
[2018-01-21] MEDS ORDERED: LOSARTAN 25 MG TAB PO SCH (12:00)
--- NOTE | 2018-01-21 12:14 | XR ---
EXAMINATION TYPE: XR chest 2V DATE OF EXAM: 01/21/2018 COMPARISON: 07/14/2017 INDICATION: Lead placement check TECHNIQUE: Frontal and lateral views of the chest are obtained. FINDINGS: The heart size is normal. The pulmonary vasculature is normal. The lungs are clear. 2-lead pacemaker is placed over the left chest. No pneumothorax is evident. Leads are in atypical keyanna entation. IMPRESSION: 1. No acute pulmonary process. Previous left lower lobe infiltrate has resolved. 2. No pneumothorax post pacemaker placement.
[2018-01-21 12:16] LABS: Glucose,Whole Blood 102 mg/dL (75-99)
--- NOTE | 2018-01-21 15:01 | P.DS ---
Providers Attending physician: Gene Aleman Primary care physician: Scott Bethesda Hospital Course: Patient is doing well. He denies any chest discomfort dizziness lightheadedness or palpitations. He has received 3 of 4 dose of antibiotics did his chest x-ray is within normal limits no pneumothorax. His defibrillator was interrogated and is functioning normally P waves 1.4 mV R waves 8.8 mV excellent pacing threshold Heart sounds are normal no murmurs or gallops no rub Breath sounds are clear no rhonchi no crackles Abdomen is soft nontender Extremity warm no edema ICD site is healed well there is no hematoma no swelling no soakage Impression Ischemic cardio myopathy, CAD, old DC, coronary artery bypass grafting Severe LV dysfunction ejection fraction 30% No improvement despite medical treatment Sick sinus syndrome Suggest Maximize beta blockers and angiotensin was at blockers continue all other cardiac medications and follow Impression and the device clinic as per the discharge papers. He will be discharged home after completion of his IV antibiotics Patient Condition at Discharge: Stable Plan - Discharge Summary Discharge Rx Participant: Yes New Discharge Prescriptions: New RX: Losartan [Cozaar] 25 mg PO DAILY #90 tab RX: Metoprolol Succinate [Toprol XL] 100 mg PO DAILY #90 tab.er.24h Discontinued RX: Metoprolol Tartrate [Lopressor] 75 mg PO DAILY No Action RX: ALPRAZolam [Xanax] 0.25 mg PO DAILY PRN PRN Reason: Anxiety RX: Ascorbic Acid [Vitamin C] 500 mg PO DAILY@1200 #30 tab RX: Atorvastatin [Lipitor] 40 mg PO DAILY #30 tab RX: Clopidogrel [Plavix] 75 mg PO DAILY #30 tab RX: Ferrous Sulfate [Iron (65 MG Elemental)] 325 mg PO W/LUNCH #30 tab RX: Ipratropium-Albuterol Nebulize [Duoneb 0.5 mg-3 mg/3 ml Soln] 3 ml INHALATION RT-Q2H PRN #120 ampul.neb PRN Reason: Shortness Of Breath Or Wheezing RX: Pantoprazole [Protonix] 40 mg PO AC-BRKFST #30 tablet.dr RX: Sertraline [Zoloft] 100 mg PO DAILY #30 tab Insulin Glargine [Lantus] 32 unit SQ HS RX: Insulin Aspart [NovoLOG (formulary)] 10 unit SQ BID RX: Aspirin 81 mg PO DAILY Discharge Medication List RX: ALPRAZolam [Xanax] 0.25 mg PO DAILY PRN 05/21/17 [History] RX: Ascorbic Acid [Vitamin C] 500 mg PO DAILY@1200 #30 tab 06/07/17 [Rx] RX: Atorvastatin [Lipitor] 40 mg PO DAILY #30 tab 06/07/17 [Rx] RX: Clopidogrel [Plavix] 75 mg PO DAILY #30 tab 06/07/17 [Rx] RX: Ferrous Sulfate [Iron (65 MG Elemental)] 325 mg PO W/LUNCH #30 tab 06/07/17 [Rx] RX: Ipratropium-Albuterol Nebulize [Duoneb 0.5 mg-3 mg/3 ml Soln] 3 ml INHALATION RT-Q2H PRN #120 ampul.neb 06/07/17 [Rx] RX: Pantoprazole [Protonix] 40 mg PO AC-BRKFST #30 tablet. 06/07/17 [Rx] RX: Sertraline [Zoloft] 100 mg PO DAILY #30 tab 06/07/17 [Rx] Insulin Glargine [Lantus] 32 unit SQ HS 01/16/18 [History] RX: Aspirin 81 mg PO DAILY 01/16/18 [History] RX: Insulin Aspart [NovoLOG (formulary)] 10 unit SQ BID 01/16/18 [History] RX: Losartan [Cozaar] 25 mg PO DAILY #90 tab 01/20/18 [Rx] RX: Metoprolol Succinate [Toprol XL] 100 mg PO DAILY #90 tab.er.24h 01/20/18 [Rx ] Follow up Appointment(s)/Referral(s): Gene Aleman MD [STAFF PHYSICIAN] - 01/29/18 11:00 am (Device clinic follow-up in 5 days Follow-up with Dr. López in 3 months ) Activity/Diet/Wound Care/Special Instructions: PATIENT EDUCATION MATERIAL Instructions following a heart rhythm device implant. 1. Keep dressing DRY for 5 DAYS. You may cover the area with Saran or Cling Wrap, prior to a shower. 2. The dressing will be removed in the Device Clinic at [facility]. Absorbable sutures were used to close the wound. 3. Avoid raising the left arm above the shoulder level. 4 week restriction 4. Avoid arm movements, like backscratching, rubbing the head, or pulling on a cord. 4 weeks restriction 5. Gentle range of motion movements of the shoulder, closest to the incision should be performed to avoid a frozen shoulder. (Pendulum exercises of the shoulder) 6. The opposite arm may be used freely. 7. Avoid driving for 7 days. 8. Avoid activities such as golfing, swimming, weed whacking, lifting more than 10 pounds weight, bowling, gymnastics and weight training/lifting. (6 weeks restriction) 9. Activities such as wood chopping with an axe, pull-ups in the gymnasium, power lifting, arc-welding, being close to home induction cooktops will always be a problem. 10. Arm sling is a only a reminder not to raise the arm above the head. However you do not need to keep the arm completely immobilized. Your free to move the arm and use it and for normal activities. In case of any problems, please call [facility], [place], @ [phone], Attention: Device Clinic Device clinic follow-up in 5 days Follow-up with primary photovoltaic testing technician in 2-3 months Discharge Disposition: HOME SELF-CARE
[2018-01-21 15:20] VITALS: BP 145/72; PULSE 61; TEMP 97.7
== END 2018-01-21 16:45 | disposition home or self-care (01) ==
LOC: CATHEP 13:49 → 3OBS 16:50 → CATHEP 01-21 16:45
PROVIDERS: ATTEND Internal Medicine Clinical Cardiac Electrophysiology
DX: I49.5 Sick sinus syndrome (principal); I25.5 Ischemic cardiomyopathy; I25.10 Atherosclerotic heart disease of native coronary artery without angina pectoris; Z00.6 Encounter for examination for normal comparison and control in clinical research program; I11.0 Hypertensive heart disease with heart failure; I50.22 Chronic systolic (congestive) heart failure; I48.0 Paroxysmal atrial fibrillation; E11.9 Type 2 diabetes mellitus without complications; Z82.49 Family history of ischemic heart disease and other diseases of the circulatory system; Z95.1 Presence of aortocoronary bypass graft; Z79.02 Long term (current) use of antithrombotics/antiplatelets; Z79.82 Long term (current) use of aspirin; Z79.899 Other long term (current) drug therapy
CPT/HCPCS: 33249; 80048 ×2; 80061; 85025; 71046; C1769 ×4; C1892; C1898; C1895; C1721; J2250; J0690 ×3; J2001; J3010; J0131; J2704; Q9966

== ENCOUNTER → 2018-04-21 | Outpatient (CLI) | payer MEDICARE, OTHER ==
[2018-04-21 15:45] LABS: HCT 42.8 % (39.0-53.0); HGB 14.2 gm/dL (13.0-17.5); MCH 26.6 pg (25.0-35.0); MCHC 33.3 g/dL (31.0-37.0); MCV 79.9 fL (80.0-100.0); Mean Platelet Volume 6.8; Platelet Count 210 k/uL (150-450); RBC 5.36 m/uL (4.30-5.90); RDW 14.4 % (11.5-15.5)
[2018-04-21 16:06] LABS: Anion Gap 8 mmol/L; Blood Urea Nitrogen 23 mg/dL (9-20); Carbon Dioxide 27 mmol/L (22-30); Chloride 107 mmol/L (98-107); Glucose 117 mg/dL (74-99); Potassium 5.1 mmol/L (3.5-5.1); Sodium 142 mmol/L (137-145)
== END ==
LOC: LABPAT 15:03
PROVIDERS: ATTEND Internal Medicine Clinical Cardiac Electrophysiology
DX: Z01.812 Encounter for preprocedural laboratory examination (principal); I50.22 Chronic systolic (congestive) heart failure; I48.0 Paroxysmal atrial fibrillation
CPT/HCPCS: 36415; 80051; 82565; 82947; 84520; 85027

== ENCOUNTER 2018-04-24 06:11 | Day surgery (SDC) | payer MEDICARE, OTHER ==
[2018-04-18 16:13] VITALS: BMI 31.4
[2018-04-24 06:28] VITALS: TEMP 97.7
[2018-04-24 06:35] LABS: Glucose,Whole Blood 128 mg/dL (75-99)
[2018-04-24] MEDS ORDERED: PROPOFOL 10 MG/ML 20 ML VIAL IV ONE (07:15)
[2018-04-24] MEDS ORDERED: LIDOCAINE 1% INJ 10MG/ML (20 ML MDV) ONE (07:15)
[2018-04-24] MEDS ORDERED: MIDAZOLAM 2 MG/2 ML VIAL ONE (07:15)
[2018-04-24] MEDS ORDERED: fentaNYL (PF) 50 MCG/ML 2 ML AMP ONE (07:15)
--- NOTE | 2018-04-24 08:15 | P.PCN ---
Preoperative Diagnosis: Diagnosis cardiomyopathy CHF Status post dual-chamber ICD Medtronic ICD was interrogated. Atrial pacing threshold 0.5 V at 0.5 ms P waves 1.9 mV Atrial pacing impedance 456 ohms RV pacing threshold 0.5 V at 0.5 ms R waves 12.3 mV Pacing impedance 437 ohms Defibrillation impedance, RV coil 60 ohms A shock and T wave protocol was used to induce for atrial fibrillation. This was adequately and appropriately detected at least sensitivity and successfully internally defibrillated with 10 J shock. Charge time 1.95 seconds shocking impedance 67 ohms no post shock noise The device was then reprogrammed to 2 zones of therapy. VT zone 176 beats a minute VF zone 240 beats a minute long detection intervals programmed Base pacing rate changed to 50 bpm Appropriate antitachycardia pacing cardioversion and defibrillation programmed Result Normal ICD function, dual-chamber DFT at about 10 J Suggest To current medications without any changes Follow-up in the device clinic in 4 months and follow with Dr. López in 4-6 months Anesthesia: MAC
[2018-04-24 08:17] VITALS: RESP 16
[2018-04-24 08:49] VITALS: BP 118/82; PULSE 62
== END 2018-04-24 08:56 | disposition home or self-care (01) ==
LOC: CATHEP 06:11
PROVIDERS: ATTEND Internal Medicine Clinical Cardiac Electrophysiology
DX: Z45.02 Encounter for adjustment and management of automatic implantable cardiac defibrillator (principal); I25.5 Ischemic cardiomyopathy; I11.0 Hypertensive heart disease with heart failure; I50.22 Chronic systolic (congestive) heart failure; I25.10 Atherosclerotic heart disease of native coronary artery without angina pectoris; I49.5 Sick sinus syndrome; I45.89 Other specified conduction disorders; I48.0 Paroxysmal atrial fibrillation; E11.9 Type 2 diabetes mellitus without complications; I25.2 Old myocardial infarction; E78.5 Hyperlipidemia, unspecified; J44.9 Chronic obstructive pulmonary disease, unspecified; F41.9 Anxiety disorder, unspecified; F32.9 Major depressive disorder, single episode, unspecified; Z95.1 Presence of aortocoronary bypass graft; Z79.02 Long term (current) use of antithrombotics/antiplatelets; Z79.82 Long term (current) use of aspirin; Z79.4 Long term (current) use of insulin; Z79.899 Other long term (current) drug therapy; Z82.49 Family history of ischemic heart disease and other diseases of the circulatory system
CPT/HCPCS: 93642; J2250; J2001; J3010; J2704

== ENCOUNTER 2022-05-29 05:58 | Emergency (ER) | payer MEDICARE ==
[2022-05-29 06:17] VITALS: TEMP 97.9
[2022-05-29] MEDS ORDERED: SODIUM CHLORIDE 0.9% 1,000 ML IV ONE ×2 (06:19→07:31)
[2022-05-29] MEDS ORDERED: ONDANSETRON 4 MG/2 ML VIAL IVP STA (06:19)
[2022-05-29] MEDS ORDERED: FAMOTIDINE 20 MG/2 ML VIAL IV STA (06:19)
--- NOTE | 2022-05-29 06:30 | ED ---
General Adult HPI - General Chief complaint: Nausea/Vomiting/Diarrhea Stated complaint: Weakness, cough, covid+ Time Seen by Provider: 05/29/22 06:09 Source: patient, EMS, RN notes reviewed Mode of arrival: EMS - History of Present Illness Initial comments: 67-year-old male with past medical history of HTN and DM TII coming into the emergency department for nausea and vomiting x 2 days. He tested positive for COVID on 05/21/2022, was given Paxlovid and after completing the course of his Paxil and he is complaining vomiting and nausea. He has not tried anything for his symptoms. Nothing has made it better. He denies chest pain, palpitations, shortness of breath, abdominal pain, hematochezia, melena. - Related Data Home Medications Medication Instructions Recorded Confirmed ALPRAZolam [Xanax] 0.25 mg PO DAILY PRN 05/21/17 04/24/18 Aspirin 81 mg PO DAILY 01/16/18 04/24/18 INSULIN ASPART (NovoLOG) [NovoLOG 10 unit SQ BID 01/16/18 04/24/18 (formulary)] Insulin Glargine [Lantus Vial] 32 unit SQ HS 01/16/18 04/24/18 Ipratropium-Albuterol Nebulize 3 ml INHALATION HS 04/18/18 04/24/18 [Duoneb 0.5 mg-3 mg/3 ml Soln] Ascorbic Acid [Vitamin C] 500 mg PO DAILY 04/24/18 04/24/18 Previous Rx's Medication Instructions Recorded Atorvastatin [Lipitor] 40 mg PO DAILY #30 tab 06/07/17 Clopidogrel [Plavix] 75 mg PO DAILY #30 tab 06/07/17 Pantoprazole [Protonix] 40 mg PO AC-BRKFST #30 tablet.dr 06/07/17 Sertraline [Zoloft] 100 mg PO DAILY #30 tab 06/07/17 Losartan [Cozaar] 25 mg PO DAILY #90 tab 01/20/18 Metoprolol Succinate [Toprol XL] 100 mg PO DAILY #90 tab.er.24h 01/20/18 Allergies Allergy/AdvReac Type Severity Reaction Status Date / Time No Known Allergies Allergy Verified 05/29/22 06:17 Review of Systems ROS Statement: Those systems with pertinent positive or pertinent negative responses have been documented in the HPI. ROS Other: All systems not noted in ROS Statement are negative. Past Medical History Past Medical History: Asthma, Coronary Artery Disease (CAD), COPD, Diabetes Mellitus, GERD/Reflux, Hypertension, Myocardial Infarction ([place]), Pneumonia Additional Past Medical History / Comment(s): see Dr Aleman's H&P Last Myocardial Infarction Date:: 05/21/17 History of Any Multi-Drug Resistant Organisms: None Reported Date of last positivie culture/infection: None MDRO Source:: None Past Surgical History: Adenoidectomy, AICD, Cholecystectomy, Coronary Bypass/CABG, Tonsillectomy Additional Past Surgical History / Comment(s): quadruple bypass 06/02, thoracentesis 07/04, PICC line placement and then removed. Past Anesthesia/Blood Transfusion Reactions: No Reported Reaction Type of Cardiac Device: AICD Device Placement Date:: 01/20/18 Past Psychological History: Anxiety Smoking Status: Never smoker Past Alcohol Use History: None Reported Past Drug Use History: None Reported - Past Family History Father Family Medical History: Coronary Artery Disease (CAD) Additional Family Medical History / Comment(s): Myocardial infarction in his early 40s Mother Family Medical History: Deep Vein Thrombosis (DVT) General Exam General appearance: alert, in no apparent distress Head exam: Present: atraumatic, normocephalic, normal inspection Eye exam: Present: normal appearance, PERRL, EOMI. Absent: scleral icterus, conjunctival injection, periorbital swelling ENT exam: Present: normal exam, mucous membranes moist Neck exam: Present: normal inspection. Absent: tenderness, meningismus, lymphadenopathy Respiratory exam: Present: normal lung sounds bilaterally. Absent: respiratory distress, wheezes, rales, rhonchi, stridor Cardiovascular Exam: Present: regular rate, normal rhythm, tachycardia, normal heart sounds. Absent: systolic murmur, diastolic murmur, rubs, gallop, clicks GI/Abdominal exam: Present: soft, normal bowel sounds. Absent: distended, tenderness, guarding, rebound, rigid, diminished bowel sounds, hyperactive bowel sounds Extremities exam: Present: normal inspection, full ROM, normal capillary refill. Absent: tenderness, pedal edema, joint swelling, calf tenderness Back exam: Present: normal inspection Neurological exam: Present: alert, oriented X3, CN II-XII intact Psychiatric exam: Present: normal affect, normal mood Skin exam: Present: warm, dry, intact, normal color. Absent: rash Course Vital Signs 05/29/22 05/29/22 06:09 07:24 Temperature 97.9 F Pulse Rate 112 H 103 H Respiratory 20 18 Rate Blood Pressure 127/104 105/73 O2 Sat by Pulse 100 100 Oximetry - Reevaluation(s) Reevaluation #1: 05/29/22 07:45 Pt reevaluated. Pt admits to nausea improvement. Additional orders placed based on initial labwork. Medical Decision Making - Medical Decision Making 37-year-old male coming into the emergency department for nausea, vomiting, diarrhea. He is COVID positive. Patient was seen and evaluated in the emergency department. Lab work and chest x-ray were ordered. WBC 15.0, HgB 15.6, CMP unremarkable, lipase 242, lactic acid 3.7 likely secondary to dehydration this patient is afebrile and has no signs of infection. I interpreted the following: Chest x-ray hyperinflation consistent with COPD, no evidence of consolidation or efffusion. She was given 2 L of IV fluids, Zofran, Pepcid with symptomatic relief in the ER. I discussed the results in detail with the patient all questions addressed. Patient discharged in stable condition. Case discussed with Dr. Putnam is and agreeable to plan. - Lab Data Result diagrams: 05/29/22 06:37 05/29/22 06:37 Lab Results 05/29/22 05/29/22 05/29/22 Range/Units 06:37 06:37 06:37 WBC 15.0 H (3.8-10.6) k/uL RBC 5.65 (4.30-5.90) m/uL Hgb 15.9 (13.0-17.5) gm/dL Hct 47.2 (39.0-53.0) % MCV 83.5 (80.0-100.0) fL MCH 28.2 (25.0-35.0) pg MCHC 33.8 (31.0-37.0) g/dL RDW 13.8 (11.5-15.5) % Plt Count 307 (150-450) k/uL MPV 7.8 Neutrophils % 77 % Lymphocytes % 16 % Monocytes % 5 % Eosinophils % 0 % Basophils % 0 % Neutrophils # 11.5 H (1.3-7.7) k/uL Lymphocytes # 2.5 (1.0-4.8) k/uL Monocytes # 0.8 (0-1.0) k/uL Eosinophils # 0.0 (0-0.7) k/uL Basophils # 0.0 (0-0.2) k/uL Sodium 137 (137-145) mmol/L Potassium 5.0 (3.5-5.1) mmol/L Chloride 101 (98-107) mmol/L Carbon Dioxide 25 (22-30) mmol/L Anion Gap 11 mmol/L BUN 22 H (9-20) mg/dL Creatinine 0.92 (0.66-1.25) mg/dL Est GFR (CKD-EPI)AfAm >90 (>60 ml/min/1.73 sqM) Est GFR (CKD-EPI)NonAf 85 (>60 ml/min/1.73 sqM) Glucose 198 H (74-99) mg/dL Plasma Lactic Acid Kashif 3.7 H* (0.7-2.0) mmol/L Calcium 10.2 (8.4-10.2) mg/dL Total Bilirubin 0.9 (0.2-1.3) mg/dL AST 73 H (17-59) U/L ALT 132 H (4-49) U/L Alkaline Phosphatase 84 (38-126) U/L Total Protein 7.0 (6.3-8.2) g/dL Albumin 4.4 (3.5-5.0) g/dL Lipase 242 (23-300) U/L Disposition Clinical Impression: Dehydration, COVID-19 Disposition: HOME SELF-CARE Condition: Stable Instructions (If sedation given, give patient instructions): Acute Nausea and Vomiting (ED) Additional Instructions: Please return to the ER if worsening symptoms of cough, shortness of breath, fever Is patient prescribed a controlled substance at d/c from ED?: No Referrals: El Barker MD [Primary Care Provider] - 1-2 days
[2022-05-29 07:05] LABS: Basophils % (A) 0 %; Eosinophils % (A) 0 %; HCT 47.2 % (39.0-53.0); HGB 15.9 gm/dL (13.0-17.5); Lymphocytes # (A) 2.5 k/uL (1.0-4.8); Lymphocytes % (A) 16 %; MCH 28.2 pg (25.0-35.0); MCHC 33.8 g/dL (31.0-37.0); MCV 83.5 fL (80.0-100.0); Mean Platelet Volume 7.8; Monocytes # (A) 0.8 k/uL (0-1.0); Monocytes % (A) 5 %; Neutrophils # (A) 11.5 k/uL (1.3-7.7); Neutrophils % (A) 77 %; Platelet Count 307 k/uL (150-450); RBC 5.65 m/uL (4.30-5.90); RDW 13.8 % (11.5-15.5)
[2022-05-29 07:13] LABS: ALT 132 U/L (4-49); AST 73 U/L (17-59); African American GFR (CKD) >90 (>60 ml/min/1.73 sqM); Albumin 4.4 g/dL (3.5-5.0); Alkaline Phosphatase 84 U/L (38-126); Anion Gap 11 mmol/L; Blood Urea Nitrogen 22 mg/dL (9-20); Calcium 10.2 mg/dL (8.4-10.2); Carbon Dioxide 25 mmol/L (22-30); Chloride 101 mmol/L (98-107); Glucose 198 mg/dL (74-99); Lipase 242 U/L (23-300); Non-African American GFR(CKD) 85 (>60 ml/min/1.73 sqM); Sodium 137 mmol/L (137-145); Total Bilirubin 0.9 mg/dL (0.2-1.3)
[2022-05-29 07:25] VITALS: BP 105/73; PULSE 103; RESP 18
--- NOTE | 2022-05-29 08:00 | XR ---
EXAMINATION TYPE: XR chest 2V DATE OF EXAM: 05/29/2022 COMPARISON: 01/21/18 HISTORY: Shortness of breath TECHNIQUE: Frontal and lateral views of the chest are obtained. FINDINGS: Scattered senescent parenchymal changes noted. Hyperinflation compatible with COPD. No evidence for infiltrate. No evidence for atelectasis. Heart size is stable. Mediastinal structures are stable and grossly unremarkable. No evidence for hilar prominence. Degenerative changes dorsal spine. IMPRESSION: 1. No evidence for acute pulmonary disease.
[2022-05-29] MEDS ORDERED: ONDANSETRON 4 MG ODT STARTER PACK 2 TAB BTL PO STA (08:34)
== END 2022-05-29 09:03 | disposition home or self-care (01) ==
LOC: EC 05:58
DX: U07.1 COVID-19 (principal); E86.0 Dehydration; J44.9 Chronic obstructive pulmonary disease, unspecified; E11.9 Type 2 diabetes mellitus without complications; I25.10 Atherosclerotic heart disease of native coronary artery without angina pectoris; I25.2 Old myocardial infarction; F41.9 Anxiety disorder, unspecified; Z79.82 Long term (current) use of aspirin; Z79.4 Long term (current) use of insulin
CPT/HCPCS: 80053; 83605; 83690; 85025; 71046; 99285; J2405; S0119; 36415